=== PATIENT | male | born 1965 | race Caucasian/White ===

== ENCOUNTER 2022-07-15 01:00 | Day surgery (SDC) | payer BC, SELFPAY ==
[2022-05-28 08:55] VITALS: BMI 27.6
--- NOTE | 2022-06-14 14:44 | PC.NURSE ---
verified new date and time of procedure with pt and Janiya. Pt denied any changes in medications or medical hx. pt denies questions.
[2022-07-15] MEDS: LACTATED RINGERS 1,000 ML 150 ML IV CONT (08:09)
[2022-07-15 08:14] LABS: Glucose Point of Care 141 mg/dl (65-105)
[2022-07-15 08:17] VITALS: BP 138/99; PULSE 101; RESP 18; TEMP 35.9; O2SAT 97
--- NOTE | 2022-07-15 08:25 | P.PNAN_ITS ---
Anes - Initial Pre Proc Eval Procedure: Operation Date: 07/15/22 09:00 Proposed Procedures p Screening Colonoscopy - Hayden Puentes MD Date/Time: 07/15/22 08:25 Surgeon: Hayden Puentes MD Pre Op Diagnosis: family hx of colon ca Patient Data Age: 57 Gender: M Height: 1.8 m Weight: 108.8 kg Last Vital Signs Temp 96.6 F L 07/15/22 08:17 Pulse 101 H 07/15/22 08:17 Resp 18 07/15/22 08:17 BP 138/99 H 07/15/22 08:17 Pulse Ox 97 07/15/22 08:17 O2 Del Method Room Air 07/15/22 08:17 Allergies Allergy/AdvReac Type Severity Reaction Status Date / Time Cephalosporins Allergy Severe Anaphylactic Verified 07/15/22 08:03 Shock ceftriaxone Allergy Unknown Anaphylactic Verified 07/15/22 08:03 Shock Home Medications Medication Instructions Recorded Confirmed Type alprazolam 1 mg tablet 1 mg PO TID PRN Anxiety 09/12/19 07/15/22 History lamotrigine 200 mg tablet 200 mg PO BID 09/12/19 07/15/22 History metformin 500 mg tablet See Rx Instructions PO BID #360 09/19/19 07/15/22 Rx tabs rizatriptan 10 mg tablet See Rx Instructions PO .COMPLEX 09/19/19 07/15/22 Rx #30 tabs testosterone cypionate 200 mg/mL 200 mg IM .Q2W #10 mL 12/20/19 07/15/22 Rx intramuscular oil ergocalciferol (vitamin D2) 1,250 See Rx Instructions .Route 10/07/20 07/15/22 Rx mcg (50,000 unit) capsule .COMPLEX #12 caps hydrocodone 10 mg-acetaminophen 1 tablet PO Q6H PRN Pain 07/15/22 07/15/22 History 325 mg tablet Laboratory Tests 07/15/22 08:11 POC Capillary Glucose 141 mg/dl H mg/dl (65-105) Patient hx anesthesia problems: none Family hx anesthesia problems: none Results Review: All pre-operative results and documents have been reviewed as part of the pre- operative evaluation. [facility] Past Medical History Medical History (Updated 01/17/20 @ 14:01 by Jhon Delgadillo MD) Ataxia Migraine without aura Mixed hyperlipidemia Obstructive sleep apnea on CPAP Family History Family History (Updated 03/21/19 @ 15:17 by DOCTOR UNKNOWN) Mother Patient's mother is , Onset Age: 80 Father Carcinoma of colon Social History Social History Smoking status: Former smoker Smokeless tobacco user: chewing tobacco Alcohol intake: never Substance use type: does not use Living arrangements: with family Anes - [place] Final PreProcedure Day of Procedure 07/15/22 08:25 Patient weight: obese Heart: regular rate and rhythm Lungs: clear to auscultation Airway: Mallampati scale class II Neurological: alert and oriented Last oral intake: >/= 8 hours ASA classification: II Emergent: no Anesthetic plan: proceed Anesthesia type and monitoring: general GIVS and standard monitoring Results Review: All pre-operative results and documents have been reviewed as part of the pre- operative evaluation. Informed Consent: The patient's anesthetic plan and its attendant risks and benefits were discussed with the patient/family/POA. Questions were solicited and answers provided to the satisfaction of the patient/family/POA.
--- NOTE | 2022-07-15 08:27 | PM.IMHP ---
H&P: HPI History of Present Illness Date/Time: 07/15/22 08:27 Chief Complaint: Family history of colon cancer. Narrative: This is a 57-year-old white male patient who presents for screening colonoscopy. Patient's current weight appetite and bowel movements are normal. He denies abdominal pain. Patient has had no bleeding. Family history is significant his father had colon cancer while still in his 40s. Patient's last colonoscopy was unremarkable. Patient presents today for neoplasia screening. Review of Systems Review of Systems: Review of systems noncontributory. [facility] Past Medical History Medical History (Updated 07/15/22 @ 08:28 by Hayden Puentes MD) Ataxia Migraine without aura Mixed hyperlipidemia Obstructive sleep apnea on CPAP Family History Family History (Updated 03/21/19 @ 15:17 by DOCTOR UNKNOWN) Mother Patient's mother is , Onset Age: 80 Father Carcinoma of colon Social History Social History Smoking status: Former smoker Smokeless tobacco user: chewing tobacco Alcohol intake: never Substance use type: does not use Living arrangements: with family Meds Home Medications and Allergies Home Medications Medication Instructions Recorded Confirmed Type alprazolam 1 mg tablet 1 mg PO TID PRN Anxiety 09/12/19 07/15/22 History lamotrigine 200 mg tablet 200 mg PO BID 09/12/19 07/15/22 History metformin 500 mg tablet See Rx Instructions PO BID #360 09/19/19 07/15/22 Rx tabs rizatriptan 10 mg tablet See Rx Instructions PO .COMPLEX 09/19/19 07/15/22 Rx #30 tabs testosterone cypionate 200 mg/mL 200 mg IM .Q2W #10 mL 12/20/19 07/15/22 Rx intramuscular oil ergocalciferol (vitamin D2) 1,250 See Rx Instructions .Route 10/07/20 07/15/22 Rx mcg (50,000 unit) capsule .COMPLEX #12 caps hydrocodone 10 mg-acetaminophen 1 tablet PO Q6H PRN Pain 07/15/22 07/15/22 History 325 mg tablet Allergies Allergy/AdvReac Type Severity Reaction Status Date / Time Cephalosporins Allergy Severe Anaphylactic Verified 07/15/22 08:03 Shock ceftriaxone Allergy Unknown Anaphylactic Verified 07/15/22 08:03 Shock Vital Signs Vital Signs - 24 hr 07/15/22 08:17 Temperature 96.6 F L Pulse Rate 101 H Respiratory Rate 18 Blood Pressure 138/99 H Pulse Oximetry 97 Oxygen Delivery Room Air Exam Narrative: Physical exam reveals patient to be alert. Vital signs stable. HEENT exam is unremarkable. Patient is anicteric. Lungs are clear to auscultation and percussion. Heart is without murmur or extra sounds. Abdomen bowel sounds are present soft nontender with no organomegaly. Digital external rectal exam is normal. Assessment and Plan Assessment and plan (1) Family history of colon cancer in father: Code(s): Z80.0 - Family history of malignant neoplasm of digestive organs Status: Acute Assessment and Plan: Patient's father had colon cancer while in his 40s. Plan is for surveillance colonoscopy now and consider this at 5 year intervals in the future.
[2022-07-15 08:51] VITALS: BP 123/81; PULSE 95; RESP 15; O2SAT 97
[2022-07-15 09:01] VITALS: BP 141/80; PULSE 83; RESP 23; O2SAT 97
[2022-07-15 09:11] VITALS: BP 117/88; PULSE 78; RESP 19; O2SAT 97
== END 2022-07-15 09:18 | disposition home or self-care (01) ==
PROVIDERS: PCP Nurse Practitioner; Visit Provider Internal Medicine Gastroenterology
PROC: 0DJD8ZZ Inspection of Lower Intestinal Tract, Via Natural or Artificial Opening Endoscopic (ICD-10-PCS; CPT 45378; principal; 2022-07-15 09:00)
DX: Z12.11 Encounter for screening for malignant neoplasm of colon (principal); K64.8 Other hemorrhoids; Z80.0 Family history of malignant neoplasm of digestive organs; E78.2 Mixed hyperlipidemia; G47.33 Obstructive sleep apnea (adult) (pediatric); Z79.84 Long term (current) use of oral hypoglycemic drugs; Z87.891 Personal history of nicotine dependence; E66.9 Obesity, unspecified; Z68.33 Body mass index [BMI] 33.0-33.9, adult
CPT/HCPCS: 45378; 82948; J2704; J7120

== ENCOUNTER 2023-10-24 15:58 | Observation (INO) | payer BC, SELFPAY ==
[2023-10-24] VITALS (46 sets, daily range): BP systolic 105–145; BP diastolic 71–88; PULSE 104–150; RESP 12–25; TEMP 36.6–38.7; O2SAT 83–98
--- NOTE | ~2023-10-24 | XR_ITS ---
EXAMINATION: XR chest 1V portable 10/24/2023 17:09 INDICATION: Shortness of breath and cough PROCEDURE: AP portable chest COMPARISON: Comparison to multiple prior studies sequentially, with oldest reviewed study dated 11/2006. FINDINGS: The lungs are clear. The cardiomediastinal silhouette is within normal limits. There are no pleural effusions. There is no pneumothorax suspected. IMPRESSION: 1: NO ACUTE CARDIOPULMONARY DISEASE. Reviewed, dictated and finalized at location A. [employer]
--- NOTE | ~2023-10-24 | CT_ITS ---
EXAMINATION: CTA chest PE protocol DATE: 10/24/2023 18:08 [employer]CUE INDICATION: Shortness of breath. TECHNIQUE: Computed tomographic angiography (CTA) of the chest was performed with 100 mL Omnipaque-35 0 intravenous contrast. The dose-length product was 1993.30 mGy-cm. Maximum intensity projection 3D-r econstructions of the aorta and other arteries were constructed by the technologist on a separate wor kstation. Automated exposure control and iterative reconstruction technique were employed. COMPARISON: Chest x-ray dated 10/24/2023. FINDINGS: Study is suboptimal. No large central pulmonary embolism. Cannot exclude lower lobe pulmona ry embolism. Cardiomegaly. Bilateral lower lobe airspace disease which may represent atelectasis or p neumonia. No pneumothorax. No endobronchial lesions. No thoracic lymphadenopathy. IMPRESSION: 1. No large central pulmonary embolism. Limited study. 2: Bilateral lower lobe airspace consolidation which may represent atelectasis or pneumonia. Reviewed, dictated and finalized at location A. [facility] [employer] [facility]
--- NOTE | 2023-10-24 16:09 | ECG_ITS ---
Measurements Intervals Bee Rate: 145 P: 49 IA: 147 QRS: -43 QRSD: 93 T: 54 QT: 285 QTc: 444 Interpretive Statements SINUS TACHYCARDIA, POSSIBLE ATRIAL FLUTTER MARKED LEFT AXIS DEVIATION [QRS AXIS < -30] LOW QRS VOLTAGE IN PRECORDIAL LEADS [QRS DEFLECTION < 1.0 mV IN CHEST LEADS] S1-S2-S3 PATTERN, CONSISTENT WITH PULMONARY DISEASE, RVH, OR NORMAL VARIANT INCOMPLETE RIGHT BUNDLE BRANCH BLOCK [90+ ms QRS DURATION, TERMINAL R IN V1/V2, 40+ ms S IN I/aVL/V4/V5/V6] POSSIBLE ANTERIOR MYOCARDIAL INFARCTION , PROBABLY OLD [30 ms Q WAVE IN V3/V4, OR R < 0.2 mV IN V4] ABNORMAL ECG NO PREVIOUS ECG AVAILABLE FOR COMPARISON Electronically Signed On 10-24-2023 17:29:48 FREELANCE DIRECTOR by Ronald Gonzalez M.D.
[2023-10-24] MEDS: SODIUM CHLORIDE 0.9% IV 2,000 ML 999 ML (16:23)
[2023-10-24] MEDS: ALBUTEROL SULFATE NEB 2.5 MG/3 ML INH 15 MG INHALATION (16:26)
[2023-10-24] MEDS: IPRATROPIUM BR 0.02% INH SOLN 0.5 MG/2.5 ML VIAL 1.5 MG INHALATION (16:26)
[2023-10-24 16:44] LABS: Basophils Percent Auto 0.2 % (0.2-1.2); Eosinophils Percent Auto 0.1 % (0-4.4); Hematocrit 46.2 % (42.0-52.0); Hemoglobin 14.6 g/dL (14.0-18.0); Immature Granulocyte Absolute 0.03 K/mm3 (0.00-0.031); Immature Granulocyte Percent A 0.4 % (0-0.5); Lymphocytes Absolute Auto 1.02 K/mm3 (0.9-3.2); Lymphocytes Percent Auto 12.7 % (18.3-44.2); Mean Corpuscular HGB Conc 31.6 g/dl (32-36); Mean Corpuscular Hemoglobin 30.1 pg (26-34); Mean Corpuscular Volume 95.3 fl (80-100); Mean Platelet Volume 11.2 fl (7.4-10.4); Monocytes Absolute Auto 0.4 K/mm3 (0.1-0.6); Monocytes Percent Auto 4.4 % (2.6-8.5); Neutrophils Absolute Auto 6.6 K/mm3 (1.3-6.7); Neutrophils Percent Auto 82.2 % (45.5-73.1); Platelet Count Result 192 k/mm3 (150-375); Red Blood Count 4.85 M/mm3 (4.6-6.20); Red Cell Distribution Width 14.8 % (11.5-14.5)
--- NOTE | 2023-10-24 16:54 | PC.NURSE ---
Pt tolerating hour long resp treatment. Encourage to slow deep breaths
[2023-10-24 16:55] LABS: Lactic Acid Reflex 1.8 mmol/L (0.7-2.0)
[2023-10-24 16:56] LABS: Alanine Aminotransferase 32 U/L (6-50); Albumin Level 4.5 g/dL (3.5-5.1); Alkaline Phosphatase 73 U/L (38-126); Anion Gap 11 mmol/L (8-16); Aspartate Amino Transferase 26 U/L (17-59); Bilirubin,Total 0.5 mg/dL (0.2-1.3); Blood Urea Nitrogen 15 mg/dL (9-20); CRP 2.8 mg/dL (<1.0); Carbon Dioxide 26 mmol/L (22-30); Chloride 99 mmol/L (98-107); Estimated CRCL calculation 98 ml/min; Estimated Glomerular Filt Rate > 60; Glucose 184 mg/dL (65-110); INR 0.9; Potassium 4.5 mmol/L (3.4-5.0); Prothrombin Time 12.7 Seconds (11.1-14.7); Sodium 136 mmol/L (137-145)
[2023-10-24 16:57] LABS: Partial Thromboplastin Time 29.1 SECONDS (22.3-36.8)
[2023-10-24 17:05] LABS: Troponin I < 0.012 ng/mL (0.000-0.034)
[2023-10-24] MEDS: ACETAMINOPHEN 500 MG TABLET 1000 MG PO (18:07)
[2023-10-24 18:08] LABS: Influenza A QL RT-PCR Negative (Negative); Influenza B QL RT-PCR Negative (Negative); SARS-CoV-2 RNA PCR Negative (Negative)
--- NOTE | 2023-10-24 18:40 | ED.GENADULT ---
HPI - General Adult General Chief complaint: Upper Respiratory Infection Stated complaint: low O2 sat Time Seen by Provider: 10/24/23 16:09 History of Present Illness HPI narrative: patient is a 58-year-old male who presents ER for [place] with low oxygen saturation elevated heart rate. Patient reports feeling bad for over week but reports over last 3 days he significantly declined. He has been coughing and has been dyspneic. No known sick contacts. No chest pain or chest pressure. No alleviating factors. Related Data Home Medications Medication Instructions Recorded Confirmed alprazolam 1 mg tablet 1 mg PO TID PRN Anxiety 09/12/19 07/15/22 lamotrigine 200 mg tablet 200 mg PO BID 09/12/19 07/15/22 hydrocodone 10 mg-acetaminophen 1 tablet PO Q6H PRN Pain 07/15/22 07/15/22 325 mg tablet Allergies Allergy/AdvReac Type Severity Reaction Status Date / Time Cephalosporins Allergy Severe Anaphylactic Verified 07/15/22 08:03 Shock ceftriaxone Allergy Unknown Anaphylactic Verified 07/15/22 08:03 Shock Review of Systems Review of Systems: All systems reviewed & are unremarkable except as noted in HPI and below Constitutional: Constitutional: Reports chills, Reports fatigue and Reports fever(s) ENT: Reports system reviewed and no additional complaints, except as documented Cardiovascular: Cardiovascular: Denies chest pain, Reports rapid heart rate and Denies radiating jaw, neck or arm pain Respiratory: Respiratory: Reports chest congestion, Reports cough, Reports dyspnea and Reports wheezing Gastrointestinal: Gastrointestinal: Reports no additional gastrointestinal complaints Genitourinary: Genitourinary: Reports no additional male genitourinary complaints [facility] Past Medical History Medical History (Updated 10/24/23 @ 18:43 by Luis Alfredo Bryant MD) Ataxia Migraine without aura Mixed hyperlipidemia Obstructive sleep apnea on CPAP Family History Family History (Updated 03/21/19 @ 15:17 by DOCTOR UNKNOWN) Mother Patient's mother is , Onset Age: 80 Father Carcinoma of colon Social History Social History Smoking status: Former smoker Smokeless tobacco user: chewing tobacco Alcohol intake: never Substance use type: does not use Living arrangements: with family Exam Narrative: GENERAL: Well-appearing, obese, and in no acute distress. HEAD: Normocephalic, atraumatic. ENT: Mucous membranes moist. NECK: Supple. CHEST: Coarse rales bilaterally with increased respiratory rate. HEART: Tachycardic and regular. Normal peripheral pulses. ABDOMEN: Soft, nontender, nondistended. EXTREMITIES: Normal range of motion. No edema. SKIN: Warm, dry, no rash. NEURO: Alert and oriented x3. PSYCH: Normal mood and affect. Course Course Emergency Course: patient informed of results. He has been given an hour long nebulizer treatment but is still quite tachycardic. He has spiked a temperature received Tylenol. CT without large central PE. Symptoms felt to be related to pneumonia. Patient was some ice for allergy in the causes anaphylaxis so he was started on Levaquin. Admit to the hospitalist service. Will place in IMU. Vital Signs Vital signs: Vital Signs Temperature 99.4 F 10/24/23 16:00 Pulse Rate 150 H 10/24/23 16:00 Respiratory Rate 20 10/24/23 16:00 Blood Pressure 138/85 10/24/23 16:00 Pulse Oximetry 83 L 10/24/23 16:00 Oxygen Delivery Room Air 10/24/23 16:00 Temperature 99.0 F 10/24/23 18:52 Pulse Rate 134 H 10/24/23 18:52 Respiratory Rate 20 10/24/23 18:52 Blood Pressure 139/79 10/24/23 18:52 Pulse Oximetry 91 10/24/23 18:52 Oxygen Delivery Nasal Cannula 10/24/23 16:43 Oxygen Flow Rate 2 10/24/23 16:43 Medical Decision Making Vital Signs Vital Signs: Vital Signs Temperature 99.4 F 10/24/23 16:00 Pulse Rate 150 H 10/24/23 16:00 Respiratory Rate 20 10/24/23 16:00 Blood Pr
[2023-10-24 18:48] LABS: Appearance Urine Clear (Clear); Bacteria Urine None Seen /hpf; Bilirubin Urine Negative (Negative); Blood Urine Negative (Negative); Color Urine Yellow (Yellow); Glucose Urine UA Negative (Negative); Ketones Urine Negative (Negative); Leukocyte Esterase Ur Negative LEU/UL (Negative); Nitrate Urine Negative (Negative); Non Pathogenic Casts 0-2; Protein Urine Trace mg/dL (Negative); RBC Urine 0-2 /hpf (0-2); Specific Grav Ur 1.029 (1.001-1.035); Squamous Epithelial Cell Urine None seen /hpf (Few); Urobilinogen Urine 0.2 mg/dL (<2.0); WBC Urine 0-5 /hpf; pH Urine 5.5 (5.0-9.0)
[2023-10-24] MEDS: levoFLOXacin 750 MG/D5W 150 ML 750 MG/150 ML BAG 100 MG IVPB (18:54)
[2023-10-24 18:55] LABS: Add Urine Microscopic? YES
--- NOTE | 2023-10-24 19:27 | PM.IMHP ---
H&P: HPI History of Present Illness Date/Time: 10/24/23 19:27 Chief Complaint: sob Narrative: This is a 58-year-old male with past medical history significant for type 2 diabetes mellitus, migraine, mixed hyperlipidemia, obstructive sleep apnea on CPAP. Patient presents to the emergency room due to having a week or so of night sweats, shortness of breath, cough productive of sputum, poor appetite, poor per orally intake, in emergency room patient was found to be hypoxic requiring supplemental oxygen by nasal cannula. Preliminary workup in emergency room was significant for CT of the chest ruled out acute pulmonary embolism patient was found to have bilateral lower lobe pneumonia. EXAMINATION: XR chest 1V portable 10/24/2023 17:09 INDICATION: Shortness of breath and cough PROCEDURE:? AP portable chest COMPARISON: Comparison to multiple prior studies sequentially, with oldest reviewed study dated? 01/05/2007. FINDINGS: The lungs are clear.? The cardiomediastinal silhouette is within normal limits.? There are no pleural effusions.? There is no pneumothorax suspected.? IMPRESSION: 1:? NO ACUTE CARDIOPULMONARY DISEASE. EXAMINATION: CTA chest PE protocol DATE: 10/24/2023 18:08 [employer]GS[employer] LINER INDICATION: Shortness of breath. TECHNIQUE: Computed tomographic angiography (CTA) of the chest was performed with 100 mL Omnipaque-350 intravenous contrast. The dose-length product was 1993.30 mGy-cm. Maximum intensity projection 3D-reconstructions of the aorta and other arteries were constructed by the technologist on a separate workstation. Automated exposure control and iterative reconstruction technique were employed. COMPARISON: Chest x-ray dated 10/24/2023. FINDINGS: Study is suboptimal. No large central pulmonary embolism. Cannot exclude lower lobe pulmonary embolism. Cardiomegaly. Bilateral lower lobe airspace disease which may represent atelectasis or pneumonia. No pneumothorax. No endobronchial lesions. No thoracic lymphadenopathy. IMPRESSION: 1. No large central pulmonary embolism. Limited study. 2: Bilateral lower lobe airspace consolidation which may represent atelectasis or pneumonia. Review of Systems Review of Systems: Shortness of breath, cough, sputum production, generalized malaise, back pain, body aches and pains, night sweats Constitutional: Constitutional: Reports chills, Reports fatigue, Reports fever(s), Reports malaise, Reports night sweats, Reports poor appetite and Reports weakness Eyes: Eyes: Denies change in vision ENT: Denies dysphagia and Denies odynophagia Cardiovascular: Cardiovascular: Denies chest pain, Denies radiating jaw, neck or arm pain and Denies palpitations Respiratory: Respiratory: Reports change in phlegm color, Reports chest congestion, Reports cough, Reports excessive phlegm production, Reports dyspnea and Reports wheezing Gastrointestinal: Gastrointestinal: Denies abdominal pain, Denies dyspepsia, Denies heartburn, Denies nausea and Denies vomiting Genitourinary: Genitourinary: Reports no additional male genitourinary complaints and Reports as per HPI Musculoskeletal: Musculoskeletal: Reports back pain and Reports myalgias Integumentary/Breasts: Skin/Breast: Denies rash Neurologic: Denies focal weakness and Denies Sensory deficit (Neuro) Psychiatric: Psychiatric: Reports no additional psychiatric complaints and Reports as per HPI Endocrine: Endocrine: Denies cold intolerance, Denies fatigue, Denies flushing, Denies heat intolerance, Denies polyphagia, Denies polydipsia and Denies palpitations Hematologic/Lymphatic: Hematologic/Lymphatic: Reports no additional hematologic/lymphatic complaints and Reports as per HPI Allergic/Immunologic: Allergic/Immunologic: Reports no additional allergic/immunologic complaints and Reports as per HPI PMFSH Past Medical History Medical History (Updated 10/24/23 @ 18:43 by Luis Alfredo Bryant MD) Ataxia Migraine without aura Mixed hyperlip
--- NOTE | 2023-10-24 19:32 | PC.NURSE ---
Assumed care of pt. Report from SHY Wasserman. Pt attempting to sleep on right side. Reconnected to monitors. O2 @ 3.5 liters and sats 92% at this time. Requesting medication for headache. Will request from ERP.
--- NOTE | 2023-10-24 20:39 | PC.NURSE ---
Medications marked as not given in MAR at 2037 were told to this RN by Lisy that they were not administered due to duplicate dosing and change in order. MAR cleanup.
[2023-10-24] MEDS: SODIUM CHLORIDE 0.9% IV 1,000 ML 125 ML IV CONT (21:34)
[2023-10-24] MEDS: SUMAtriptan SUCCINATE 25 MG TABLET 50 MG PO (21:37)
--- NOTE | 2023-10-24 22:01 | PC.NURSE ---
Hospital bed obtained for pt for comfort.
[2023-10-25] VITALS (35 sets, daily range): BP systolic 129–166; BP diastolic 71–94; PULSE 88–118; RESP 14–22; TEMP 36.4–37; O2SAT 93–99
--- NOTE | 2023-10-25 00:09 | PC.NURSE ---
Reports weaver remains 05/16. Will give additional medications per MAR.
[2023-10-25] MEDS: MORPHINE SULFATE (*CRX) 2 MG/ML INJ IV PUSH ×4 (00:27→21:05)
[2023-10-25] MEDS: HYDROcodone/acetaminophen (*CRX) 5-325 MG TABLET 1 TAB PO ×2 (02:58→09:20)
[2023-10-25] MEDS: SODIUM CHLORIDE 0.9% IV 1,000 ML 125 ML IV CONT (03:04)
--- NOTE | 2023-10-25 03:26 | ADMGEN ---
This patient, Toney Lomeli, was admitted to IMU Room 212-01. @ 0241 Patient/family oriented to hospital policies and general routines including ID bracelet, bed and alarms, visiting hours, pain management, procedures, bathroom and other care routines, personal items, smoking policy, room service/diet, and visiting hours. Information on how to activate the Rapid Response Team has been discussed. Patient/Family are encouraged to report perceived risks to care and to ask questions if they do not understand what they are told or what they should do.
[2023-10-25] MEDS: ALBUTEROL SULFATE NEB 2.5 MG/3 ML INH INHALATION ×5 (04:19→20:50)
[2023-10-25] MEDS: IPRATROPIUM BR 0.02% INH SOLN 0.5 MG/2.5 ML VIAL INHALATION ×5 (04:20→20:50)
[2023-10-25] MEDS: ENOXAPARIN 40 MG/0.4 ML SYRINGE SUB-Q (09:22)
--- NOTE | 2023-10-25 10:52 | PM.IMPN ---
Progress Note: A&P Assessment and Plan (1) Pneumonia: Code(s): J18.9 - Pneumonia, unspecified organism Status: Acute Assessment and Plan: Patient started on Decadron x 1 dose, as well as Levaquin 750 mg qd 10/24 Blood and sputum culture sent and pending CRP elevated, lactate within normal limits, procalcitonin pending Flu/RSV/COVID all negative Chest CTA negative for PE, concerning for mild bilateral lower lobe airspace consolidation concerning for atelectasis versus pneumonia Incentive spirometer to bedside (2) Hypoxia: Code(s): R09.02 - Hypoxemia Status: Acute Assessment and Plan: Wean as able (3) Obstructive sleep apnea on CPAP: Code(s): G47.33 - Obstructive sleep apnea (adult) (pediatric); Z99.89 - Dependence on other enabling machines and devices Status: Acute Assessment and Plan: CPAP while sleeping (4) Type 2 diabetes mellitus without complication, without long-term current use of insulin: Code(s): E11.9 - Type 2 diabetes mellitus without complications Status: Acute Assessment and Plan: Accu-Cheks, sliding scale insulin, check A1c, hold metformin Blood glucose reviewed 10/25 Plan DVT prophylaxis with Lovenox GI prophylaxis not indicated Code status full code Subjective Date/time seen: 10/25/23 10:52 Interval history: 58-year-old male with history of diabetes, obstructive sleep apnea, hyperlipidemia and migraines is presenting with shortness of breath and being treated for pneumonia. No overnight events noted. No chest pain. No nausea, vomiting or diarrhea. No fevers or chills. C/o SOB, improved. BLANKENSHIP, improving as well. Review of Systems Review of Systems: 12 point review of systems was assessed and was negative except as noted in the HPI Exam Narrative: General: No acute distress, alert and oriented per baseline HEENT: Atraumatic, normocephalic, mucous membranes moist CV: Regular rate and rhythm, S1, S2 Lungs: Scattered rhonchi throughout, diminished at bases Abdomen: Soft, nontender, nondistended Extremities: Normal to inspection Skin: No rashes noted, no lesions or wounds seen Psych: Euthymic, normal affect Objective Data Vital Signs Vital Signs: Vital Signs - 24 hr 10/24/23 16:00 10/24/23 16:30 10/24/23 17:30 Temperature 99.4 F Pulse Rate 150 H 137 H 142 H Respiratory Rate 20 19 22 H Blood Pressure 138/85 Pulse Oximetry 83 L Oxygen Delivery Room Air Oxygen Flow Rate 10/24/23 16:43 10/24/23 16:54 10/24/23 17:43 Temperature 99.5 F 101.7 F H Pulse Rate 140 H 135 H Respiratory Rate 20 24 H Blood Pressure 144/85 H 145/84 H Pulse Oximetry 95 98 98 Oxygen Delivery Nasal Cannula Oxygen Flow Rate 2 10/24/23 18:52 10/24/23 19:31 10/24/23 16:14 Temperature 99.0 F Pulse Rate 134 H 145 H Respiratory Rate 20 Blood Pressure 139/79 Pulse Oximetry 91 92 93 Oxygen Delivery Nasal Cannula Oxygen Flow Rate 3.5 10/24/23 16:15 10/24/23 16:16 10/24/23 16:30 Temperature Pulse Rate 143 H 146 H 141 H Respiratory Rate 14 15 19 Blood Pressure 142/83 H Pulse Oximetry 92 92 97 Oxygen Delivery Oxygen Flow Rate 10/24/23 16:45 10/24/23 17:08 10/24/23 17:20 Temperature Pulse Rate 142 H Respiratory Rate 17 Blood Pressure Pulse Oximetry 98 95 Oxygen Delivery Oxygen Flow Rate 10/24/23 17:39 10/24/23 18:12 10/24/23 18:17 Temperature Pulse Rate 143 H 140 H Respiratory Rate 21 H 17 Blood Pressure Pulse Oximetry 90 94 94 Oxygen Delivery Oxygen Flow Rate 10/24/23 18:30 10/24/23 18:45 10/24/23 18:54 Temperature Pulse Rate 137 H Respiratory Rate 14 Blood Pressure 137/79 Pulse Oximetry 90 87 L 90 Oxygen Delivery Oxygen Flow Rate 10/24/23 19:00 10/24/23 19:01 10/24/23 19:22 Temperature Pulse Rate 124 H Respiratory Rate 16 Blood Pressure 126/78 Pulse Oximetry
[2023-10-25 11:31] LABS: Hemoglobin A1C 5.9 % (<5.7)
[2023-10-25 12:24] LABS: Procalcitonin 4.5 ng/mL
[2023-10-25] MEDS: levoFLOXacin 750 MG/D5W 150 ML 750 MG/150 ML BAG 100 MG IVPB (21:05)
--- NOTE | 2023-10-26 00:50 | PC.NURSE ---
Transfer patient received from IMU room 212; Report received from SHY Matias.
[2023-10-26] MEDS: MORPHINE SULFATE (*CRX) 2 MG/ML INJ IV PUSH (03:14)
[2023-10-26 03:20] VITALS: PULSE 89; RESP 18
[2023-10-26] MEDS: ALBUTEROL SULFATE NEB 2.5 MG/3 ML INH INHALATION ×2 (03:20→11:56)
[2023-10-26] MEDS: IPRATROPIUM BR 0.02% INH SOLN 0.5 MG/2.5 ML VIAL INHALATION ×2 (03:20→11:56)
[2023-10-26 03:26] VITALS: PULSE 93; RESP 18
[2023-10-26 04:43] VITALS: BP 138/86; PULSE 115; RESP 16; TEMP 37; O2SAT 93
[2023-10-26 06:17] LABS: Basophils Percent Auto 0.2 % (0.2-1.2); Eosinophils Percent Auto 0.3 % (0-4.4); Hematocrit 39.7 % (42.0-52.0); Hemoglobin 12.7 g/dL (14.0-18.0); Immature Granulocyte Absolute 0.04 K/mm3 (0.00-0.031); Immature Granulocyte Percent A 0.4 % (0-0.5); Lymphocytes Absolute Auto 1.45 K/mm3 (0.9-3.2); Lymphocytes Percent Auto 13.5 % (18.3-44.2); Mean Corpuscular Hemoglobin 30.2 pg (26-34); Mean Corpuscular Volume 94.3 fl (80-100); Mean Platelet Volume 11.2 fl (7.4-10.4); Monocytes Absolute Auto 0.5 K/mm3 (0.1-0.6); Monocytes Percent Auto 4.5 % (2.6-8.5); Neutrophils Absolute Auto 8.8 K/mm3 (1.3-6.7); Neutrophils Percent Auto 81.1 % (45.5-73.1); Platelet Count Result 181 k/mm3 (150-375); Red Blood Count 4.21 M/mm3 (4.6-6.20); Red Cell Distribution Width 14.8 % (11.5-14.5); White Blood Count 10.8 K/mm3 (4.5-10.0)
[2023-10-26 06:38] LABS: Alanine Aminotransferase 23 U/L (6-50); Albumin Level 4.1 g/dL (3.5-5.1); Alkaline Phosphatase 62 U/L (38-126); Anion Gap 12 mmol/L (8-16); Aspartate Amino Transferase 20 U/L (17-59); Bilirubin,Total 0.4 mg/dL (0.2-1.3); Blood Urea Nitrogen 12 mg/dL (9-20); Carbon Dioxide 24 mmol/L (22-30); Chloride 99 mmol/L (98-107); Estimated CRCL calculation 120 ml/min; Estimated Glomerular Filt Rate > 60; Glucose 127 mg/dL (65-110); Potassium 3.9 mmol/L (3.4-5.0); Sodium 135 mmol/L (137-145)
[2023-10-26] MEDS: ENOXAPARIN 40 MG/0.4 ML SYRINGE SUB-Q (07:14)
[2023-10-26] MEDS: SUMAtriptan SUCCINATE 25 MG TABLET 50 MG PO (07:14)
[2023-10-26] MEDS: oxyCODONE/ACETAMINOPHEN (*CRX) 5-325 MG TABLET 1 TABLET PO ×2 (08:28→12:32)
--- NOTE | 2023-10-26 10:52 | PCRCNOTE ---
Window of time for administration has passed. See next scheduled administration.
--- NOTE | 2023-10-26 11:28 | PM.DS ---
DS: Admitting Diagnosis Discharge Date 10/26/23 Admitting Diagnosis SOB, cough DS: Discharge Diagnosis Discharge Diagnosis (1) Sepsis: Code(s): A41.9 - Sepsis, unspecified organism Status: Acute (2) Pneumonia: Code(s): J18.9 - Pneumonia, unspecified organism Status: Acute (3) Hypoxia: Code(s): R09.02 - Hypoxemia Status: Acute (4) Obstructive sleep apnea on CPAP: Code(s): G47.33 - Obstructive sleep apnea (adult) (pediatric); Z99.89 - Dependence on other enabling machines and devices Status: Acute (5) Type 2 diabetes mellitus without complication, without long-term current use of insulin: Code(s): E11.9 - Type 2 diabetes mellitus without complications Status: Acute DS: Summary Hospital Course Reason for hospitalization: 58yo male with history of DM, SHAKIR, hyperlipidemia and migraines presents with shortness of breath and cough. Please see H&P for details. Hospital Course: Patient had fever to 101.7 and was tachycardic consistent with sepsis that was present on admission. EKG showed sinus tachycardia possibly atrial flutter, incomplete right bundle-branch block, possible RVH, possible anterior FL probably old. Blood cultures collected and are no growth to date. He was started on antibiotics. Chest x-ray was clear which prompted a CT of the chest. CTA showed no large central pulmonary emboli but did show bilateral lower lobe airspace consolidation atelectasis or pneumonia. White count was normal and the remainder of the CBC was unremarkable. Comprehensive metabolic panel was normal except for sodium 136, glucose 184. Troponins negative. CRP was 2.8. Procalcitonin was 4.5. Urinalysis was clear. Influenza and COVID PCR swab was negative. He had oxygen requirement up to 3.5 L. was treated with nebulizer treatments and IV antibiotics for PNA. He was weaned to room air. PCT elevated but BCx remain negative. Glucose improved. A1c was 5.9. He was not felt patient had atrial flutter. Patient had clinical improvement. He denies chest pain. His cough is much improved. He does feel achy and is sleeping poorly here. He feels better overall and is requesting discharge. Patient has been weaned to room air. He has been up ambulating in the halls. He overall did well and was able to be discharged on 10/26/2023. Status at Discharge Cognitive/behavioral status at discharge: stable Time Spent with Patient Time attestation: Total time spent providing and/or coordinating discharge services: 35 minutes Time spent: Greater than 30 minutes Exam Narrative: AF 98.6 138/86 115 16 93% ra Gen - NARD lying semi-recumbent in bed Chest - R>L inspiratory crackles, nml RR CV - RRR S1/S2 Abd - Soft, NT/ND, Positive BS Ext - No pedal edema Psych - Nml mood and affect Skin - Warm and dry DS: Data Data Completed and Pending Labs on day of discharge: Labs from last 24 hours 10/26/23 10/25/23 05:03 11:08 WBC 10.8 H RBC 4.21 L Hgb 12.7 L Hct 39.7 L MCV 94.3 MCH 30.2 MCHC 32.0 RDW 14.8 H Plt Count 181 MPV 11.2 H Immature Gran % (Auto) 0.4 Neut % (Auto) 81.1 H Lymph % (Auto) 13.5 L Lamar % (Auto) 4.5 Eos % (Auto) 0.3 Baso % (Auto) 0.2 Lymph # (Auto) 1.45 Lamar # (Auto) 0.5 Eos # (Auto) 0.0 Baso # (Auto) 0.0 Abs Immat Gran (auto) 0.04 H Absolute Neuts (auto) 8.8 H Absolute Nucleated RBC 0.0 Nucleated RBC % 0.0 Sodium 135 L Potassium 3.9 Chloride 99 Carbon Dioxide 24 Anion Gap 12 BUN 12 Creatinine 0.80 Estim Creat Clear Calc 120 Estimated GFR > 60 Glucose 127 H Hemoglobin A1c 5.9 H Calcium 9.0 Total Bilirubin 0.4 AST 20 ALT 23 Alkaline Phosphatase 62 Total Protein 7.0 Albumin 4.1 Procalcitonin 4.5 Preliminary micro results at discharge 10/24/23 16:21 Blood Culture - Preliminary Blood 10/24/23 16:56 Blood Culture - Preliminary B
[2023-10-26 11:57] VITALS: PULSE 96; RESP 16
[2023-10-26 12:16] VITALS: PULSE 106; RESP 16
--- NOTE | 2023-11-02 12:59 | PC.NURSE ---
Blood cultures are negative. Dr. Maryuri finney.
== END 2023-10-26 12:52 | disposition home or self-care (01) ==
LOC: ANHED 18:43 → ANHIMU 10-25 02:23 → ANH3MEDSUR 10-26 11:44 → ANHIMU 10-27 07:48
PROVIDERS: Student in an Organized Health Care Education/Training Program; Admitting Provider Internal Medicine; Emergency Provider Emergency Medicine; PCP Nurse Practitioner; Visit Provider Internal Medicine
DX: F41.9 Anxiety disorder, unspecified (principal); J18.9 Pneumonia, unspecified organism; R09.02 Hypoxemia; E11.9 Type 2 diabetes mellitus without complications; G47.33 Obstructive sleep apnea (adult) (pediatric); R00.0 Tachycardia, unspecified; I45.10 Unspecified right bundle-branch block; Z20.822 Contact with and (suspected) exposure to COVID-19; E78.2 Mixed hyperlipidemia; Z99.89 Dependence on other enabling machines and devices; R94.31 Abnormal electrocardiogram [ECG] [EKG]; Z79.891 Long term (current) use of opiate analgesic; Z87.891 Personal history of nicotine dependence; A41.9 Sepsis, unspecified organism
CPT/HCPCS: 36415; 71045; 71275; 80053; 81001; 83036; 83605; 84145; 84484; 85025; 85610; 85730; 86140; 87040; 87636; 93005; 94640; 96361; 96365; 96372; 96375; 96376; 97161; 97165; 99285; A9270; G0378; J1100; J1650; J1956; J2270; J7030; Q9967

== ENCOUNTER 2025-01-21 14:17 | Outpatient (CLI) | payer BC, SELFPAY ==
--- NOTE | ~2025-01-21 | CT_ITS ---
CLINICAL INDICATION: Disorder of the adrenal gland COMPARISON: None. TECHNIQUE: Multiple contiguous axial images of the abdomen were performed without the administration of intravenous contrast The dose-length product (DLP) was 711.69 mGy-cm. Automated exposure control and iterative reconstruction technique were employed. FINDINGS/OBSERVATIONS: Visualized lower thorax: The bilateral lung bases are clear. The heart is of normal size, without pericardial effusion. Small hiatal hernia is present. Liver: The liver demonstrates homogeneous attenuation and is enlarged measuring 21 cm in longitudinal dimens ion. Gallbladder and biliary system: The gallbladder is only minimally distended, contains multiple stones and is otherwise unremarkable. Pancreas: Fatty atrophy of the pancreas. Further characterization is limited secondary to the lack of intravenous contrast. Spleen: Punctate calcifications identified within the splenic parenchyma, suggesting prior granulomat ous disease. The remainder of the spleen demonstrates otherwise homogeneous attenuation and is borderline enlarged measuring 12 cm in longitudinal dimension. Kidneys: The bilateral kidneys are unremarkable, without hydronephrosis or renal calculi. Adrenal glands: Unremarkable. Gastrointestinal tract: Colonic diverticulosis without surrounding inflammatory change. Vasculature: Unremarkable. Lymph nodes: Limited evaluation without intravenous contrast. Body wall and musculoskeletal: Incompletely visualized fat-containing umbilical hernia. No significant degenerative disease within the lower thoracic or upper lumbar spine. IMPRESSION: Morphologically unremarkable adrenal glands. Hepatomegaly. Borderline splenomegaly. Fat-containing umbilical hernia, incompletely evaluated. Fatty atrophy of the pancreas. Reviewed, dictated and finalized at location A.
== END 2025-01-21 14:18 | disposition home or self-care (01) ==
LOC: MICIMG 14:19
PROVIDERS: PCP Nurse Practitioner; Visit Provider Internal Medicine Endocrinology, Diabetes & Metabolism
DX: E27.9 Disorder of adrenal gland, unspecified (principal); K42.9 Umbilical hernia without obstruction or gangrene
CPT/HCPCS: 74150

== ENCOUNTER 2025-03-06 16:34 | Outpatient (CLI) | payer BC, SELFPAY ==
--- NOTE | ~2025-03-06 | XR_ITS ---
XR abdomen/kub 1V 03/06/2025 16:54 INDICATION: Abdominal pain TECHNIQUE: KUB COMPARISON: None FINDINGS: Bowel gas pattern is normal. There is no evidence of free air, mass, organomegaly, ascites or obstruction. There are calcified granulomas of the spleen. No abnormal calculi are seen. The bon es appear intact. IMPRESSION: 1: No acute abdominal abnormality identified. Reviewed, dictated and finalized at location A.
--- OUTSIDE RECORDS SUMMARY | 2025-03-06 16:43 | XMS_ITS | Clinical Summary ---
Author Organization [facility] Address [address] [place] [address] Care Team Providers Care Fire Chief Deputy Name Role Phone Hope Weiss MD Primary Care Provider [phone] Allergies Active Allergy Reactions Criticality Noted Date Comments Ceftriaxone Swelling Medium 08/01/2018 Medications metFORMIN XR (GLUCOPHAGE XR) 500 mg 24 hr tablet 05/31/2018 Active testosterone cypionate (DEPO-TESTOTERON E) 200 mg/mL injection 5 06/16/2018 Active buPROPion XL (WELLBUTRIN XL) 300 mg 24 hr tablet 06/22/2018 Active OXYCONTIN 40 mg 12 hr abuse-deterrent tablet Take by mouth. 0 05/09/2018 Active ALPRAZolam (XANAX) 1 mg tablet TAKE 1 TABLET UP TO 5 TIMES DAILY (MUST LAST 30 DAYS). 1 07/04/2018 Active SUBOXONE 8-2 mg per film 0 07/29/2018 Active rizatriptan (MAXALT) 10 mg tabletIndication s:Migraine 06/16/2018 Active topiramate (TOPAMAX) 50 mg tabletIndication s:Chronic migraine without aura without status migrainosus, not intractable TAKE 1 TABLET TWICE A DAY 60 tablet 11 05/14/2022 Active Active Problems Problem Noted Date Diagnosed Date Chronic migraine without aur a without status migrainosus, not intractable Numbness and tingling of left hand Medical History Medical History Date Comments Anxiety Arthritis Depression Gout Headache Seizures (HCC) Sleep apnea Headache, tension-type Migraine Family History Medical History Relation Name Comments Cancer Father Arthritis Mother Relation Name Status Comments Father Mother Social History Tobacco Use Types Packs/Day Years Used Date Smoking Tobacco: Never Smokeless Tobacco: Current Personal Safety Answer Date Recorded Getting School Help Needed Not on file 01/20 Sex and Gender Information Value Date Recorded Sex Assigned at Not on file Legal Sex 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 Gender Identity Not on file Sexual Orientation Not on file Obstetrics History Last Filed Vital Signs Vital Sign Reading Time Taken Comments Blood Pressure 155/105 02/04/2022 11:30 AM CDT Pulse 97 02/04/2022 11:30 AM CDT Temperature - - Respiratory Rate - - Oxygen Saturation - - Inhaled Oxygen Concentration - - Weight 118 kg (260 lb 3.2 oz) 02/04/2022 11:30 A M CDT Height 180.3 cm (5' 11 ) 02/04/2022 11:30 AM CDT Body Mass Index 36.29 02/04/2022 11:30 AM CDT Plan of Treatment Health Maintenance Due Date Last Done Comments Colon Cancer Screening-Colonoscopy 1964 Depression Screening 1964 Hepatitis C Screening 1964 Prostate Cancer Screening-PSA 1964 Hepatitis B Screening 1982 Regular Well Visit/Exam 18-64 1982 Influenza Vaccine (Season Ended) 2025 09/15/2022, 11/23/2020, 10/12/2019, Additional history exists DTaP/Tdap/Td Vaccine (2 - Td or Tdap) 07/09/2031 07/09/2021 Pneumococcal vaccine <65 Aged Out 04/16/2022 No longer eligible based on patient's age to complete this topic Zoster Vaccine Completed 09/15/2022, 06/07, 03/30/2017 Insurance [facility] ACCESS CHOICE [facility] Care Teams Fire Chief Deputy Relationship Specialty Start Date End Date Hope Weiss MD PCP - General 02/15/22
--- OUTSIDE RECORDS SUMMARY | 2025-03-06 16:43 | XMS_ITS | Continuity of Care Document ---
Author Organization [facility] Address [address] [place] [address] Phone Care Team Providers Care Tree Deadener Name Role Phone Jordy Powell MD Unavailable Unavailable Allergies, Adverse Reactions, Alerts Substance Reaction Status Criticality ceftriaxone Active No Information CEFTRIAXONE SODIUM Active No Inform ation Medications Medication Instructions Dosage Effective Dates (start - stop) Status Comments gabapentin 300 mg capsule take 1 capsule by oral route 3 times every day 300 MG - Active meloxicam 15 mg tablet take 1 tablet by oral route every day 15 MG - Active Medrol (Donald) 4 mg tablets in a dose pack take by oral route as directed per package instructions 0.00 - Active Vitamin D2 1,250 mcg (50,000 unit) capsule - Active ALPRAZOLAM (unknown strength) take 1 tablet by oral route 3 times every day Not Available - Active TESTOSTERONE (unknown strength) apply by transdermal route every day (1 tube = 50 mg) in the morning to shoulders and/or upper arms divided evenly between areas Not Available - Active Procedures Procedure Date Methylprednisolone 40mg/ml inj OFFICE/OUTPATIENT VISIT EST OFFICE/OUTPATIENT VISIT EST OFFICE/OUTPATIENT VISIT NEW OFFICE/OUTPATIENT VISIT NEW Advance Directives Directive Yes / No Effective Date File Name No Information Encounters Encounter Description Practice Location Reason(s) For Visit Diagnoses Date Provider Providers Copied on Encounter [facility], [address], [place], [address], [place] tel:[phone] [facility] No Information 4 Sherry Spence . [address], [place], [address], [place]. tel: [phone] OFFICE/OUTPA TIENT VISIT EST [facility], [address], [place], [address], [place] tel:[phone] [facility] Other spondylosis with radiculopathy, cervical regionSpinal stenosis, cervical region 4 Sherry Spence . [address], [place], [address], [place]. tel: [phone] Referring Provider: Hope Hobbs, [address] [place], [address] . tel:[phone] [facility], [address], [place], [address], [place] tel:[phone] [facility] Cervical radiculopathy 4 Nasima Paulino. [address], [place], [place], [id number] , [place]. tel: [phone] [facility], [address], [place], [address], [place] tel:[phone] [facility] No Information 4 Vaibhav Hamzah. [address], [place], [place], [id number] , [place]. tel: [phone] OFFICE/OUTPA TIENT VISIT EST [facility], [address], [place], [address], [place] tel:[phone] [facility] Cervical radiculopathy 4 Vaibhav Hamzah. [address], [place], [place], [id number] , [place]. tel:[phone] Referring Provider: Hope Hobbs, [address] [place], [address] . tel:[phone] OFFICE/OUTPA TIENT VISIT NEW [facility], [address], [place], [address], tel:[phone] [facility] Other spondylosis with radiculopathy, cervical regionSpinal stenosis, cervical regionBursitis of left shoulder 4 Sherry Spence . [address], [place], [place], [facility], [place]. tel: [phone] Referring Provider: Hope Hobbs, [address] [place], [address] . tel:[phone] [facility], [address] [facility] [address], [place], [address], [place] tel:[phone] [facility] No Information 4 Vaibhav Goodson. [address], [place], [place], [id number] , [place]. tel: [phone] OFFICE/OUTPA TIENT VISIT NEW [facility], [address] [facility] [address], [place], [place], [facility], tel:[phone] [facility] Traumatic tear of left rotator cuff, unspecified tear extent, initial encounterCervical radiculopathy 4 Elton Holley. [address], [place], [address], [place]. tel: [phone] Family History Family Member Type Diagnosis Age At Onset No Information Payers Payer name Insurance type Covered democrat ID Authorbara verito(s) Blue Access PPO [id number] Social History Type Description Quantity Date Captured Comments Alcohol Use Details Unknown Caffeine Use Details Unknown Tobacco Use Status Smoking Status No Information Sex Male Chief Complaint And Reason For Visit No Information Reason For Referral Reason For Referral No Information Plan Of Treatment Date Type Action Status Goal Tobacco cessation counseling completed Goal Tobacco cessation counseling completed Referral Ordered: NJX INTERLAMINAR CRV/THRC spine, cervical ordered Referral Ordered: MRI Spine w/o Contrast-Cervical spine, cervical Appointment date/timeframe: 03/09/2024 ordered Referral Ordered: MRI JT Upper w/o Contrast LT shoulder Appointment date/timeframe: 03/09/2024 ordered History Of Present Illness Encounter Date Complaint History Of Prese nt Illness No Information Functional Status Date Functional Assessmen t No Information Instructions Date Instruction Additional Infor mation No Information Assessments Type Assessment Date No Information Patient Care Teams Name Effective Dates (start - stop) Status Members No Information
--- OUTSIDE RECORDS SUMMARY | 2025-03-06 16:43 | XMS_ITS | Clinical Summary ---
Author Organization [facility] Address [address] [place] [address] Care Team Providers Care Park Police Name Role Phone Hope Weiss NP Primary Care Provider [phone] Allergies Active Allergy Reactions Criticality Noted Date Comments Ceftriaxone Swelling,Unknown,Anaphylaxis High 2011 Medications ALPRAZolam 1 MG tablet TAKE 1 TABLET BY MOUTH 5 TIMES A DAY NEEDED FOR ANXIETY 12/25/19 21 Active SUBOXONE 8-2 MG FILM 12/26/19 21 Active aspirin EC 81 MG tablet Take 1 tablet (81 mg total) by mouth daily. Active multi vitamin/minerals tablet Take 1 tablet by mouth daily. Active Blood Glucose Monitoring Suppl (ONE TOUCH ULTRA 2) w/Device KitIndications:T ype 2 diabetes mellitus with other specified complication, without long-term current use of insulin ([facility]) Use daily to monitor glucose levels 1 kit 04/16/20 22 Active Lancets (ONETOUCH ULTRASOFT) lancetsIndicatio ns:Type 2 diabetes mellitus with other specified complication, without long-term current use of insulin ([facility] H[facility]/HCC) 1 each by Other route 3 (three) times daily as needed. Use as instructed 300 each 3 09/22/20 22 Active lamoTRIgine (LAMICTAL) 200 MG tablet Take 1 tablet (200 mg total) by mouth daily. 01/18/20 23 Active Glucose Blood test stripIndications :Type 2 diabetes mellitus with other specified complication, without long-term current use of insulin ([facility]) 1 strip by Other route daily. 100 strip 3 10/03/20 23 Active Glucose Blood (BLOOD GLUCOSE TEST STRIPS) StripIndications :Type 2 diabetes mellitus with other specified complication, without long-term current use of insulin ([facility]) Check blood sugar three times a day before meals. 200 strip 1 10/11/20 23 Active albuterol sulfate HFA 108 (90 Base) MCG/ACT inhalerIndicatio ns:Shortness of breath USE 2 INHALATIONS EVERY 6 HOURS NEEDED FOR WHEEZING OR SHORTNESS OF BREATH 8.5 g 10 02/02/20 24 Active buprenorphine (SUBUTEX) [address] 1 tablet (8 mg total) under the tongue daily. 06/27/20 24 Active hydroCHLOROthiaz urvashi (MICROZIDE) 12.5 MG capsuleIndicatio ns:Lower extremity edema,Hypertensi on, unspecified type TAKE 1 CAPSULE EVERY MORNING 30 capsule 11 07/18/20 24 Active NEEDLE, DISP, 18 G (BD HYPODERMIC NEEDLE) 18G X 1 MiscIndications: Low testosterone,Sec ondary male hypogonadism USE TO DRAW UP TO TESTOSTERONE WEEKLY 12 each 1 08/27/20 24 Active testosterone cypionate (DEPO TESTOSTERONE) 100 MG/ML injectionIndicat ions:Low testosterone,Sec ondary male hypogonadism Inject 1 mL (100 mg total) into the muscle every 7 days. 10 mL 08/27/20 24 Active B-D 3CC LUER-NICHOLE SYR 48EJ1-8/2 23G X 1-1/2 3 ML MiscIndications: Low testosterone,Sec ondary male hypogonadism USE TO INJECT TESTOSTERONE WEEKLY DIRECTED 12 each 1 11/05/20 24 Active OneTouch Delica Lancets 33G MiscIndications: Type 2 diabetes mellitus with other specified complication, without long-term current use of insulin ([facility]) Use to check blood sugars once daily 100 each 3 11/05/20 24 Active metFORMIN (GLUCOPHAGE) 500 MG tabletIndication s:Type 2 diabetes mellitus with other specified complication, without long-term current use of insulin ([facility]/HCC) TAKE 2 TABLETS TWICE A DAY WITH MEALS 360 tablet 3 12/10/19 25 Active rizatriptan (MAXALT) 10 MG tabletIndication s:Other migraine without status migrainosus, not intractable Max dose of 30mg in a 24 hour period. May repeat dose after at least 2 hours if needed. 24 tablet 3 01/23/20 25 Active Vitamin D, Ergocalciferol, 93509 units CapIndications:V itamin D deficiency Take 50,000 Units by mouth every 7 days. 12 capsule 02/20/20 25 Active Vitamin D, Ergocalciferol, 23095 units CapIndications:V itamin D deficiency Take 50,000 Units by mouth every 7 days. 12 capsule 12/03/19 25 025 Discontin ued(Reord er) Active Problems Problem Noted Date Diagnosed Date Obstructive sleep apnea syndrome 05/06/2022 Overview (05/07/2022): moderate to severe based on home sleep study report Secondary male hypogonadism 07/09/2021 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 07/09/2021 Insomnia, unspecified type 07/09/2021 Vitamin D deficiency 07/09/2021 Chronic intractable headache, unspecified headac he type 07/09/2021 Hx of multiple concussions 07/09/2021 Hx of opioid abuse 07/09/2021 Obesity (BMI 30.0-34.9) 07/09/2021 Chronic pain syndrome 01/26/2012 Type 2 diabetes mellitus wit hout complication, without long-term current use of insulin ([facility]) 01/26/2012 Assessment & Plan (07/10/2024 8:40 PM CDT): A1C increased to 6.5. Pt has not been eating well and eating more sugar at night. He is gong to work on cutting this out and tyring to get some activity in per day. Urine microalbumin completed today Foot exam 07/10/24 Neno- no Statin- no Resolved Problems Problem Noted Date Diagnosed Date Resolved Date Bipolar disorder, unspecifie d ([facility]) 01/24/2012 07/09/2021 Encounters Date Type Department Care Team Description 02/18/2025 Orders Only [facility] Family Medicine - [place] [address] [place], [place] [address] More Hess MA 01/22/2025 Orders Only [facility] Family Medicine - [place] [address] [place], [place] [id number] More Hess MA 01/21/2025 Scan [facility] HE[facility] INFO SRVCS Scanned, Doc Med [facility] CT (SCAN) from Last 3 Months Immunizations Immunization Administration Dates Next Due Flucelvax 6 Months+ (Prefill ed Syringe) 10/24/2018 Influenza Adult (Generic) 09/15/2022,,10/12/2019,2017 PFIZER COVID-19 (WEBER CAP), MRNA, LNP-S, PF, 30 MCG/0.3 ML ANDREW-SUCROSE, IM 03/29/2022,03/08/2022 Pneumococcal (Pneumovax 23) 04/16/2022 Pneumococcal (Prevnar 20) 06/24/2022 Shingrix 09/15/2022,06/25/2022 Tdap (Adacel) 07/09/2021 Zoster (Zostavax) [address]81 Unt/0.65Ml 03/30/2017 Family History Medical History Relation Comments Colon Cancer Father Cancer Sister Relation Status Comments Father Sister Social History Tobacco Use Types Packs/Day Years Used Date Smoking Tobacco: Never Passive Smoke Exposure: Never Smokeless Tobacco: Current Chew Tobacco Cessation:Ready to Q uit: No; Counseling Given: Yes Alcohol Use Standard Drinks/Week Comments Not Currently 0 (1 standard drink = 0.6 oz pur e alcohol) PHQ-2 Answer Date Recorded Patient Health Questionnaire-2 Score 1 12/08/2023 Sex and Gender Information Value Date Recorded Sex Assigned at Not on file Legal 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 Gender Identity Not on file Sexual Orientation Not on file Last Filed Vital Signs Vital Sign Reading Time Taken Comments Blood Pressure 134/84 07/10/2024 2:49 PM CDT Pulse 105 07/10/2024 2:49 PM CDT Temperature 36.1 C (96.9 F) 07/10/2024 2:49 PM CDT Respiratory Rate 18 07/10/2024 2:49 PM CDT Oxygen Saturation 95% 07/10/2024 2:49 PM CDT Inhaled Oxygen Concentration - - Weight 103.9 kg (229 lb) 07/10/2024 2:49 PM CDT Height 180.3 cm (5' 11 ) 07/10/2024 2:49 PM CDT Body Mass Index 31.94 07/10/2024 2:49 PM CDT Plan of Treatment Upcoming Encounters Date Type Department Care Team (Late st Contact Info) Description 03/11/2025 12:40 PM CDT Office Visit [facility] Family Medicine - [place] [address] [facility] [address] [place] [address] Hope Weiss, JESÚS [address] [place], [place] [address] Health Maintenance Due Date Last Done Comments Diabetes: Retinopathy Eye Exam 1982 Annual Physical 04/16/2023 04/16/2022, 01/06/2021 COVID-19 Vaccine ( season) 2024 03/29/2022, 03/08/2022 PHQ-2 (Physician [place]) 11/07/2024 12/08/2023 Hemoglobin A1C 01/07/2025 07/10/2024, 09/08, 06/21/2022, Additional history exists Kidney Health Evaluation 07/10/2025 07/10/2024 Lipid Panel 08/02/2025 08/02/2024, 09/08, 06/21/2022, Additional history exists DTaP, Tdap and Td Vaccines (2 - Td or Tdap) 07/09/2031 07/09/2021 Colorectal Cancer Screening Colonoscopy (10 Years) 07/15/2032 07/15/2022 RSV Immunization or 60+ Years (1 - 1-dose 75+ series) 2039 Hepatitis C Completed 05/26/2021 Pneumococcal Vaccine: 50+ Years Completed 06/24/2022, 04/16/2022 Zoster Vaccines Completed 09/15/2022, 06/07, 03/30/2017 Meningococcal B Vaccine Aged Out No l onger eligible based on patient's age to complete this topic Meningococcal Vaccine Aged Out No srini chao eligible based on patient's age to complete this topic RSV Immunizations Under 20 Months Aged Out No longer eligible based on patient's age to complete this topic Procedures Procedure Name Priority Date/Time Associated Diagnosis Comments CT GENERIC 01/21/2025 LIPID PANEL Routine 08/02/2024 6:18 AM CDT Hyperlipidemia, unspecified hyperlipidemia type HEMOGLOBIN, GLYCOSYLATED Routine 07/10/2024 Type 2 diabetes mellitus with other specified complication, without long-term current use of insulin COLONOSCOPY GENERIC (SCAN ORDER) 07/15/2022 HEPATITIS C ANTIBODY W/RFX TO HCV RNA Routine 05/26/2021 9:40 AM CDT Need for hepatitis C screening test from Last 3 Months or Most Recently Relevant to Health Maintenance Results * CT GENERIC (01/21/2025) Anatomical Region Laterality Modality Other 01/21/2025 us [facility] Scanned SCANNING Final Resu lt * (ABNORMAL) LIPID PANEL (08/02/2024 6:18 AM CDT) CHOLESTEROL 170 <200 mg/dL [facility] [employer] [facility] HDL 41 > OR = 40 mg/dL [employer] [facility] TRIGLYCERIDES 198(H) <150 mg/dL [facility] LDL (CALCULATED) 99 mg/dL (calc) [facility] Comment: Reference range: <100 Desirable range <100 mg/dL for primary prevention; <70 mg/dL for patients with CHD or diabetic patients with > or = 2 CHD risk factors. LDL-C is now calculated using the Paul-Lilli calculation, which is a validated novel method providing better accuracy than the Friedewald equation in the estimation of LDL-C. Paul DAMICO et al. SIMON. 2013;310(19): 1518-8403 (http://education.T[employer] Clout.[facility] [facility]/faq/YAU391) CHOL/HDL RATIO 4.1 <5.0 (calc) [facility] NON HDL CHOLESTEROL 129 <130 mg/dL (calc) [facility] Comment: For patients with diabetes plus 1 major ASCVD risk factor, treating to a non-HDL-C goal of <100 mg/dL (LDL-C of <70 mg/dL) is considered a therapeutic option. 08/02/2024 6:18 AM CDT 08/02/2024 6:19 AM CDT Narrative [facility] - 08/03/2024 2:52 AM CDT FASTING:YES FASTING: YES Resulting Agency Comment Performing Organization Information: Site ID: [id number] Name: Guilherme Amos Address: [address] [address] Director: Dania Osorio MD Hopeshayne Weiss [facility] Final Res ult [facility] [address] [place] [address], * A1C (BACK OFFICE) (07/10/2024) HGB A1C 6.5 % [address] [place] 07/10/2024 Hope Weiss NP LABORATORY Final Res ult [address] [place] [address] [place] [address], * COLONOSCOPY GENERIC (07/15/2022) 07/15/2022 Narrative 07/15/2022 Ordered by an unspecified provider. us Documents Scanned SCANNING Final Result * HEPATITIS C ANTIBODY W/RFX TO HCV RNA ([facility] ONLY) (05/26/2021 9:40 AM CDT) HEPATITIS C AB NON-REACTI VE NON-REACT LUCY [facility] SIGNAL TO CUTOFF 0.01 <[address] [facility] Comment: HCV antibody was non-reactive. There is no laboratory evidence of HCV infection. In most cases, no further action is required. However, if recent HCV exposure is suspected, a test for HCV RNA (test code 87303) is suggested. For additional information please refer to http://education.IronPearl/faq/RFI92x6 (This link is being provided for informational/ educational purposes only.) 05/26/2021 9:40 AM CDT 05/26/2021 9:40 AM CDT Hope Weiss NP LABORATORY Final Res ult [facility] [address] Last [id number] from Last 3 Months or Most Recently Relevant to Health Maintenance Insurance [facility] Care Teams Park Police Relationship Specialty Start Date End Date Hope Weiss NP [address] [place] [address] PCP - General NURSE PRACTITIONER 04/21/21
--- OUTSIDE RECORDS SUMMARY | 2025-03-06 16:43 | XMS_ITS | Referral Summary ---
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
[2025-03-06 17:00] LABS: Hematocrit 52.4 % (42.0-52.0); Hemoglobin 17.4 g/dL (14.0-18.0); Mean Corpuscular HGB Conc 33.2 g/dl (32-36); Mean Corpuscular Hemoglobin 28.9 pg (26-34); Mean Corpuscular Volume 86.9 fl (80-100); Mean Platelet Volume 10.3 fl (7.4-10.4); Platelet Count Result 301 k/mm3 (150-375); Red Blood Count 6.03 M/mm3 (4.6-6.20); Red Cell Distribution Width 13.2 % (11.5-14.5); White Blood Count 11.8 K/mm3 (4.5-10.0)
[2025-03-06 17:38] LABS: Alanine Aminotransferase 62 U/L (6-50); Albumin Level 5.1 g/dL (3.5-5.1); Alkaline Phosphatase 60 U/L (38-126); Anion Gap 14 mmol/L (4-12); Aspartate Amino Transferase 36 U/L (17-59); Bilirubin,Total 0.7 mg/dL (0.2-1.3); Blood Urea Nitrogen 8 mg/dL (9-20); CRP < 0.5 mg/dL (<1.0); Calcium 9.8 mg/dL (8.4-10.2); Carbon Dioxide 28 mmol/L (22-30); Chloride 94 mmol/L (98-107); Estimated Glomerular Filt Rate > 60; Glucose 107 mg/dL (65-110); Lipase 318 U/L (23-300); Sodium 136 mmol/L (137-145)
[2025-03-06 18:16] LABS: Erythrocyte Sedimentation Rate 1 mm/hr (0-20)
== END 2025-03-06 16:35 | disposition home or self-care (01) ==
PROVIDERS: PCP Nurse Practitioner; Visit Provider Nurse Practitioner
DX: R10.9 Unspecified abdominal pain (principal)
CPT/HCPCS: 36415; 74018; 80053; 83690; 84443; 85027; 85652; 86140

== ENCOUNTER 2025-03-07 14:21 | Outpatient (CLI) | payer BC, SELFPAY ==
--- NOTE | ~2025-03-07 | CT_ITS ---
EXAMINATION: CT abdomen pelvis w con DATE: 03/07/2025 14:53 INDICATION: Epigastric pain. Elevated lipase. Leukocytosis. Right lower quadrant pain. TECHNIQUE: Computed tomography (CT) of the abdomen and pelvis was performed with 100 cc Omnipaque 350 intravenous contrast. The dose-length product was 1004.30 mGy-cm. Automated exposure control and iterative reconstruction technique were employed. COMPARISON: CT dated 01/21/2025 FINDINGS: Lung bases are unremarkable. Heart size normal. No significant pleural or pericardial effus ion. Fatty infiltration of the liver. There are calcifications in the gallbladder, compatible with ga llstones. There are calcified granulomas of the spleen. The there is fatty replacement of the head of the pancreas. No discrete pancreatic mass identified. The adrenal glands and kidneys are unremarkabl e. There is a fat-containing umbilical hernia. Nonobstructive bowel gas pattern. Normal appendix. No free air or free fluid. No significant vascular abnormality. No acute osseous abnormality. Moderate o steoarthritis of the hips. Colonic diverticulosis without evidence for diverticulitis. No significant vascular abnormality. No lymphadenopathy. IMPRESSION: 1. Cholelithiasis. 2: Fat-containing umbilical hernia. Reviewed, dictated and finalized at location A.
[2025-03-07 14:44] LABS: Estimated Glomerular Filt Rate > 60
== END 2025-03-07 14:22 | disposition home or self-care (01) ==
LOC: MICIMG 14:21
PROVIDERS: PCP Nurse Practitioner; Visit Provider Nurse Practitioner
DX: R10.31 Right lower quadrant pain (principal); R10.13 Epigastric pain; R74.8 Abnormal levels of other serum enzymes; D72.829 Elevated white blood cell count, unspecified
CPT/HCPCS: 74177; Q9967

== ENCOUNTER 2025-06-27 00:19 | Day surgery (SDC) | payer BC, SELFPAY ==
--- OUTSIDE RECORDS SUMMARY | 2024-09-22 16:00 | XMS_ITS ---
Author Organization formerly [facility] Address [address] [address] Care Team Providers Care Psychology Department Chair Name Role Phone Migration, Provider Unavailable Unavailable Allergies Allergen (clinical drug ingredient) Drug/Non Drug Allergy documented on EMR Reaction Allergy Type Onset Date Status ceftriaxone cefTRIAXone Unknown Drug Allergy Act helio REASON FOR VISIT Multum To Medispan Conversion Encounter Medications Medication SIG (Take, Route, Frequency, Duration) Notes Start Date End Date Status dexAMETHasone 1 MG 1 tab(s) orally at 1 0 pm night before 8 am cortisol for 1 days 09/06/2024 Active Vitamin D3 *Please review and pick correct strength-formulat ion from Medispan options. If intended option is not shown, discontinue and re-order from Quick Search* Active ALPRAZolam *Please review and pick correct strength-formulat ion from bizk.itspan options. If intended option is not shown, discontinue and re-order from Quick Search* Active Testosterone Cypionate 200 MG/ML as directed intramuscularly every 4 weeks every week Active lamoTRIgine *Please review and pick correct strength-formulat ion from bizk.itspan options. If intended option is not shown, discontinue and re-order from Quick Search* Active metFORMIN HCl *Please review and pick correct strength-formulat ion from Medispan options. If intended option is not shown, discontinue and re-order from Quick Search* Active Encounters Encounter Location Date Provider [facility] [address] [phone] 09/22/2024 Provider Migration Obesity, unspecified E66.9 Assessments Encounter Date Diagnosis (ICD Code) Assessment Notes Treatment Notes Treatment Clinical Notes Section Notes 09/22/2024 Obesity, unspecified (ICD-10 - E66.9) Plan Of Treatment Medication Medication Name Sig Start Date Stop Date Notes dexAMETHasone 1 MG 1 tab(s) orally at 1 0 pm night before 8 am cortisol for 1 days 09/06/2024 Progress Notes * MERCEDES KRAUSEDOB:[birth year] (60 yo M)Acc No.[id number]:09/22/2024 Patient: MERCEDES KRAUS Provider: Michelle Ortiz :1965 A ge:59 Y S ex:Male Date:09/22/2024 Address:[address] [place] [address] Subjective: * Chief Complaints: * 1 . Multum To Medispan Conversion Encounter. * Medical History: * Medications: T aking Testosterone Cypionate 200 MG/ML Solution as directed intramuscularly every 4 weeks , Notes to Pharmacist: every week, Taking lamoTRIgine , Notes to Pharmacist: *Please review and pick correct strength-formulation from Medispan options. If intended option is not shown, discontinue and re-order from Quick Search*, Taking ALPRAZolam , Notes to Pharmacist: *Please review and pick correct strength-formulation from Medispan options. If intended option is not shown, discontinue and re-order from Quick Search*, Taking Vitamin D3 , Notes to Pharmacist: *Please review and pick correct strength-formulation from Medispan options. If intended option is not shown, discontinue and re-order from Quick Search*, Taking metFORMIN HCl , Notes to Pharmacist: *Please review and pick correct strength-formulation from Medispan options. If intended option is not shown, discontinue and re-order from Quick Search* * Allergies: c efTRIAXone. Objective: * Vitals: Assessment: * Assessment: 1. O besity, unspecified - E66.9 (Primary) Plan: * Treatment: * Billing Information: * Visit Code: * Procedure Codes: * Electronic signature of Prema landinalli Migration on 06/27/2025 at 12:24 AM CDT Sign off status: Pending * Provider: Michelle Ortiz Date: 1 11/22/2023 Generated for Syl villa/Dexter/Tinosmeverett on: 0 06/27/2025 12:24 AM CDT
--- OUTSIDE RECORDS SUMMARY | 2024-11-30 06:20 | XMS_ITS ---
Author Organization [facility] Address [address] [address] Care Team Providers Care Marble Setter Name Role Phone Nicolas Ailyn Unavailable [phone] REASON FOR VISIT Lab Review Medications Medication SIG (Take, Route, Frequency, Duration) Notes Start Date End Date Status Testosterone Cypionate 200 MG/ML as directed intramuscularly every 4 weeks every week Unknown ALPRAZolam *Please review and pick correct strength-formula tion from Shapewaysspan options. If intended option is not shown, discontinue and re-order from Quick Search* Unknown lamoTRIgine *Please review and pick correct strength-formula tion from Shapewaysspan options. If intended option is not shown, discontinue and re-order from Quick Search* Unknown dexAMETHasone 1 MG 1 tablet Orally at 10 pm night before 8 am cortisol for 1 days 10/15/2024 Not-Taking dexAMETHasone 1 MG 1 tab(s) orally at 10 pm night before 8 am cortisol for 1 days 09/06/2024 Not-Taking metFORMIN HCl *Please review and pick correct strength-formula tion from Medispan options. If intended option is not shown, discontinue and re-order from Quick Search* Unknown Vitamin D3 *Please review and pick correct strength-formula tion from Shapewaysspan options. If intended option is not shown, discontinue and re-order from Quick Search* Unknown Encounters Encounter Location Date Provider Diagnosis [facility] - Ailyn Valenzuela [address] [place] [address] 11/30/2024 Ailyn Valenzuela Plan Of Treatment No Information Progress Notes * MERCEDES KRAUSEDOB:[birth year] (60 yo M)Acc No.[id number]:11/30/2024 Progress Notes Patient: MERCEDES KRAUS Provider: Elida Valenzuela MD :1965 A ge:59 Y S ex:Male Date:11/30/2024 Address:[address] [place] [address] Subjective: * Chief Complaints: * 1 . Lab Review. 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 Send for CT adrenal as ACTH/DHEAS levels are low. * Medical History: * Medications: N ot-Taking/PRN dexAMETHasone 1 MG Tablet 1 tab(s) orally at 10 pm night before 8 am cortisol , Not-Taking/PRN dexAMETHasone 1 MG Tablet 1 tablet Orally at 10 pm night before 8 am cortisol , Unknown Testosterone Cypionate 200 MG/ML Solution as directed intramuscularly every 4 weeks , Notes to Pharmacist: every week, Unknown lamoTRIgine , Notes to Pharmacist: *Please review and pick correct strength-formulation from Medispan options. If intended option is not shown, discontinue and re-order from Quick Search*, Unknown ALPRAZolam , Notes to Pharmacist: *Please review and pick correct strength-formulation from Medispan options. If intended option is not shown, discontinue and re-order from Quick Search*, Unknown Vitamin D3 , Notes to Pharmacist: *Please review and pick correct strength-formulation from Medispan options. If intended option is not shown, discontinue and re-order from Quick Search*, Unknown metFORMIN HCl , Notes to Pharmacist: *Please review and pick correct strength-formulation from Medispan options. If intended option is not shown, discontinue and re-order from Quick Search* Objective: * Vitals: * P ast Orders: L ab:CORTISOL, FREE, 24 HOUR URINE (Order Date - 11/16/2024) (Collection Date & Time - 11/16/2024 07:06 AM) Value Reference Range TOTAL VOLUME 3000 - mL CORTISOL, FREE, URINE 15.9 4.0-50.0 - mcg/24 h CORTISOL, FREE, URINE 10.1 - mcg/g creat CREATININE, URINE 1.57 0.50-2.15 - g/24 h L ab:CORTISOL, LC/MS, SALIVA, 2 SAMPLES (Order Date - 11/16/2024) (Collection Date & Time - 11/16/2024 07:06 AM) Value Reference Range DRAW DATE 1 11/10/2024 - DRAW TIME 1 12:00 - CORTISOL, SALIVA SAMPLE 1 0.03 - mcg/dL DRAW DATE 2 11/15/2024 - DRAW TIME 2 12:00 - CORTISOL, SALIVA SAMPLE 2 0.06 - mcg/dL Lab:DEXAMETHASONE * Collection Date 11/09/2024 10/10/2024 Collection Time 08:40 AM 08:07 AM Order Date 11/09/2024 10/10/2024 DEXAMETHASONE 273 (Ref Range: ng/dL) 332 (Ref Range: ng/dL) * Lab:CORTISOL, TOTAL * Collection Date 11/09/2024 11/08/2024 10/10/2024 Collection Time 08:40 AM 09:00 AM 08:07 AM Order Date 11/09/2024 11/08/2024 10/10/2024 CORTISOL, TOTAL 1.5 L (Ref Range: mcg/dL) 20.2 (Ref Range: mcg/dL) 1.5 L (Ref Range: mcg/dL) ???Lab:ACTH, PLASMA (Order Date - 11/08/2024) (Collection Date & Time - 11/08/2024 09:00 AM)?ValueReference Range?ACTH, [id number] - pg/mL ???Lab:DHEA SULFATE (Order Date - 11/08/2024) (Collection Date & Time - 11/08/2024 09:00 AM)?ValueReference Range?DHEA [id number] - mcg/dL ???Lab:VITAMIN B12/FOLATE, SERUM PANEL (Order Date - 11/08/2024) (Collection Date & Time - 11/08/2024 09:00 AM)?ValueReference Range?FOLATE, SERUM18.7- ng/mL?VITAMIN [id number] - pg/mL ???Lab:PROLACTIN (Order Date - 11/08/2024) (Collection Date & Time - 11/08/2024 09:00 AM)?ValueReference Range?PROLACTIN4.52.0-18.0 - ng/mL ???Lab:HEMOGLOBIN A1c (Order Date - 11/08/2024) (Collection Date & Time - 11/08/2024 09:00 AM)?ValueReference Range?HEMOGLOBIN A1c6.5H<5.7 - % of total Hgb ???Lab:CBC (INCLUDES DIFF/PLT) (Order Date - 11/08/2024) (Collection Date & Time - 11/08/2024 09:00 AM)?ValueReference Range?WHITE BLOOD CELL COUNT 6.23.8-10.8 - Thousand/uL?RED BLOOD CELL COUNT4.984.20-5.80 - Million/uL ?LKIVQXAVQJ86.113.2-17.1 - g/dL?WWHLQBCTWQ29.938.5-50.0 - % ?MCV90.280.0-100.0 - fL?MCH30.327.0-33.0 - pg?MCHC33.632.0- 36.0 - g/dL?RDW12.911.0-15.0 - %?PLATELET [id number] - Thousand/uL?JAYTEECUPZH50.4- %?ABSOLUTE OZBRZELKCPU57118988-8022 - cells/uL?PQNOOUOVHCC36.5- %?ABSOLUTE FNTMWLHPZWK3718822-3757 - cells/uL?MONOCYTES5.0- %?ABSOLUTE QXXZPPEAX031985-933 - cells/uL ?EOSINOPHILS2.3- %?ABSOLUTE RHQVJURVHVY99963-100 - cells/uL ?BASOPHILS0.8- %?ABSOLUTE FZPVIMVZC975-267 - cells/uL?MPV 11.47.5-12.5 - fL ???Lab:T4, FREE (Order Date - 11/08/2024) (Collection Date & Time - 11/08/2024 09:00 AM)?ValueReference Range?T4, FREE1.00.8-1.8 - ng/dL ???Lab:FSH (Order Date - 11/08/2024) (Collection Date & Time - 11/08/2024 09:00 AM)?ValueReference Range?FSH6.31.4-12.8 - mIU/mL ???Lab:TSH (Order Date - 11/08/2024) (Collection Date & Time - 11/08/2024 09:00 AM)?ValueReference Range?TSH1.320.40-4.50 - mIU/L ???Lab:LH (Order Date - 11/08/2024) (Collection Date & Time - 11/08/2024 09:00 AM)?ValueReference Range?LH2.31.6-15.2 - mIU/mL ???Lab:T3, FREE (Order Date - 11/08/2024) (Collection Date & Time - 11/08/2024 09:00 AM)?ValueReference Range?T3, FREE3.22.3-4.2 - pg/mL ???Lab:VITAMIN D, 25-HYDROXY, LC/MS/MS (Order Date - 11/08/2024) (Collection Date & Time - 11/08/2024 09:00 AM)?ValueReference Range?VITAMIN D, 25-OH, [id number] - ng/mL ???Lab:ESTRADIOL (Order Date - 11/08/2024) (Collection Date & Time - 11/08/2024 09:00 AM)?ValueReference Range?DFQPRZWZU09Q< OR = 39 - pg/mL ???Lab:INSULIN (Order Date - 11/08/2024) (Collection Date & Time - 11/08/2024 09:00 AM)?ValueReference Range?SVGJOJE83.2H- uIU/mL ???Lab:COMPREHENSIVE METABOLIC PANEL (Order Date - 11/08/2024) (Collection Date & Time - 11/08/2024 09:00 AM)?ValueReference Range?VHMOXRM612O85- 99 - mg/dL?UREA NITROGEN (BUN)167-25 - mg/dL?CREATININE1.060.70- 1.35 - mg/dL?BUN/CREATININE RATIOSEE NOTE:6-22 - (calc)?PVCZDO339 135-146 - mmol/L?POTASSIUM4.03.5-5.3 - mmol/L?YVXVJXWB3338-128 - mmol/L?CARBON XGRPACU6578-75 - mmol/L?EAHCANR03.18.6-10.3 - mg/dL ?PROTEIN, TOTAL7.36.1-8.1 - g/dL?ALBUMIN4.63.6-5.1 - g/dL ?GLOBULIN2.71.9-3.7 - g/dL (calc)?ALBUMIN/GLOBULIN RATIO1.71.0-2.5 - (calc)?BILIRUBIN, TOTAL0.40.2-1.2 - mg/dL?ALKALINE KOPXZZLXYQI06 35-144 - U/L?HJE0158-05 - U/L?OBW706-19 - U/L?EGFR80> OR = 60 - mL/min/1.73m2 ???Lab:IRON AND TOTAL IRON BINDING CAPACITY (Order Date - 11/08/2024) (Collection Date & Time - 11/08/2024 09:00 AM)?ValueReference Range ?IRON, [id number] - mcg/dL?IRON BINDING YPUVVPFO732938-047 - mcg/dL (calc)?% DYCYZUEYKK3976-42 - % (calc) ???Lab:LIPID PANEL (Order Date - 11/08/2024) (Collection Date & Time - 11/08/2024 09:00 AM)?ValueReference Range?EBVUFRRAOSPLV278C<150 - mg/dL?CHOLESTEROL, RQKPV442R<200 - mg/dL?HDL QIXZEDUMJVD89> OR = 40 - mg/dL?LDL-ZVSYVZGPLBK907T- mg/dL (calc)?CHOL/HDLC RATIO5.3H <5.0 - (calc)?NON-HDL TIXLNYTZCCG594I<130 - mg/dL (calc) Assessment: Plan: * Treatment: * Billing Information: * Visit Code: * Procedure Codes: * Electronic signature of Luis Enrique Valenzuela MD on 06/27/2025 at 12:23 AM CDT Sign off status: Pending * Provider: Elida Valenzuela MD Date: 0 11/30/2024 Generated for Syl villa/Dexter/Rosa Elena on: 0 06/27/2025 12:23 AM CDT History and Physical Notes * HPI (History of Present Illness) Category Sub-Category Detail Notes Category Not es Interval Hx 59 yo male comes in for follow up in management of obesity, hypogonadism, mixed dyslipidemia found to have prediabetes and insulin resistance and 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 Send for CT adrenal as ACTH/DHEAS levels are low
--- OUTSIDE RECORDS SUMMARY | 2025-06-27 00:23 | XMS_ITS | Clinical Summary ---
Author Organization [facility] Address [address] [place] [id number] Care Team Providers Care Screwmaker Automatic Name Role Phone Hope Weiss NP Primary Care Provider [phone] Allergies Active Allergy Reactions Criticality Noted Date Comments Ceftriaxone Swelling,Unknown,Anaphylaxis High 2011 Medications ALPRAZolam 1 MG tablet TAKE 1 TABLET BY MOUTH 5 TIMES A DAY NEEDED FOR ANXIETY 12/25/19 21 Active aspirin EC 81 MG tablet Take 1 tablet (81 mg total) by mouth daily. Active multi vitamin/mineral s tablet Take 1 tablet by mouth daily. Active Blood Glucose Monitoring Suppl (ONE TOUCH ULTRA 2) w/Device KitIndications: Type 2 diabetes mellitus with other specified complication, without long-term current use of insulin ([facility]) Use daily to monitor glucose levels 1 kit 04/16/20 22 Active Lancets (ONETOUCH ULTRASOFT) lancetsIndicati ons:Type 2 diabetes mellitus with other specified complication, without long-term current use of insulin ([facility]) 1 each by Other route 3 (three) times daily as needed. Use as instructed 300 each 3 09/22/20 22 Active lamoTRIgine (LAMICTAL) 200 MG tablet Take 1 tablet (200 mg total) by mouth daily. 01/18/20 23 Active Glucose Blood test stripIndication s:Type 2 diabetes mellitus with other specified complication, without long-term current use of insulin ([facility]) 1 strip by Other route daily. 100 strip 3 10/03/20 23 Active Glucose Blood (BLOOD GLUCOSE TEST STRIPS) StripIndication s:Type 2 diabetes mellitus with other specified complication, without long-term current use of insulin ([facility]) Check blood sugar three times a day before meals. 200 strip 1 10/11/20 23 Active albuterol sulfate HFA 108 (90 Base) MCG/ACT inhalerIndicati ons:Shortness of breath USE 2 INHALATIONS EVERY 6 HOURS NEEDED FOR WHEEZING OR SHORTNESS OF BREATH 8.5 g 10 02/02/20 24 Active Additional Information Patient not taking.Reported on 03/11/2025 NEEDLE, DISP, 18 G (BD HYPODERMIC NEEDLE) 18G X 1 MiscIndications :Low testosterone,Se condary male hypogonadism USE TO DRAW UP TO TESTOSTERONE WEEKLY 12 each 1 08/27/20 24 Active B-D 3CC LUER-NICHOLE SYR 45AE8-3/2 23G X 1-/2 3 ML MiscIndications :Low testosterone,Se condary male hypogonadism USE TO INJECT TESTOSTERONE WEEKLY DIRECTED 12 each 1 11/05/20 24 Active OneTouch Delica Lancets 33G MiscIndications :Type 2 diabetes mellitus with other specified complication, without long-term current use of insulin ([facility]) Use to check blood sugars once daily 100 each 3 11/05/20 24 Active metFORMIN (GLUCOPHAGE) 500 MG tabletIndicatio ns:Type 2 diabetes mellitus with other specified complication, without long-term current use of insulin ([facility]) TAKE 2 TABLETS TWICE A DAY WITH MEALS 360 tablet 3 12/10/19 25 Active rizatriptan (MAXALT) 10 MG tabletIndicatio ns:Other migraine without status migrainosus, not intractable Max dose of 30mg in a 24 hour period. May repeat dose after at least 2 hours if needed. 24 tablet 3 01/23/20 25 Active Vitamin D, Ergocalciferol, 84278 units CapIndications: Vitamin D deficiency Take 50,000 Units by mouth every 7 days. 12 capsule 02/20/20 25 Active rosuvastatin (CRESTOR) 20 MG tablet Take 1 tablet (20 mg total) by mouth nightly at bedtime. 01/24/20 25 Active MOUNJARO 5 MG/0.5ML injection 01/23/20 25 Active icosapent ethyl (VASCEPA) 1 G capsule Take 1 capsule (1 g total) by mouth every other day. 01/23/20 25 Active testosterone cypionate (DEPO TESTOSTERONE) 200 MG/ML injection Inject 1 mL (200 mg total) into the muscle every 7 days. Active omeprazole (PRILOSEC) 40 MG capsule Take 1 capsule (40 mg total) by mouth 2 (two) times a day. Active hydroCHLOROthia zide (MICROZIDE) 12.5 MG capsuleIndicati ons:Lower extremity edema,Hypertens ion, unspecified type TAKE 1 CAPSULE EVERY MORNING 90 capsule 3 06/21/20 25 Active hydroCHLOROthia zide (MICROZIDE) 12.5 MG capsuleIndicati ons:Lower extremity edema,Hypertens ion, unspecified type TAKE 1 CAPSULE EVERY MORNING 30 capsule 11 07/18/20 24 2024 Discontinued Active Problems Problem Noted Date Diagnosed Date Obstructive sleep apnea syndrome 05/06/2022 Overview (05/07/2022): moderate to severe based on home sleep study report Secondary male hypogonadism 07/09/2021 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 07/09/2021 Insomnia, unspecified type 07/09/2021 Vitamin D deficiency 07/09/2021 Chronic intractable headache, unspecified headac he type 07/09/2021 Hx of multiple concussions 07/09/2021 Hx of opioid abuse 07/09/2021 Obesity (BMI 30.0-34.9) 07/09/2021 Assessment & Plan (03/11/2025 1:23 PM CDT): Encourage diet and lifestyle changes to assist with weight loss. Chronic pain syndrome 01/26/2012 Type 2 diabetes mellitus wit hout complication, without long-term current use of insulin ([facility]) 01/26/2012 Assessment & Plan (07/10/2024 8:40 PM CDT): A1C increased to 6.5. Pt has not been eating well and eating more sugar at night. He is gong to work on cutting this out and tyring to get some activity in per day. Urine microalbumin completed today Foot exam 07/10/24 Neno- no Statin- no Resolved Problems Problem Noted Date Diagnosed Date Resolved Date Obesity (BMI 30-39.9) 03/11/20252024 Bipolar disorder, unspecifie d ([facility]) 01/24/2012 07/09/2021 Encounters Date Type Department Care Team Description 06/19/2025 MyChart Message Enc [address] [place] [address] Jul[facility] Provider Phone call 06/10/2025 7:15 AM CDT - 06/10/2025 11:59 PM CDT Hospital Encounter [facility] [place] [address] Marla Del Real MD Discharge Disposition: Home or Self Care (Routine Discharge) 06/10/2025 Travel 06/06/2025 [employer] [facility] Scanned, [facility] 06/05/[address] [place] [address] Hoep Weiss NP Orders 06/01/2025 7:00 AM CDT - 06/01/2025 11:59 PM CDT Hospital Encounter [place] [address] Marla Del Real MD Discharge Disposition: Home or Self Care (Routine Discharge) 06/01/2025 Travel 05/16/2025 Travel 05/14/[address] [place] [address] Hope Weiss NP Refill Request (/) from Last 3 Months Immunizations Immunization Administration Dates Next Due Flucelvax 6 Months+ (Prefill ed Syringe) 10/24/2018 Influenza (Generic) 01/21/2025 Influenza Adult (Generic) 09/15/2022,,10/12/2019,2017 PFIZER COVID-19 (WEBER CAP), MRNA, LNP-S, PF, 30 MCG/0.3 ML ANDREW-SUCROSE, IM 03/29/2022,03/08/2022 Pneumococcal (Pneumovax 23) 04/16/2022 Pneumococcal (Prevnar 20) 06/24/2022 Shingrix 09/15/2022,06/25/2022 Tdap (Adacel) 07/09/2021 Zoster (Zostavax) [address]96 Unt/0.65Ml 03/30/2017 Family History Medical History Relation [...] Answer Date Recorded Patient Health Questionnaire-2 Score 0 03/11/2025 Sex and Gender Information Value Date Recorded Sex Assigned at Male 03/11/2025 12:50 PM CDT Legal Sex Male 12:08 PM [employer] Gender Identity Male 03/11/2025 12:50 PM CDT Sexual Orientation Straight 03/11/2025 12 :50 PM CDT Last Filed Vital Signs Vital Sign Reading Time Taken Comments Blood Pressure 130/82 03/11/2025 1:14 PM CDT Pulse 97 03/11/2025 12:51 PM CDT Temperature 37.1 C (98.8 F) 03/11/2025 12:51 PM CDT Respiratory Rate 22 03/11/2025 12:51 PM CDT Oxygen Saturation 97% 03/11/2025 12:51 PM CDT Inhaled Oxygen Concentration - - Weight 104.8 kg (231 lb) 03/11/2025 12:51 PM CDT Height 180.3 cm (5' 11) 03/11/2025 12:51 PM CDT Body Mass Index 32.22 03/11/2025 12:51 PM CDT Plan of Treatment Health Maintenance Due Date Last Done Comments COVID-19 Vaccine ( season) 2024 03/29/2022, 03/08/2022 Hemoglobin A1C 05/08/2025 11/08/2024, 01/0 12/2024, 07/10/2024, Additional history exists Kidney Health Evaluation 07/10/2025 07/10/2024 Lipid Panel 08/02/2025 08/02/2024, 09/08, 06/21/2022, Additional history exists Annual Physical 03/11/2026 03/11/2025, 04/07, 01/06/2021 Diabetes: Retinopathy Eye Exam 03/22/2027 03/22/2025 Colorectal Cancer Screening Colonoscopy (10 Years) 07/15/2027 07/15/2022 DTaP, Tdap and Td Vaccines (2 - Td or Tdap) 07/09/2031 07/09/2021 RSV Immunization or 60+ Years (1 - 1-dose 75+ series) 2039 Hepatitis C Completed 05/26/2021 Pneumococcal Vaccine: 50+ Years Completed 06/24/2022, 04/16/2022 Zoster Vaccines Completed 09/15/2022, 06/07, 03/30/2017 PHQ-2 (Physician [place]) Completed 03/11/2025 Meningococcal B Vaccine Aged Out No l onger eligible based on patient's age to complete this topic Meningococcal Vaccine Aged Out No srini chao eligible based on patient's age to complete this topic RSV Immunizations Under 20 Months Aged Out No longer eligible based on patient's age to complete this topic Procedures Procedure Name Priority Date/Time Associated Diagnosis Comments ECG 12-LEAD STAT 06/10/2025 7:29 AM CDT Cervical spondylosis with radiculopathy MRI CERV SPINE WO CON Routine 06/01/2025 7:51 AM CDT Other spondylosis with radiculopathy, cervical region DIABETIC RETINOPATHY EXAM (NEGATIVE)(SCAN ORDER) Routine 03/22/2025 HEMOGLOBIN, GLYCOSYLATED Routine 11/08/2024 LIPID PANEL Routine 08/02/2024 6:18 AM CDT Hyperlipidemia, unspecified hyperlipidemia type COLONOSCOPY GENERIC (SCAN ORDER) 07/15/2022 HEPATITIS C ANTIBODY W/RFX TO HCV RNA Routine 05/26/2021 9:40 AM CDT Need for hepatitis C screening test from Last 3 Months or Most Recently Relevant to Health Maintenance Results * ECG 12 lead (06/10/2025 7:29 AM CDT) 06/10/2025 7:29 AM CDT Narrative [facility] ([facility]) RAD - 06/11/2025 6:[address] [facility] [address] [place] [address] Test Date: 2025-06-10 Pat Name: MERCEDES KRAUSE Department: 40 Room: Gender: Male Driver Material Handler: : 1965 Requested By: MARLA DEL REAL Order Number: [id number] Reading MD: Ronny Napier Measurements Intervals Lovilia Rate: 68 P: 29 NM: 160 QRS: -6 QRSD: 113 T: 60 QT: 375 QTc: 399 Interpretive Statements SINUS RHYTHM INCOMPLETE RIGHT BUNDLE BRANCH BLOCK [90+ ms QRS DURATION, TERMINAL R IN V1/V2, 40+ ms S IN I/aVL/V4/V5/V6] No previous ECG available for comparison Procedure Note Ronny Napier MD - 06/11/2025 [facility] [address] [place] [address] Test Date: 2025-06-10 Pat Name: MERCEDES SALGADOIN Department: 40 Room: Gender: Male Driver Material Handler: : 1965 Requested By: MARLA DEL REAL Order Number: [id number] Reading : Ronny Napier Measurements Intervals [place]ilia Rate: 68 P: 29 NM: 160 QRS: -6 QRSD: 113 T: 60 QT: 375 QTc: 399 Interpretive Statements SINUS RHYTHM INCOMPLETE RIGHT BUNDLE BRANCH BLOCK [90+ ms QRS DURATION, TERMINAL RIN V1/V2, 40+ ms S IN I/aVL/V4/V5/V6] No previous ECG available for comparison us Marla Del Real MD ECG ORDERABLES Final Result [facility] ([facility] RAD * MRI CERV SPINE WO CON (06/01/2025 7:51 AM CDT) Anatomical Region Laterality Modality Spine Magnetic Resonan ce 06/09/2025 4:24 PM CDT Impressions 06/09/2025 4:29 PM CDT IMPRESSION: 1. Multilevel degenerative changes noted in the cervical spine contributing to varying degrees of spinal canal and foraminal stenosis, as detailed above, though assessment is degraded by motion/artifact. 2. No obvious cervical cord signal abnormality identified, though assessment is degraded by motion/artifact. Referred By: MARLA DEL REAL Interpreted By: Finesse Campoverde MD, 06/09/2025 4:24 PM Narrative 06/09/2025 4:[address] PM [address]T [address] [address] INDICATION: Neck pain. Numbness in both arms. EXAMINATION: MRI of the cervical spine without contrast. TECHNIQUE: Multiplanar and multisequence MRI images of the cervical spine were obtained without contrast. COMPARISON: 03/09/2024 FINDINGS: The axial gradient echo, sagittal gradient echo, and sagittal 3-D T2 space images and axial reconstructions are motion and artifactually degraded. Multilevel degenerative changes are evident in the cervical spine with disc degeneration, endplate/uncovertebral osteophytes, ligamentum flavum thickening, and facet hypertrophy noted. Multilevel disc desiccation. Greatest loss of disc height at C5-C6. No obvious cervical cord signal abnormality identified, though assessment is degraded by motion/artifact. Craniocervical junction and partially imaged posterior fossa contents are unremarkable. Imaged portions of the neck soft tissues reveal no gross acute findings. C2-C3: Uncovertebral osteophytes. Facet hypertrophy. No canal stenosis. Mild foraminal narrowing, worse on the left. C3-C4: Disc bulge. Central protrusion. Uncovertebral osteophytes. Ligamentum flavum thickening. Facet hypertrophy. Moderate canal stenosis suggested with partial effacement of the thecal sac and flattening of the cord, though assessment is degraded by motion/artifact. Severe left and moderate right foraminal narrowing suggested, though assessment is degraded by motion/artifact. C4-C5: Mild disc bulge. Uncovertebral osteophytes. Mild ligamentum flavum thickening facet hypertrophy. Mild to moderate canal stenosis suggested, though assessment is degraded by motion/artifact. Moderate right greater than left foraminal narrowing suggested, though assessment is degraded by motion/artifact. C5-C6: Disc osteophyte complex. Superimposed left paracentral/foraminal herniation. Uncovertebral osteophytes. Mild ligamentum flavum thickening. Facet hypertrophy. Severe canal stenosis suggested with partial effacement of the thecal sac and mass effect upon the cord, though assessment is degraded by motion/artifact. Severe left greater than right foraminal narrowing suggested, though assessment is degraded by motion/artifact. C6-C7: Mild disc bulge. Ligamentum flavum thickening. Uncovertebral osteophytes. Facet hypertrophy. Mild canal stenosis suggested, though assessment is degraded by motion/artifact. Moderate left and mild right foraminal narrowing suggested, though assessment is degraded by motion/artifact. C7-T1: Mild disc bulge. Facet hypertrophy. No significant canal stenosis. Mild left foraminal narrowing. Procedure Note Finesse Campoverde MD - 06/09/[address] [address] INDICATION: Neck pain. Numbness in both arms. EXAMINATION: MRI of the cervical spine without contrast. TECHNIQUE: Multiplanar and multisequence MRI images of the cervical spinewere obtained without contrast. COMPARISON: 03/09/2024 FINDINGS: The axial gradient echo, sagittal gradient echo, and sagittal 3-D T2 spaceimages and axial reconstructions are motion and artifactually degraded.Multilevel degenerative changes are evident in the cervical spine withdisc degeneration, endplate/uncovertebral osteophytes, ligamentum flavumthickening, and facet hypertrophy noted. Multilevel disc desiccation.Greatest loss of disc height at C5-C6. No obvious cervical cord signalabnormality identified, though assessment is degraded bymotion/artifact. Craniocervical junction and partially imaged posterior fossa contents areunremarkable. Imaged portions of the neck soft tissues reveal no grossacute findings. C2-C3: Uncovertebral osteophytes. Facet hypertrophy. No canal stenosis.Mild foraminal narrowing, worse on the left. C3-C4: Disc bulge. Central protrusion. Uncovertebral osteophytes.Ligamentum flavum thickening. Facet hypertrophy. Moderate canal stenosissuggested with partial effacement of the thecal sac and flattening of thecord, though assessment is degraded by motion/artifact. Severe left andmoderate right foraminal narrowing suggested, though assessment isdegraded by motion/artifact. C4-C5: Mild disc bulge. Uncovertebral osteophytes. Mild ligamentum flavumthickening facet hypertrophy. Mild to moderate canal stenosis suggested,though assessment is degraded by motion/artifact. Moderate right greaterthan left foraminal narrowing suggested, though assessment is degraded bymotion/artifact. C5-C6: Disc osteophyte complex. Superimposed left paracentral/foraminalherniation. Uncovertebral osteophytes. Mild ligamentum flavum thickening.Facet hypertrophy. Severe canal stenosis suggested with partial effacementof the thecal sac and mass effect upon the cord, though assessment isdegraded by motion/artifact. Severe left greater than right foraminalnarrowing suggested, though assessment is degraded by motion/artifact. C6-C7: Mild disc bulge. Ligamentum flavum thickening. Uncovertebralosteophytes. Facet hypertrophy. Mild canal stenosis suggested, thoughassessment is degraded by motion/artifact. Moderate left and mild rightforaminal narrowing suggested, though assessment is degraded bymotion/artifact. C7-T1: Mild disc bulge. Facet hypertrophy. No significant canal stenosis.Mild left foraminal narrowing. IMPRESSION: 1. Multilevel degenerative changes noted in the cervical spinecontributing to varying degrees of spinal canal and foraminal stenosis, asdetailed above, though assessment is degraded by motion/artifact. 2. No obvious cervical cord signal abnormality identified, thoughassessment is degraded by motion/artifact. Referred By: MARLA DEL REAL Interpreted By: Finesse Campoverde MD, 06/09/2025 4:24 PM Marla Del Real MD MRI Final Result * DIABETIC RETINOPATHY EXAM (NEGATIVE) (03/22/2025) [facility] Scanned SCANNING Final Resu lt [facility] * HEMOGLOBIN, GLYCOSYLATED (11/08/2024) HGB A1C 6.5 % 11/08/2024 Default History Genericprovider LABORATORY Final Result * (ABNORMAL) LIPID PANEL (08/02/2024 6:18 AM CDT) CHOLESTEROL 170 <200 mg/dL [facility] HDL 41 > OR = 40 mg/dL [facility] TRIGLYCERIDES 198(H) <150 mg/dL [facility] LDL (CALCULATED) 99 mg/dL (calc) [facility] Comment: Reference range: <100 Desirable range <100 mg/dL for primary prevention; <70 mg/dL for patients with CHD or diabetic patients with > or = 2 CHD risk factors. LDL-C is now calculated using the Paul-Reeder calculation, which is a validated novel method providing better accuracy than the Friedewald equation in the estimation of LDL-C. Paul SS et al. SIMON. 2013;310(19): 2418-3575 (http://education.Wesabe/faq/TPJ752) CHOL/HDL RATIO 4.1 <5.0 (calc) [facility] NON HDL CHOLESTEROL 129 <130 mg/dL (calc) [facility] Comment: For patients with diabetes plus 1 major ASCVD risk factor, treating to a non-HDL-C goal of <100 mg/dL (LDL-C of <70 mg/dL) is considered a therapeutic option. 08/02/2024 6:18 AM CDT 08/02/2024 6:19 AM CDT Narrative [facility] - 08/03/2024 2:52 AM CDT FASTING:YES FASTING: YES Resulting Agency Comment Performing Organization Information: Site ID: [id number] Name: [employer] [facility] Address: [address] [address] Director: Dania Osorio MD us Hopeshayne Weiss NP LABORATORY Final Res ult [facility] [address] [address], * COLONOSCOPY GENERIC (07/15/2022) 07/15/2022 Narrative 07/15/2022 [...] a test for HCV RNA (test code 74298) is suggested. For additional information please refer to http://education.UsTrendy/faq/PIC78v5 (This link is being provided for informational/ educational purposes only.) 05/26/2021 9:40 AM CDT 05/26/2021 9:40 AM CDT us Hope Weiss NP LABORATORY Final Res ult [facility] [address] [id number] [id number] from Last 3 Months or Most Recently Relevant to Health Maintenance Insurance [facility] Care Teams Screwmaker Automatic Relationship Specialty Start Date End Date Hope Weiss NP [address] [place] [address] PCP - General NURSE PRACTITIONER 04/21/21
--- OUTSIDE RECORDS SUMMARY | 2025-06-27 00:23 | XMS_ITS | Patient Health Record ---
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,, [address] [place], [address] Monika Kirk MD,PhD,KEN Notes/Report: DEXAMETHASONE 332 Reference Ranges for Dexamethasone: Baseline: Less than 20 ng/dL 1 mg dexamethasone overnight: 180-550 ng/dL (8:00-10:00 AM) This test was developed and its analytical performance characteristics have been determined by [facility]. It has not been cleared or approved by FDA. This assay has been validated pursuant to the CLIA regulations and is used for clinical purposes. CORTISOL, TOTAL Reviewed date:10/15/2024 06:56:59 PM Interpretation: Performing Lab:[facility], [address] [place], [address] Dania Osorio MD Notes/Report: COMPREHENSIVE METABOLIC PANE L Reviewed date:11/09/2024 10:53:09 AM Interpretation: Performing Lab:[facility], [address] [place], [address] Dania Osorio MD Notes/Report: FASTING:YES FASTING: YES VITAMIN D, 25-HYDROXY, LC/MS /MS Reviewed date:11/09/2024 10:53:09 AM Interpretation: Performing Lab:[facility], [address], [place], [address] Dania Osorio MD Notes/Report: FASTING:YES FASTING: YES ACTH, PLASMA Reviewed date:11/15/2024 08:58:37 AM Interpretation: Performing Lab:[facility], [address], [place], [address] Hamzah Tovar M.D.,PhD Notes/Report: FASTING:YES FASTING: YES T3, FREE Reviewed date:11/09/2024 10:53:09 AM Interpretation: Performing Lab:[facility], [address], [place], [address] Dania Osorio MD Notes/Report: FASTING:YES FASTING: YES CORTISOL, TOTAL Reviewed date:11/09/2024 10:53:09 AM Interpretation: Performing Lab:[facility], [address], [place], [address] Dania Osorio MD Notes/Report: FASTING:YES FASTING: YES DHEA SULFATE Reviewed date:11/09/2024 10:53:09 AM Interpretation: Performing Lab:[facility], [address], [place], [address] Dania Osorio MD Notes/Report: FASTING:YES FASTING: YES ESTRADIOL Reviewed date:11/09/2024 10:53:09 AM Interpretation: Performing Lab:[facility], [address], [place], [address] Dania Osorio MD Notes/Report: FASTING:YES FASTING: YES FSH Reviewed date:11/09/2024 10:53:09 AM Interpretation: Performing Lab:[facility], [address], [place], [address] Dania Osorio MD Notes/Report: FASTING:YES FASTING: YES HEMOGLOBIN A1c Reviewed date:11/09/2024 10:53:09 AM Interpretation: Performing Lab[facility], [address] , [place], [address] Dania Osorio Notes/Report: FASTING:YES FASTING: YES INSULIN Reviewed date:11/09/2024 10:53:09 AM Interpretation: Performing Lab:[facility], [address], [place], [address] Dania Osorio MD Notes/Report: FASTING:YES FASTING: YES LH Reviewed date:11/09/2024 10:53:09 AM Interpretation: Performing Lab:[facility], [address], [place], [address] Dania Osorio MD Notes/Report: FASTING:YES FASTING: YES CBC (INCLUDES DIFF/PLT) Reviewed date:11/09/2024 10:53:09 AM Interpretation: Performing Lab:[facility], [address], [place], [address] Dania Osorio MD Notes/Report: FASTING:YES FASTING: YES VITAMIN B12/FOLATE, SERUM PA ART Reviewed date:11/09/2024 10:53:09 AM Interpretation: Performing Lab:[facility], [address], [place], [address] Dania Osorio MD Notes/Report: FASTING:YES FASTING: YES PROLACTIN Reviewed date:11/09/2024 10:53:09 AM Interpretation: Performing Lab:[facility], [address], [place], [address] Dania Osorio MD Notes/Report: FASTING:YES FASTING: YES IRON AND TOTAL IRON BINDING CAPACITY Reviewed date:11/09/2024 10:53:09 AM Interpretation: Performing Lab:[facility], [address], [place], [address] Dania Osorio MD Notes/Report: FASTING:YES FASTING: YES LIPID PANEL Reviewed date:11/09/2024 10:53:09 AM Interpretation: Performing Lab:[facility], [address], [place], [place], [address] Dania Osorio MD Notes/Report: FASTING:YES FASTING: YES T4, FREE Reviewed date:11/09/2024 10:53:09 AM Interpretation: Performing Lab:[place] [facility], [address], [place], [place], [address] Dania Osorio MD Notes/Report: FASTING:YES FASTING: YES TSH Reviewed date:11/09/2024 10:53:09 AM Interpretation: Performing Lab:[facility], [address], [place], [place], [address] Dania Osorio MD Notes/Report: FASTING:YES FASTING: YES DEXAMETHASONE Reviewed date:11/24/2024 10:03:07 AM Interpretation: Performing Lab:[facility],, [address] [place], [address] Monika Kirk MD,PhD,KEN Notes/Report: COLLECTION KIT GIVEN TO PATIENT. PATIENT ADVISED TO RETURN. URINE VOLUME: 2000 DEXAMETHASONE 273 Reference Ranges for Dexamethasone: Baseline: Less than 20 ng/dL 1 mg dexamethasone overnight: 180-550 ng/dL (8:00-10:00 AM) This test was developed and its analytical performance characteristics have been determined by [facility]. It has not been cleared or approved by FDA. This assay has been validated pursuant to the CLIA regulations and is used for clinical purposes. CORTISOL, TOTAL Reviewed date:11/15/2024 08:48:42 AM Interpretation: Performing Lab:[facility], [address], [place], [place], [address] Dania Osorio MD Notes/Report: COLLECTION KIT GIVEN TO PATIENT. PATIENT ADVISED TO RETURN. URINE VOLUME: 2000 CORTISOL, FREE, 24 HOUR URIN E Reviewed date:11/25/2024 01:57:18 PM Interpretation: Performing Lab:[facility],, [address] [place], [address] Monika Kirk MD,PhD,KEN Notes/Report: SPLIT 11/09/2024 FROM [id number] URINE VOLUME: 3000/24 TOTAL VOLUME 3000 CORTISOL, FREE, URINE 15.9 4.0-50.0 mcg/24 h CORTISOL, FREE, URINE 10.1 Reference Range: ADULTS: 3.1-42.3 CREATININE, URINE 1.57 0.50-2.15 g/24 h This test was developed and its analytical performance characteristics have been determined by [facility]. It has not been cleared or approved by FDA. This assay has been validated pursuant to the CLIA regulations and is used for clinical purposes. CORTISOL, LC/MS, SALIVA, 2 S AMPLES Reviewed date:11/24/2024 10:05:23 AM Interpretation: Performing Lab:[facility],, [address] [place], [address] Monika Kirk MD,PhD,KEN Notes/Report: SPLIT 11/09/2024 FROM [id number] URINE VOLUME: 3000/24 DRAW DATE 1 11/10/2024 DRAW TIME 1 12:00 CORTISOL, SALIVA SAMPLE 1 0.03 8-10 AM: 0.04-0.56 mcg/dL noon-2 PM: < OR = 0.21 mcg/dL 4-6 PM: < OR = 0.15 mcg/dL 10 PM-1 AM: < OR = 0.09 mcg/dL This test was developed and its analytical performance characteristics have been determined by [facility]. It has not been cleared or approved by FDA. This assay has been validated pursuant to the CLIA regulations and is used for clinical purposes. DRAW DATE 2 11/15/2024 DRAW TIME 2 12:00 CORTISOL, SALIVA SAMPLE 2 0.06 8-10 AM: 0.04-0.56 mcg/dL noon-2 PM: < OR = 0.21 mcg/dL 4-6 PM: < OR = 0.15 mcg/dL 10 PM-1 AM: < OR = 0.09 mcg/dL This test was developed and its analytical performance characteristics have been determined by [facility]. It has not been cleared or approved by FDA. This assay has been validated pursuant to the CLIA regulations and is used for clinical purposes. Reason For Referral No Information Medications Medication SIG (Take, Route, Frequency, Duration) Notes Start Date End Date Status Testosterone Cypionate 200 MG/ML as directed intramuscularly every 4 weeks every week Unknown ALPRAZolam *Please review and pick correct strength-formula tion from [employer] options. If intended option is not shown, discontinue and re-order from Quick Search* Unknown lamoTRIgine *Please review and pick correct strength-formula tion from [employer] options. If intended option is not shown, discontinue and re-order from Quick Search* Unknown metFORMIN HCl *Please review and pick correct strength-formula tion from [employer] options. If intended option is not shown, discontinue and re-order from Quick Search* Unknown Vitamin D3 *Please review and pick correct strength-formula tion from [employer] options. If intended option is not shown, discontinue and re-order from Quick Search* Unknown dexAMETHasone 1 MG 1 tablet Orally at 10 pm night before 8 am cortisol for 1 days 10/15/2024 Not-Taking dexAMETHasone 1 MG 1 tab(s) orally at 10 pm night before 8 am cortisol for 1 days 09/06/2024 Not-Taking Social History Smoking: Question Answer Notes Additional Findings: Tobacco User Chews tobacco Section Notes: caffeine: yes, soda Problems Problem Type SNOMED Code ICD Code Onset Dates Problem Status W/U Status Risk Notes Problem Vitamin D deficiency (83670550) Vitamin D deficiency, unspecified (E55.9) Active confirmed Problem Obesity (583897251) Obesity, unspecified (E66.9) Active confirmed Problem Testicular dysfunction (57342218) Testicular dysfunction, unspecified (E29.9) Active confirmed Problem Disorder of mineral metabolism, 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 Vital Signs Heart Rate 88 /min 09/06/2024 Blood pressure diastolic 79 mm Hg 09/06/2024 Height 71 in 09/06/2024 Blood pressure systolic 109 mm Hg 09/06/2024 Weight 248.0 lbs 09/06/2024 BMI 34.59 kg/m2 09/06/2024 Encounters Encounter Location Date Provider Diagnosis [facility] [address] [address] 09/22/2024 Provider Migration Obesity, unspecified E66.9 [facility] Ailyn Valenzuela [address] [place] [address] 09/06/2024 Ailyn Valenzuela Obesity, unspecified E66.9 ; Other fatigue R53.83 ; Impaired fasting glucose R73.01 ; Disorder of mineral metabolism, unspecified E83.9 ; Vitamin D deficiency, unspecified E55.9 ; Dietary counseling and surveillance Z71.3 and Testicular dysfunction, unspecified E29.9 [facility] Ailyn [employer] [address] [place] [address] 09/13/2024 Ailyn Valenzuela [employer] [facility] [address] [place] [address] 10/15/2024 Ailyn Valenzuela Obesity, unspecified E66.9 [facility] [address] [address] 11/08/2024 Ailyn Valenzuela Assessments Encounter Date Diagnosis (ICD Code) Assessment Notes Treatment Notes Treatment Clinical Notes Section Notes 09/22/2024 Obesity, unspecified (ICD-10 - E66.9) 09/06/2024 Other fatigue (ICD-10 - R53.83) 09/06/2024 Obesity, unspecified (ICD-10 - E66.9) 10/15/2024 Obesity, unspecified (ICD-10 - E66.9) 09/06/2024 Impaired fasting glucose (ICD-10 - R73.01) 09/06/2024 Disorder of mineral metabolism, unspecified (ICD-10 - E83.9) 09/06/2024 Vitamin D deficiency, unspecified (ICD-10 - E55.9) 09/06/2024 Dietary counseling and surveillance (ICD-10 - Z71.3) 09/06/2024 Testicular dysfunction, unspecified (ICD-10 - E29.9) 09/06/2024 Other Assessment and Plan: 1. Low testosterone- Hold off on the next injection and perform lab tests in 10-14 days to check trough levels- Discontinue testosterone for 4 weeks before performing adrenal axis and pituitary adrenal function tests 2. Sleep apnea- Explore the possibility of obtaining a mouth brace through a dentist or lung doctor to improve aeration during sleep 3. Insomnia, anxiety, and depression- Continue management under psychiatrist - Monitor the impact of improved testosterone levels and sleep apnea management on mental health symptoms - send for DST to screen for hypercortisolism 4. Chronic pain and limited mobility- Perform a bone density scan to assess for osteoporosis- Consider referral to a friction paint machine tender or physical therapist for further evaluation and treatment 5. High triglycerides and blood sugar- Encourage a healthier diet and limit consumption of artificial sweeteners- Resume metformin for diabetes management- Monitor kidney function through blood work 6. Bipolar II disorder- Continue Lamictal as prescribed by psychiatrist. Follow-up:- Schedule a follow-up appointment in mid-October to review lab results and assess progress in managing the identified issues. Spent 45 minutes preparing to see the patient (ex review of tests/chart), obtaining and / or reviewing separately obtained history, performing a medically appropriate examination and/or evaluation, counseling and educating the patient/family/ca regiver, ordering medications, tests, or procedures, referring and communicating with other health manager intensive care unit, documenting clinical information in the electronic or other health record, independently interpreting results and communicating results to the patient/family/ca regiver and care coordinating patient plan. Patient alert and oriented x 4 and aware of discussion noted above and in agreeance to plan in management of low testosterone, hyperglycemia, weight gain/obesity, fatigue and 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 Bone density scan performed in clinic today- T score normal of LS and hip bilaterally, no evidence of bone loss- high risk for bone loss due to low testosterone of 14 ng/dL. Will assess HPA axis due to low T. Plan Of Treatment Pending Test Test Name Order Date -HF BONE DENSITY SCREEN 09/06/2024 Insurance Providers Payer Name Payer Address Payer Phone Subscriber Number Group Number Insured Name Patient Relationship to Insured Coverage Start Date Coverage End Date [facility] [address] [place] [address] [id number] MERCEDES KRAUSE Self - patient is the insured Medical (General) History Medical History History ICD Code low testosterone depression chronic pain pinched nerve in neck cubital tunnel syndrome Hospitalization History Reason Date(Month/Year) cubital tunnel surgery
--- OUTSIDE RECORDS SUMMARY | 2025-06-27 00:24 | XMS_ITS | Patient Health Record ---
Author Organization [facility] Click Bus Address [facility] [facility] [address] [place] [address] Care Team Providers Care Financial Coordinator Name Role Phone Nata Barcenas Unavailable [phone] Allergies No Known Allergies Reason For Referral No Information Medications Medication SIG (Take, Route, Frequency, Duration) Notes Start Date End Date Status Buprenorphine HCl 8 MG Tablet Sublingual Sublingual; Duration: 30 Days Active lamoTRIgine 200 MG Tablet 2 tablet Oral at bedtime; Duration: 90 days Active Caplyta 21 MG Capsule 1 capsules Orally Once a day; Duration: 90 days 06/18/2025 Active lamoTRIgine 200 MG Tablet 2 tablet Oral at bedtime; Duration: 90 days Active Albuterol Sulfate HFA 108 (90 Base) MCG/ACT Aerosol Solution Inhalation; Duration: 33 Days Active Vitamin D (Ergocalciferol) 1.25 MG (33309 UT) Capsule Oral; Duration: 84 Days Active hydrOXYzine HCl 25 MG Tablet 1 tablet Oral three times a day; Duration: 90 days As needed 10/15/2024 Active ALPRAZolam 1 MG Tablet 1 tablet Oral thr ee times daily; Duration: 30 days 06/18/2025 Active Gabapentin 300 MG Capsule Oral; Duration: 30 Days Active traZODone HCl 50 MG Tablet 1-2 tablet at bedtime Orally Once a day; Duration: 90 days Active Social History Tobacco Use: Social History Observation Description Date Details (start date - stop date) Unknown Sex Assigned At : Social History Observation Description Sex Assigned At Male Social History Social History Social Info Question Answer Notes Household: Marital Status: Number of Adults in household: 2 Number of Children in Household: 0 Level of Education: Finished High School Drug/Alcohol: Social Info Question Answer Notes Drugs Have you used drugs other than those for medical reasons in the past 12 months? No AUDIT-C (Standard) Did you have a drink containing alcohol in the past year? No Tobacco Use: Social Info Question Answer Notes Tobacco Control (Standard) Tobacco use: Uses tobacco in other forms Problems Problem Type SNOMED Code ICD Code Onset Dates Problem Status W/U Status Risk Notes Problem Bipolar 2 disorder (85418125) Bipolar 2 disorder (F31.81) Active confirmed Problem Generalized anxiety disorder (43078924) SINCERE (generalized anxiety disorder) (F41.1) Active confirmed Encounters Encounter Location Date Provider Diagnosis [place] [address] [place] [address] 08/23/2024 Nata Kurilla Bipolar 2 disorder F31.81 and SINCERE (generalized anxiety disorder) F41.1 [place] [address] [facility] [address] [place] [address] 11/23/2024 Nata Kurilla Bipolar 2 disorder F31.81 and SINCERE (generalized anxiety disorder) F41.1 [place] [address] [facility] [address] [facility] [address] [place] [address] 02/21/2025 Nata Kurilla Nicotine use Z72.0 ; Bipolar 2 disorder F31.81 and SINCERE (generalized anxiety disorder) F41.1 [facility] [address] [facility] [address] [place] [address] 06/18/2025 Nata Kurilla Nicotine use Z72.0 ; Bipolar 2 disorder F31.81 and SINCERE (generalized anxiety disorder) F41.1 [place] [address] [place] [address] 09/14/2024 Nata Kurilla SINCERE (generalized anxiety disorder) F41.1 [place] [address] [place] [address] 10/15/2024 Nata Kurilla SINCERE (generalized anxiety disorder) F41.1 [facility] [address] [place] [address] 11/14/2024 Nata Kurilla Bipolar 2 disorder F31.81 [place] [address] [place] [address] 11/23/2024 Nata Kurilla [facility] [address] [place] [address] 01/09/2025 Nata Barcenas Bipolar 2 disorder F31.81 [place] [address] [facility] [address] [facility] [address] [place] [address] 02/07/2025 Nata Barcenas SINCERE (generalized anxiety disorder) F41.[address] [facility] [address] [place] [address] 04/05/2025 Nata Barcenas [address] [facility] [address] [place] [address] 01/09/2025 Nata Barcenas Bipolar 2 disorder F31.[address] [facility] [address] [place] [address] 06/18/2025 Nata Barcenas Assessments Encounter Date Diagnosis (ICD Code) Assessment Notes Treatment Notes Treatment Clinical Notes Section Notes 09/14/2024 SINCERE (generalized anxiety disorder) (ICD-10 - F41.1) 10/15/2024 SINCERE (generalized anxiety disorder) (ICD-10 - F41.1) 11/14/2024 Bipolar 2 disorder (ICD-10 - F31.81) 11/23/2024 Bipolar 2 disorder (ICD-10 - F31.81) 08/23/2024 Bipolar 2 disorder (ICD-10 - F31.81) 01/09/2025 Bipolar 2 disorder (ICD-10 - F31.81) 01/09/2025 Bipolar 2 disorder (ICD-10 - F31.81) 02/07/2025 SINCERE (generalized anxiety disorder) (ICD-10 - F41.1) 02/21/2025 Nicotine use (ICD-10 - Z72.0) 06/18/2025 Nicotine use (ICD-10 - Z72.0) 06/18/2025 Bipolar 2 disorder (ICD-10 - F31.81) Lamotrigine is an anticonvulsant and mood stabilizer used in psychiatry. Lamotrigine use is associated with benign rashes (incidence approximately 10%) and rare serious rashes that may require hospitalization and discontinuation of treatment, including Coughlin-Fred syndrome and toxic epidermal necrolysis. Pt educated on importance of titration schedule and to take the medication only as prescribed. Pt educated that if they miss 5 or more consecutive doses then this medication will need to be re-titrated to reduce risk of rash. If any rash is noted, patient is instructed to stop taking this medication and call office. If rash is severe, they are to present immediately to the emergency room. Electronic Prior Authorization was requested for Caplyta 21 MG Capsule. Provider can order medication once approval received. 02/21/2025 Bipolar 2 disorder (ICD-10 - F31.81) Lamotrigine is an anticonvulsant and mood stabilizer used in psychiatry. Lamotrigine use is associated with benign rashes (incidence approximately 10%) and rare serious rashes that may require hospitalization and discontinuation of treatment, including Coughlin-Fred syndrome and toxic epidermal necrolysis. Pt educated on importance of titration schedule and to take the medication only as prescribed. Pt educated that if they miss 5 or more consecutive doses then this medication will need to be re-titrated to reduce risk of rash. If any rash is noted, patient is instructed to stop taking this medication and call office. If rash is severe, they are to present immediately to the emergency room. 08/23/2024 SINCERE (generalized anxiety disorder) (ICD-10 - F41.1) 11/23/2024 SINCERE (generalized anxiety disorder) (ICD-10 - F41.1) 02/21/2025 SINCERE (generalized anxiety disorder) (ICD-10 - F41.1) Discussed and educated pt regarding benzodiazepines are generally not intended for prolonged use and that use can cause tolerance, dependence, depression, and associated memory issues including dementias (this list is not exhaustive). Benzodiazepine use is generally not recommended concurrently with pain medications and/or other controlled substances due to increased risks of profound sedation, respiratory depression, coma, and even . They are not to be used with any alcohol, as this combination can be lethal. 06/18/2025 SINCERE (generalized anxiety disorder) (ICD-10 - F41.1) Discussed and educated pt regarding benzodiazepines are generally not intended for prolonged use and that use can cause tolerance, dependence, depression, and associated memory issues including dementias (this list is not exhaustive). Benzodiazepine use is generally not recommended concurrently with pain medications and/or other controlled substances due to increased risks of profound sedation, respiratory depression, coma, and even . They are not to be used with any alcohol, as this combination can be lethal. 08/23/2024 Other Start Trazodone 50-100mg nightly as needed for sleep. Patient educated on all medications including potential benefits, side effects, risks. Educated on proper dosing schedule and importance of compliance. [place] report checked and consistent with prescription history, no controlled substance prescriptions from other providers. 11/23/2024 Other Overall stable, cont current medications. Patient educated on all medications including potential benefits, side effects, risks. Educated on proper dosing schedule and importance of compliance. [place] report checked and consistent with prescription history, no controlled substance prescriptions from other providers. No refill for alprazolam sent today -Assessment and treatment plan reviewed with patient. -Compliance with treatment plan importance discussed. -Discussed the risks/benefits of this medication -Discussed medication side effects. -Contact office if symptoms worsen. -Discussed that it can take up to 6-8 weeks to see full therapeutic effects of psychotropic medications. -Crisis prevention hotline 988. 02/21/2025 Other Stable on current medication regimen, continue at current doses. -Refills sent in today -No concerns today Patient educated on all medications including potential benefits, side effects, risks. Educated on proper dosing schedule and importance of compliance. [place] report checked and consistent with prescription history, no controlled substance prescriptions from other providers. -Assessment and treatment plan reviewed with patient. -Compliance with treatment plan importance discussed. -Discussed the risks/benefits of this medication -Discussed medication side effects. -Contact office if symptoms worsen. -Discussed that it can take up to 6-8 weeks to see full therapeutic effects of psychotropic medications. -Crisis prevention hotline 988. 06/18/2025 Other Start Caplyta 21mg daily for depression, can help with sleep. Patient educated on all medications including potential benefits, side effects, risks. Educated on proper dosing schedule and importance of compliance. -Assessment and treatment plan reviewed with patient. -Compliance with treatment plan importance discussed. -Discussed the risks/benefits of this medication -Discussed medication side effects. -Contact office if symptoms worsen. -Discussed that it can take up to 6-8 weeks to see full therapeutic effects of psychotropic medications. -Crisis prevention [facility] 988. Plan Of Treatment Pending Test Test Name Order Date UDT 05/24/2024 Next Appt Details Provider Name:Nata Ana subramanian, 07/30/2025 03:15:00 PM, [address], [facility] [address], [place], [address], Insurance Providers Payer Name Payer Address Payer Phone Subscriber Number Group Number Insured Name Patient Relationship to Insured Coverage Start Date Coverage End Date [employer] [address] [place] [address] [id number] MERCEDES KRAUSE Self - patient is the insured Medical (General) History Medical History History ICD Code Past Psychiatric History: Anxiety Disord er,Bipolar Disorder abdominal aortic aneurysm: No atrial fibrillation: No chronic fatigue syndrome: No essential tremor: No hyperlipidemia: No hypertension: No Parkinson's disease: No restless leg syndrome: Yes stroke: No subdural hematoma: No type 1 diabetes mellitus: No type 2 diabetes mellitus: No vitamin B12 deficiency: No vitamin D deficiency: Yes
--- OUTSIDE RECORDS SUMMARY | 2025-06-27 00:24 | XMS_ITS | Encounter Summary ---
Author Organization [facility] Address [address] [place] [address] Care Team Providers Care Office Specialist Name Role Phone Hope Weiss NP Primary Care Provider [phone] Encounter Details Date Type Department Care Team (Late st Contact Info) Description 06/19/2025 Terrace Software Message Enc [facility] Medical [facility] Family Medicine [facility] [address] [place] [address] [facility] Phone call Social History Tobacco Use Types Packs/Day Years Used Date Smoking Tobacco: Never Passive Smoke Exposure: Never Smokeless Tobacco: Current Chew Alcohol Use Standard Drinks/Week Comments Not Currently 0 (1 standard drink = 0.6 oz pur e alcohol) PHQ-2 Answer Date Recorded Patient Health Questionnaire-2 Score 0 03/11/2025 Sex and Gender Information Value Date Recorded Sex Assigned at Male 03/11/2025 12:50 PM CDT Legal Sex Male 12:08 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
--- OUTSIDE RECORDS SUMMARY | 2025-06-27 00:24 | XMS_ITS | Patient Health Record ---
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 Role Phone Ailyn Valenzuela Unavailable [phone] Migration, Provider Unavailable Unavailable Osman Seay Unavailable [phone] Allergies Allergen (clinical drug ingredient) Drug/Non Drug Allergy documented on EMR Reaction Allergy Type Onset Date Status ceftriaxone cefTRIAXone Unknown Drug Allergy Act helio Results Component Value Reference Range Flag Notes DEXAMETHASONE Reviewed date:10/18/2024 07:55:21 PM Interpretation: Performing Lab:Guilherme MAHONEY/Nancy [facility],, [address] [place], [address] Monika Kirk MD,PhD,KEN Notes/Report: Reference Ranges for Dexamethasone: Baseline: Less than 20 ng/dL 1 mg dexamethasone overnight: 180-550 ng/dL (8:00-10:00 AM) This test was developed and its analytical performance characteristics have been determined by [facility]. It has not been cleared or approved by FDA. This assay has been validated pursuant to the CLIA regulations and is used for clinical purposes. DEXAMETHASONE 332 CORTISOL, TOTAL Reviewed date:10/15/2024 06:56:59 PM Interpretation: Performing Lab:Guilherme KIRK-[place], [address] [place], [address] Dania Osorio MD Notes/Report: Reference Range: For 8 a.m.(7-9 a.m.) Specimen: 4.0-22.0 Reference Range: For 4 p.m.(3-5 p.m.) Specimen: 3.0-17.0 * Please interpret above results accordingly * CORTISOL, TOTAL 1.5 L COMPREHENSIVE METABOLIC PANE L Reviewed date:11/09/2024 10:53:09 AM Interpretation: Performing Lab:REAGAN [facility], [address] [place], [address] Dania Osorio MD Notes/Report: Not Reported: BUN and Creatinine are within FASTING:YES Fasting reference interval reference range. FASTING: YES For someone without known diabetes, a glucose value >125 mg/dL indicates that they may have diabetes and this should be confirmed with a follow-up test. GLUCOSE 155 65-99 mg/dL H UREA NITROGEN (BUN) 16 7-25 mg/dL N CREATININE 1.06 0.70-1.35 mg/dL N EGFR 80 > OR = 60 mL/min/1.73m2 N BUN/CREATININE RATIO SEE NOTE: 6-22 (calc) SODIUM 141 135-146 mmol/L N POTASSIUM 4.0 3.5-5.3 mmol/L N CHLORIDE 99 98-110 mmol/L N CARBON DIOXIDE 30 20-32 mmol/L N CALCIUM 10.1 8.6-10.3 mg/dL N PROTEIN, TOTAL 7.3 6.1-8.1 g/dL N ALBUMIN 4.6 3.6-5.1 g/dL N GLOBULIN 2.7 1.9-3.7 g/dL (calc) N ALBUMIN/GLOBULIN RATIO 1.7 1.0-2.5 (calc) N BILIRUBIN, TOTAL 0.4 0.2-1.2 mg/dL N ALKALINE PHOSPHATASE 73 35-144 U/L N AST 14 10-35 U/L N ALT 21 9-46 U/L N VITAMIN D, 25-HYDROXY, LC/MS /MS Reviewed date:11/09/2024 10:53:09 AM Interpretation: Performing Lab:REAGAN [facility], [address] [place], [address] Dania Osorio MD Notes/Report: Vitamin D Status 25-OH Vitamin D: FASTING:YES Deficiency: <20 ng/mL FASTING: YES Insufficiency: 20 - 29 ng/mL Optimal: > or = 30 ng/mL For 25-OH Vitamin D testing on patients on D2-supplementation and patients for whom quantitation of D2 and D3 fractions is required, the QuestAssureD(TM) 25-OH VIT D, (D2,D3), LC/MS/MS is recommended: order code 10915 (patients >2yrs). See Note 1 Note 1 For additional information, please refer to http://education.[employer]/faq/EZE872 (This link is being provided for informational/ educational purposes only.) VITAMIN D,25-OH,TOTAL,IA 58 30-100 ng/mL N ACTH, PLASMA Reviewed date:11/15/2024 08:58:37 AM Interpretation: Performing Lab:Guilherme NIÑO/Nancy [facility], [address], [place], [address] Hamzah Tovar M.D.,PhD Notes/Report: FASTING:YES Reference range applies only to specimens collected between 7am-10am. FASTING: YES ACTH, PLASMA 15 6-50 pg/mL T3, FREE Reviewed date:11/09/2024 10:53:09 AM Interpretation: Performing Lab:REAGAN [facility], [address] [place], [address] Dania Osorio MD Notes/Report: FASTING:YES FASTING: YES T3, FREE 3.2 2.3-4.2 pg/mL N CORTISOL, TOTAL Reviewed date:11/09/2024 10:53:09 AM Interpretation: Performing Lab:REAGAN [facility] Priti[facility], [address] [place], [address] Dania Osorio MD Notes/Report: Reference Range: For 8 a.m.(7-9 a.m.) Specimen: 4.0-22.0 FASTING:YES Reference Range: For 4 p.m.(3-5 p.m.) Specimen: 3.0-17.0 * Please interpret above results accordingly * FASTING: YES CORTISOL, TOTAL 20.2 N DHEA SULFATE Reviewed date:11/09/2024 10:53:09 AM Interpretation: Performing Lab:REAGNA [facility], [address] [place], [address] Dania Osorio MD Notes/Report: FASTING:YES FASTING: YES DHEA SULFATE 35 32-279 mcg/dL N ESTRADIOL Reviewed date:11/09/2024 10:53:09 AM Interpretation: Performing Lab:REAGAN Guilherme MarcosOlgaCharito, [address] [place], [address] Dania Osorio MD Notes/Report: Reference range established on post-pubertal patient FASTING:YES population. No pre-pubertal reference range established using this assay. For any patients for FASTING: YES whom low Estradiol levels are anticipated (e.g. males, pre-pubertal children and hypogonadal/post-menopausal females), the [facility] Estradiol, Ultrasensitive, LCMSMS assay is recommended (order code 15637). Please note: patients being treated with the drug fulvestrant (Faslodex(R)) have demonstrated significant interference in immunoassay methods for estradiol measurement. The cross reactivity could lead to falsely elevated estradiol test results leading to an inappropriate clinical assessment of estrogen status. [facility] order code 18221-Kplokhbzu, Ultrasensitive LC/MS/MS demonstrates negligible cross reactivity with fulvestrant. ESTRADIOL 77 < OR = 39 pg/mL H FSH Reviewed date:11/09/2024 10:53:09 AM Interpretation: Performing Lab:REAGAN Guilherme Priti-[place], [address] [place], [address] Dania Osorio MD Notes/Report: FASTING:YES FASTING: YES FSH 6.3 1.4-12.8 mIU/mL N HEMOGLOBIN A1c Reviewed date:11/09/2024 10:53:09 AM Interpretation: Performing Lab:[facility], [address], [place], [address] Dania Osorio Notes/Report: For someone without known diabetes, a hemoglobin A1c FASTING:YES value of 6.5% or greater indicates that they may have diabetes and this should be confirmed with a follow-up FASTING: YES test. For someone with known diabetes, a value <7% indicates that their diabetes is well controlled and a value greater than or equal to 7% indicates suboptimal control. A1c targets should be individualized based on duration of diabetes, age, comorbid conditions, and other considerations. Currently, no consensus exists regarding use of hemoglobin A1c for diagnosis of diabetes for children. HEMOGLOBIN A1c 6.5 <5.7 % of total Hgb H INSULIN Reviewed date:11/09/2024 10:53:09 AM Interpretation: Performing Lab:REAGAN [facility], [address] [place], [address] Dania Osorio MD Notes/Report: Reference Range < or = 18.4 FASTING:YES Risk: FASTING: YES Optimal < or = 18.4 Moderate NA High >18.4 Adult cardiovascular event risk category cut points (optimal, moderate, high) are based on Insulin Reference Interval studies performed at [facility] in 2021. INSULIN 22.2 H LH Reviewed date:11/09/2024 10:53:09 AM Interpretation: Performing Lab:REAGAN [facility], [address] [place], [address] Dania Osorio MD Notes/Report: FASTING:YES FASTING: YES LH 2.3 1.6-15.2 mIU/mL N CBC (INCLUDES DIFF/PLT) Reviewed date:11/09/2024 10:53:09 AM Interpretation: Performing Lab:REAGAN [facility], [address] [place], [address] Dania Osorio MD Notes/Report: For adults, a slight decrease in the calculated MCHC FASTING:YES value (in the range of 30 to 32 g/dL) is most likely not clinically significant; however, it should be FASTING: YES interpreted with caution in correlation with other red cell parameters and the patient's clinical condition. WHITE BLOOD CELL COUNT 6.2 3.8-10.8 Thousand/uL N RED BLOOD CELL COUNT 4.98 4.20-5.80 Million/uL N HEMOGLOBIN 15.1 13.2-17.1 g/dL N HEMATOCRIT 44.9 38.5-50.0 % N MCV 90.2 80.0-100.0 fL N MCH 30.3 27.0-33.0 pg N MCHC 33.6 32.0-36.0 g/dL N RDW 12.9 11.0-15.0 % N PLATELET COUNT 243 140-400 Thousand/uL N MPV 11.4 7.5-12.5 fL N ABSOLUTE NEUTROPHILS [phone] cells/uL N ABSOLUTE LYMPHOCYTES 2449 850-3900 cells/uL N ABSOLUTE MONOCYTES 310 200-950 cells/uL N ABSOLUTE EOSINOPHILS 143 15-500 cells/uL N ABSOLUTE BASOPHILS 50 0-200 cells/uL N NEUTROPHILS 52.4 N LYMPHOCYTES 39.5 N MONOCYTES 5.0 N EOSINOPHILS 2.3 N BASOPHILS 0.8 N VITAMIN B12/FOLATE, SERUM PA ART Reviewed date:11/09/2024 10:53:09 AM Interpretation: Performing Lab:Guilherme KIRK, [address] [place], [address] Dania Osorio MD Notes/Report: Reference Range FASTING:YES Low: <3.4 Borderline: 3.4-5.4 FASTING: YES Normal: >5.4 VITAMIN B12 668 185-1026 pg/mL N FOLATE, SERUM 18.7 N PROLACTIN Reviewed date:11/09/2024 10:53:09 AM Interpretation: Performing Lab:Guilherme KIRK, [address] [place], [address] Dania Osorio MD Notes/Report: FASTING:YES FASTING: YES PROLACTIN 4.5 2.0-18.0 ng/mL N IRON AND TOTAL IRON BINDING CAPACITY Reviewed date:11/09/2024 10:53:09 AM Interpretation: Performing Lab:Guilherme KIRK, [address] [place], [address] Dania Osorio MD Notes/Report: FASTING:YES FASTING: YES IRON, TOTAL 109 50-180 mcg/dL N IRON BINDING CAPACITY 372 250-425 mc g/dL (calc) N % SATURATION 29 20-48 % (calc) N LIPID PANEL Reviewed date:11/09/2024 10:53:09 AM Interpretation: Performing Lab:[facility]il[facility]me [facility], [address] [place], [address] Dania Osorio MD Notes/Report: Reference range: <100 For patients with diabetes plus 1 major ASCVD risk FASTING:YES If a non-fasting specimen was collected, consider factor, treating to a non-HDL-C goal of <100 mg/dL repeat triglyceride testing on a fasting specimen Desirable range <100 mg/dL for primary prevention; (LDL-C of <70 mg/dL) is considered a therapeutic FASTING: YES if clinically indicated. <70 mg/dL for patients with CHD or diabetic patients option. Deandre et al. J. of Clin. Lipidol. 2015;9:129-169. with > or = 2 CHD risk factors. LDL-C is now calculated using the Paul-Reeder calculation, which is a validated novel method providing better accuracy than the Friedewald equation in the estimation of LDL-C. Paul SS et al. SIMON. 2013;310(19): 3049-4647 (http://education.[employer]o [employer]/faq/LLV046) CHOLESTEROL, TOTAL 234 <200 mg/dL H HDL CHOLESTEROL 44 > OR = 40 mg/dL N TRIGLYCERIDES 225 <150 mg/dL H LDL-CHOLESTEROL 152 H CHOL/HDLC RATIO 5.3 <5.0 (calc) H NON HDL CHOLESTEROL 190 <130 mg/dL (calc) H T4, FREE Reviewed date:11/09/2024 10:53:09 AM Interpretation: Performing Lab:Guilherme KIRK-[place], [address], [address] Dania Osorio MD Notes/Report: FASTING:YES FASTING: YES T4, FREE 1.0 0.8-1.8 ng/dL N TSH Reviewed date:11/09/2024 10:53:09 AM Interpretation: Performing Lab:Guilherme KIRK-[place], [address], [address] Dania Osorio MD Notes/Report: FASTING:YES FASTING: YES TSH 1.32 0.40-4.50 mIU/L N DEXAMETHASONE Reviewed date:11/24/2024 10:03:07 AM Interpretation: Performing Lab:Guilherme MAHONEY/Nancy [facility],, [address] [place], [address] Monika Kirk MD,PhD,KEN Notes/Report: COLLECTION KIT GIVEN TO PATIENT. PATIENT ADVISED TO RETURN. Reference Ranges for Dexamethasone: URINE VOLUME: 2000 Baseline: Less than 20 ng/dL 1 mg dexamethasone overnight: 180-550 ng/dL (8:00-10:00 AM) This test was developed and its analytical performance characteristics have been determined by [facility]. It has not been cleared or approved by FDA. This assay has been validated pursuant to the CLIA regulations and is used for clinical purposes. DEXAMETHASONE 273 CORTISOL, TOTAL Reviewed date:11/15/2024 08:48:42 AM Interpretation: Performing Lab:Guilherme KIRK-[place], [address], [place], [address] Dania Osorio MD Notes/Report: Reference Range: For 8 a.m.(7-9 a.m.) Specimen: 4.0-22.0 COLLECTION KIT GIVEN TO PATIENT. PATIENT ADVISED TO RETURN. Reference Range: For 4 p.m.(3-5 p.m.) Specimen: 3.0-17.0 * Please interpret above results accordingly * URINE VOLUME: 2000 CORTISOL, TOTAL 1.5 L CORTISOL, FREE, 24 HOUR URIN E Reviewed date:11/25/2024 01:57:18 PM Interpretation: Performing Lab:Guilherme MAHONEY/Cruz [facility],, [address] [place], [address] Monika Kirk MD,PhD,KEN Notes/Report: Reference Range: SPLIT 11/09/2024 FROM [id number] ADULTS: 3.1-42.3 This test was developed and its analytical performance characteristics have been determined by [facility]. URINE VOLUME: 3000/24 It has not been cleared or approved by FDA. This assay has been validated pursuant to the CLIA regulations and is used for clinical purposes. TOTAL VOLUME 3000 CORTISOL, FREE, URINE 15.9 4.0-50.0 mcg/24 h CORTISOL, FREE, URINE 10.1 CREATININE, URINE 1.57 0.50-2.15 g/24 h CORTISOL, LC/MS, SALIVA, 2 S AMPLES Reviewed date:11/24/2024 10:05:23 AM Interpretation: Performing Lab:Guilherme MAHONEY/Cruz [facility],, [address] [place], [address] Monika Kirk MD,PhD,KEN Notes/Report: SPLIT 11/09/2024 FROM [id number] 8-10 AM: 0.04-0.56 mcg/dL 8-10 AM: 0.04-0.56 mcg/dL noon-2 PM: < OR = 0.21 mcg/dL noon-2 PM: < OR = 0.21 mcg/dL URINE VOLUME: 3000/24 4-6 PM: < OR = 0.15 mcg/dL 4-6 PM: < OR = 0.15 mcg/dL 10 PM-1 AM: < OR = 0.09 mcg/dL 10 PM-1 AM: < OR = 0.09 mcg/dL This test was developed and its analytical performance This test was developed and its analytical performance characteristics have been determined by [facility]. characteristics have been determined by [facility]. It has not been cleared or approved by FDA. This assay has It has not been cleared or approved by FDA. This assay has been validated pursuant to the CLIA regulations and is used been validated pursuant to the CLIA regulations and is used for clinical purposes. for clinical purposes. DRAW DATE 1 11/10/2024 DRAW TIME 1 12:00 CORTISOL, SALIVA SAMPLE 1 0.03 DRAW DATE 2 11/15/2024 DRAW TIME 2 12:00 CORTISOL, SALIVA SAMPLE 2 0.06 .COMPREHENSIVE METABOLIC PIERCE (03183) CMP Reviewed date:03/26/2025 12:16:51 PM Interpretation: Performing Lab:REAGAN [facility] Priti-[address] Dania Osorio MD Notes/Report: FASTING:YES FASTING: YES GLUCOSE 95 65-99 mg/dL N Fasting reference interval UREA NITROGEN (BUN) 11 7-25 mg/dL N CREATININE 1.06 0.70-1.35 mg/dL N EGFR 80 > OR = 60 mL/min/1.73m2 N BUN/CREATININE RATIO SEE NOTE: 6-22 (calc) reference range. Not Reported: BUN and Creatinine are within SODIUM 136 135-146 mmol/L N POTASSIUM 4.1 3.5-5.3 mmol/L N CHLORIDE 92 98-110 mmol/L L CARBON DIOXIDE 33 20-32 mmol/L H CALCIUM 11.0 8.6-10.3 mg/dL H PROTEIN, TOTAL 7.8 6.1-8.1 g/dL N ALBUMIN 5.2 3.6-5.1 g/dL H GLOBULIN 2.6 1.9-3.7 g/dL (calc) N ALBUMIN/GLOBULIN RATIO 2.0 1.0-2.5 (calc) N BILIRUBIN, TOTAL 0.6 0.2-1.2 mg/dL N ALKALINE PHOSPHATASE 51 35-144 U/L N AST 31 10-35 U/L N ALT 57 9-46 U/L H .CBC (INCLUDES DIFF/PLT) (63 99) Reviewed date:03/11/2025 07:59:12 AM Interpretation: Performing Lab:REAGAN [facility]-[address] Dania Osorio MD Notes/Report: FASTING:YES FASTING: YES WHITE BLOOD CELL COUNT 10.7 3.8-10.8 Thousand/uL N RED BLOOD CELL COUNT 6.04 4.20-5.80 Million/uL H HEMOGLOBIN 17.9 13.2-17.1 g/dL H HEMATOCRIT 55.2 38.5-50.0 % H MCV 91.4 80.0-100.0 fL N MCH 29.6 27.0-33.0 pg N MCHC 32.4 32.0-36.0 g/dL N For adults, a slight decrease in the calculated MCHC value (in the range of 30 to 32 g/dL) is most likely red cell parameters and the patient's clinical not clinically significant; however, it should be interpreted with caution in correlation with other condition. RDW 12.9 11.0-15.0 % N PLATELET COUNT 332 140-400 Thousand/uL N MPV 11.4 7.5-12.5 fL N ABSOLUTE NEUTROPHILS 7929 9163-8145 cells/uL H ABSOLUTE LYMPHOCYTES 2033 850-3900 cells/uL N ABSOLUTE MONOCYTES 621 200-950 cells/uL N ABSOLUTE EOSINOPHILS 43 15-500 cells/uL N ABSOLUTE BASOPHILS 75 0-200 cells/uL N NEUTROPHILS 74.1 N LYMPHOCYTES 19.0 N MONOCYTES 5.8 N EOSINOPHILS 0.4 N BASOPHILS 0.7 N ESTRADIOL (4021) Reviewed date:03/11/2025 07:58:57 AM Interpretation: Performing Lab:REAGAN [facility]helf Priti-[address], CdmvbaMH[address] Dania Osorio MD Notes/Report: FASTING:YES FASTING: YES ESTRADIOL 126 < OR = 39 pg/mL H fulvestrant (Faslodex(R)) have demonstrated significant measurement. The cross reactivity could lead to falsely elevated estradiol test results leading to an (order code 28981). Estradiol, Ultrasensitive, LCMSMS assay is recommended whom low Estradiol levels are anticipated (e.g. males, Please note: patients being treated with the drug interference in immunoassay methods for estradiol population. No pre-pubertal reference range Reference range established on post-pubertal patient Ultrasensitive LC/MS/MS demonstrates negligible cross females), the [facility] pre-pubertal children and hypogonadal/post-menopausal reactivity with fulvestrant. established using this assay. For any patients for [facility] order code 44375-[id number], inappropriate clinical assessment of estrogen status. VITAMIN B12/FOLATE, SERUM PA ART (7065) Reviewed date:03/11/2025 07:58:41 AM Interpretation: Performing Lab:Guilherme KIRK-[address], SivnpkVD[address] Dania Osorio MD Notes/Report: FASTING:YES FASTING: YES VITAMIN B12 913 585-5537 pg/mL N FOLATE, SERUM 21.0 N Low: <3.4 Reference Range Normal: >5.4 Borderline: 3.4-5.4 FSH (470) Reviewed date:03/11/2025 07:59:03 AM Interpretation: Performing Lab:Guilherme KIRK-[address], PvswbpDF[address] Dania Osorio MD Notes/Report: FASTING:YES FASTING: YES FSH <0.7 1.4-12.8 mIU/mL L .PSA, TOTAL (5363) Reviewed date:03/11/2025 07:58:50 AM Interpretation: Performing Lab:Guilherme KIRK-[address], PrkfniJA[address] Dania Osorio MD Notes/Report: FASTING:YES FASTING: YES PSA, TOTAL 3.64 < OR = 4.00 ng/mL N standardized against the WHO standard. The test This test was performed using the Siemens different assay methods cannot be used interchangeably. PSA levels, regardless of value, should not be interpreted as absolute to the equimolar-standardized total PSA (Adriana Speedwell). Comparison of serial PSA results should be interpreted with this fact in mind. chemiluminescent method. Values obtained from The total PSA value from this assay system is result will be approximately 20% lower when compared evidence of the presence or absence of disease. .VITAMIN D,25-OH,TOTAL,IA (1 7306) Reviewed date:03/11/2025 07:58:23 AM Interpretation: Performing Lab:[place], [facility]-[address] [facility], IqzhsmOE[address] Dania Osorio MD Notes/Report: FASTING:YES FASTING: YES VITAMIN D,25-OH,TOTAL,IA 90 30-100 ng/mL N http://education.Valderm/faq/JEJ726 of D2 and D3 fractions is required, the QuestAssureD(TM) Optimal: > or = 30 ng/mL D2-supplementation and patients for whom quantitation For additional information, please refer to educational purposes only.) Deficiency: <20 ng/mL code 14354 (patients >2yrs). (This link is being provided for informational/ Vitamin D Status 25-OH Vitamin D: 25-OH VIT D, (D2,D3), LC/MS/MS is recommended: order See Note 1 Note 1 Insufficiency: 20 - 29 ng/mL For 25-OH Vitamin D testing on patients on TESTOSTERONE, FREE (DIALYSIS ) AND TOTAL,MS (79706) Reviewed date:03/15/2025 08:53:24 AM Interpretation: Performing Lab:H[facility]ary [facility] [address], [address], Ads[place]oxuloID[address] Lilliam Mendoza MD,PhD Notes/Report: FASTING:YES FASTING: YES TESTOSTERONE, TOTAL, MS [phone] ng/dL been validated pursuant to the CLIA regulations and is For additional information, please refer to not been cleared or approved by the FDA. This assay has (This link is being provided for informational/educational purposes only.) characteristics have been determined by [facility]. It has This test was developed and its analytical performance https://education.[employer]/faq/NAV916 (Note) used for clinical purposes. TESTOSTERONE, FREE 188.4 35.0-155.0 pg/mL [facility] [address] been validated pursuant to the CLIA regulations and is [facility] not been cleared or approved by the FDA. This assay has MDF [phone] characteristics have been determined by [facility]. It has This test was developed and its analytical performance Lilliam Mendoza MD, PhD used for clinical purposes. [address] [address],[address] (Note) .COMPREHENSIVE METABOLIC PIERCE EL (66546) [facility] Reviewed date:04/19/2025 03:52:28 PM Interpretation: Performing Lab:REAGAN [facility] Priti-[address] Dania Osorio MD Notes/Report: COLLECTION KIT GIVEN TO PATIENT. PATIENT ADVISED TO RETURN. URINE VOLUME: 2000 GLUCOSE 111 65-99 mg/dL H between 100 and 125 mg/dL is consistent with Fasting reference interval For someone without known diabetes, a glucose value follow-up test. prediabetes and should be confirmed with a UREA NITROGEN (BUN) 22 7-25 mg/dL N CREATININE 1.15 0.70-1.35 mg/dL N EGFR 73 > OR = 60 mL/min/1.73m2 N BUN/CREATININE RATIO SEE NOTE: 6-22 (calc) reference range. Not Reported: BUN and Creatinine are within SODIUM 136 135-146 mmol/L N POTASSIUM 4.1 3.5-5.3 mmol/L N CHLORIDE 100 98-110 mmol/L N CARBON DIOXIDE 27 20-32 mmol/L N CALCIUM 9.8 8.6-10.3 mg/dL N PROTEIN, TOTAL 6.5 6.1-8.1 g/dL N ALBUMIN 4.4 3.6-5.1 g/dL N GLOBULIN 2.1 1.9-3.7 g/dL (calc) N ALBUMIN/GLOBULIN RATIO 2.1 1.0-2.5 (calc) N BILIRUBIN, TOTAL 0.3 0.2-1.2 mg/dL N ALKALINE PHOSPHATASE 57 35-144 U/L N AST 15 10-35 U/L N ALT 17 9-46 U/L N PTH, INTACT AND CALCIUM (883 7) Reviewed date:04/19/2025 03:52:28 PM Interpretation: Performing Lab:Guilherme KIRK-[address]os[place] Dania Osorio MD Notes/Report: COLLECTION KIT GIVEN TO PATIENT. PATIENT ADVISED TO RETURN. URINE VOLUME: 2000 PARATHYROID HORMONE, INTACT 45 16-77 pg/mL N Hypoparathyroidism Low or Low Normal Low Hyperparathyroidism Interpretive Guide Intact PTH Calcium ------- Hypercalcemia Low or Low Normal High Secondary High Normal or Low Normal Parathyroid Normal Normal Tertiary High High Primary Normal or High High Non-Parathyroid CALCIUM 9.8 8.6-10.3 mg/dL N PROTEIN, TOTAL AND PROTEIN E LECTROPHORESIS (702) Reviewed date:04/19/2025 03:52:28 PM Interpretation: Performing Lab:REAGAN [facility]-Hkemzd[address] Trin[address] Dania Osorio MD Notes/Report: COLLECTION KIT GIVEN TO PATIENT. PATIENT ADVISED TO RETURN. URINE VOLUME: 2000 PROTEIN, TOTAL 6.5 6.1-8.1 g/dL N ALBUMIN 4.0 3.8-4.8 g/dL N ALPHA 1 GLOBULIN 0.3 0.2-0.3 g/dL N ALPHA 2 GLOBULIN 0.7 0.5-0.9 g/dL N BETA 1 GLOBULIN 0.5 0.4-0.6 g/dL N BETA 2 GLOBULIN 0.3 0.2-0.5 g/dL N GAMMA GLOBULIN 0.7 0.8-1.7 g/dL L INTERPRETATION Consider urine protein electrophoresis, urine immunofixation and/or free light chains if clinically indicated. lymphoproliferative disorders, acquired or congenital immune deficiencies, immunosuppressive therapy and light chain disease. Hypogammaglobulinemia may be seen in early or evolving .LIPID PANEL, STANDARD (8910 ) Reviewed date:04/19/2025 03:52:28 PM Interpretation: Performing Lab:REAGAN [facility] Priti-Qtykpd[address]mxuisYO[address] Dania Osorio MD Notes/Report: COLLECTION KIT GIVEN TO PATIENT. PATIENT ADVISED TO RETURN. URINE VOLUME: 2000 CHOLESTEROL, TOTAL 110 <200 mg/dL N HDL CHOLESTEROL 31 > OR = 40 mg/dL L TRIGLYCERIDES 191 <150 mg/dL H LDL-CHOLESTEROL 53 N with > or = 2 CHD risk factors. calculation, which is a validated novel method providing Paul DAMICO et al. SIMON. 2013;310(19): 1260-7587 Reference range: <100 Desirable range <100 mg/dL for primary prevention; better accuracy than the Friedewald equation in the (http://education.Seismo[employer]helf[employer].com/faq/BXG285) <70 mg/dL for patients with CHD or diabetic patients LDL-C is now calculated using the ChandrikaReeder estimation of LDL-C. CHOL/HDLC RATIO 3.5 <5.0 (calc) N NON HDL CHOLESTEROL 79 <130 mg/dL (calc) N For patients with diabetes plus 1 major ASCVD risk option. factor, treating to a non-HDL-C goal of <100 mg/dL (LDL-C of <70 mg/dL) is considered a therapeutic .CBC (INCLUDES DIFF/PLT) (63 99) Reviewed date:04/19/2025 03:52:28 PM Interpretation: Performing Lab:[facility]-[id number] [address] [place], TrgghiLZ[address] Dania Osorio MD Notes/Report: COLLECTION KIT GIVEN TO PATIENT. PATIENT ADVISED TO RETURN. URINE VOLUME: 2000 WHITE BLOOD CELL COUNT 6.9 3.8-10.8 Thousand/uL N RED BLOOD CELL COUNT 5.25 4.20-5.80 Million/uL N HEMOGLOBIN 14.9 13.2-17.1 g/dL N HEMATOCRIT 47.4 38.5-50.0 % N MCV 90.3 80.0-100.0 fL N MCH 28.4 27.0-33.0 pg N MCHC 31.4 32.0-36.0 g/dL L red cell parameters and the patient's clinical condition. value (in the range of 30 to 32 g/dL) is most likely For adults, a slight decrease in the calculated MCHC not clinically significant; however, it should be interpreted with caution in correlation with other RDW 12.7 11.0-15.0 % N PLATELET COUNT 326 140-400 Thousand/uL N MPV 11.3 7.5-12.5 fL N ABSOLUTE NEUTROPHILS 3671 4423-2392 cells/uL N ABSOLUTE LYMPHOCYTES 2553 850-3900 cells/uL N ABSOLUTE MONOCYTES 469 200-950 cells/uL N ABSOLUTE EOSINOPHILS 159 15-500 cells/uL N ABSOLUTE BASOPHILS 48 0-200 cells/uL N NEUTROPHILS 53.2 N LYMPHOCYTES 37.0 N MONOCYTES 6.8 N EOSINOPHILS 2.3 N BASOPHILS 0.7 N .HEMOGLOBIN A1c (496) Reviewed date:04/19/2025 03:52:28 PM Interpretation: Performing Lab:[facility] Administration Usha Davis [id number] Dania Osorio Notes/Report: COLLECTION KIT GIVEN TO PATIENT. PATIENT ADVISED TO RETURN. URINE VOLUME: 2000 HEMOGLOBIN A1c 6.1 <5.7 % of total Hgb H of diabetes. hemoglobin A1c for diagnosis of diabetes for children. targets should be individualized based on duration of Currently, no consensus exists regarding use of indicates that their diabetes is well controlled. A1c considerations. A1c value between 5.7% and 6.4% is consistent with diabetes, age, comorbid conditions, and other follow-up test. This assay result is consistent with an increased risk For someone without known diabetes, a hemoglobin prediabetes and should be confirmed with a For someone with known diabetes, a value <7% INSULIN (561) Reviewed date:04/19/2025 03:52:28 PM Interpretation: Performing Lab:[facility] KIRK-Ahbsgb26416 [address] [place], OksnorNC[address] Dania Osorio MD Notes/Report: COLLECTION KIT GIVEN TO PATIENT. PATIENT ADVISED TO RETURN. URINE VOLUME: 2000 INSULIN 23.2 H cut points (optimal, moderate, high) Adult cardiovascular event risk category studies performed at [facility] High >18.4 Reference Range < or = 18.4 Moderate NA are based on Insulin Reference Interval Risk: in 2021. Optimal < or = 18.4 T4, FREE (866) Reviewed date:04/19/2025 03:52:28 PM Interpretation: Performing Lab:[facility] KIR[facility]-Fzjabz35529 [address] [place], FstmuhDM[address] Dania Osorio MD Notes/Report: COLLECTION KIT GIVEN TO PATIENT. PATIENT ADVISED TO RETURN. URINE VOLUME: 1999 T4, FREE 0.8 0.8-1.8 ng/dL N TSH (899) Reviewed date:04/19/2025 03:52:28 PM Interpretation: Performing Lab:[facility] KIRK-Jwayuu87086 [address] [place], ZwrklrVE[address] Dania Osorio MD Notes/Report: COLLECTION KIT GIVEN TO PATIENT. PATIENT ADVISED TO RETURN. URINE VOLUME: 1999 TSH 2.16 0.40-4.50 mIU/L N T3, FREE (72547) Reviewed date:04/19/2025 03:52:28 PM Interpretation: Performing Lab:[facility] KIRK-Bdmbsw16210 Ezekiel TrinhaKS[address] Dania Osorio MD Notes/Report: COLLECTION KIT GIVEN TO PATIENT. PATIENT ADVISED TO RETURN. URINE VOLUME: 1999 T3, FREE 3.6 2.3-4.2 pg/mL N TESTOSTERONE, FREE (DIALYSIS ) AND TOTAL,MS (66026) Reviewed date:04/19/2025 03:52:28 PM Interpretation: Performing Lab:[facility] [address], [address], [id number] Lilliam Mendoza MD,PhD Notes/Report: COLLECTION KIT GIVEN TO PATIENT. PATIENT ADVISED TO RETURN. URINE VOLUME: 1999 TESTOSTERONE, TOTAL, MS [phone] ng/dL characteristics have been determined by [employer]. It has (This link is being provided for informational/educational purposes only.) used for clinical purposes. been validated pursuant to the CLIA regulations and is (Note) https://education.[employer]/faq/HZQ277 not been cleared or approved by the FDA. This assay has This test was developed and its analytical performance For additional information, please refer to TESTOSTERONE, FREE 120.1 35.0-155.0 pg/mL This test was developed and its analytical performance (Note) used for clinical purposes. been validated pursuant to the CLIA regulations and is [facility] [phone] not been cleared or approved by the FDA. This assay has [facility] [id number] [address] [address],[address] [facility] Lilliam Mendoza MD, PhD characteristics have been determined by [employer]. It has PROTEIN, TOTAL AND PROTEIN E LECTROPHORESIS, RANDOM URINE (3294) Reviewed date:04/19/2025 03:52:28 PM Interpretation: Performing Lab:[facility] KIRK-Hosdha38016Ezekiel DowlingaKS[address] Dania Osorio MD Notes/Report: COLLECTION KIT GIVEN TO PATIENT. PATIENT ADVISED TO RETURN. URINE VOLUME: 2000 CREATININE, RANDOM URINE 195 20-320 mg/dL N PROTEIN/CREATININE RATIO 87 25-148 mg/g creat N PROTEIN/CREATININE RATIO 0.087 0.025-0.148 mg/mg creat N PROTEIN, TOTAL, RANDOM UR 17 5-25 mg/dL N ALBUMIN 100 [id number]-[id number] 0 NLYNS-1-EIXBXFJLO 0 BETA GLOBULINS 0 GAMMA GLOBULINS 0 INTERPRETATION No abnormal protein is observed. Agarose electrophoresis of urine reveals albumin. IMMUNOGLOBULINS (7083) Reviewed date:04/19/2025 03:52:29 PM Interpretation: Performing Lab:[facility] KIRK-Esiist13011 [address] [place], FvjtcyEA[address] Dania Osorio MD Notes/Report: COLLECTION KIT GIVEN TO PATIENT. PATIENT ADVISED TO RETURN. URINE VOLUME: 2000 IMMUNOGLOBULIN A 80 47-310 mg/dL N IMMUNOGLOBULIN G 571 413-9168 mg/dL N IMMUNOGLOBULIN M 80 50-300 mg/dL N CALCIUM, 24 HOUR URINE (W/ C REATININE) (1635) Reviewed date:05/15/2025 09:18:59 PM Interpretation: Performing Lab:[facility] KIRK-Jnhygn71600 [address] [place], OvhmzeFY[address] Dania Osorio MD Notes/Report: SPLIT 04/15/2025 FROM [id number] URINE VOLUME: 1510/24 CALCIUM/CREATININE RATIO 30 30-210 mg/g creat N CALCIUM, 24 HOUR URINE 56 N Reference Range 55-300 Low calcium diet 55-200 CREATININE, 24 HOUR URINE 1.81 0.50-2.15 g/24 h N CORTISOL, FREE, 24 HOUR URIN E (35819) Reviewed date:05/26/2025 12:45:15 PM Interpretation: Performing Lab:[facility] MAHONEY/Nancy [facility],[address] [address] [place] XmecfemvxcCA[address] Monika Kirk MD,PhD,KEN Notes/Report: SPLIT 04/15/2025 FROM [id number] URINE VOLUME: 1510/24 TOTAL VOLUME 1510 CORTISOL, FREE, URINE 13.2 4.0-50.0 mcg/24 h CORTISOL, FREE, URINE 7.4 ADULTS: 3.1-42.3 Reference Range: CREATININE, URINE 1.79 0.50-2.15 g/24 h It has not been cleared or approved by the FDA. This assay has been validated pursuant to the CLIA regulations and is used for clinical purposes. This test was developed and its analytical performance characteristics have been determined by [facility]. Reason For Referral Reason Consult for Urology. Patient has elevated PSA levels and elevated calcium levels Diagnosis 1 Elevated prostate sp ecific antigen (PSA) (R97.20) Diagnosis 2 High calcium levels (E83.52) Referral Organization [facility] Dr. Valenzuela Referring Provider First Name Ailyn Referring Provider Last Name Nicolas Referring Provider Speciality Endocrinol ogpreet Referred Provider Specialty Urology Referral Priority Routine Reason hypercalcemia, back pain and elevated PSA Diagnosis 1 Elevated PSA (R97.20 ) Referral Organization [facility] Dr. Valenzuela Referring Provider First Name Ailyn Referring Provider Last Name Nicolas Referring Provider [facility] Endocrinol preet Referred Provider Specialty Urology Referral Priority Routine Medications Medication SIG (Take, Route, Frequency, Duration) Notes Start Date End Date Status Torrey & Syringes 18g 1inch 1mL syring le to inject testosterone once weekly; Duration: 90 days 06/05/2025 Active Rosuvastatin Calcium 20 MG Tablet 1 tablet Orally every other day at bedtime; Duration: 90 days 12/28/2024 Active Icosapent Ethyl 1 GM Capsule 2 capsules with meals Orally Twice a day; Duration: 90 days 12/28/2024 Active Testosterone Cypionate 200 MG/ML Solution 1 mL intramuscularly every 4 weeks; Duration: 90 days every week 05/15/2025 Active Mounjaro 5 MG/0.5ML Solution Auto-injector USE 1 INJECTION UNDER THE SKIN ONCE A WEEK Active metFORMIN HCl *Please review and pick correct strength-formulat ion from [employer] options. If intended option is not shown, discontinue and re-order from Quick Search* *Pick strength-form from [employer] for eRX* Active Vitamin D3 *Please review and pick correct strength-formulat ion from [employer] options. If intended option is not shown, discontinue and re-order from Quick Search* *Pick strength-form from [employer] for eRX* Active ALPRAZolam *Please review and pick correct strength-formulat ion from [employer] options. If intended option is not shown, discontinue and re-order from Quick Search* *Pick strength-form from [employer] for eRX* Active lamoTRIgine *Please review and pick correct strength-formulat ion from [employer] options. If intended option is not shown, discontinue and re-order from Quick Search* *Pick strength-form from [employer] for eRX* Active Social History Social History Additional Details Category Social Info Options Details Migrated Social History Migrated Social History (Alcohol:):no (Recreational drug use:):no (Smoking:):yes Additional Findings: Tobacco User Chews tobacco Section Notes: caffeine: yes, soda caffeine: yes, soda caffeine: yes, soda Problems Problem Type SNOMED Code ICD Code Onset Dates Problem Status W/U Status Risk Notes Problem Disorder of adrenal gland (86655358) Disorder of adrenal gland, 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) Active confirmed Problem Testicular dysfunction (70142900) Testicular dysfunction, unspecified (E29.9) Active confirmed Problem Vitamin D deficiency (59549975) Vitamin D deficiency, unspecified (E55.9) Active confirmed Problem Obesity (957652758) Obesity, unspecified (E66.9) Active confirmed Problem Hypercalcemia (10303345) Hypercalcemia (E83.52) Active confirmed Problem 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, 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 Problem Essential hypertension (86337636) Essential hypertension (I10) Active confirmed Problem Hyperglycemia due to type 2 diabetes mellitus (359292045577505) Type 2 diabetes mellitus with hyperglycemia, without long-term current use of insulin (E11.65) Active confirmed Problem Male hypogonadism (01968444) Hypogonadism in male (E29.1) Active confirmed Problem Mixed hyperlipidemia (363989611) Mixed dyslipidemia (E78.2) Active confirmed Problem Hypercalcemia (46284423) High calcium levels (E83.52) Active confirmed Vital Signs Heart Rate 90 /min 04/25/2025 Height-cm 180.34 cm 04/25/2025 Oximetry 92 % 04/25/2025 Blood pressure diastolic 88 mm Hg 04/25/2025 Weight-kg 100.7 kg 04/25/2025 Height 71 in 04/25/2025 Blood pressure systolic 128 mm Hg 04/25/2025 Weight 222.0 lbs 04/25/2025 BMI 30.96 kg/m2 04/25/2025 Encounters Encounter Location Date [facility] [address] [place] [id number] 09/22/2024 Provider Migration Obesity, unspecified E66.[address] Valenzuela [id number] [place] [phone] 09/06/2024 Ailyn Valenzuela Obesity, unspecified E66.9 ; Other fatigue R53.83 ; Impaired fasting glucose R73.01 ; Disorder of mineral metabolism, unspecified E83.9 ; Vitamin D deficiency, unspecified E55.9 ; Dietary counseling and surveillance Z71.3 and Testicular dysfunction, unspecified E29.[address] Valenzuela [address] [place] [phone] 12/28/2024 Ailyn Valenzuela Obesity, unspecified E66.9 ; Vitamin D deficiency, unspecified E55.9 ; Disorder of adrenal gland, unspecified E27.9 ; Mixed dyslipidemia E78.2 ; Essential hypertension I10 ; Dietary counseling and surveillance Z71.3 and Type 2 diabetes mellitus with hyperglycemia, without long-term current use of insulin E11.[address] Valenzuela [address] [place] [phone] 03/21/2025 Ailyn Valenzuela Disorder of mineral metabolism, unspecified E83.9 ; Obesity, unspecified E66.9 ; Type 2 diabetes mellitus with hyperglycemia, without long-term current use of insulin E11.65 ; Essential hypertension I10 ; Hypercalcemia E83.52 ; Hypogonadism in male E29.1 ; Bone pain M89.8X9 and Dietary counseling and surveillance Z71.[address] Valenzuela [id number] [place] [phone] 04/25/2025 Ailyn Valenzuela Type 2 diabetes mellitus with hyperglycemia, without long-term current use of insulin E11.65 ; Essential hypertension I10 ; Dietary counseling and surveillance Z71.3 ; Mixed dyslipidemia E78.2 ; Hypogonadism in male E29.1 and Hypercalcemia E83.[address] [address] 06/25/[address] Valenzuela [address] [place] [phone] 09/13/2024 Ailyn Valenzuela AMMO [facility] [address] [place] [phone] 10/15/2024 Ailyn Valenzuela Obesity, unspecified E66.9 AMMO [facility] [address] [place] [phone] 11/08/2024 Ailyn Valenzuela AMMO [facility] [address] [place] [phone] 12/28/2024 Ailyn Valenzuela AMMO [facility] [address] [place] [phone] 12/31/2024 Ailyn Valenzuela AMMO [facility] [address] [place] [phone] 01/01/2025 Ailyn Valenzuela AMMO [facility] [address] [place] [phone] 01/01/2025 Ailyn Valenzuela AMMO [facility] [address] [place] [phone] 01/16/2025 Ailyn Valenzuela AMMO [facility] [address] [place] [phone] 01/22/2025 Ailyn Valenzuela Type 2 diabetes mellitus with hyperglycemia, without long-term current use of insulin E11.65 and Mixed dyslipidemia E78.2 AMMO [facility] [address] [place] [phone] 01/23/2025 Ailyn Valenzuela Mixed dyslipidemia E78.2 AMMO [facility] [address] [place], [place] [phone] 01/24/2025 Ailyn Valenzuela AMMO [facility] [address] [place] [phone] 02/13/2025 Ailyn Valenzuela [address] [place] [phone] 03/05/2025 Ailyn Valenzuela [address] [place] [phone] 03/05/2025 Ailyn Valenzuela AMMO [facility] [address] [place] [phone] 03/11/2025 Ailyn Valenzuela AMMO [facility] [address] [place] [phone] 03/21/2025 Ailyn Valenzuela [address] [place] [phone] 05/15/2025 Ailyn Wood AMMO [facility] [address] [place] [address] 06/05/2025 Ailyn Valenzuela [address] [place] [address] 06/07/2025 Ailyn LOPEZ [address] [phone] 06/21/2025 Ailyn Valenzuela Assessments Encounter Date Diagnosis (ICD Code) Assessment Notes Treatment Notes Treatment Clinical Notes Section Notes 09/06/2024 Obesity, unspecified (ICD-10 - E66.9) 09/06/2024 Other fatigue (ICD-10 - R53.83) 09/22/2024 Obesity, unspecified (ICD-10 - E66.9) 10/15/2024 Obesity, unspecified (ICD-10 - E66.9) 12/28/2024 Vitamin D deficiency, unspecified (ICD-10 - E55.9) E 12/28/2024 Obesity, unspecified (ICD-10 - E66.9) E 01/22/2025 Type 2 diabetes mellitus with hyperglycemia, without long-term current use of insulin (ICD-10 - E11.65) 01/23/2025 Mixed dyslipidemia (ICD-10 - E78.2) 03/21/2025 Obesity, unspecified (ICD-10 - E66.9) 03/21/2025 Disorder of mineral metabolism, unspecified (ICD-10 - E83.9) 04/25/2025 Essential hypertension (ICD-10 - I10) 04/25/2025 Type 2 diabetes mellitus with hyperglycemia, without long-term current use of insulin (ICD-10 - E11.65) 04/25/2025 Dietary counseling and surveillance (ICD-10 - Z71.3) Spent 15 minutes preventative counseling patient on dietary recommendations and changes in setting of hyperglycemia- need to restrict refined sugars and processed foods and incorporate up to 150 minutes of moderate level activity weekly. 03/21/2025 Type 2 diabetes mellitus with hyperglycemia, without long-term current use of insulin (ICD-10 - E11.65) 01/22/2025 Mixed dyslipidemia (ICD-10 - E78.2) 12/28/2024 Disorder of adrenal gland, unspecified (ICD-10 - E27.9) E 09/06/2024 Impaired fasting glucose (ICD-10 - R73.01) 09/06/2024 Disorder of mineral metabolism, unspecified (ICD-10 - E83.9) 12/28/2024 Mixed dyslipidemia (ICD-10 - E78.2) E 03/21/2025 Essential hypertension (ICD-10 - I10) 04/25/2025 Mixed dyslipidemia (ICD-10 - E78.2) 04/25/2025 Hypogonadism in male (ICD-10 - E29.1) 09/06/2024 Vitamin D deficiency, unspecified (ICD-10 - E55.9) 03/21/2025 Hypercalcemia (ICD-10 - E83.52) 12/28/2024 Essential hypertension (ICD-10 - I10) E 12/28/2024 Dietary counseling and surveillance (ICD-10 - Z71.3) Spent 15 minutes preventative counseling patient on dietary recommendations and changes in setting of hyperglycemia- need to restrict refined sugars and processed foods and incorporate up to 150 minutes of moderate level activity weekly. E 09/06/2024 Dietary counseling and surveillance (ICD-10 - Z71.3) 03/21/2025 Hypogonadism in male (ICD-10 - E29.1) 04/25/2025 Hypercalcemia (ICD-10 - E83.52) 03/21/2025 Bone pain (ICD-10 - M89.8X9) 09/06/2024 Testicular dysfunction, unspecified (ICD-10 - E29.9) 12/28/2024 Type 2 diabetes mellitus with hyperglycemia, without long-term current use of insulin (ICD-10 - E11.65) E 03/21/2025 Dietary counseling and surveillance (ICD-10 - Z71.3) Spent 15 minutes preventative counseling patient on dietary recommendations and changes in setting of hyperglycemia- need to restrict refined sugars and processed foods and incorporate up to 150 minutes of moderate level activity weekly. 09/06/2024 Other Assessment and Plan: 1. Low [...] assess for osteoporosis- Consider referral to a sandblaster paint sprayer or physical therapist for further evaluation and [...] examination and/or evaluation, counseling and educating the patient/family/caregiv er, ordering medications, tests, or procedures, referring and communicating with other health summer child caregiver, documenting clinical information in the electronic or other health record, independently interpreting results and communicating results to the patient/family/caregiv er and care coordinating patient plan. Patient alert [...] assess HPA axis due to low T. 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 Symptoms suggestive of hypercortisolism include insomnia, anxiety, slow wound healing, high blood pressure, weight gain, and elevated blood sugar. The patient has gained 6 pounds since the first visit and reports low energy levels. These findings warrant further investigation of the adrenal glands for potential tumors or growths.- Order CT scan of adrenal glands without contrast- Consider cortisol june therapy if growth or tumor is found- Follow up in 4-[address] results and treatment efficacy Type 2 Diabetes MellitusPatient's blood sugar levels are at the diabetes range (A1C 6.5%). Currently on metformin but reports inconsistent use. The patient has gained weight since quitting work at age 44 (now 59), which may contribute to insulin resistance. The hypercortisolism may be causing secondary diabetes, leading to insulin resistance and elevated blood sugar levels.- Initiate Mounjaro (tirzepatide) therapy: 2.5 mg weekly for 4 weeks, then titrate to 5 mg weekly for 90 days- Educate patient on proper administration technique and potential side effects- Encourage consistent use of metformin as previously prescribed- Monitor blood glucose levels and weight loss progress HypogonadismPatient is on testosterone replacement therapy, which was restarted 5 weeks ago. Recent injection caused testicular pain. No other issues reported with testosterone therapy.- Refill testosterone prescription- Continue current dosage of 1 mg if patient finds it beneficial- Monitor for testicular lumps and perform ultrasound if necessary Chronic PainPatient reports chronic pain, particularly in the left arm, which affects sleep. Previous neurological evaluation found a pinched nerve in the neck, but it was not thought to be the cause of arm pain. 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 Pain management doctors have not found a specific cause.- Consider referral to interventional pain consultants in [place] for further evaluation- Explore potential referral to specialists in back and nerve pathways Insomnia and AnxietyPatient reports difficulty sleeping, waking after 2 hours due to pain or racing thoughts. Anxiety is described as out of control. These symptoms may be related to hypercortisolism, affecting the sleep-wake cycle and mood.- Address underlying hypercortisolism as primary treatment approach- Consider referral to psychiatrist for management of anxiety and depression HyperlipidemiaPatient' s cholesterol levels are reported as borderline high. No current cholesterol medications.- Consider initiating low-dose rosuvastatin every other night- Attempt to obtain insurance approval for Vascepa (icosapent ethyl)- Recommend fish oil supplementation Spent 25 minutes preparing to see the patient (ex review of tests/chart), obtaining and / or reviewing separately obtained history, performing a medically appropriate examination and/or evaluation, counseling and educating the patient/family/caregiv er, ordering medications, tests, or procedures, referring and communicating with other health summer child caregiver, documenting clinical information in the electronic or other health record, independently interpreting results and communicating results to the patient/family/caregiv er and care coordinating patient plan. Patient alert and oriented x 4 and aware of discussion noted above and in agreeance to plan in management of obesity/type 2 DM/controlled, dyslipidemia/mixed, hypertension, and concern for underlying adrenal d/o hypercortisolism. E 03/21/2025 Other Assessment and Plan: 1. Hypercalcemia- Order parathyroid hormone test- Order 24-hour urine tests for calcium and cortisol levels- Schedule bone scan, possibly at [facility] or another facility that performs nuclear scans 2. Chronic bone pain- Refer to primary care provider for management of non-narcotic pain medications- Await results of bone scan and urine studies for further evaluation 3. Testosterone therapy management- Adjust testosterone dosing schedule to every 10 to 14 days to help reduce hemoglobin and hematocrit levels- Consider temporary discontinuation of testosterone therapy- Monitor for symptoms of high estrogen (e.g., breast tenderness or growth)- Follow up on hematocrit levels 4. Elevated prostate-specific antigen (PSA)- Refer to urologist for evaluation of elevated PSA and urination issues - Consider Urology [facility] for referral- Follow up on urologist's recommendations 5. Weight management- Discuss restarting Mounjaro at a lower dose- Monitor for gastrointestinal side effects if restarted- Follow up on weight management progress 6. Ankle edema- Evaluate blood pressure at follow-up visits- Educate on lifestyle modifications for blood pressure management- Consider referral to primary care for hypertension management if not already being addressed Spent 25 minutes preparing to see the patient (ex review of tests/chart), obtaining and / or reviewing separately obtained history, performing a medically appropriate examination and/or evaluation, counseling and educating the patient/family/caregiv er, ordering medications, tests, or procedures, referring and communicating with other health summer child caregiver, documenting clinical information in the electronic or other health record, independently interpreting results and communicating results to the patient/family/caregiv er and care coordinating patient plan. Patient alert and oriented x 4 and aware of discussion noted above and in agreeance to plan in management of hypercalcemia, bone pain, type 2 DM, hypertension and well controlled type 2 DM. 04/25/2025 Other Assessment and Plan: 1. Obesity with weight loss- Continue Mounjaro therapy as prescribed- Monitor weight at follow-up appointments 2. Type 2 Diabetes Mellitus - Reduce metformin to 1000 mg daily to help with gastric upset- Continue monitoring A1c levels- Advise reduction in orange juice intake- Follow up in 2-3 months, potentially combining with July appointment - continue mounjaro 3. Hypercalcemia, resolved- Continue monitoring calcium levels in future lab work 4. Elevated PSA- Refer to urologist for evaluation of elevated PSA- Emphasize importance of completing this consultation 5. Dyslipidemia, improved- Continue current lipid-lowering therapy- Encourage maintenance of physical activity- Continue fish oil supplementation 6. Depression with recent exacerbation- Discuss Lamictal with psychiatrist regarding potential contribution to symptoms- Continue current management with psychiatric follow-up 7. Hypogonadism on testosterone replacement therapy- Continue testosterone injections every 10-14 days- Monitor testosterone levels to maintain within 450-600 range 8. Arm and shoulder pain- Review results of nuclear bone scan- Consider referral to neurology or orthopedics if symptoms persist 9. Arthritis and foot pain- Await evaluation and recommendations from foot doctor appointment 10. Liver health monitoring- Consider fibroscan for liver if insurance allows- Continue monitoring liver function tests 11. Hematologic abnormalities, resolved- Continue monitoring blood counts in future lab work Spent 25 minutes preparing to see the patient (ex review of tests/chart), obtaining and / or reviewing separately obtained history, performing a medically appropriate examination and/or evaluation, counseling and educating the patient/family/caregiv er, ordering medications, tests, or procedures, referring and communicating with other health summer child caregiver, documenting clinical information in the electronic or other health record, independently interpreting results and communicating results to the patient/family/caregiv er and care coordinating patient plan. Patient alert and oriented x 4 and aware of discussion noted above and in agreeance to plan in management of well controlled type 2 DM (A1C of 6.1%), mixed dyslipidemia, weight management, hypercalcemia resolved, need to see urology for back pain and elevated PSA and hypogonadism / secondary erythrocytosis- reduced testosterone injections to q14 days has helped. Plan Of Treatment Pending Test Test Name Order Date *CT ABDOMEN W/O CONTRAST 62730 5 NUCLEAR MED : Bone Scan - 3 Phase 2024 -HF BONE DENSITY SCREEN 09/06/2024 Next Appt Details Provider Name:Ailyn Valenzuela, 10:20:00 AM, [address] [place], [address], Insurance Providers Payer Name Payer Address Payer Phone Subscriber Number Group Number Insured Name Patient Relationship to Insured Coverage Start Date Coverage End Date [employer] [id number] [place] [phone] [id number] MERCEDES KRAUSE Self - patient is the insured Medical (General) History Medical History History ICD Code low testosterone depression chronic pain pinched nerve in neck cubital tunnel syndrome Surgical History Surgery Date(Month/Year) cubital tunnel surgery Hospitalization History Reason Date(Month/Year)
[2025-06-27 06:17] VITALS: BP 111/75; PULSE 87; RESP 16; TEMP 36.1; O2SAT 97; BMI 28.2
[2025-06-27] MEDS: LACTATED RINGERS 1,000 ML 150 ML IV CONT (06:29)
[2025-06-27] MEDS: SIMETHICONE ORAL SUSPENSION 20 MG/0.3 ML 30 ML BOTTLE 1.8 ML PO (06:44)
--- NOTE | 2025-06-27 06:53 | P.PNAN_ITS ---
Anes - Initial Pre Proc Eval Procedure: Operation Date: 06/27/25 07:30 Proposed Procedures p Esophagogastroduodenoscopy - Jon Ellington MD Date/Time: 06/27/25 06:53 Surgeon: Jon Ellington MD Pre Op Diagnosis: Unspecified abdominal pain Patient Data Age: 60 Gender: M Height: 1.78 m Weight: 89.2 kg Last Vital Signs Temp 36.1 C L 06/27/25 06:17 Pulse 87 06/27/25 06:17 Resp 16 06/27/25 06:17 BP 111/75 06/27/25 06:17 Pulse Ox 97 06/27/25 06:17 O2 Del Method Room Air 06/27/25 06:17 Allergies Allergy/AdvReac Type Severity Reaction Status Date / Time Cephalosporins Allergy Severe Anaphylactic Verified 06/27/25 06:16 Shock ceftriaxone Allergy Unknown Anaphylactic Verified 06/27/25 06:16 Shock Home Medications ?Medication ?Instructions ?Recorded ?Confirmed ?Type alprazolam 1 mg tablet 1 mg PO TID PRN Anxiety 11/0 04/2506/14/25 History lamotrigine 200 mg tablet 200 mg PO HS 09/12/19 History testosterone cypionate 200 mg/mL 200 mg IM .Q2W #10 mL 12/20/19 06/14/25 Rx intramuscular oil hydrochlorothiazide 12.5 mg capsule 12.5 mg PO DAILY 0 03/06/25 06/27/25 History finasteride 5 mg tablet 5 mg PO DAILY 06/14/2506/27 History icosapent ethyl 1 gram capsule 1 g PO DAILY 06/14/25 0 06/27/25 History metformin 500 mg tablet See Rx Instructions PO BID 0 06/14/25 06/27/25 History rosuvastatin 20 mg tablet 20 mg PO DAILY 06/14/2506/08 History tirzepatide 5 mg/0.5 mL 5 mg subcut WEEKLY 06/14/25 06/27/25 History subcutaneous pen injector (Mounjaro) Laboratory Tests 06/27/25 06:22 POC Capillary Glucose 94 mg/dl (65-105) Patient hx anesthesia problems: none Family hx anesthesia problems: none Results Review: All pre-operative results and documents have been reviewed as part of the pre- operative evaluation. [facility] Past Medical History Medical History (Updated 06/27/25 @ 06:56 by Florencio Donald MD) Fibromyalgia Ataxia Mixed hyperlipidemia Obstructive sleep apnea on CPAP Migraine without aura Surgical History Surgical History (Updated 06/27/25 @ 06:56 by Florencio Donald MD) History of carpal tunnel surgery Family History Family History Mother Patient's mother is , Onset Age: 80 Father Carcinoma of colon Social History Social History Smoking status: Former smoker Smokeless tobacco user: chewing tobacco Second hand tobacco smoke exposure: No Alcohol intake: never Substance use: never Substance use type: does not use Do You Feel Safe in your Home?: Yes Lack of Transportation: No Lack of Food: Never True Current Housing: I Have Housing Concerned About Future Housing: No Difficulty Paying Gas/Electric Bills: No Difficulty Paying for Meds: No Currently Unemployed: No Education: High School Diploma/GED Difficulty w/ Childcare or Family Care: No Living arrangements: with family Spiritual care concerns: No Anes - Eval Final PreProcedure Day of Procedure 06/27/25 06:53 Patient weight: overweight Heart: regular rate and rhythm Lungs: clear to auscultation Airway: Mallampati scale class II Neurological: alert and oriented Last oral intake: 4 hours ASA classification: III Emergent: no Anesthetic plan: proceed Anesthesia type and monitoring: general GIVS and standard monitoring Results Review: All pre-operative results and documents have been reviewed as part of the pre- operative evaluation. Informed Consent: The patient's anesthetic plan and its attendant risks and benefits were discussed with the patient/family/POA. Questions were solicited and answers provided to the satisfaction of the patient/family/POA.
--- NOTE | 2025-06-27 07:29 | PM.IMHP ---
H&P: HPI History of Present Illness Date/Time: 06/27/25 07:29 Chief Complaint: Epigastric pain Narrative: the patient has been complaining of intermittent, chronic epigastric pain/ discomfort for several years. He has never had EGD. He denies dysphagia, heartburn or chest pain. Review of Systems Review of Systems: All systems reviewed & are unremarkable except as noted in HPI and below PMFSH Past Medical History Medical History (Updated 06/27/25 @ 07:31 by Jon Ellington MD) Fibromyalgia Ataxia Mixed hyperlipidemia Obstructive sleep apnea on CPAP Migraine without aura Surgical History Surgical History (Updated 06/27/25 @ 06:56 by Florencio Donald MD) History of carpal tunnel surgery Family History Family History Mother Patient's mother is , Onset Age: 80 Father Carcinoma of colon Social History Social History Smoking status: Former smoker Smokeless tobacco user: chewing tobacco Second hand tobacco smoke exposure: No Alcohol intake: never Substance use: never Substance use type: does not use Do You Feel Safe in your Home?: Yes Lack of Transportation: No Lack of Food: Never True Current Housing: I Have Housing Concerned About Future Housing: No Difficulty Paying Gas/Electric Bills: No Difficulty Paying for Meds: No Currently Unemployed: No Education: High School Diploma/GED Difficulty w/ Childcare or Family Care: No Living arrangements: with family Spiritual care concerns: No Meds Home Medications and Allergies Home Medications ?Medication ?Instructions ?Recorded ?Confirmed ?Type alprazolam 1 mg tablet 1 mg PO TID PRN Anxiety 09/12/19 06/14/25 History lamotrigine 200 mg tablet 200 mg PO HS 09/12/19 06/27/25 History testosterone cypionate 200 mg/mL 200 mg IM .Q2W #10 mL 12/20/19 06/14/25 Rx intramuscular oil hydrochlorothiazide 12.5 mg capsule 12.5 mg PO DAILY 03/06/25 06/27/25 History finasteride 5 mg tablet 5 mg PO DAILY 06/14/25 06/27/25 History icosapent ethyl 1 gram capsule 1 g PO DAILY 06/14/25 06/27/25 History metformin 500 mg tablet See Rx Instructions PO BID 06/14/25 06/27/25 History rosuvastatin 20 mg tablet 20 mg PO DAILY 06/14/25 06/27/25 History tirzepatide 5 mg/0.5 mL 5 mg subcut WEEKLY 06/14/25 06/27/25 History subcutaneous pen injector (Tyunventuraro) Allergies Allergy/AdvReac Type Severity Reaction Status Date / Time Cephalosporins Allergy Severe Anaphylactic Verified 06/27/25 06:16 Shock ceftriaxone Allergy Unknown Anaphylactic Verified 06/27/25 06:16 Shock Vital Signs Vital Signs - 24 hr 06/27/25 06:17 Temperature 97 F L Pulse Rate 87 Respiratory Rate 16 Blood Pressure 111/75 Pulse Oximetry 97 Oxygen Delivery Room Air Exam Const: General: cooperative and healthy appearing Resp: Effort & Inspection: normal respiratory effort and able to speak in complete sentences Auscultation: clear to auscultation bilaterally Cardio: Rate: regular rate Rhythm: regular rhythm GI: Inspection: normal to inspection GI Palp: No No hepatosplenomegaly present Auscultation: normal bowel sounds Rectal Exam: deferred Skin: General skin exam: normal color Psych: Appearance: grossly normal Mental Status: mental status grossly normal Assessment and Plan Assessment and plan (1) Abdominal pain: Code(s): R10.9 - Unspecified abdominal pain Status: Acute Assessment and Plan: The patient is deemed a good candidate for the procedure. Consent signed. Will proceed.
[2025-06-27] MEDS: BENZOCAINE (*SP) 60 ML SPRAY CAN (HURRICAINE) 1 SPRAY MUCOUS MEM (07:30)
--- NOTE | 2025-06-27 07:38 | S_PTH ---
PATIENT: Toney Lomeli LOC: [facility] U#:[id number] AGE/SX: 60/M ROOM: RE06/27/[address]: Jon Ellington MD : 1965 BED: DIS: 06/27/2025 SPEC #: [id number] RECD: 06/27/25 09:30 STATUS: ZACH REDipika #: [id number] SANDRA: 06/27/25 07:[address]: Jon Ellington DEPT: [facility] [place] Surgical RECD BY: Shantelle Mata ENTERED: 06/27/25 09:32 SP TYPE: Surgical OTHR DR: Hope Weiss, [employer] Tissues: A - Gastric Biopsy B - Gastric Biopsy C - Duodenal Biopsy D - Esophageal Biopsy Procedures: Hematoxylin and Eosin Stain Gross and Microscopic Level 4
[2025-06-27 07:43] VITALS: BP 117/78; PULSE 82; RESP 17; O2SAT 97
[2025-06-27 07:53] VITALS: BP 107/74; PULSE 83; RESP 17; O2SAT 97
[2025-06-27 08:03] VITALS: BP 115/72; PULSE 81; RESP 17; O2SAT 97
== END 2025-06-27 08:15 | disposition home or self-care (01) ==
PROVIDERS: PCP Nurse Practitioner; Referring Provider Nurse Practitioner; Visit Provider Internal Medicine Gastroenterology
PROC: 0DJ08ZZ Inspection of Upper Intestinal Tract, Via Natural or Artificial Opening Endoscopic (ICD-10-PCS; CPT 43239; principal; 2025-06-27 07:30)
DX: K20.90 Esophagitis, unspecified without bleeding (principal); K44.9 Diaphragmatic hernia without obstruction or gangrene; Z79.84 Long term (current) use of oral hypoglycemic drugs; Z79.85 Long-term (current) use of injectable non-insulin antidiabetic drugs
CPT/HCPCS: 43239; 82948; 88305; J2003; J2704; J7120

== ENCOUNTER 2025-10-22 10:38 | Inpatient (IN) | payer BC, SELFPAY ==
--- OUTSIDE RECORDS SUMMARY | 2024-09-22 15:00 | XMS_ITS ---
Author Organization [facility] Address [address] [place] [id number] Care Team Providers Care Netting Inspector Name Role Phone Ailyn Valenzuela Unavailable [phone] Migration, Provider Unavailable Unavailable Allergies Allergen (clinical drug ingredient) Drug/Non Drug Allergy documented on EMR Reaction Allergy Type Onset Date Status ceftriaxone cefTRIAXone Unknown Drug Allergy Act helio REASON FOR VISIT Multum To Medispan Conversion Encounter Medications Medication SIG (Take, Route, Frequency, Duration) Notes Start Date End Date Status Vitamin D3 *Please review and pick correct strength-formulat ion from Medispan options. If intended option is not shown, discontinue and re-order from Quick Search* *Pick strength-form from Medispan for eRX* Active ALPRAZolam *Please review and pick correct strength-formulat ion from Medispan options. If intended option is not shown, discontinue and re-order from Quick Search* *Pick strength-form from Medispan for eRX* Active Testosterone Cypionate 200 MG/ML Solution as directed intramuscularly every 4 weeks every week Active dexAMETHasone 1 MG Tablet 1 tab(s) orally at 10 pm night before 8 am cortisol; Duration: 1 days 09/06/2024 Active metFORMIN HCl *Please review and pick correct strength-formulat ion from Medispan options. If intended option is not shown, discontinue and re-order from Quick Search* *Pick strength-form from Medispan for eRX* Active lamoTRIgine *Please review and pick correct strength-formulat ion from Medispan options. If intended option is not shown, discontinue and re-order from Quick Search* *Pick strength-form from Medispan for eRX* Active Encounters Encounter Location Date Provider Diagnosis [address] [id number] 09/22/2024 Provider Migration Obesity, unspecified E66.9 Assessments Encounter Date Diagnosis (ICD Code) Assessment Notes Treatment Notes Treatment Clinical Notes Section Notes 09/22/2024 Obesity, unspecified (ICD-10 - E66.9) Plan Of Treatment Medication Medication Name Sig Start Date Stop Date Notes dexAMETHasone 1 MG Tablet 1 tab(s) orall y at 10 pm night before 8 am cortisol; Duration: 1 days 09/06/2024 Progress Notes * MERCEDES KRAUSEDOB:[birth year] (60 yo M)Acc No.[id number]:09/22/2024 Patient: MERCEDES KRAUS Provider: Michelle Ortiz :1965 A ge:59 Y S ex:Male Date:09/22/2024 Address:[address] [place] [address] Subjective: * Chief Complaints: * M ultum To Medispan Conversion Encounter * Medications: T akingTestosterone Cypionate 200 MG/ML Solution as directed intramuscularly every 4 weeks , Notes to Pharmacist: every weeklamoTRIgine , Notes to Pharmacist: *Please review and pick correct strength-formulation from Medispan options. If intended option is not shown, discontinue and re-order from Quick Search* *Pick strength- form from Medispan for eRX*ALPRAZolam , Notes to Pharmacist: *Please review and pick correct strength-formulation from Medispan options. If intended option is not shown, discontinue and re-order from Quick Search* *Pick strength-form from Medispan for eRX*Vitamin D3 , Notes to Pharmacist: *Please review and pick correct strength-formulation from Medispan options. If intended option is not shown, discontinue and re-order from Quick Search* *Pick strength-form from Medispan for eRX*metFORMIN HCl , Notes to Pharmacist: *Please review and pick correct strength-formulation from Medispan options. If intended option is not shown, discontinue and re-order from Quick Search* *Pick strength-form from Medispan for eRX*Taking Testosterone Cypionate 200 MG/ML Solution as directed intramuscularly every 4 weeks , Notes to Pharmacist: every weekTaking lamoTRIgine , Notes to Pharmacist: *Please review and pick correct strength-formulation from Medispan options. If intended option is not shown, discontinue and re-order from Quick Search* *Pick strength-form from Medispan for eRX*Taking ALPRAZolam , Notes to Pharmacist: *Please review and pick correct strength-formulation from Medispan options. If intended option is not shown, discontinue and re-order from Quick Search* *Pick strength-form from Medispan for eRX*Taking Vitamin D3 , Notes to Pharmacist: *Please review and pick correct strength-formulation from Medispan options. If intended option is not shown, discontinue and re-order from Quick Search* *Pick strength- form from Medispan for eRX*Taking metFORMIN HCl , Notes to Pharmacist: *Please review and pick correct strength-formulation from Medispan options. If intended option is not shown, discontinue and re-order from Quick Search* *Pick strength-form from Medispan for eRX* * Allergies: c efTRIAXone Assessment: * Assessment: 1. O besity, unspecified - E66.9 (Primary) Plan: * Treatment: * Electronic signature of Prema francis Migration on 10/22/2025 at 01:46 PM HEALTHCARE SOCIAL WORKER Sign off status: Pending * Provider: Michelle kapoor Migration Date: 11/22/2023 Generated for Syl villa/Dexter/Rosa Elena on: 12/23/2024 01:46 PM HEALTHCARE SOCIAL WORKER
--- OUTSIDE RECORDS SUMMARY | 2025-08-27 07:00 | XMS_ITS | Encounter Summary ---
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 [employer] Name Role Phone Hope Weiss MD Primary Care Provider [phone] Florinda Martins MRI SPECIALIST Unavailable [phone] Reason for Visit * Consultation (Routine) - Authorized Specialty Diagnoses / Procedures Referred By Janette ellis Referred To Contact Minimally Invasive Surgery Diagnoses Umbilical hernia without obstruction or gangrene [facility] Minimally Invasive Surgery [facility] Medical Office Building [address] [place] [address] Phone: tel: fax: Krishna ePreyra MD [address] [place] [address] Phone: tel: fax: Referral ID Status Reason Start Date Expiration Date Visits Requested Visits Authorized [id number] Authorized Specialty Services Required 07/11/2025 08/10/2026 12 12 Encounter Details Date Type Department Care Team (Late st Contact Info) Description 08/27/2025 8:00 AM CDT [facility] Visit [facility]) [facility] Medicine Minimally Invasive Surgery [address] [place] [address] [facility] 12th Floor, [place] [address] Krishna Pereyra MD [address] [place] [address] Umbilical hernia without obstruction and without gangrene (Primary Dx); Atrophy of testis; Long-term current use of testosterone replacement therapy; Chronic pain syndrome Social History Tobacco Use Types Packs/Day Years Used Date Smoking Tobacco: Never Smokeless Tobacco: Current Tobacco Cessation:Ready to Q uit: Not Asked; Counseling Given: Not Answered AUDIT-C Answer Date Recorded Q1: How often do you have a drink containing alcohol? Never 10/15/2025 Q2: How many drinks containi ng alcohol do you have on a typical day when you are drinking? Patient does not drink Q3: How often do you have si x or more drinks on one occasion? 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 Gender Identity Not on file Sexual Orientation Not on file documented as of this encounter Last Filed Vital Signs Vital Sign Reading Time Taken Comments Blood Pressure 135/88 08/27/2025 8:01 AM CDT Pulse 84 08/27/2025 8:01 AM CDT Temperature 37.1 C (98.7 F) 08/27/2025 8:01 AM CDT Respiratory Rate 18 08/27/2025 8:01 AM CDT Oxygen Saturation 97% 08/27/2025 8:01 AM CDT Inhaled Oxygen Concentration - - Weight 86.6 kg (191 lb) 08/27/2025 8:01 AM CDT Height 180.3 cm (5' 11) 08/27/2025 8:01 AM CDT Body Mass Index 26.64 08/27/2025 8:01 AM CDT documented in this encounter Functional Status * BP Location Answer Date of Assessment Author Left arm 08/27/2025 8:01 AM CDT Kevin Sewell CMA * AUDIT-C Score Answer Date of Assessment Author 0 10/15/2025 1:16 PM Anabel Escobar RN * Alcohol Use Question Answer Date of Assessment Author Q1: How often do you have a drink containing alcohol? Never 10/15/2025 1:16 PM Dory Escobar RN Q2: How many drinks containing alcohol do you have on a typical day when you are drinking? Patient does not drink 10/15/2025 1:16 PM Dory Escobar RN Q3: How often do you have six or more drinks on one occasion? Never 10/15/2025 1:16 PM Dory Escobar, SHY * Question Answer Date of Assessment Author Hearing - Right Ear Functional 10/15/2025 1:16 PM CS T Dory Caceres RN Hearing - Left Ear Functional 10/15/2025 1:16 PM Dory Escobar RN Assistive Devices/DME Eyeglasses 10/15/2025 1:16 PM Dory Escobar, SHY * BP Location Answer Date of Assessment Author Left arm 08/27/2025 8:01 AM CDT Kevin Sewell CMA documented as of this encounter Patient Instructions * Patient Instructions* Maine Reyes - 08/27/2025 8:00 AM CDT Patient Education Umbilical Hernia Repair FIRER RETORT: What you need to know about an umbilical hernia repair: An umbilical hernia repair is surgery to fix your umbilical (belly button) hernia. An umbilical hernia may be repaired if the hernia is preventing blood flow to your organs, blocking your intestines, or causing pain. An open repair or laparoscopic repair may be done to fix your umbilical hernia. How to prepare for an umbilical hernia repair: Your healthcare provider will talk to you about how to prepare for surgery. He or she may tell you not to eat or drink anything after midnight on the day of surgery. He or she will tell you what medicines you should take or not take on the day of surgery. You may be given an antibiotic through your IV to help prevent a bacterial infection. Tell your healthcare provider if you have ever had an allergic reaction to an antibiotic. Arrange for someone to drive you home and stay with you after surgery. The person can watch for problems and help you around the house. What will happen during a laparoscopic umbilical hernia repair: You will be given general anesthesia to keep you asleep and free from pain during surgery. Your healthcare provider will make a small incision above your belly button. He or she will insert a laparoscope through this incision. A laparoscope is a long metal tube with a light and camera on the end. The provider will insert other instruments by making 2 to 4 smaller incisions at different places on your abdomen. He or she will inflate your abdomen with gas. This will help your provider see your hernia better. Your healthcare provider will move your intestines or tissue back into the correct place. Strong stitches will be used to close the opening in your abdominal wall. Mesh may be used to cover or plug the area. Mesh helps prevent the hernia from happening again. Your healthcare provider may close your incisions with stitches, medical glue, or Steri-strips???. He or she may also place a small bandageover the incisions. What will happen during an open umbilical hernia repair: You will be given general anesthesia to keep you asleep and free from pain during surgery. Your healthcare provider will make an incision near your belly button. He or she will move your intestines or tissue back into their correct place. Strong stitches may be used to close the opening in your abdominal wall. Mesh may be used to cover or plug the area. Mesh helps prevent the hernia from happening again. Your healthcare provider may close your incision with stitches, medical glue, or Steri-strips???. He or she may also place a smallbandage over the incision. What will happen after an umbilical hernia repair: Healthcare providers will monitor you until you are awake. You may have pain, bloating, or nausea after your surgery. If you had a laparoscopic repair, you may have pain in your shoulder or near your ribs. This is from the gas used during surgery. Healthcare providers will give you medicine to help decrease pain and nausea. You may be able to go home when your pain is controlled, you can drink liquids, and you urinate. Risks of an umbilical hernia repair: You may bleed more than expected or get an infection. A pocketof fluid may form under your skin. You may need treatment to remove it. Your umbilical hernia may return, or you may develop a hernia in a different location. Your intestines may be injured during the surgery. You may get a blood clot in your leg, arm, or lungs. This may become life-threatening. Call 911 for any of the following: You feel lightheaded, short of breath, and have chest pain. You cough up blood. Seek care immediately if: Your arm or leg feels warm, tender, and painful. It may look swollen and red. Blood soaks through your bandage. Your abdomen feels hard and looks bigger than usual. Your bowel movements are black, bloody, or look like tar. You have severe abdominal pain. Contact your healthcare provider if: You have a fever. Your pain does not get better after you take pain medicine. You develop a skin rash, hives, or itching. Your incision is swollen, red, or draining pus or fluid. You have nausea or are vomiting. You do not have a bowel movement for 3 days or more. You have questions or concerns about your condition or care. Medicines: Prescription pain medicine may be given. Ask your healthcare provider how to take this medicine safely. Some prescription pain medicines contain acetaminophen. Do not take other medicines that contain acetaminophen without talking to your healthcare provider. Too much acetaminophen may cause liver d amage. Prescription pain medicine may cause constipation. Ask your healthcare provider how to prevent or treat constipation. Take your medicine as directed. Contact your healthcare provider if you think your medicine is not helping or if you have side effects. Tell your provider if you are allergic to any medicine. Keep a list of the medicines, vitamins, and herbs you take. Include the amounts, and when and why you take them. Bring the list or the pill bottles to follow-up visits. Carry your medicine list with you in case of an emergency. Bathing: You can shower 48 hours after your surgery or as directed. Do not take a bath or go in hottubs. This can cause an infection. Wash around your incision. Let soap and water run over your incision. Gently pat the area dry or let it air dry. Care for your incision as directed: Keep your incision clean and dry. Change your bandages when they get wet or dirty. If you have Steri-strips??? over your incision, allow them to fall off on their own. If they do not fall off after 2 weeks, gently peel them off. Do not put powders or lotions on your incision. Check your incision every day for signs of infection, such as redness, swelling, or pus. Self-care: Eat high-fiber foods. Fiber may prevent constipation and straining during a bowel movement. This can prevent your hernia from returning. Foods that contain fiber include fruits, vegetables, legumes, and whole grains. You may need to take cric-leu-ujhivzp fiber supplements if you do not get enough fiber in your diet. Ask your healthcare provider if supplements are right for you. Drink plenty of liquids. Liquids may prevent constipation and straining during a bowel movement. This will help prevent pressure on your incision. It may also prevent another hernia. Ask how much liquid you should drink each day and which liquids are best for you. Apply ice on your incision for 15 to 20 minutes every hour or as directed. Use an ice pack, or put crushed ice in a plastic bag. Cover it with a towel before you apply it to your skin. Ice helps prevent tissue damage and decreases swelling and pain. Activity: Take short walks around the house every hour. This will help prevent blood clots. Slowly return to your normal activities. Do not play sports or lift anything heavier than 10 pounds for 4 to 6 weeks or as directed. Ask your healthcare provider when you can return to work and your usual activities. Follow up with your healthcare provider as directed: Write down your questions so you remember to ask them during your visits. ?? Copyright [employer] 2021 Information is for End User's use only and may not be sold, redistributed or otherwise used for commercial purposes. All illustrations and images included in CareNotes?? are the copyrighted property of [employer] or [employer] The above information is an braid pattern setter only. It is not intended as medical advice for individual conditions or treatments. Talk to your doctor, nurse or pharmacist before following any medical regimen to see if it is safe and effective for you. documented in this encounter Progress Notes * Krishna Pereyra MD - 08/27/2025 8:00 AM CDT Krishna PEREYRA M.D. TEMPERATURE REGULATOR PYROMETER MINIMALLY INVASIVE SURGERY AND ENDOCRINE SURGERY [facility] HPI: Patient is a 60 y.o. male who is seen in request for consultation by Dr. Hope Weiss for an umbilical hernia. Mr. Lomeli has a history of chronic pain and prior opioid dependence, low testosterone on replacement, obesity with recent weight loss on Mounjaro presenting for evaluation of an umbilical hernia. He notes that the hernia has been present for at least 15 years but that he has noticed and been bothered by it much more since losing weight. He has been on Mounjaro for 6 months and so far has lost about 70 pounds. He notes having sharp pain at the umbilicus, worse on the right side where it is nowbulging more. He denies any previous hernia repairs. He has not had any obstructive symptoms. Of note, he does have chronic pain syndrome and notes that he has pain all over, it is not localized to a particular area. He was previously opioid dependent for this but was recently was able to getoff his suboxone. He follows with as psychiatrist to manage his anxiety and depression and had previously been followed by the suboxone clinic. He does also have chronic testicular pain which has recently worsened on the right side. He was started on testosterone shots about 10 years ago in the setting of low testosterone levels, but does not remember if he was having symptoms at that time. His testicles have shrunken since started replacement therapy but he believes that the testicular pain may have been present prior to this. The other issue he has is that because of his weight loss, he has lost soft tissue in his buttock area that is painful to sit because his tailbone area has less padding. Imaging: CT ([facility] consult 03/07/25): Gallbladder with small stones. Impression: 1. Fat- containing ventral/umbilical hernia. 2. No acute process in the abdomen or pelvis. CT (03/07/25): cholelithiasis. Fat-containing umbilical hernia. US scrotum (06/10/21): Testes are somewhat small for age. Otherwise unremarkable testicular ultrasound. Note: I have personally reviewed and interpreted the CT scan. It shows his linea alba fascia in theupper midline is very thin and rectus muscles are . He has a sizable hernia at his umbilicus that is dumbbell-shaped with fat herniated. There was only fat underneath it and nothing else. Hehas a defect that is probably close to 3.[address] Allergies: Rocephin Medications: Please see list Past Medical History: history of opioid abuse, chronic pain syndrome, chronic migraine, bipolar 2 disorder, anxiety disorder, insomnia, obesity, SHAKIR, chronic testicular pain, secondary male hypogonadism, type 2 DM, vitamin D deficiency. Poor historian per prior notes. Past Surgical History: no abdominal surgeries Social History: Tobacco: never, does use nicotine vape Alcohol: none Occupation: on disability Vitals: Vitals BP 135/88 (BP Location: Left arm, Patient Position: Sitting) Pulse 84 Temp 37.1 ??C (98.7 ??F) (Oral) Resp 18 Ht 180.3 cm (5' 11) Wt 86.6 kg (191 lb) SpO2 97% BMI 26.64 kg/m?? Body mass index is 26.64 kg/m??. PHYSICAL EXAM: General: well nourished, resting comfortably in room Pulmonary: clear and equal breath sounds bilaterally Cardiovascular: regular rate and rhythm, no murmurs appreciated Gastrointestinal: there is an apple-sized umbilical bulge present with reducible fat present; palpable defect of 3-4cm. He has upper abdominal diastasis and also evidence of abdominal wall laxity from his weight loss. Groin: The testicles are small bilaterally but symmetric and nontender. There are no inguinal bulges present. IMPRESSION/PLAN: Mr. Lomeli is a 60 year old man presenting for evaluation of an umbilical hernia.He has become increasingly symptomatic since losing weight over the past 6 months, and I do think he would be a good candidate for repair. I think he is appropriate for an open repair with mesh reinforcement under general anesthesia given the size of his defect. The other issues for him or the testosterone replacement and testicular atrophy and possible pain related. I encouraged him to discuss this with his construction recruiter who manages that Dr. Ailyn Valenzuela. In terms of the issue he has with loss of soft tissue in his buttock and coccyx area, I am not sure what the best option for him is. It might be to regain a bit of weight. I can potentially inquire plastic surgery if that might be an option also. Nature procedure and risks were discussed including bleeding, infection, hernia recurrence, lingering incision pain, scarring or imperfect cosmetic appearance, internal injury, general risks and anticipated recovery time. I went over the hernia sheet with him and wrote down potential risks as well as pain management and recovery time. I also reviewed the CT scan images with him and his that show the hernia and the diastasis. The patient understands and wishes to proceed and has been scheduled for November 14, 2025 at [facility]. Attestation: I certify that I have personally seen and examined the patient with the resident Dr. Nicky Mojica and confirmed the above findings and have discussed the nature of surgery and risks with the patient and set the management plan. Behzad Pereyra MD 08/27/2025 NG MACHINE BOBBIN WINDER documented in this encounter Plan of Treatment Upcoming Encounters Date Type Department Care Team (Latest Contact Info) Description 01/06/2026 1:00 PM SEWING MACHINE BOBBIN WINDER Hospital Encounter [facility] ([facility]) [address] [place] [phone] Krishna Pereyra MD [address] [place] [address] 01/06/2026 1:00 PM SEWING MACHINE BOBBIN WINDER Anesthesia Event [facility] ([facility]) [address] [place] [id number] Mariama Shaffer NP [address] [place] [address] [phone] [place], [place] [id number] 01/06/2026 1:00 PM SEWING MACHINE BOBBIN WINDER - 01/06/2026 4:02 PM SEWING MACHINE BOBBIN WINDER Surgery [facility] Operating [facility] ([facility]) [address] [place] [address] [phone] Krishna Pereyra MD [address] [place] [address] Open repair large umbilical hernia with mesh Scheduled Procedures Name Priority Associated Diagnoses Date/Ti me REPAIR UMBILICAL HERNIA Umbilical hernia without obstruction and without gangrene 01/06/2026 1:00 PM SEWING MACHINE BOBBIN WINDER documented as of this encounter Goals Goal Patient Goal Type Associated Problems Recent Progress Patient-Stated? Author Autogenerat ed Goal Care Plan Autogenerated Problem No LizamaMekaah documented as of this encounter Visit Diagnoses Diagnosis Umbilical hernia without obstruction and without gangrene- Primary Atrophy of testis Long-term current use of testosterone replacement therapy Chronic pain syndrome Umbilical hernia without obstruction and without gangrene- Primary Umbilical hernia without obstruction and without gangrene documented in this encounter Historical Medications * This list may reflect changes made after this encounter. buprenorphine (SUBUTEX) tablet, sublingualIndicat ions:opioid use disorder Place 1 tablet (8 mg total) under the tongue 3 (three) times a day ergocalciferol (VITAMIN D) 50,000 unit capsuleIndication s:Vitamin D Deficiency Take 1 capsule (50,000 Units total) by mouth once a week On Tuesday07/15/2025 finasteride (PROSCAR) 5 mg tabletIndications :benign prostatic hyperplasia with lower urinary tract sx Take 1 tablet (5 mg total) by mouth every morning 08/11/2025 hydroCHLOROthiazi de 12.5 mg capsuleIndication s:blood pressure Take 1 tablet/capsule (12.5 mg total) by mouth supervisor bottle machines before breakfast 06/21/2025 icosapent ethyL (VASCEPA) 0.5 gram capsuleIndication s:hypertriglyceri demia Take 4 capsules (2 g total) by mouth 2 (two) times a day lamoTRIgine (LaMICtal) 200 mg tabletIndications :mood Take 2 tablets (400 mg total) by mouth nightly 01/29/2012 omeprazole (PriLOSEC) 40 mg capsuleIndication s:Stress Ulcer Prophylaxis Take 1 capsule (40 mg total) by mouth 2 (two) times a day rosuvastatin (CRESTOR) 20 mg tabletIndications :hyperlipidemia Take 1 tablet (20 mg total) by mouth every other day 01/23/2025 metFORMIN (GLUCOPHAGE) 500 mg tabletIndications :type 2 diabetes mellitus Take 2 tablets (1,000 mg total) by mouth every morning Mounjaro 5 mg/0.5 mL pen injector injection Inject 0.5 mL (5 mg total) under the skin every 7 days On Sundays01/22/2025 ALPRAZolam (XANAX) 1 mg tablet Take 1 tablet (1 mg total) by mouth 3 (three) times a day added in this encounter Orders Outpatient Referral Count Last Ordered Date Fir st Ordered Date AMB REFERRAL TO MINIMALLY INVASIVE SURGERY 1 08/27/2025 documented in this encounter Additional Health Concerns Active Problems Noted Date Diagnosed Date Autogenerated Problem 10/21/2025 documented as of this encounter 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
--- OUTSIDE RECORDS SUMMARY | 2025-10-11 04:20 | XMS_ITS ---
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 Name Role Phone Ailyn Valenzuela Unavailable [phone] REASON FOR VISIT 3 month f/u Medications Medication SIG (Take, Route, Frequency, Duration) Notes Start Date End Date Status Mounjaro 5 MG/0.5ML Solution Auto-injector USE 1 INJECTION UNDER THE SKIN ONCE A WEEK Active [place] & Syringes 18g 1inch 1mL syring le to inject testosterone once weekly; Duration: 90 days 06/05/2025 Active Rosuvastatin Calcium 20 MG Tablet 1 tablet Orally every other day at bedtime; Duration: 90 days 12/28/2024 Active Testosterone Cypionate 200 MG/ML Solution 1 mL intramuscularly weekly; Duration: 90 days every week 09/09/2025 Active Icosapent Ethyl 1 GM Capsule 2 capsules with meals Orally Twice a day; Duration: 90 days 12/28/2024 Active ALPRAZolam *Please review and pick correct strength-formulat ion from MOVLspan options. If intended option is not shown, discontinue and re-order from Quick Search* *Pick strength-form from Medispan for eRX* Active lamoTRIgine *Please review and pick correct strength-formulat ion from Medispan options. If intended option is not shown, discontinue and re-order from Quick Search* *Pick strength-form from Medispan for eRX* Active metFORMIN HCl *Please review and pick correct strength-formulat ion from Medispan options. If intended option is not shown, discontinue and re-order from Quick Search* *Pick strength-form from Medispan for eRX* Active Vitamin D3 *Please review and pick correct strength-formulat ion from MOVLspan options. If intended option is not shown, discontinue and re-order from Quick Search* *Pick strength-form from Medispan for eRX* Active Encounters Encounter Location Date Provider Diagnosis [facility] Dr. Valenzuela [id number] [facility] [place] [id number] 10/11/2025 Ailyn Valenzuela Plan Of Treatment No Information History and Physical Notes * HPI (History of Present Illness) Category Sub-Category Detail Notes Category Not es History of Present Illness 60 yo male comes in for follow up in management and evaluation of well controlled type 2 DM (A1C 5.6%), hypogonadism, weight management and finding of hypercalcemia now resolved with normal SPEP/UPEP and normal PTH level. Patient has lost over 50 pounds since going on mounjaro and down another 22 pounds since last visit on mounjaro. Progress Notes * MERCEDES KRAUSEDOB:[birth year] (60 yo M)Acc No.[id number]:10/11/2025 Progress Notes Patient: MERCEDES KRAUS Provider: Elida Valenzuela MD :1965 A ge:60 Y S ex:Male Date:10/11/2025 Address:[address] [place] [address] Subjective: * Chief Complaints: * 3 month f/u * HPI: H istory of Present Illness: [age] yo male comes in for follow up in management and evaluation of well controlled type 2 DM (A1C 5.6%), hypogonadism, weight management and finding of hypercalcemia now resolved with normal SPEP/UPEP and normal PTH level. Patient has lost over 50 pounds since going on mounjaro and down another 22 pounds since last visit on mounjaro. * Medications: T akinglamoTRIgine , Notes to Pharmacist: *Please review and pick correct strength-formulation from Medispan options. If intended option is not shown, discontinue and re-order from Quick Search* *Pick strength-form from Medispan for eRX*ALPRAZolam , Notes to [...] Quick Search* *Pick strength-form from Medispan for eRX*Rosuvastatin Calcium 20 MG Tablet 1 tablet Orally every other day at bedtime [place] [employer] Syringes 18g 1inch 1mL [place] to inject testosterone once weekly Mounjaro 5 MG/0.5ML Solution Auto-injector USE 1 INJECTION UNDER THE SKIN ONCE A WEEK Icosapent Ethyl 1 GM Capsule 2 capsules with meals Orally Twice a day Testosterone Cypionate 200 MG/ML Solution 1 mL intramuscularly weekly , Notes to Pharmacist: every weekTaking lamoTRIgine [...] re-order from Quick Search* *[facility]*Taking Vitamin D3 , Notes to Pharmacist: *Please review and pick correct strength-formulation from Medispan options. If intended option is not shown, discontinue and re-order from Quick Search* *Pick strength-form from Medispan for eRX*Taking metFORMIN HCl , Notes to Pharmacist: *Please review and pick correct strength-formulation from Medispan options. If intended option is not shown, discontinue and re-order from Quick Search* *Pick strength-form from Medispan for eRX*Taking Rosuvastatin Calcium 20 MG Tablet 1 tablet Orally every other day at bedtime Taking [place] & Syringes 18g 1inch 1mL [place] to inject testosterone once weekly Taking Mounjaro 5 MG/0.5ML Solution Auto-injector USE 1 INJECTION UNDER THE SKIN ONCE A WEEK Taking Icosapent Ethyl 1 GM Capsule 2 capsules with meals Orally Twice a day Taking Testosterone Cypionate 200 MG/ML Solution 1 mL intramuscularly weekly , Notes to Pharmacist: every week Objective: * P ast Orders: L ab:.COMPREHENSIVE METABOLIC PANEL (42592) CMP (Order Date - 07/11/2025) (Collection Date & Time - 07/11/2025 06:38 AM) Value Reference Range GLUCOSE 91 65-99 - mg/dL UREA NITROGEN (BUN) 13 7-25 - mg/dL CREATININE 1.13 0.70-1.35 - mg/dL BUN/CREATININE RATIO SEE NOTE: 6-22 - (calc) SODIUM 136 135-146 - mmol/L POTASSIUM 4.3 3.5-5.3 - mmol/L CHLORIDE 97 L 98-110 - mmol/L CARBON DIOXIDE 31 20-32 - mmol/L CALCIUM 10.1 8.6-10.3 - mg/dL PROTEIN, TOTAL 7.3 6.1-8.1 - g/dL ALBUMIN 5.0 3.6-5.1 - g/dL GLOBULIN 2.3 1.9-3.7 - g/dL (calc ) ALBUMIN/GLOBULIN RATIO 2.2 1.0-2.5 - (calc) BILIRUBIN, TOTAL 0.5 0.2-1.2 - mg/dL ALKALINE PHOSPHATASE 55 35-144 - U/L AST 17 10-35 - U/L ALT 23 9-46 - U/L EGFR 74 > OR = 60 - mL/min/1.73m2 Notes: Ailyn Valenzuela 07/12/2025 10:54:32 AM CDT >reviewed with patient in clinic today L ab:.LIPID PANEL, STANDARD (7600) (Order Date - 07/11/2025) (Collection Date & Time - 07/11/2025 06:38 AM) Value Reference Range TRIGLYCERIDES 73 <150 - mg/dL CHOLESTEROL, TOTAL 104 <200 - mg/dL HDL CHOLESTEROL 43 > OR = 40 - mg/dL LDL-CHOLESTEROL 46 - mg/dL (calc) CHOL/HDLC RATIO 2.4 <5.0 - (calc) NON HDL CHOLESTEROL 61 <130 - mg/dL (calc) Notes: Ailyn Valenzuela 07/12/2025 10:54:32 AM CDT >reviewed with patient in clinic today L ab:.CBC (INCLUDES DIFF/PLT) (6399) (Order Date - 07/11/2025) (Collection Date & Time - 07/11/2025 06:38 AM) Value Reference Range WHITE BLOOD CELL COUNT 6.4 3.8-10.8 - Thousand/uL RED BLOOD CELL COUNT 5.81 H 4.20-5.80 - Million/uL HEMOGLOBIN 16.7 13.2-17.1 - g/dL HEMATOCRIT 51.5 H 38.5-50.0 - % MCV 88.6 80.0-100.0 - fL MCH 28.7 27.0-33.0 - pg MCHC 32.4 32.0-36.0 - g/dL RDW 13.6 11.0-15.0 - % PLATELET COUNT 251 140-400 - Thousand/u L NEUTROPHILS 57.8 - % ABSOLUTE NEUTROPHILS 3699 6228-8261 - cells/u L LYMPHOCYTES 34.2 - % ABSOLUTE LYMPHOCYTES 2189 850-3900 - cells/uL MONOCYTES 5.5 - % ABSOLUTE MONOCYTES 352 200-950 - cells/uL EOSINOPHILS 1.7 - % ABSOLUTE EOSINOPHILS 109 15-500 - cells/uL BASOPHILS 0.8 - % ABSOLUTE BASOPHILS 51 0-200 - cells/uL MPV 11.4 7.5-12.5 - fL Notes: Ailyn Valenzuela 07/12/2025 10:54:32 AM CDT >reviewed with patient in clinic today L ab:.HEMOGLOBIN A1c (496) (Order Date - 07/11/2025) (Collection Date & Time - 07/11/2025 06:38 AM) Value Reference Range HEMOGLOBIN A1c 5.6 <5.7 - % of total Hg b Notes: Ailyn Valenzuela 07/12/2025 10:54:32 AM CDT >reviewed with patient in clinic today L ab:T4, FREE (866) (Order Date - 07/11/2025) (Collection Date & Time - 07/11/2025 06:38 AM) Value Reference Range T4, FREE 1.0 0.8-1.8 - ng/dL Notes: Ailyn Valenzuela 07/12/2025 10:54:32 AM CDT >reviewed with patient in clinic today L ab:TSH (899) (Order Date - 07/11/2025) (Collection Date & Time - 07/11/2025 06:38 AM) Value Reference Range TSH 2.25 0.40-4.50 - mIU/L Notes: Ailyn Valenzuela 07/12/2025 10:54:32 AM CDT >reviewed with patient in clinic today L ab:T3, FREE (05611) (Order Date - 07/11/2025) (Collection Date & Time - 07/11/2025 06:38 AM) Value Reference Range T3, FREE 3.8 2.3-4.2 - pg/mL Notes: Ailyn Valenzuela 07/12/2025 10:54:32 AM CDT >reviewed with patient in clinic today L ab:TESTOSTERONE, FREE (DIALYSIS) AND TOTAL,MS ([id number]) (Order Date - 07/11/2025) (Collection Date & Time - 07/11/2025 06:38 AM) Value Reference Range TESTOSTERONE, TOTAL, [place] 3329 027-0400 - ng/dL TESTOSTERONE, FREE 251.7 H 35.0-155.0 - pg/mL Notes: Ailyn Valenzuela 07/12/2025 10:54:32 AM CDT >reviewed with patient in clinic today Billing Information: * Procedure Codes: * Electronic signature of Luis Enrique Valenzuela MD on 10/22/2025 at 01:45 PM NEWS PRODUCTION ASSISTANT Sign off status: Pending * Provider: Elida Valenzuela MD Date: 12/12/2024 Generated for Syl ng/Dexter/eTransmitting on: 12/23/2024 01:45 PM NEWS PRODUCTION ASSISTANT
[2025-10-22] VITALS (17 sets, daily range): BP systolic 88–127; BP diastolic 45–86; PULSE 64–131; RESP 14–25; TEMP 36.4–37.6; O2SAT 85–99; BMI 23.4
--- NOTE | ~2025-10-22 | CT_ITS ---
EXAMINATION: CT brain wo con DATE: 10/22/2025 11:35 INDICATION: New onset seizure TECHNIQUE: Computed tomography (CT) of the head was performed without intravenous contrast. Sagittal and coronal reconstructions were performed. The mA was adjusted according to patient size. Iterative reconstruction technique was employed. The dose-length product was 605.33 mGy-cm. COMPARISON: head CT dated 10/24/2017 FINDINGS: No acute intracranial hemorrhage, acute infarction or abnormal extra axial fluid collection. Symmetric prominence of the sulci consistent with mild age- appropriate diffuse cerebral volume loss. Ventricles are normal and symmetric. No mass/mass effect. The orbits, paranasal sinuses and mastoid air cells are normal. IMPRESSION: 1. Normal aging brain with mild diffuse volume loss. No acute intracranial process. Reviewed, dictated and finalized at location A. ER AND BREAKER IMPRESSION: 1. Normal aging brain with mild diffuse volume loss. No acute intracranial proc ess.
--- NOTE | ~2025-10-22 | MR_ITS ---
EXAM/PROCEDURE: MR brain/brain stem wo/w con HISTORY: AMS, sz activity COMPARISON: None available. TECHNIQUE: Pre and postcontrast enhanced multiplanar brain MRI performed FINDINGS: A tiny area of hyperintense signal on DWI image 10 series 3, and the left pontine region at the level of the left cerebellar peduncle corresponds to an area of possibly slightly diminished diffusion on ADC mapping images 10 series 350. No abnormal T2-weighted signal or post enhancement pathology seen in this area. No other area suggestive of restricted diffusion or acute ischemia. No mass, mass effect or bleed Minimal periventricular T2 weighted hyperintense white matter changes present. Lambert-white signal pattern is preserved. Brainstem and cerebellum otherwise normal in appearance. Vascular flow voids patent at skull base. On postcontrast series, no abnormal enhancing lesions or masses. Probable small developmental venous anomaly right frontal lobe image 16 series 9, and coronal image set 22 series 8. IMPRESSION: 1. Small area of possibly restricted diffusion in the left pontine portion of the brainstem likely artifactual. No abnormal T2-weighted signal or enhancement pathology seen in this area. 2. Probable small developmental venous anomaly in the right frontal lobe. Reviewed, dictated and finalized at location A. INE QUILT STUFFER IMPRESSION: 1. Small area of possibly restricted diffusion in the left pontine portion of t he brainstem likely artifactual. No abnormal T2-weighted signal or enhancement pathology seen in this area. 2. Probable small developmental venous anomaly in the right frontal lobe.
--- NOTE | ~2025-10-22 | CT_ITS ---
EXAMINATION: CTA BRAIN/CAROTID DATE: 10/22/2025 11:41 INDICATION: Altered mental status with new onset seizures, shaking and porencephalic. TECHNIQUE: Computed tomographic angiography (CTA) of the head and neck was performed with 100 mL Omnipaque-350 intravenous contrast. Multiplanar reconstructions and maximum intensity projection 3D-reconstructions of the carotid arteries and of the intracranial arteries were created by the technologist on a separate workstation. Automated exposure control and iterative reconstruction technique were employed.The dose-length product was 1147.84 mGy-cm. COMPARISON: Head CT dated 10/22/2025 FINDINGS: Intracranial arteries Left vertebral artery is dominant. Minimal nonhemodynamically significant atherosclerotic plaque at the bilateral carotid siphons. There is no hemodynamically significant stenosis in the vertebral, basilar and internal carotid arteries. Both A1 and P1 segments are patent. The bilateral P1 segments are diminutive with collateral flow supplied from the bilateral internal carotid arteries via a larger caliber patent bilateral posterior commuting arteries. There are no aneurysms identified. Cerebral arterial arborization appears symmetric. Carotid arteries: The aortic arch and the great vessels arising from the arch are normal in caliber with no dissection or hemodynamically significant stenosis. There is minimal atherosclerotic plaque with 0% stenosis of the right carotid bulb relative to normal distal artery lumen diameter (NASCET criteria). There is no evident atherosclerotic plaque with 0% stenosis of the left carotid bulb relative to normal distal artery lumen diameter. Minimal biapical pleural- parenchymal scarring. Cervical soft tissues are unremarkable. Mild to moderate cervical spondylosis. IMPRESSION: 1. Minimal atherosclerotic plaque with 0% stenosis of the right carotid bulb relative to normal distal artery lumen diameter (NASCET criteria). 2. No evident atherosclerotic plaque with 0% stenosis of the left carotid bulb relative to normal distal artery lumen diameter. 3. Normal variation to the [place] with diminutive bilateral P1 segments with larger caliber patent bilateral posterior communicating arteries collateral flow to the circulation from the bilateral internal carotid arteries. Otherwise unremarkable cerebral CT angiogram with no hemodynamically significant stenosis, thrombosis or aneurysm. Reviewed, dictated and finalized at location A. GER CUSTOMS IMPRESSION: 1. Minimal atherosclerotic plaque with 0% stenosis of the right carotid bulb re lative to normal distal artery lumen diameter (NASCET criteria). 2. No evident atherosclerotic plaque with 0% stenosis of the left carotid bulb relative to normal distal artery lumen diameter. 3. Normal variation to the [place] with diminutive bilateral P1 segmen ts with larger caliber patent bilateral posterior communicating arteries collat eral flow to the circulation from the bilateral internal carotid arteries. Othe rwise unremarkable cerebral CT angiogram with no hemodynamically significant st enosis, thrombosis or aneurysm.
--- NOTE | 2025-10-22 10:45 | ECG_ITS ---
Test Date: 2025-10-22 10:56:50 Measurements Intervals [place] Rate: 123 P: 54 [place]: 156 QRS: -31 QRSD: 95 T: 61 QT: 354 QTc: 507 Interpretive Statements SINUS TACHYCARDIA POSSIBLE ANTERIOR MYOCARDIAL INFARCTION , OF INDETERMINATE AGE INFERIOR INFARCT, AGE INDETERMINATE BORDERLINE ST-T WAVE ABNORMALITY- ANTEROLATERAL LEADS BASELINE ARTIFACT- I, II, III, AVR, AVL, AVF, V1-V6 ABNORMAL ECG No previous ECG available for comparison Electronically Signed On 10-22-2025 11:34:03 THORACIC MEDICINE SPECIALIST by Korey Miguel D.O.
[2025-10-22 11:01] LABS: Hematocrit 46.0 % (42.0-52.0); Hemoglobin 15.7 g/dL (14.0-18.0); Immature Granulocyte Percent A 0.3 % (0-0.5); Lymphocytes Absolute Auto 0.89 K/mm3 (0.9-3.2); Mean Corpuscular HGB Conc 34.1 g/dl (32-36); Mean Corpuscular Hemoglobin 28.2 pg (26-34); Mean Corpuscular Volume 82.7 fl (80-100); Nucleated Red Blood Cells Absolute Auto 0.000 K/mm3 (0.0-0.012); Nucleated Red Blood Cells Perc 0.0 % (0.0-0.2); Platelet Count Result 332 k/mm3 (150-375); Red Blood Count 5.56 M/mm3 (4.6-6.20); White Blood Count 10.2 K/mm3 (4.5-10.0)
[2025-10-22] MEDS: MIDAZOLAM HCL (*CRX) 2 MG/2 ML VIAL 4 MG IV PUSH (11:05)
[2025-10-22 11:14] LABS: Alanine Aminotransferase 55 U/L (6-50); Albumin Level 5.0 g/dL (3.5-5.1); Alkaline Phosphatase 71 U/L (38-126); Anion Gap 19 mmol/L (4-12); Aspartate Amino Transferase 37 U/L (17-59); Bilirubin,Total 0.8 mg/dL (0.2-1.3); Blood Urea Nitrogen 17 mg/dL (9-20); Calcium 10.7 mg/dL (8.4-10.2); Carbon Dioxide 22 mmol/L (22-30); Chloride 96 mmol/L (98-107); Estimated CRCL calculation 100 ml/min; Estimated Glomerular Filt Rate > 60; Glucose 170 mg/dL (65-110); Potassium 3.8 mmol/L (3.4-5.0); Sodium 137 mmol/L (137-145); Total Protein 8.4 g/dL (6.3-8.2)
[2025-10-22 11:15] LABS: INR 1.0; Prothrombin Time 13.1 Seconds (11.1-14.7)
[2025-10-22 11:16] LABS: Partial Thromboplastin Time 27.2 Seconds (22.3-36.8)
[2025-10-22 11:25] LABS: Troponin I < 0.012 ng/mL (0.000-0.034)
--- NOTE | 2025-10-22 12:52 | ED.SEIZURE ---
HPI - Seizure General Chief Complaint: Seizure Stated Complaint: seizure, ams, combative Time Seen by Provider: 10/22/25 10:40 History of Present Illness HPI Narrative: Around 9:30 patient's found him having seizure like activity which lasted less than a minute, after which she was extremely confused, speaking word salad; no history of seizures, does have history of nerve issues for which he takes alprazolam as needed 3 times a day, along with various herbal supplements. Per , he had been diagnosed with COVID pneumonia 1-2 weeks ago and had been recovering since and all day yesterday was in bed not eating/drinking. Patient denies any complaints other than me talking too loudly, he has no headache, no focal numbness or weakness anywhere. Related Data Home Medications ?Medication ?Instructions ?Recorded ?Confirmed ?Last Taken ?Type alprazolam 1 mg tablet 1 mg PO TID PRN Anxiety 09/12/19 07/09/25 07/15/22 History lamotrigine 200 mg tablet 200 mg PO HS 09/12/19 07/09/25 06/26/25 History hydrochlorothiazide 12.5 mg capsule 12.5 mg PO DAILY 03/06/25 07/09/25 06/26/25 History finasteride 5 mg tablet 5 mg PO DAILY 06/14/25 07/09/25 06/26/25 History icosapent ethyl 1 gram capsule 1 g PO DAILY 06/14/25 07/09/25 06/26/25 History metformin 500 mg tablet See Rx Instructions PO BID 06/14/25 07/09/25 06/26/25 History rosuvastatin 20 mg tablet 20 mg PO DAILY 06/14/25 07/09/25 06/26/25 History tirzepatide 5 mg/0.5 mL 5 mg subcut WEEKLY 06/14/25 07/09/25 06/23/25 History subcutaneous pen injector (Tyunventuraro) omeprazole 40 mg capsule,delayed 40 mg PO DAILY 07/09/25 07/09/25 Unknown History release Allergies Allergy/AdvReac Type Severity Reaction Status Date / Time Cephalosporins Allergy Severe Anaphylactic Verified 07/09/25 15:31 Shock ceftriaxone Allergy Unknown Anaphylactic Verified 07/09/25 15:31 Shock Review of Systems Review of Systems: All systems reviewed & are unremarkable except as noted in HPI and below PMFSH Past Medical History Medical History (Updated 10/22/25 @ 13:55 by Caprice Gill MD) Fibromyalgia Ataxia Mixed hyperlipidemia Obstructive sleep apnea on CPAP Migraine without aura Surgical History Surgical History History of carpal tunnel surgery Family History Family History Mother Patient's mother is , Onset Age: 80 Father Carcinoma of colon Social History Social History Smoking status: Former smoker Smokeless tobacco user: chewing tobacco Second hand tobacco smoke exposure: No Alcohol intake: never Substance use: never Substance use type: does not use Lack of Transportation: No Lack of Food: Never True Current Housing: I Have Housing Concerned About Future Housing: No Difficulty Paying Gas/Electric Bills: No Difficulty Paying for Meds: No Currently Unemployed: No Education: High School Diploma/GED Difficulty w/ Childcare or Family Care: No Living arrangements: with family Additional living arrangements comments: with sp Spiritual care concerns: No Exam Narrative: EXAMINATION OF ORGAN SYSTEMS/BODY AREAS: Constitutional: Vital signs per nursing GENERAL: No acute distress HEAD: Normal with no signs of head trauma. EYES: EOMI, conjunctiva normal, PERRL ENT: Hearing grossly intact LUNGS: Nonlabored breathing. HEART: Tachycardic ABD: Soft, nontender to palpation EXT: Normal range of motion SKIN: No rashes or lesions. NEURO: Alert. No gross focal sensory or strength deficits. Speaking with clear speech. Able to tell me his name, where we are, able to name a glove and tell me his medications. Following commands. PSYCH: Normal affect Course Vital Signs Vital signs: Vital Signs Temperature 99.6 F 10/22/25 10:40 Pulse Rate 131 H 10/22/25 10:40 Respiratory Rate 23 H 10/22/25 10:40 Blood Pressure 113/79 10/22/25 10:40 Pulse Oximetry 96 10/22/25 10:40 Oxygen Delivery Room Air 10/22/25 10:40 Temperature 99.6 F 10/22/25 10:40 Pulse Rate 131 H 10/22/25 10:49 Respiratory Rate 18 10/22/25 10:49 Blood Pressure 113/79 10/22/25 10:49 Pulse Oximetry 97 10/22/25 10:49 Oxygen Delivery Room Air 10/22/25 10:49 MDM MDM Narrative Medical decision making narrative: 60-year-old male with history of depression, nerve issues presents here with altered mental status, seizure-like activity, has a history of this in the past, has been taking his medications as prescribed no alcohol or drug use per family and patient. On exam he is alert. No gross focal sensory or strength deficits. Speaking with clear speech. 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 I do not believe he is TPA candidate with NIHSS of 0 and rapidly improved symptoms per EMS (when they first saw him he was not making any sense whatsoever, and now he is able to have somewhat of a conversation). CTA head/neck neg. I d/w neurologist Dr Lagos who recommends adm for EEG/MRI. D/w pt/family who are agreeable to plan. On re-eval, pt now reporting a migraine. I did order dose of droperidol. D/w hospitalist for admission. Differential Diagnosis Differential Diagnosis: seizure, drug intoxication, CVA, encephalitis Lab Data 10/22/25 10:52 10/22/25 10:52 Labs: Lab Results 10/22/25 10/22/25 Range/Units 10:52 10:54 WBC 10.2 H (4.5-10.0) K/mm3 RBC 5.56 (4.6-6.20) M/mm3 Hgb 15.7 (14.0-18.0) g/dL Hct 46.0 (42.0-52.0) % MCV 82.7 (80-100) fl MCH 28.2 (26-34) pg MCHC 34.1 (32-36) g/dl RDW 13.9 (11.5-14.5) % Plt Count 332 (150-375) k/mm3 MPV 10.3 (7.4-10.4) fl Immature Gran % (Auto) 0.3 (0-0.5) % Neut % (Auto) 89.4 H (45.5-73.1) % Lymph % (Auto) 8.7 L (18.3-44.2) % [place] % (Auto) 1.4 L (2.6-8.5) % Eos % (Auto) 0.0 (0-4.4) % Baso % (Auto) 0.2 (0.2-1.2) % Lymph # (Auto) 0.89 L (0.9-3.2) K/mm3 [place] # (Auto) 0.1 (0.1-0.6) K/mm3 Eos # (Auto) 0.0 (0-0.3) K/mm3 Baso # (Auto) 0.0 (0.0-0.1) K/mm3 Abs Immat Gran (auto) 0.03 (0.00-0.031) K/mm3 Absolute Neuts (auto) 9.2 H (1.3-6.7) K/mm3 Absolute Nucleated RBC 0.000 (0.0-0.012) K/mm3 Nucleated RBC % 0.0 (0.0-0.2) % PT 13.1 (11.1-14.7) Seconds INR 1.0 APTT 27.2 (22.3-36.8) Seconds Sodium 137 (137-145) mmol/L Potassium 3.8 (3.4-5.0) mmol/L Chloride 96 L (98-107) mmol/L Carbon Dioxide 22 (22-30) mmol/L Anion Gap 19 H (4-12) mmol/L BUN 17 (9-20) mg/dL Creatinine 0.76 (0.7-1.3) mg/dL Estim Creat Clear Calc 100 ml/min Estimated GFR > 60 (59 - ) Glucose 170 H (65-110) mg/dL POC Capillary Glucose 184 H (65-105) mg/dl Calcium 10.7 H (8.4-10.2) mg/dL Total Bilirubin 0.8 (0.2-1.3) mg/dL AST 37 (17-59) U/L ALT 55 H (6-50) U/L Alkaline Phosphatase 71 (38-126) U/L Troponin I < 0.012 (0.000-0.034) ng/mL Total Protein 8.4 H (6.3-8.2) g/dL Albumin 5.0 (3.5-5.1) g/dL Imaging Data Radiologist's impression: ITS Impressions Head CT 10/22/25 11:35 IMPRESSION: 1. Normal aging brain with mild diffuse volume loss. No acute intracranial process. Head/Neck CTA 10/22/25 11:46 IMPRESSION: 1. Minimal atherosclerotic plaque with 0% stenosis of the right carotid bulb relative to normal distal artery lumen diameter (NASCET criteria). 2. No evident atherosclerotic plaque with 0% stenosis of the left carotid bulb relative to normal distal artery lumen diameter. 3. Normal variation to the [place] with diminutive bilateral P1 segments with larger caliber patent bilateral posterior communicating arteries collateral flow to the circulation from the bilateral internal carotid arteries. Otherwise unremarkable cerebral CT angiogram with no hemodynamically significant stenosis, thrombosis or aneurysm. Discharge Plan Discharge Clinical Impression: Altered mental status, Migraine without aura Patient Disposition: Still a Patient Condition: Stable Patient Language: Surinamese Prescriptions: No Action hydrochlorothiazide 12.5 mg capsule 12.5 mg PO DAILY lamotrigine 200 mg tablet 200 mg PO HS alprazolam 1 mg tablet 1 mg PO TID PRN (Reason: Anxiety) omeprazole 40 mg capsule,delayed release(DR/EC) 40 mg PO DAILY finasteride 5 mg tablet 5 mg PO DAILY icosapent ethyl 1 gram capsule 1 g PO DAILY rosuvastatin 20 mg tablet 20 mg PO DAILY Mounjaro 5 mg/0.5 mL pen injector 5 mg SUBCUT WEEKLY Patient Comments: Takes on tuesday metformin 500 mg tablet See Rx Instructions PO BID Rx Instructions: take 2 tablets daily with food for diabetes testosterone cypionate 200 mg/mL oil 200 mg IM .Q2W Qty: 10 2RF Follow-up/Referrals: Abhishek,MISSY Rivas [Primary Care Provider, Unknown]
[2025-10-22] MEDS: LACTATED RINGERS 1,000 ML 999 ML IV CONT ×2 (13:35→20:57)
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
--- OUTSIDE RECORDS SUMMARY | 2025-10-22 13:46 | XMS_ITS | Encounter Summary ---
Author Organization [facility] Address [address] [place] [address] Phone Care Team Providers Care Software Asset Management Analyst Name Role Phone Hope Weiss MD Primary Care Provider [phone] Florinda Martins [place] ATTORNEY Unavailable [phone] Encounter Details Date Type Department Care Team (Late st Contact Info) Description 10/21/2025 Telephone [facility] Advanced [facility] ([facility]) - [facility] [place], [place] Minimally Invasive Surgery [address] [facility] Advanced Medicine 12th Floor, [place] [address] [place] Reyes [address] [facility] [address] [place], [place] [id number] Social History Tobacco Use Types Packs/Day Years Used Date Smoking Tobacco: Never Smokeless Tobacco: Current Chew Alcohol Use Standard Drinks/Week Comments Never 0 (1 standard drink = 0.6 oz pur e alcohol) AUDIT-C Answer Date Recorded Q1: How often [...] on file Legal Sex Male 12:18 AM CHEMICAL ECONOMIST Gender Identity Not on file Sexual Orientation Not on file documented as of this encounter Miscellaneous Notes * Telephone Encounter - [place] Reyes - 10/21/2025 8:51 AM CST Patient did not arrive for surgery. We received a message that pt attempted to call exchange through the night to advise that he was ill and not able to come in. Rescheduled for next available OR date on January 06. VM left for pt asking them to call to confirm.Mailed surgery instructions to home since not on the portal. ICAL ECONOMIST documented in this encounter Plan of Treatment Upcoming Encounters Date Type Department Care Team (Latest Contact Info) Description 01/06/2026 1:00 PM CHEMICAL ECONOMIST Hospital Encounter [facility] ([facility]) [address] [place] [address] Krishna Pereyra MD [address] [place] [address] 01/06/2026 1:00 PM CHEMICAL ECONOMIST Anesthesia Event [facility] ([facility]) [address] [place] [address] [place] [address] [place] [address] [phone] [place] [address] 01/06/2026 1:00 PM CHEMICAL ECONOMIST - 01/06/2026 4:02 PM CHEMICAL ECONOMIST Surgery [facility] Operating [facility] ([facility]) [address] [place] [address] Krishna Pereyra MD [address] [place] [address] Open repair large umbilical hernia with mesh Scheduled Procedures Name Priority Associated Diagnoses Date/Ti ma REPAIR UMBILICAL HERNIA Umbilical hernia without obstruction and without gangrene 01/06/2026 1:00 PM CHEMICAL ECONOMIST documented as of this encounter Goals Goal Patient Goal Type Associated Problems Recent Progress Patient-Stated? Author Autogenerat ed Goal Care Plan Autogenerated Problem No Demond Lizama documented as of this encounter Visit Diagnoses Not on filedocumented in this encounter Additional Health Concerns Active Problems Noted Date Diagnosed Date Autogenerated Problem 10/21/2025 documented as of this encounter Care Teams Software Asset Management Analyst Relationship Specialty Start Date End Date Hope Weiss MD PCP - General 02/15/22 Florinda Martins NP Nurse Practitioner Nurse Practitioner 08/13/25 documented as of this encounter
--- OUTSIDE RECORDS SUMMARY | 2025-10-22 13:46 | XMS_ITS | Encounter Summary ---
Author Organization [facility] Healthcare Address [address] [place] [address] Care Team Providers Care Cloth Handler Name Role Phone Hope Weiss MD Primary Care Provider [phone] Florinda Martins DIGITAL MEDIA PLANNER Unavailable [phone] Encounter Details Date Type Department Care Team (Late st Contact Info) Description 10/21/2025 Documentation [facility] Surgeon [address] [place] [address] Krishna Pereyra MD [address] [facility] [address] [place] [address] Social History Tobacco Use Types Packs/Day Years [...] on file Legal Sex Male 12:18 AM GRAIN THRESHER Gender Identity Not on file Sexual Orientation Not on file documented as of this encounter Progress Notes * Krishna Pereyra MD - 10/21/2025 6:47 AM CST Patient was scheduled as a 1st case this morning. As of 6:35am, he had not shown up to the OR. I asked the OR desk to call him and they said he tried to call the exchange last night but could not getan answer. He is sick and will not be coming today. We will reschedule him but not as a 1st case. N THRESHER documented in this encounter Plan of Treatment Upcoming Encounters Date Type Department Care Team (Latest Contact Info) Description 01/06/2026 1:00 PM GRAIN THRESHER Hospital Encounter [facility] ([facility]) [address] [place] [address] [id number] Krishna Pereyra MD [address] [place] [address] 01/06/2026 1:00 PM GRAIN THRESHER Anesthesia Event [facility] ([facility]) [address] [place] [address] [place] [address] [place] [address] [phone] [place], [place] [id number] 01/06/2026 1:00 PM GRAIN THRESHER - 01/06/2026 4:02 PM GRAIN THRESHER Surgery [facility] Operating Room [facility] ([facility]) [address] [place] [address] Krishna Pereyra MD [address] [place] [address] Open repair large umbilical hernia with mesh Scheduled Procedures Name Priority Associated Diagnoses Date/Ti me REPAIR UMBILICAL HERNIA Umbilical hernia without obstruction and without gangrene 01/06/2026 1:00 PM GRAIN THRESHER documented as of this encounter Goals Goal Patient Goal Type Associated Problems Recent Progress Patient-Stated? Author Autogenerat ed Goal Care Plan Autogenerated Problem No Demond Lizama documented as of this encounter Visit Diagnoses Not on filedocumented in this encounter Additional Health Concerns Active Problems Noted Date Diagnosed Date Autogenerated Problem 10/21/2025 documented as of this encounter Care Teams Cloth Handler Relationship Specialty Start Date End Date Hope Weiss MD PCP - General 02/15/22 Florinda Martins NP Nurse Practitioner Nurse Practitioner 08/13/25 documented as of this encounter
--- OUTSIDE RECORDS SUMMARY | 2025-10-22 13:46 | XMS_ITS | Patient Health Record ---
Author Organization [facility] Address [address] [place] [id number] Care Team Providers Care Client Services Vice President Name Role Phone Ailyn Valenzuela Unavailable [phone] DR. Osman Seay Unavailable Allergies Allergen (clinical drug ingredient) Drug/Non Drug Allergy documented on EMR Reaction Allergy Type Onset Date Status ceftriaxone cefTRIAXone Unknown Drug Allergy Act helio Results Component Value Reference Range Flag Notes DEXAMETHASONE Reviewed date:11/24/2024 10:03:07 AM Interpretation: Performing Lab:Guilherme MAHONEY/[facility],, [address] [place], [address] Monika Kirk MD,PhD,KEN Notes/Report: COLLECTION KIT GIVEN TO PATIENT. PATIENT ADVISED TO RETURN. URINE VOLUME: 2000 Reference Ranges for Dexamethasone: Baseline: Less than 20 ng/dL 1 mg dexamethasone overnight: 180-550 ng/dL (8:00-10:00 AM) This test was developed and its analytical performance characteristics have been determined by [employer]. It has not been cleared or approved by FDA. This assay has been validated pursuant to the CLIA regulations and is used for clinical purposes. DEXAMETHASONE 273 CORTISOL, TOTAL Reviewed date:11/15/2024 08:48:42 AM Interpretation: Performing Lab:REAGAN [facility], [address] [place], [address] Dania Osorio MD Notes/Report: COLLECTION KIT GIVEN TO PATIENT. PATIENT ADVISED TO RETURN. URINE VOLUME: 2000 Reference Range: For 8 a.m.(7-9 a.m.) Specimen: 4.0-22.0 Reference Range: For 4 p.m.(3-5 p.m.) Specimen: 3.0-17.0 * Please interpret above results accordingly * CORTISOL, TOTAL 1.5 L TESTOSTERONE, FREE (DIALYSIS ) AND TOTAL,MS (36214) Reviewed date:03/15/2025 08:53:24 AM Interpretation: Performing Lab:ZAnujE, [facility] [address], [address], JyksvuimzmPY[address] Lilliam Mendoza MD,PhD Notes/Report: FASTING:YES FASTING: YES TESTOSTERONE, TOTAL, MS 659 510-3794 ng/dL been validated pursuant to the CLIA regulations and is For additional information, please refer to (This link is being provided for informational/educational purposes only.) not been cleared or approved by the FDA. This assay has characteristics have been determined by [employer]. It has This test was developed and its analytical performance https://education.Pixlee.[employer]/faq/UCH144 (Note) used for clinical purposes. TESTOSTERONE, FREE 188.4 35.0-155.0 pg/mL H [facility] [address] been validated pursuant to the CLIA regulations and is [facility] [employer] not been cleared or approved by the FDA. This assay has [phone] characteristics have been determined by [employer]. It has This test was developed and its analytical performance Lilliam Mendoza MD, PhD used for clinical purposes. [address] [address],[address] (Note) TSH Reviewed date:11/09/2024 10:53:09 AM Interpretation: Performing Lab:Guilherme [facility]K-[place], [address] [place], [address] Dania Osorio MD Notes/Report: FASTING:YES FASTING: YES TSH 1.32 0.40-4.50 mIU/L N T4, FREE Reviewed date:11/09/2024 10:53:09 AM Interpretation: Performing Lab:Guilherme KIRK, [address] [place], [address] Dania Osorio MD Notes/Report: FASTING:YES FASTING: YES T4, FREE 1.0 0.8-1.8 ng/dL N LIPID PANEL Reviewed date:11/09/2024 10:53:09 AM Interpretation: Performing Lab:RE[facility]AN [facility], [address], [address] Dania Osorio MD Notes/Report: FASTING:YES FASTING: YES If a non-fasting specimen was collected, consider repeat triglyceride testing on a fasting specimen if clinically indicated. Deandre et al. J. of Clin. Lipidol. 2015;9:129-169. Reference range: <100 Desirable range <100 mg/dL for primary prevention; <70 mg/dL for patients with CHD or diabetic patients with > or = 2 CHD risk factors. LDL-C is now calculated using the Paul-Reeder calculation, which is a validated novel method providing better accuracy than the Friedewald equation in the estimation of LDL-C. Paul SS et al. SIMON. 2013;310(19): 6056-4290 (http://education.ScramblerMail/faq/SND852) For patients with diabetes plus 1 major ASCVD risk factor, treating to a non-HDL-C goal of <100 mg/dL (LDL-C of <70 mg/dL) is considered a therapeutic option. CHOLESTEROL, TOTAL 234 <200 mg/dL H HDL CHOLESTEROL 44 > OR = 40 mg/dL N TRIGLYCERIDES 225 <150 mg/dL H LDL-CHOLESTEROL 152 H CHOL/HDLC RATIO 5.3 <5.0 (calc) H NON HDL CHOLESTEROL 190 <130 mg/dL (calc) H IRON AND TOTAL IRON BINDING CAPACITY Reviewed date:11/09/2024 10:53:09 AM Interpretation: Performing Lab:REAGAN [facility], [address] [place], [address] Dania Osorio MD Notes/Report: FASTING:YES FASTING: YES IRON, TOTAL 109 50-180 mcg/dL N IRON BINDING CAPACITY 372 250-425 mc g/dL (calc) N % SATURATION 29 20-48 % (calc) N PROLACTIN Reviewed date:11/09/2024 10:53:09 AM Interpretation: Performing Lab:REAGAN [facility], [address] [place], [address] Dania Osorio MD Notes/Report: FASTING:YES FASTING: YES PROLACTIN 4.5 2.0-18.0 ng/mL N VITAMIN B12/FOLATE, SERUM PA ART Reviewed date:11/09/2024 10:53:09 AM Interpretation: Performing Lab:Guilherme KIRK, [place], [address] Dania Osorio MD Notes/Report: FASTING:YES FASTING: YES Reference Range Low: <3.4 Borderline: 3.4-5.4 Normal: >5.4 VITAMIN B12 167 017-1730 pg/mL N FOLATE, SERUM 18.7 N CBC (INCLUDES DIFF/PLT) Reviewed date:11/09/2024 10:53:09 AM Interpretation: Performing Lab:Guilherme KIRK, [place], [address] Dania sOorio MD Notes/Report: FASTING:YES FASTING: YES For adults, a slight decrease in the [...] 11.4 7.5-12.5 fL N ABSOLUTE NEUTROPHILS 3249 3467-7945 cells/uL N ABSOLUTE LYMPHOCYTES 2449 850-3900 cells/uL N ABSOLUTE MONOCYTES 310 200-950 cells/uL N ABSOLUTE EOSINOPHILS 143 15-500 cells/uL N ABSOLUTE BASOPHILS 50 0-200 cells/uL N NEUTROPHILS 52.4 N LYMPHOCYTES 39.5 N MONOCYTES 5.0 N EOSINOPHILS 2.3 N BASOPHILS 0.8 N LH Reviewed date:11/09/2024 10:53:09 AM Interpretation: Performing Lab:[place], Guilherme MarcosEliane, [address], [address] Dania Osorio MD Notes/Report: FASTING:YES FASTING: YES LH 2.3 1.6-15.2 mIU/mL N INSULIN Reviewed date:11/09/2024 10:53:09 AM Interpretation: Performing Lab:[facility], [address], [address] Dania Osorio MD Notes/Report: FASTING:YES FASTING: YES Reference Range < or = 18.4 Risk: Optimal < or = 18.4 Moderate NA High >18.4 Adult cardiovascular event risk category cut points (optimal, moderate, high) are based on Insulin Reference Interval studies performed at [employer] in 2021. INSULIN 22.2 H HEMOGLOBIN A1c Reviewed date:11/09/2024 10:53:09 AM Interpretation: Performing Lab:[facility], [address], [place], [address] Dania Osorio Notes/Report: FASTING:YES FASTING: YES For someone without known diabetes, a hemoglobin A1c value of 6.5% or greater indicates that they may have diabetes and this should be confirmed with a follow-up test. For someone with known diabetes, a [...] 6.5 <5.7 % of total Hgb H FSH Reviewed date:11/09/2024 10:53:09 AM Interpretation: Performing Lab:Guilherme [facility], [address] [place], [address] Dania Osorio MD Notes/Report: FASTING:YES FASTING: YES FSH 6.3 1.4-12.8 mIU/mL N ESTRADIOL Reviewed date:11/09/2024 10:53:09 AM Interpretation: Performing Lab:Guilherme KIRK, [address] [place], [address] Dania Osorio MD Notes/Report: FASTING:YES FASTING: YES Reference range established on post-pubertal patient population. No pre-pubertal reference range established using this assay. For any patients for whom low Estradiol levels are anticipated (e.g. males, pre-pubertal children and hypogonadal/post-menopausal females), the [employer] [facility] Estradiol, Ultrasensitive, LCMSMS assay is recommended (order code [id number]). Please note: patients being treated with the drug fulvestrant (Faslodex(R)) have demonstrated significant interference in immunoassay methods for estradiol measurement. The cross reactivity could lead to falsely elevated estradiol test results leading to an inappropriate clinical assessment of estrogen status. [employer] order code [id number], Ultrasensitive LC/MS/MS demonstrates negligible cross reactivity with fulvestrant. ESTRADIOL 77 < OR = 39 pg/mL H DHEA SULFATE Reviewed date:11/09/2024 10:53:09 AM Interpretation: Performing Lab:Guilherme KIRK, [address] [place], [address] Dania Osorio MD Notes/Report: FASTING:YES FASTING: YES DHEA SULFATE 35 32-279 mcg/dL N CORTISOL, TOTAL Reviewed date:11/09/2024 10:53:09 AM Interpretation: Performing Lab:Guilherme KIRK, [address] [place], [address] Dania Osorio MD Notes/Report: FASTING:YES FASTING: YES Reference Range: For 8 a.m.(7-9 a.m.) Specimen: 4.0-22.0 Reference Range: For 4 p.m.(3-5 p.m.) Specimen: 3.0-17.0 * Please interpret above results accordingly * CORTISOL, TOTAL 20.2 N T3, FREE Reviewed date:11/09/2024 10:53:09 AM Interpretation: Performing Lab:Guilherme KIRK, [address] [place], [address] Dania Osorio MD Notes/Report: FASTING:YES FASTING: YES T3, FREE 3.2 2.3-4.2 pg/mL N ACTH, PLASMA Reviewed date:11/15/2024 08:58:37 AM Interpretation: Performing Lab:Guilherme NIÑO/[facility], [address], [place], [address] Hamzah Tovar M.D.,PhD Notes/Report: FASTING:YES FASTING: YES Reference range applies only to specimens collected between 7am-10am. ACTH, PLASMA 15 6-50 pg/mL VITAMIN D, 25-HYDROXY, LC/MS /MS Reviewed date:11/09/2024 10:53:09 AM Interpretation: Performing Lab:Guilherme KIRK [facility], [address] [place], [address] Dania Osorio MD Notes/Report: FASTING:YES FASTING: YES Vitamin D Status 25-OH Vitamin D: Deficiency: <20 ng/mL Insufficiency: 20 - 29 ng/mL Optimal: > or = 30 ng/mL For 25-OH Vitamin D testing on patients on D2-supplementation and patients for whom quantitation of D2 and D3 fractions is required, the QuestAssureD(TM) 25-OH VIT D, (D2,D3), LC/MS/MS is recommended: order code [id number] (patients >2yrs). See Note 1 Note 1 For additional information, please refer to http://education.ScramblerMail/faq/KOW807 (This link is being provided for informational/ educational purposes only.) VITAMIN D,25-OH,TOTAL,IA 58 30-100 ng/mL N COMPREHENSIVE METABOLIC PANE L Reviewed date:11/09/2024 10:53:09 AM Interpretation: Performing Lab:REAGAN [facility], [address] [place], [address] Dania Osorio MD Notes/Report: FASTING:YES FASTING: YES Fasting reference interval For someone without known diabetes, a glucose value >125 mg/dL indicates that they may have diabetes and this should be confirmed with a follow-up test. Not Reported: BUN and Creatinine are within reference range. GLUCOSE 155 65-99 mg/dL H UREA NITROGEN [...] U/L N ALT 21 9-46 U/L N CORTISOL, LC/MS, SALIVA, 2 S AMPLES Reviewed date:11/24/2024 10:05:23 AM Interpretation: Performing Lab:MARU, [facility],, [address] [place], [address] Monika Kirk MD,PhD,KEN Notes/Report: SPLIT 11/09/2024 FROM [id number] URINE VOLUME: 3000/24 8-10 AM: 0.04-0.56 mcg/dL noon-2 PM: < OR = 0.21 mcg/dL 4-6 PM: < OR = 0.15 mcg/dL 10 PM-1 AM: < OR = 0.09 mcg/dL This test was developed and its analytical performance characteristics have been determined by [employer]. It has not been cleared or approved by FDA. This assay has been validated pursuant to the CLIA regulations and is used for clinical purposes. 8-10 AM: 0.04-0.56 mcg/dL noon-2 PM: < OR = 0.21 mcg/dL 4-6 PM: < OR = 0.15 mcg/dL 10 PM-1 AM: < OR = 0.09 mcg/dL This test was developed and its analytical performance characteristics have been determined by [employer]. It has not been cleared or approved by FDA. This assay has been validated pursuant to the CLIA regulations and is used for clinical purposes. DRAW DATE 1 11/10/2024 DRAW TIME 1 12:00 CORTISOL, SALIVA SAMPLE 1 0.03 DRAW DATE 2 11/15/2024 DRAW TIME 2 12:00 CORTISOL, SALIVA SAMPLE 2 0.06 CORTISOL, FREE, 24 HOUR URIN E Reviewed date:11/25/2024 01:57:18 PM Interpretation: Performing Lab:Guilherme MAHONEY/[facility],, [address] [place], [address] Monika Kirk MD,PhD,KEN Notes/Report: SPLIT 11/09/2024 FROM [id number] URINE VOLUME: 3000/24 This test was developed and its analytical performance characteristics have been determined by [employer]. It has not been cleared or approved by FDA. This assay has been validated pursuant to the CLIA regulations and is used for clinical purposes. Reference Range: ADULTS: 3.1-42.3 TOTAL VOLUME 3000 CORTISOL, FREE, URINE 15.9 4.0-50.0 mcg/24 h CORTISOL, FREE, URINE 10.1 CREATININE, URINE 1.57 0.50-2.15 g/24 h .CBC (INCLUDES DIFF/PLT) (63 99) Reviewed date:03/11/2025 07:59:12 AM Interpretation: Performing Lab:Guilherme KIRK-[address] Dania Osorio MD Notes/Report: FASTING:YES FASTING: YES WHITE BLOOD CELL COUNT 10.7 3.8-10.8 Thousand/uL N RED BLOOD CELL COUNT 6.04 4.20-5.80 Million/uL H HEMOGLOBIN 17.9 13.2-17.1 g/dL H HEMATOCRIT 55.2 38.5-50.0 % H MCV 91.4 80.0-100.0 fL N MCH 29.6 27.0-33.0 pg N MCHC 32.4 32.0-36.0 g/dL N value (in the range of 30 to 32 g/dL) is most likely red cell parameters and the patient's clinical For adults, a slight decrease in the calculated MCHC not clinically significant; however, it should be interpreted with caution in correlation with other condition. RDW 12.9 11.0-15.0 % N PLATELET COUNT 332 140-400 Thousand/uL N MPV 11.4 7.5-12.5 fL N ABSOLUTE NEUTROPHILS 7929 5774-1454 cells/uL H ABSOLUTE LYMPHOCYTES 2033 850-3900 cells/uL N ABSOLUTE MONOCYTES 621 200-950 cells/uL N ABSOLUTE EOSINOPHILS 43 15-500 cells/uL N ABSOLUTE BASOPHILS 75 0-200 cells/uL N NEUTROPHILS 74.1 N LYMPHOCYTES 19.0 N MONOCYTES 5.8 N EOSINOPHILS 0.4 N BASOPHILS 0.7 N .VITAMIN D,25-OH,TOTAL,IA (1 7306) Reviewed date:03/11/2025 07:58:23 AM Interpretation: Performing Lab:REAGAN [facility]-[id number], [place]rvesxLX[address] Dania Osorio MD Notes/Report: FASTING:YES FASTING: YES VITAMIN D,25-OH,TOTAL,IA 90 30-100 ng/mL N http://education.[employer] Poker [employer]rel/faq/NKO266 of D2 and D3 fractions is required, the QuestAssureD(TM) Optimal: > or = 30 ng/mL educational purposes only.) D2-supplementation and patients for whom quantitation For additional information, please refer to code 06898 (patients >2yrs). Deficiency: <20 ng/mL See Note 1 (This link is being provided for informational/ Vitamin D Status 25-OH Vitamin D: 25-OH VIT D, (D2,D3), LC/MS/MS is recommended: order Note 1 Insufficiency: 20 - 29 ng/mL For 25-OH Vitamin D testing on patients on .PSA, TOTAL (5363) Reviewed date:03/11/2025 07:58:50 AM Interpretation: Performing Lab:REAGAN [facility]-[address], JcwfyeUZ[address] Dania Osorio MD Notes/Report: FASTING:YES FASTING: YES PSA, TOTAL 3.64 < OR = 4.00 ng/mL N standardized against the WHO standard. The test different assay methods cannot be used This test was performed using the Siemens interchangeably. PSA levels, regardless of value, should not be interpreted as absolute [place]). Comparison of serial PSA results should be to the equimolar-standardized total PSA (Adriana interpreted with this fact in mind. chemiluminescent method. Values obtained from The total PSA value from this assay system is result will be approximately 20% lower when compared evidence of the presence or absence of disease. FSH (470) Reviewed date:03/11/2025 07:59:03 AM Interpretation: Performing Lab:Guilherme KIRK-[address], UxisteAJ[address] Dania Osorio MD Notes/Report: FASTING:YES FASTING: YES FSH <0.7 1.4-12.8 mIU/mL L VITAMIN B12/FOLATE, SERUM PA ART (3366) Reviewed date:03/11/2025 07:58:41 AM Interpretation: Performing Lab:Guilherme KIRK-[address], ZxgodtKY[address] Dania Osorio MD Notes/Report: FASTING:YES FASTING: YES VITAMIN B12 825 344-7927 pg/mL N FOLATE, SERUM 21.0 N Low: <3.4 Reference Range Normal: >5.4 Borderline: 3.4-5.4 ESTRADIOL (4021) Reviewed date:03/11/2025 07:58:57 AM Interpretation: Performing Lab:Guilherme KIRK-[address], ZvxonuIQ[address] Dania Osorio MD Notes/Report: FASTING:YES FASTING: YES ESTRADIOL 126 < OR = 39 pg/mL H fulvestrant (Faslodex(R)) have demonstrated significant measurement. The cross reactivity could lead to falsely (order code [id number]). elevated estradiol test results leading to an Estradiol, Ultrasensitive, LCMSMS assay is recommended interference in immunoassay methods for estradiol whom low Estradiol levels are anticipated (e.g. males, Please note: patients being treated with the drug population. No pre-pubertal reference range Reference range established on post-pubertal patient Ultrasensitive LC/MS/MS demonstrates negligible cross pre-pubertal children and hypogonadal/post-menopausal reactivity with fulvestrant. established using this assay. For any patients for females), the [employer] [facility] [employer] order code [id number], inappropriate clinical assessment of estrogen status. .COMPREHENSIVE METABOLIC PIERCE EL (92510) CMP Reviewed date:04/19/2025 03:52:28 PM Interpretation: Performing Lab:Guilherme KIRK-[address], TrzdumLE[address] Dania Osorio MD Notes/Report: COLLECTION KIT GIVEN [...] 7) Reviewed date:04/19/2025 03:52:28 PM Interpretation: Performing Lab:[place], [facility]-[address] [facility], GwbcmvFW[address] Dania Osorio MD Notes/Report: COLLECTION KIT GIVEN [...] High Non-Parathyroid CALCIUM 9.8 8.6-10.3 mg/dL N .LIPID PANEL, STANDARD (7600 ) Reviewed date:04/19/2025 03:52:28 PM Interpretation: Performing Lab:REAGAN [facility]-[address]hqep[address], TvyseyYC[address] Dania Osorio MD Notes/Report: COLLECTION KIT GIVEN TO PATIENT. PATIENT ADVISED TO RETURN. URINE VOLUME: 2000 CHOLESTEROL, TOTAL 110 <200 mg/dL N HDL CHOLESTEROL 31 > OR = 40 mg/dL L TRIGLYCERIDES 191 <150 mg/dL H LDL-CHOLESTEROL 53 N with > or = 2 CHD risk factors. calculation, which is a validated novel method providing Paul DAMICO et al. SIMON. 2013;310(19): 7512-1201 Reference range: <100 Desirable range <100 mg/dL for primary prevention; (http://education.Farfetch/faq/DRP495) better accuracy than the Friedewald equation in the <70 mg/dL for patients with CHD or diabetic patients estimation of LDL-C. LDL-C is now calculated using the [facility] CHOL/HDLC RATIO 3.5 <5.0 (calc) N NON HDL CHOLESTEROL 79 <130 mg/dL (calc) N For patients with diabetes plus 1 major ASCVD risk option. factor, treating to a non-HDL-C goal of <100 mg/dL (LDL-C of <70 mg/dL) is considered a therapeutic PROTEIN, TOTAL AND PROTEIN E LECTROPHORESIS, RANDOM URINE (6180) Reviewed date:04/19/2025 03:52:28 PM Interpretation: Performing Lab:Guilherme KIRK-[address], UhsybtVM[address] Dania Osorio MD Notes/Report: COLLECTION KIT GIVEN TO PATIENT. PATIENT ADVISED TO RETURN. URINE VOLUME: 2000 CREATININE, RANDOM URINE 195 20-320 mg/dL N PROTEIN/CREATININE RATIO 87 25-148 mg/g creat N PROTEIN/CREATININE RATIO 0.087 0.025-0.148 mg/mg creat N PROTEIN, TOTAL, RANDOM UR 17 5-25 mg/dL N ALBUMIN 100 WUWVN-8-SGLGILFYG 0 ZERNE-3-MLTCVQRBP 0 BETA GLOBULINS 0 GAMMA GLOBULINS 0 INTERPRETATION No abnormal protein is observed. Agarose electrophoresis of urine reveals albumin. .COMPREHENSIVE METABOLIC PIERCE EL (32141) CMP Reviewed date:03/26/2025 12:16:51 PM Interpretation: Performing Lab:Guilherme KIRK-[address]ufxxm[address]X[address] Dania Osorio MD Notes/Report: FASTING:YES FASTING: YES [...] U/L N ALT 57 9-46 U/L H PROTEIN, TOTAL AND PROTEIN E LECTROPHORESIS (747) Reviewed date:04/19/2025 03:52:28 PM Interpretation: Performing Lab:Guilherme KIRK-[address]zreocBY[address] Dania Osorio MD Notes/Report: COLLECTION KIT GIVEN [...] may be seen in early or evolving .CBC (INCLUDES DIFF/PLT) (63 99) Reviewed date:04/19/2025 03:52:28 PM Interpretation: Performing Lab:REAGAN [employer] [facility]-Dtvolm[address]KS[address] Dania Osorio MD Notes/Report: COLLECTION [...] a slight decrease in the calculated MCHC interpreted with caution in correlation with other not clinically significant; however, it should be RDW 12.7 11.0-15.0 % N PLATELET COUNT 326 140-400 Thousand/uL N MPV 11.3 7.5-12.5 fL N ABSOLUTE NEUTROPHILS 3671 7801-4182 cells/uL N ABSOLUTE LYMPHOCYTES 2553 850-3900 cells/uL N ABSOLUTE MONOCYTES 469 200-950 cells/uL N ABSOLUTE EOSINOPHILS 159 15-500 cells/uL N ABSOLUTE BASOPHILS 48 0-200 cells/uL N NEUTROPHILS 53.2 N LYMPHOCYTES 37.0 N MONOCYTES 6.8 N EOSINOPHILS 2.3 N BASOPHILS 0.7 N .HEMOGLOBIN A1c (496) Reviewed date:04/19/2025 03:52:28 PM Interpretation: Performing Lab:FREDERICK [facility] Payment[facility] HospitalHmxrv[address] KajkblvQD[address] Dania Osorio Notes/Report: COLLECTION KIT GIVEN TO PATIENT. PATIENT ADVISED TO RETURN. URINE VOLUME: 2000 HEMOGLOBIN A1c 6.1 <5.7 % of total Hgb H of diabetes. hemoglobin A1c for diagnosis of diabetes for children. Currently, no consensus exists regarding use of indicates that their diabetes is well controlled. A1c targets should be individualized based on duration of A1c value between 5.7% and 6.4% is consistent with considerations. diabetes, age, comorbid conditions, and other follow-up test. This assay result is consistent with an increased risk For someone without known diabetes, a hemoglobin prediabetes and should be confirmed with a For someone with known diabetes, a value <7% INSULIN (561) Reviewed date:04/19/2025 03:52:28 PM Interpretation: Performing Lab:REAGAN [facility]-Mwibhm[address], BfoonsBK[address] Dania Osorio MD Notes/Report: COLLECTION KIT GIVEN TO PATIENT. PATIENT ADVISED TO RETURN. URINE VOLUME: 2000 INSULIN 23.2 H Adult cardiovascular event risk category cut points (optimal, moderate, high) studies performed at [employer] High >18.4 Reference Range < or = 18.4 Moderate NA are based on Insulin Reference Interval Risk: Optimal < or = 18.4 in 2021. T4, FREE (866) Reviewed date:04/19/2025 03:52:28 PM Interpretation: Performing Lab:REAGAN [facility]-[address], EzbcsrON[address] Dania Osorio MD Notes/Report: COLLECTION KIT GIVEN TO PATIENT. PATIENT ADVISED TO RETURN. URINE VOLUME: 1999 T4, FREE 0.8 0.8-1.8 ng/dL N TSH (899) Reviewed date:04/19/2025 03:52:28 PM Interpretation: Performing Lab:REAGAN [facility]-Fikniq[address], RbbsmjBH[address] Dania Osorio MD Notes/Report: COLLECTION KIT GIVEN TO PATIENT. PATIENT ADVISED TO RETURN. URINE VOLUME: 1999 TSH 2.16 0.40-4.50 mIU/L N T3, FREE (06149) Reviewed date:04/19/2025 03:52:28 PM Interpretation: Performing Lab:REAGAN [facility]-Gtwcfx[address] [place] Dania Osorio MD Notes/Report: COLLECTION KIT GIVEN TO PATIENT. PATIENT ADVISED TO RETURN. URINE VOLUME: 2000 T3, FREE 3.6 2.3-4.2 pg/mL N TESTOSTERONE, FREE (DIALYSIS ) AND TOTAL,MS (05978) Reviewed date:04/19/2025 03:52:28 PM Interpretation: Performing Lab:Hilary, [facility]-[address] [address], [address], OuqklulnqqKE[address] Lilliam Mendoza MD,PhD Notes/Report: COLLECTION KIT GIVEN TO PATIENT. PATIENT ADVISED TO RETURN. URINE VOLUME: 2000 TESTOSTERONE, TOTAL, MS 591 [address]-1773 ng/dL characteristics have been determined by [employer]. It has (This link is being provided for informational/educational purposes only.) been validated pursuant to the CLIA regulations and is used for clinical purposes. (Note) https://education.Vistronix/faq/RDJ775 This test was developed and its analytical performance not been cleared or approved by the FDA. This assay has For additional information, please refer to TESTOSTERONE, FREE 120.1 35.0-155.0 pg/mL This test was developed and its analytical performance (Note) used for clinical purposes. been validated pursuant to the CLIA regulations and is [facility] [phone] [place] [facility] [address] not been cleared or approved by the FDA. This assay has [address] [address],[address] Lilliam Mendoza MD, PhD med fusion characteristics have been determined by medfusion. It has IMMUNOGLOBULINS (7083) Reviewed date:04/19/2025 03:52:29 PM Interpretation: Performing Lab:[facility] KIRK-Ezekiel AraujoaKS[address] Dania Osorio MD Notes/Report: COLLECTION KIT GIVEN TO PATIENT. PATIENT ADVISED TO RETURN. URINE VOLUME: 2000 IMMUNOGLOBULIN A 80 47-310 mg/dL N IMMUNOGLOBULIN G 471 850-6141 mg/dL N IMMUNOGLOBULIN M 80 50-300 mg/dL N CALCIUM, 24 HOUR URINE (W/ C REATININE) (1635) Reviewed date:05/15/2025 09:18:59 PM Interpretation: Performing Lab:[place] KIRK-Alberto Araujo[address] Dania Osorio MD Notes/Report: SPLIT 04/15/2025 FROM [id number] URINE VOLUME: 1510/24 CALCIUM/CREATININE RATIO 30 30-210 mg/g creat N CALCIUM, 24 HOUR URINE 56 N Reference Range 55-300 Low calcium diet 55-200 CREATININE, 24 HOUR URINE 1.81 0.50-2.15 g/24 h N CORTISOL, FREE, 24 HOUR URIN E (39068) Reviewed date:05/26/2025 12:45:15 PM Interpretation: Performing Lab:[place] MAHONEY/Nancy [facility],[address] [facility] Monika Kirk MD,PhD,KEN Notes/Report: SPLIT 04/15/2025 FROM [id number] URINE VOLUME: 1510/24 TOTAL VOLUME 1510 CORTISOL, [...] analytical performance characteristics have been determined by [employer]. .COMPREHENSIVE METABOLIC PIERCE (80958) [facility] Reviewed date:07/12/2025 10:55:24 AM Interpretation: Performing Lab:[facility]-Xalraw[address] [facility], MivnerEC[address] Dania Osorio MD Notes/Report: FASTING:YES FASTING: YES GLUCOSE 91 65-99 mg/dL N Fasting reference interval UREA NITROGEN (BUN) 13 7-25 mg/dL N CREATININE 1.13 0.70-1.35 mg/dL N EGFR 74 > OR = 60 mL/min/1.73m2 N BUN/CREATININE RATIO SEE NOTE: 6-22 (calc) reference range. Not Reported: BUN and Creatinine are within SODIUM 136 135-146 mmol/L N POTASSIUM 4.3 3.5-5.3 mmol/L N CHLORIDE 97 98-110 mmol/L L CARBON DIOXIDE 31 20-32 mmol/L N CALCIUM 10.1 8.6-10.3 mg/dL N PROTEIN, TOTAL 7.3 6.1-8.1 g/dL N ALBUMIN 5.0 3.6-5.1 g/dL N GLOBULIN 2.3 1.9-3.7 g/dL (calc) N ALBUMIN/GLOBULIN RATIO 2.2 1.0-2.5 (calc) N BILIRUBIN, TOTAL 0.5 0.2-1.2 mg/dL N ALKALINE PHOSPHATASE 55 35-144 U/L N AST 17 10-35 U/L N ALT 23 9-46 U/L N .LIPID PANEL, STANDARD (7600 ) Reviewed date:07/12/2025 10:55:25 AM Interpretation: Performing Lab:REAGAN Petco Priti-Pyemfp58[address], HopihrZZ[address] Dania Osorio MD Notes/Report: FASTING:YES FASTING: YES CHOLESTEROL, TOTAL 104 <200 mg/dL N HDL CHOLESTEROL 43 > OR = 40 mg/dL N TRIGLYCERIDES 73 <150 mg/dL N LDL-CHOLESTEROL 46 N with > or = 2 CHD risk factors. <70 mg/dL for patients with CHD or diabetic patients estimation of LDL-C. calculation, which is a validated novel method providing better accuracy than the Friedewald equation in the Paul et al. SIMON. 2013;310(19): 7064-9141 (http://education.SocialSmacko Booxmedia.com/faq/SJZ375) Reference range: <100 LDL-C is now calculated using the [facility] Desirable range <100 mg/dL for primary prevention; CHOL/HDLC RATIO 2.4 <5.0 (calc) N NON HDL CHOLESTEROL 61 <130 mg/dL (calc) N (LDL-C of <70 mg/dL) is considered a therapeutic For patients with diabetes plus 1 major ASCVD risk factor, treating to a non-HDL-C goal of <100 mg/dL option. .CBC (INCLUDES DIFF/PLT) (63 99) Reviewed date:07/12/2025 10:55:25 AM Interpretation: Performing Lab:REAGAN Pet[facility] Priti-Obvxec27320 [address] [place], XciknqNB[address] Dania Osorio MD Notes/Report: FASTING:YES FASTING: YES WHITE BLOOD CELL COUNT 6.4 3.8-10.8 Thousand/uL N RED BLOOD CELL COUNT 5.81 4.20-5.80 Million/uL H HEMOGLOBIN 16.7 13.2-17.1 g/dL N HEMATOCRIT 51.5 38.5-50.0 % H MCV 88.6 80.0-100.0 fL N MCH 28.7 27.0-33.0 pg N MCHC 32.4 32.0-36.0 g/dL N value (in the range of 30 to 32 g/dL) is most likely red cell parameters and the patient's clinical For adults, a slight decrease in the calculated MCHC condition. not clinically significant; however, it should be interpreted with caution in correlation with other RDW 13.6 11.0-15.0 % N PLATELET COUNT 251 140-400 Thousand/uL N MPV 11.4 7.5-12.5 fL N ABSOLUTE NEUTROPHILS 3699 4405-4803 cells/uL N ABSOLUTE LYMPHOCYTES 2189 850-3900 cells/uL N ABSOLUTE MONOCYTES 352 200-950 cells/uL N ABSOLUTE EOSINOPHILS 109 15-500 cells/uL N ABSOLUTE BASOPHILS 51 0-200 cells/uL N NEUTROPHILS 57.8 N LYMPHOCYTES 34.2 N MONOCYTES 5.5 N EOSINOPHILS 1.7 N BASOPHILS 0.8 N .HEMOGLOBIN A1c (496) Reviewed date:07/12/2025 10:55:25 AM Interpretation: Performing Lab:FREDERICK [employer] Mobile PaymentHermann Area District HospitalCjqci[address] [address] [facility] Notes/Report: FASTING:YES FASTING: YES HEMOGLOBIN A1c 5.6 <5.7 % of total Hgb N <5.7% Consistent with the absence of diabetes For the purpose of screening for the presence of hemoglobin A1c for diagnosis of diabetes in children. guidelines, hemoglobin A1c <7.0% represents optimal (prediabetes) This assay result is consistent with a decreased risk diabetes: control in non- diabetic patients. Different Standards of Medical Care in Diabetes(ADA). According to [place] Diabetes [employer] (ADA) 5.7-6.4% Consistent with increased risk for diabetes metrics may apply to specific patient populations. > or =6.5% Consistent with diabetes Currently, no consensus exists regarding use of of diabetes. T4, FREE (866) Reviewed date:07/12/2025 10:55:25 AM Interpretation: Performing Lab:REAGAN [employer]-[id number] Ezek[address] TrinhaKS[address] Dania Osorio MD Notes/Report: FASTING:YES FASTING: YES T4, FREE 1.0 0.8-1.8 ng/dL N TSH (899) Reviewed date:07/12/2025 10:55:25 AM Interpretation: Performing Lab:[place] KIRK-Dlakaj25345 Ezekiel TrinhaKS[address] Dania Osorio MD Notes/Report: FASTING:YES FASTING: YES TSH 2.25 0.40-4.50 mIU/L N T3, FREE (41727) Reviewed date:07/12/2025 10:55:25 AM Interpretation: Performing Lab:[place] KIRK-Elfzpl93448 [address], HabtvaYK[address] Dania Osorio MD Notes/Report: FASTING:YES FASTING: YES T3, FREE 3.8 2.3-4.2 pg/mL N TESTOSTERONE, FREE (DIALYSIS ) AND TOTAL,MS (07054) Reviewed date:07/17/2025 03:14:01 PM Interpretation: Performing Lab:Z3E, [facility]-[address]dmz[address] [address], [address], LatyfnoztgZH[address] Lilliam Mendoza MD,PhD Notes/Report: FASTING:YES FASTING: YES TESTOSTERONE, TOTAL, [place] 3566 040-5551 ng/dL (This link is being provided for informational/educational purposes only.) This test was developed and its analytical performance used for clinical purposes. characteristics have been determined by [employer]. It has (Note) https://education.Pixlee.com/faq/IQD591 not been cleared or approved by the FDA. This assay has been validated pursuant to the CLIA regulations and is For additional information, please refer to TESTOSTERONE, FREE 251.7 35.0-155.0 pg/mL H used for clinical purposes. [phone] not been cleared or approved by the FDA. This assay has med fusion Lilliam Mendoza MD, PhD (Note) been validated pursuant to the CLIA regulations and is [address] [facility] [address] This test was developed and its analytical performance characteristics have been determined by medfusion. It has MDF Reason For Referral Reason Consult for Urology. Patient has elevated PSA levels and elevated calcium levels Diagnosis 1 Elevated prostate sp ecific antigen (PSA) (R97.20) Diagnosis 2 High calcium levels (E83.52) Referral Organization [facility] Dr. Valenzuela Referring Provider First Name Ailyn Referring Provider Last Name Nicolas Referring Provider [facility] Endocrin beth Referred Provider Specialty Urology Referral Priority Routine Reason hypercalcemia, back pain and elevated PSA Diagnosis 1 Elevated PSA (R97.20 ) Referral Organization [facility] Dr. Valenzuela Referring Provider First Name Ailyn Referring Provider Last Name Nicolas Referring Provider [facility] Referred Provider Specialty Urology Referral Priority Routine Medications Medication SIG (Take, Route, Frequency, Duration) Notes Start Date End Date Status Mounjaro 5 MG/0.5ML Solution Auto-injector USE 1 INJECTION UNDER THE SKIN ONCE A WEEK Active [employer]ringes 18g 1inch 1mL syring le to inject testosterone once weekly; Duration: 90 days 06/05/2025 Active Rosuvastatin Calcium 20 MG Tablet 1 tablet Orally every other day at bedtime; Duration: 90 days 12/28/2024 Active ALPRAZolam *Please review and pick correct strength-formulat ion from [employer] options. If intended option is not shown, discontinue and re-order from Quick Search* *Pick strength-form from [employer] for eRX* Active lamoTRIgine *Please review and pick correct strength-formulat ion from [employer] options. If intended option is not shown, discontinue and re-order from Quick Search* *Pick strength-form from [employer] for eRX* Active metFORMIN HCl *Please review and pick correct strength-formulat ion from [employer] options. If intended option is not shown, discontinue and re-order from Quick Search* *Pick strength-form from [employer] for eRX* Active Vitamin D3 *Please review and pick correct strength-formulat ion from [employer] options. If intended option is not shown, discontinue and re-order from Quick Search* *Pick strength-form from [employer] for eRX* Active Testosterone Cypionate 200 MG/ML Solution 1 mL intramuscularly weekly; Duration: 90 days every week 09/09/2025 Active Icosapent Ethyl 1 GM Capsule 2 capsules with meals Orally Twice a day; Duration: 90 days 12/28/2024 Active Social History Social History Additional Details Category Social Info Options Details Migrated Social History Migrated Social History (Alcohol:):no (Recreational drug use:):no (Smoking:):yes Additional Findings: Tobacco User Chews tobacco Section Notes: caffeine: yes, soda caffeine: yes, soda caffeine: yes, soda caffeine: yes, soda Problems Problem Type SNOMED Code ICD Code Onset Dates Problem Status W/U Status Risk Notes Problem Disorder of adrenal gland (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, 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) Active confirmed Problem Testicular dysfunction (03950494) Testicular dysfunction, unspecified (E29.9) Active confirmed Problem Vitamin D deficiency (96055381) Vitamin D deficiency, unspecified (E55.9) Active confirmed Problem Overweight (905963398) Overweight (E66.3) Active confirmed Problem Obesity (674748896) Obesity, unspecified (E66.9) Active confirmed Problem Hypercalcemia (19081986) Hypercalcemia (E83.52) Active confirmed Problem 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, 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 Problem Essential hypertension (04251461) Essential hypertension (I10) Active confirmed Problem Hyperglycemia due to type 2 diabetes mellitus (585680997040291) Type 2 diabetes mellitus with hyperglycemia, without long-term current use of insulin (E11.65) Active confirmed Problem Male hypogonadism (37368515) Hypogonadism in male (E29.1) Active confirmed Problem Mixed hyperlipidemia (206408388) Mixed dyslipidemia (E78.2) Active confirmed Problem Hypercalcemia (14126423) High calcium levels (E83.52) Active confirmed Vital Signs Heart Rate 76 /min 07/12/2025 Oximetry 96 % 07/12/2025 Height-cm 180.34 cm 07/12/2025 Blood pressure diastolic 77 mm Hg 07/12/2025 Weight-kg 89.81 kg 07/12/2025 Height 71 in 07/12/2025 Blood pressure systolic 121 mm Hg 07/12/2025 Weight 198.0 lbs 07/12/2025 BMI 27.61 kg/m2 07/12/2025 Encounters Encounter Location Date Provider Diagnosis [facility] Dr. Valenzuela [address] [place] [address] 12/28/2024 Ailyn Valenzuela Obesity, unspecified E66.9 ; Vitamin D deficiency, unspecified E55.9 ; Disorder of adrenal gland, unspecified E27.9 ; Mixed dyslipidemia E78.2 ; Essential hypertension I10 ; Dietary counseling and surveillance Z71.3 and Type 2 diabetes mellitus with hyperglycemia, without long-term current use of insulin E11.[address] Valenzuela [address] [place] [address] 03/21/2025 Ailyn Valenzuela Disorder of mineral metabolism, unspecified E83.9 ; Obesity, unspecified E66.9 ; Type 2 diabetes mellitus with hyperglycemia, without long-term current use of insulin E11.65 ; Essential hypertension I10 ; Hypercalcemia E83.52 ; Hypogonadism in male E29.1 ; Bone pain M89.8X9 and Dietary counseling and surveillance Z71.[address] Valenzuela [address] [place] [address] 04/25/2025 Ailyn Valenzuela Type 2 diabetes fior itus with hyperglycemia, without long-term current use of insulin E11.65 ; Essential hypertension I10 ; Dietary counseling and surveillance Z71.3 ; Mixed dyslipidemia E78.2 ; Hypogonadism in male E29.1 and Hypercalcemia E83.[address] Valenzuela [address] [place] [address] 07/12/2025 Ailyn Valenzuela Type 2 diabetes fior itus with hyperglycemia, without long-term current use of insulin E11.65 ; Essential hypertension I10 ; Testicular dysfunction, unspecified E29.9 ; Dietary counseling and surveillance Z71.3 and Overweight E66.3 [facility] [address] [place] [address] 11/08/2024 Ailyn Valenzuela [facility] [address] [place] [address] 12/28/2024 Ailyn Valenzuela [facility] [address] [place] [address] 12/31/2024 Ailyn Valenzuela [facility] [address] [place] [address] 01/01/2025 Ailyn Valenzuela [facility] [address] [place] [address] 01/01/2025 Ailyn Valenzuela [facility] [address] [place] [address] 01/16/2025 Ailyn Valenzuela [facility] [address] [place] [address] 01/22/2025 Ailyn Valenzuela Type 2 diabetes fior itus with hyperglycemia, without long-term current use of insulin E11.65 and Mixed dyslipidemia E78.2 [facility] [address] [place] [address] 01/23/2025 Ailyn Valenzuela Mixed dyslipidemia E 78.2 [facility] [address] [place] [address] 01/24/2025 Ailyn Valenzuela [facility] [address] [place] [address] 02/13/2025 Ailyn Valenzuela [address] [id number] 03/05/2025 Ailyn Valenzuela [address] [id number] 03/05/2025 Ailyn Valenzuela [facility] [address] [place] [address] 03/11/2025 Ailyn Valenzuela [facility] [address] [place] [address] 03/21/2025 Ailyn Valenzuela [address] [place] [address] 05/15/2025 Ailyn Valenzuela [facility] [address] [place] [address] 06/05/2025 Ailyn Valenzuela [address] [place] [address] 06/07/2025 Ailyn Valenzuela [facility] [address] [place] [address] 06/21/2025 Ailyn Valenzuela [facility] [address] [place] [address] 06/25/2025 Ailyn Valenzuela [address] [place] [address] 07/23/2025 Ailyn Valenzuela Mixed dyslipidemia E 78.2 [facility] [address] [place] [address] 07/23/2025 Ailyn Valenzuela Mixed dyslipidemia E 78.[address] Valenzuela [address] [place] [address] 09/05/2025 Ailyn Valenzuela [facility] [address] [place] [address] 09/09/2025 Ailyn Valenzuela [address] [place] [address] 09/09/2025 Ailyn Valenzuela [address] [place] [address] 10/11/2025 Ailyn Valenzuela Assessments Encounter Date Diagnosis (ICD Code) Assessment Notes Treatment Notes Treatment Clinical Notes Section Notes 12/28/2024 Vitamin D deficiency, unspecified (ICD-10 - [...] current use of insulin (ICD-10 - E11.65) 07/12/2025 Essential hypertension (ICD-10 - I10) 07/12/2025 Type 2 diabetes mellitus with hyperglycemia, without long-term current use of insulin (ICD-10 - E11.65) 07/23/2025 Mixed dyslipidemia (ICD-10 - E78.2) 07/23/2025 Mixed dyslipidemia (ICD-10 - E78.2) 04/25/2025 Dietary counseling and surveillance (ICD-10 - [...] adrenal gland, unspecified (ICD-10 - E27.9) E 07/12/2025 Testicular dysfunction, unspecified (ICD-10 - E29.9) 07/12/2025 Dietary counseling and surveillance (ICD-10 - Z71.3) Spent 15 minutes preventative counseling patient on dietary recommendations and changes in setting of hyperglycemia- need to restrict refined sugars and processed foods and incorporate up to 150 minutes of moderate level activity weekly. 12/28/2024 Mixed dyslipidemia (ICD-10 - E78.2) E 03/21/2025 Essential hypertension (ICD-10 - I10) 04/25/2025 Mixed dyslipidemia (ICD-10 - E78.2) 04/25/2025 Hypogonadism in male (ICD-10 - E29.1) 03/21/2025 Hypercalcemia (ICD-10 - E83.52) 12/28/2024 Essential hypertension (ICD-10 - I10) E 07/12/2025 Overweight (ICD-10 - E66.3) 12/28/2024 Dietary counseling and surveillance (ICD-10 - Z71.3) Spent 15 minutes preventative counseling patient on dietary recommendations and changes in setting of hyperglycemia- need to restrict refined sugars and processed foods and incorporate up to 150 minutes of moderate level activity weekly. E 03/21/2025 Hypogonadism in male (ICD-10 - E29.1) 04/25/2025 Hypercalcemia (ICD-10 - E83.52) 03/21/2025 Bone pain (ICD-10 - M89.8X9) 12/28/2024 Type 2 diabetes mellitus with hyperglycemia, without long-term current use of insulin (ICD-10 - E11.65) E 03/21/2025 Dietary counseling and surveillance (ICD-10 - Z71.3) Spent 15 minutes preventative counseling patient on dietary recommendations and changes in setting of hyperglycemia- need to restrict refined sugars and processed foods and incorporate up to 150 minutes of moderate level activity weekly. 12/28/2024 Other HypercortisolismPatien t has undergone two [...] Consider referral to interventional pain consultants in [place] for further evaluation- Explore potential referral to [...] procedures, referring and communicating with other health post acute care nurse, documenting clinical information in the electronic or [...] cortisol levels- Schedule bone scan, possibly at [facility] or another facility that performs nuclear scans [...] PSA and urination issues - Consider [facility] for referral- Follow up on urologist's recommendations [...] procedures, referring and communicating with other health post acute care nurse, documenting clinical information in the electronic or [...] examination and/or evaluation, counseling and educating the patient/family/[facility], ordering medications, tests, or procedures, referring and communicating with other health post acute care nurse, documenting clinical information in the electronic or [...] testosterone injections to q14 days has helped. 07/12/2025 Sandro Ziegler, a male patient with a history of diabetes, presents for follow-up of diabetes management and weight loss progress. Type 2 Diabetes MellitusAssessment: Patient's diabetes management has shown significant improvement. A1c has decreased from 6.1% to 5.6%, indicating excellent glycemic control. This improvement is likely attributed to the substantial weight loss of 60 pounds total, with an additional 22 pounds lost since the last visit. The patient is currently on low-dose Mounjaro, which appears to be effective in managing both diabetes and weight.Plan:- Continue current diabetes management plan, including low-dose Mounjaro- Monitor A1c levels at future follow-up visits Obesity, ImprovingAssessment: Patient has achieved significant weight loss, totaling 60 pounds, with an additional 22 pounds lost since the last visit. This weight loss is likely contributing to the improvement in diabetes control and overall energy levels. The patient reports having more energy and fewer complaints of bone pains and aches.Plan:- Continue current weight management plan, including low-dose Mounjaro- Encourage follow-up with a personal lines insurance advisor at the [facility] or of patient's choice for core exercises and strengthening of the erector spinae muscles- Discuss importance of core strength and stability for overall health ConstipationAssessment : Patient reports struggling with bowel movements, experiencing defecation only every 2 to 3 days. This suggests constipation, which may be related to dietary factors or medication side effects.Plan:- Discuss increasing fiber intake and appropriate use of laxatives- Educate on proper hydration and dietary modifications to improve bowel regularity HypogonadismAssessment : Patient is currently on testosterone therapy, recently adjusting from 200 mg IM every 2 weeks to weekly administration. He reports increased energy, better function, and improved focus. Current testosterone level is pending. Patient's hematocrit is known to be elevated, which is a common side effect of testosterone therapy.Plan:- Continue current testosterone therapy regimen (weekly administration)- Review pending testosterone level results when available- Emphasize importance of regular phlebotomy to manage elevated hematocrit- Monitor for symptoms and side effects of testosterone therapy Hyperlipidemia, ControlledAssessment: Patient's lipid profile is well-managed on current therapy. LDL and triglyceride levels are reported to be in the ideal range with the current regimen of statin therapy and fish oil supplementation.Plan:- Continue current statin therapy and fish oil supplementation- Monitor lipid levels at future follow-up visits Suspected Inguinal/Abdominal HerniaAssessment: Patient inquired about an inguinal or abdominal hernia, suggesting concern or symptoms in this area. Further evaluation is needed to confirm the presence and extent of any hernia.Plan:- Patient to follow up with Dr. Pereyra at [facility] in July for hernia evaluation Spent 25 minutes preparing to see the patient (ex review of tests/chart), obtaining and / or reviewing separately obtained history, performing a medically appropriate examination and/or evaluation, counseling and educating the patient/family/caregiv er, ordering medications, tests, or procedures, referring and communicating with other health post acute care nurse, documenting clinical information in the electronic or other health record, independently interpreting results and communicating results to the patient/family/caregiv er and care coordinating patient plan. Patient alert and oriented x 4 and aware of discussion noted above and in agreeance to plan in management of type 2 dM, hypertension, hypogonadism, mixed dyslipidemia, and weight management. Plan Of Treatment Pending Test Test Name Order Date *CT ABDOMEN W/O CONTRAST 11883 NUCLEAR MED : Bone Scan - 3 Phase 2024 -HF BONE DENSITY SCREEN 09/06/2024 Insurance Providers Payer Name Payer Address Payer Phone Subscriber Number Group Number Insured Name Patient Relationship to Insured Coverage Start Date Coverage End Date DAMION [place]ON[place] [address] [place] [address] [id number] MERCEDES KRAUSE Self - patient is the insured Medical (General) History Medical History History ICD Code low testosterone depression chronic pain pinched nerve in neck cubital tunnel syndrome Surgical History Surgery Date(Month/Year) cubital tunnel surgery Hospitalization History Reason Date(Month/Year)
--- OUTSIDE RECORDS SUMMARY | 2025-10-22 13:46 | XMS_ITS | Clinical Summary ---
Author Organization [facility] Address [address] [place] [address] Care Team Providers Care Printed Circuit Board Drafter Name Role Phone Hope Weiss MD Primary Care Provider [phone] Florinda Martins POTATO GRADER Unavailable [phone] Allergies Active Allergy Reactions Criticality Noted Date Comments Ceftriaxone Anaphylaxis,Swelling High 08/01/2018 Medications testosterone cypionate (DEPO-TESTOTERON E) 200 mg/mL injectionIndicat ions:Androgen Deficiency Inject 1 mL (200 mg total) into the muscle as instructed every 14 (fourteen) days On 8 Active rizatriptan (MAXALT) 10 mg tabletIndication s:Migraine Take 1 tablet (10 mg total) by mouth once as needed for migraine 8 Active ALPRAZolam (XANAX) 1 mg tablet Take 1 tablet (1 mg total) by mouth 3 (three) times a day Active Mounjaro 5 mg/0.5 mL pen injector injection Inject 0.5 mL (5 mg total) under the skin every 7 days On Sundays 5 Active metFORMIN (GLUCOPHAGE) 500 mg tabletIndication s:type 2 diabetes mellitus Take 2 tablets (1,000 mg total) by mouth every morning Active rosuvastatin (CRESTOR) 20 mg tabletIndication s:hyperlipidemia Take 1 tablet (20 mg total) by mouth every other day 5 Active omeprazole (PriLOSEC) 40 mg capsuleIndicatio ns:Stress Ulcer Prophylaxis Take 1 capsule (40 mg total) by mouth 2 (two) times a day Active lamoTRIgine (LaMICtal) 200 mg tabletIndication s:mood Take 2 tablets (400 mg total) by mouth nightly 2 Active icosapent ethyL (VASCEPA) 0.5 gram capsuleIndicatio ns:hypertriglyce ridemia Take 4 capsules (2 g total) by mouth 2 (two) times a day Active hydroCHLOROthiaz urvashi 12.5 mg capsuleIndicatio ns:blood pressure Take 1 tablet/capsule (12.5 mg total) by mouth card processing clerk before breakfast 5 Active finasteride (PROSCAR) 5 mg tabletIndication s:benign prostatic hyperplasia with lower urinary tract sx Take 1 tablet (5 mg total) by mouth every morning 5 Active ergocalciferol (VITAMIN D) 50,000 unit capsuleIndicatio ns:Vitamin D Deficiency Take 1 capsule (50,000 Units total) by mouth once a week On Tuesday 5 Active buprenorphine (SUBUTEX) tablet, sublingualIndica tions:opioid use disorder Place 1 tablet (8 mg total) under the tongue 3 (three) times a day Active albuterol HFA (PROVENTIL HFA,VENTOLIN HFA,PROAIR HFA) 90 mcg/actuation inhaler Inhale 2 puffs every 4 (four) hours as needed for shortness of breath or wheezing Active ARIPiprazole (ABILIFY) 2 mg tablet Take 1 tablet (2 mg total) by mouth daily 5 Active aspirin 81 mg enteric coated tabletIndication s:Myocardial Reinfarction Prevention,preve ntion of thrombosis Take 1 tablet (81 mg total) by mouth nightly Active mecobal/levomefo lat Ca/B6 phos (METANX ORAL)Indications :supplement Take 1 capsule by mouth 2 (two) times a day Active MAGNESIUM GLYCINATE ORALIndications: supplement Take 1 tablet/capsule by mouth every morning Active multivitamin tabletIndication s:Vitamin Deficiency Prevention Take 1 tablet by mouth every morning Active metFORMIN XR (GLUCOPHAGE XR) 500 mg 24 hr tablet 8 025 Discontin ued(Thera py completed ) buPROPion XL (WELLBUTRIN XL) 300 mg 24 hr tabletIndication s:Anxiety with Depression Take 1 tablet (300 mg total) by mouth every morning 8 025 Discontin ued(Thera py completed ) OXYCONTIN 40 mg 12 hr abuse-deterrent tablet Take by mouth. 0 8 025 Discontin ued(Thera py completed ) ALPRAZolam (XANAX) 1 mg tablet TAKE 1 TABLET UP TO 5 TIMES DAILY (MUST LAST 30 DAYS). 1 8 025 Discontin ued(Dupli byron order) SUBOXONE 8-2 mg per film 0 8 025 Discontin ued(Thera py completed ) topiramate (TOPAMAX) 50 mg tabletIndication s:Chronic migraine without aura without status migrainosus, not intractable TAKE 1 TABLET TWICE A DAY 60 tablet 11 2 025 Discontin ued(Thera py completed ) Active Problems Problem Noted Date Diagnosed Date Umbilical hernia without obstruction and without gangrene 08/27/2025 Bipolar 2 disorder 08/20/2025 Generalized anxiety disorder 08/20/2025 Obstructive sleep apnea syndrome 05/06/2022 Overview (08/20/2025): moderate to severe based on home sleep study report Chronic intractable headache 07/09/2021 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 07/09/2021 Hx of opioid abuse 07/09/2021 Insomnia 07/09/2021 Obesity (BMI 30.0-34.9) 07/09/2021 Secondary male hypogonadism 07/09/2021 Vitamin D deficiency 07/09/2021 Chronic pain syndrome 01/26/2012 Type 2 diabetes mellitus wit hout complication, without long-term current use of insulin 01/26/2012 Chronic migraine without aur a without status migrainosus, not intractable Numbness and tingling of left hand Encounters Date Type Department Care Team Description 10/21/2025 [facility] Minimally Invasive Surgery [address] [facility] [address]th Floor, [place] [address] [place] Reyes 10/21/2025 Documentation [facility] Surgeon 1 [facility] [address] Krishna Pereyra MD 10/17/2025 Telephone [facility]) [facility] Minimally Invasive Surgery [address] [facility] [address], [place] [address] [place] Reyes 10/15/2025 Telephone [facility] Minimally Invasive Surgery [address] [facility] [address], [place] [address] [place] Reyes 09/26/2025 Telephone [facility]) [facility] Minimally Invasive Surgery [address] [facility] [address]th [address], [place] [address] [place] Reyes 08/27/2025 8:00 AM CDT Office Visit [facility]) [facility] Minimally Invasive Surgery [address] [facility] [address]th [address], [place] [address] Krishna Pereyra MD Umbilical hernia without obstruction and without gangrene (Primary Dx); Atrophy of testis; Long-term current use of testosterone replacement therapy; Chronic pain syndrome from Last 3 Months Surgical History Surgery Date Site/Laterality Comments MASS EXCISION 11/07/1984 - 11/06/1985 Right axillary CARPAL TUNNEL RELEASE 11/07/1994 - 11/06/1995 Bilateral and cubital tunnel COLONOSCOPY multiple Medical History Medical History Date Comments Anxiety Arthritis Depression Gout Headache Seizures (HCC) Sleep apnea no machine Headache, tension-type Migraine Family History Medical History Relation Name Comments Cancer Father Arthritis Mother Relation Name Status Comments Father Mother Social History Tobacco Use Types Packs/Day Years Used Date Smoking Tobacco: Never Smokeless Tobacco: Current Chew Tobacco Cessation:Ready to Q uit: Not Asked; Counseling Given: Not Answered Alcohol Use Standard Drinks/Week Comments Never 0 [...] on file Legal Sex Male 12:18 AM 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 Gender Identity Not on file Sexual Orientation Not on file Last Filed Vital Signs Vital Sign Reading Time Taken Comments Blood Pressure 135/88 08/27/2025 8:01 AM CDT Pulse 84 08/27/2025 8:01 AM CDT Temperature 37.1 C (98.7 F) 08/27/2025 8:01 AM CDT Respiratory Rate 18 08/27/2025 8:01 AM CDT Oxygen Saturation 97% 08/27/2025 8:01 AM CDT Inhaled Oxygen Concentration - - Weight 80.7 kg (178 lb) 10/15/2025 1:16 PM FIREARMS ASSEMBLY SUPERVISOR Height 180.3 cm (5' 11) 10/15/2025 1:16 PM FIREARMS ASSEMBLY SUPERVISOR Body Mass Index 24.83 10/15/2025 1:16 PM FIREARMS ASSEMBLY SUPERVISOR Plan of Treatment Upcoming Encounters Date Type Department Care Team (Latest Contact Info) Description 01/06/2026 1:00 PM FIREARMS ASSEMBLY SUPERVISOR Hospital Encounter [facility] Operating [facility] ([facility]) [address] [place] [address] [phone] Krishna Pereyra MD [address] [place] [address] 01/06/2026 1:00 PM FIREARMS ASSEMBLY SUPERVISOR Anesthesia Event [facility] ([facility]) [address] [place] [address] Mariama Shaffer NP [address] [facility] [phone] [place], [place] [phone] 01/06/2026 1:00 PM FIREARMS ASSEMBLY SUPERVISOR - 01/06/2026 4:02 PM FIREARMS ASSEMBLY SUPERVISOR Surgery [facility] Operating Room [facility] ([facility]) [address] [place] [address] [phone] Krishna Pereyra MD [address] [place] [address] Open repair large umbilical hernia with mesh Scheduled Procedures Name Priority Associated Diagnoses Date/Ti me REPAIR UMBILICAL HERNIA Umbilical hernia without obstruction and without gangrene 01/06/2026 1:00 PM FIREARMS ASSEMBLY SUPERVISOR Health Maintenance Due Date Last Done Comments Albumin Creatinine Ratio, Urine 1964 Colon Cancer Screening-Colonoscopy 1964 Depression Screening 1964 Hemoglobin A1C 1964 Hepatitis C Screening 1964 Prostate Cancer Screening-PSA 1964 eGFR 1964 Dilated Eye Exam 1964 Foot Exam 1964 Hepatitis B Screening 1982 Regular Well Visit/Exam 18-64 1982 Pneumococcal vaccine <65 (2 of 2 - PCV) 04/16/2023 04/16/2022 Influenza Vaccine (#1) 2025 , 09/15/2022, 11/23/2020, Additional history exists Lipid Panel 08/02/2025 08/02/2024 DTaP/Tdap/Td Vaccine (2 - Td or Tdap) 07/09/2031 07/09/2021 Zoster Vaccine Completed 09/15/2022, 06/07, 03/30/2017 Goals Goal Patient Goal Type Associated Problems Recent Progress Patient-Stated? Author Autogenerat ed Goal Care Plan Autogenerated Problem No Lizama, Demond Additional Health Concerns Active Problems Noted Date Diagnosed Date Autogenerated Problem 10/21/2025 Insurance [employer] ACCESS CHOICE [employer] [place] [address] Care Teams Printed Circuit Board Drafter Relationship Specialty Start Date End Date Hope Weiss MD PCP - General 02/15/22 lForinda Martins NP Nurse Practitioner Nurse Practitioner 08/13/25
--- OUTSIDE RECORDS SUMMARY | 2025-10-22 13:46 | XMS_ITS | Encounter Summary ---
Author Organization [facility] Address [address] [place] [address] Care Team Providers Care Single Pointed Operator Name Role Phone Hope Weiss NP Primary Care Provider [phone] Encounter Details Date Type Department Care Team (Late st Contact Info) Description 09/25/2025 Results Follow-Up [facility] Family Medicine - [place] [address] [facility] [address] [place] [address] [phone] Hope Weiss, JESÚS [address] [place], [place] [phone] CORONAVIRUS (COVID-19) INFLUENZA A & B ANTIGEN IA PANEL, URINALYSIS AUTO DIP, A1C (BACK OFFICE), Additional followed-up results: 2 Social History Tobacco Use Types Packs/Day Years [...] PM CDT Legal Sex Male 12:08 PM HEAD TRANSFER CLERK Gender Identity Male 03/11/2025 12:50 PM CDT Sexual Orientation Straight 03/11/2025 12 :50 PM CDT documented as of this encounter Plan of Treatment Not on file documented as of this encounter Visit Diagnoses Not on filedocumented in this encounter Additional Health Concerns Infection Onset Date Last Indicated Resolved Time COVID-19 Confirmed 09/24/2025 09/24/2025 7:55 PM HEAD TRANSFER CLERK Assessment Noted Time PHQ-9 Depression Total Score: 12 023 12:48 PM CDT documented as of this encounter Care Teams Single Pointed Operator Relationship Specialty Start Date End Date Hope Weiss NP [address] [place] [address] PCP - General NURSE PRACTITIONER 04/21/21 documented as of this encounter
--- OUTSIDE RECORDS SUMMARY | 2025-10-22 13:47 | XMS_ITS | Patient Health Record ---
Author Organization [facility] Yooli Address [facility] [facility] [address] [facility] [address] [place] [address] Care Team Providers Care Linoleum Printer Name Role Phone Nata Barcenas Unavailable [phone] DavidFide rose Unavailable [phone] Allergies No Known Allergies Reason For Referral No Information Medications Medication SIG (Take, Route, Frequency, Duration) Notes Start Date End Date Status Buprenorphine HCl 8 MG Tablet Sublingual Sublingual; Duration: 30 Days Active lamoTRIgine 200 MG Tablet 2 tablet Oral at bedtime; Duration: 90 days 07/30/2025 Active ALPRAZolam 1 MG Tablet TAKE 1 TABLET BY MOUTH THREE TIMES DAILY Oral 3 times a day; Duration: 30 days NO EARLY REFILLS 10/18/2025 Active Mounjaro 5 MG/0.5ML Solution Auto-injector Subcutaneous; Duration: 84 Days Active traZODone HCl 50 MG Tablet 1-2 tablet at bedtime Orally Once a day; Duration: 90 days 07/30/2025 Active ARIPiprazole 2 MG Tablet 1 tablet Orally Once a day; Duration: 90 days at bedtime 07/30/2025 Active Vitamin D (Ergocalciferol) 1.25 MG (74257 UT) Capsule Oral; Duration: 84 Days Active Gabapentin 300 MG Capsule Oral; Duration: 30 Days Active Albuterol Sulfate HFA 108 (90 Base) MCG/ACT Aerosol Solution Inhalation; Duration: 33 Days Active hydrOXYzine HCl 25 MG Tablet 1 tablet Oral three times a day; Duration: 90 days As needed 10/15/2024 Active Social History Tobacco Use: Social History [...] Status Risk Notes Problem Bipolar 2 disorder (50968591) Bipolar 2 disorder (F31.81) Active confirmed Problem Generalized anxiety disorder (62168865) SINCERE (generalized anxiety disorder) (F41.1) Active confirmed Encounters Encounter Location Date Provider Diagnosis [facility] [employer] [place] [id number] [place] [address] 11/23/2024 Nata Kurilla Bipolar 2 disorder F31.81 and SINCERE (generalized anxiety disorder) F41.1 [facility] [place] [address] [place] [address] 02/21/2025 Nata Kurilla Nicotine use Z72.0 ; Bipolar 2 disorder F31.81 and SINCERE (generalized anxiety disorder) F41.1 [facility] [address] [place] [address] 06/18/2025 Nata Kurilla Nicotine use Z72.0 ; Bipolar 2 disorder F31.81 and SINCERE (generalized anxiety disorder) F41.1 [facility] [address] [place] [address] 07/30/2025 Nata Kurilla Nicotine use Z72.0 ; Bipolar 2 disorder F31.81 and SINCERE (generalized anxiety disorder) F41.1 [facility] [address] [place] [address] 11/14/2024 Nata Kurilla Bipolar 2 disorder F31.81 [facility] [address] [place] [address] 11/23/2024 Nata Kurilla [facility] [place] [address] [place] [address] 01/09/2025 Nata Kurilla Bipolar 2 disorder F31.81 [facility] [address] [place] [address] 02/07/2025 Nata Barcenas SINCERE (generalized anxiety disorder) F41.1 [place] [address] [place] [address] 04/05/2025 Nata Barcenas [place] [address] [place] [address] 08/22/2025 Nata Barcenas [place] [address] [place] [address] 09/04/2025 Nata Barcenas [place] [address] [place] [address] 10/17/2025 Fide Hernandez SINCERE (generalized anxiety disorder) F41.1 [place] [address] [place] [address] 10/18/2025 Nata Barcenas [place] [address] [place] [address] 01/09/2025 Nata Barcenas Bipolar 2 disorder F31.81 [place] [address] [place] [address] 06/18/2025 Nata Barcenas Assessments Encounter Date Diagnosis (ICD Code) Assessment Notes Treatment Notes Treatment Clinical Notes Section Notes 11/14/2024 Bipolar 2 disorder (ICD-10 - F31.81) 11/23/2024 Bipolar 2 disorder (ICD-10 - F31.81) 01/09/2025 Bipolar 2 disorder (ICD-10 - F31.81) 01/09/2025 Bipolar 2 disorder (ICD-10 - F31.81) 02/07/2025 SINCERE (generalized anxiety disorder) (ICD-10 - F41.1) 02/21/2025 Nicotine use (ICD-10 - Z72.0) 06/18/2025 Nicotine use (ICD-10 - Z72.0) 07/30/2025 Nicotine use (ICD-10 - Z72.0) 10/17/2025 SINCERE (generalized anxiety disorder) (ICD-10 - F41.1) 07/30/2025 Bipolar 2 disorder (ICD-10 - F31.81) Lamotrigine [...] Provider can order medication once approval received. 06/18/2025 Bipolar 2 disorder (ICD-10 - F31.81) [...] to present immediately to the emergency room. 11/23/2024 SINCERE (generalized anxiety disorder) (ICD-10 - [...] alcohol, as this combination can be lethal. 07/30/2025 SINCERE (generalized anxiety disorder) (ICD-10 - F41.1) [...] alcohol, as this combination can be lethal. 11/23/2024 Other Overall stable, cont current medications. [...] therapeutic effects of psychotropic medications. -Crisis prevention [facility] 988. 06/18/2025 Other Start Caplyta 21mg daily [...] therapeutic effects of psychotropic medications. -Crisis prevention [facility] 988. 07/30/2025 Other Start Abilify 2mg daily for mood Patient educated on all medications including potential [...] therapeutic effects of psychotropic medications. -Crisis prevention [place] [phone]. Plan Of Treatment Pending Test Test Name Order Date UDT 05/24/2024 Next Appt Details Provider Name:Fide Hernandez, 11/15/2025 02:00:00 PM, [address] [facility] [address] [facility] [address], [place], [address], Insurance Providers Payer Name Payer Address Payer Phone Subscriber Number Group Number Insured Name Patient Relationship to Insured Coverage Start Date Coverage End Date [facility] [address] [place] [address] [id number] MERCEDES KRAUSE Self - patient is [...]
--- OUTSIDE RECORDS SUMMARY | 2025-10-22 13:47 | XMS_ITS | Encounter Summary ---
Author Organization [facility] Address [address] [place] [address] Care Team Providers Care Aviation Neuropsychologist Name Role Phone Hope Weiss NP Primary Care Provider [phone] Encounter Details Date Type Department Care Team (Late st Contact Info) Description 06/19/2025 ZIOPHARM Oncology Message Enc [facility] Family Medicine [facility] [address] [phone] [facility], [facility] Provider Phone call Social History Tobacco Use [...] PM CDT Legal Sex Male 12:08 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 Gender Identity Male 03/11/2025 12:50 PM CDT Sexual Orientation Straight 03/11/2025 12 :50 PM CDT documented as of this encounter Plan of Treatment Not on file documented as of this encounter Visit Diagnoses Not on filedocumented in this encounter Additional Health Concerns Infection Onset Date Last Indicated Resolved Time Respiratory Rule Out 09/24/2025 09/24/2025 025 1:02 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 COVID-19 Confirmed 09/24/2025 09/24/2025 7:55 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 Assessment Noted Time PHQ-9 Depression Total Score: 12 023 12:48 PM CDT documented as of this encounter Care Teams Aviation Neuropsychologist Relationship Specialty Start Date End Date Hope Weiss NP [address] [place] [address] [place] [address] PCP - General NURSE PRACTITIONER 04/21/21 documented as of this encounter
--- NOTE | 2025-10-22 14:08 | PM.IMHP2 ---
H&P: HPI History of Present Illness Date/Time: 10/22/25 14:08 Chief Complaint: Altered mental status Narrative: 60-year-old male with a past medical history of SHAKIR, migraine, fibromyalgia, DM2 presents to the ED on 10/22/2025 after a possible seizure at home. At around 10 this morning, the patient's found him having what she described as a seizure in bed. She described it as a full body tensing that lasted about 30 seconds with patient being only A&O x1 after the event. Patient has no history of seizures. Patient was not very cooperative with EMS and it took some time with assist x2 to get him to the stretcher. EMS noted facial twitching while in route. Facial twitching remains present in the ED. denies any change in medication, foods, activity. Per , patient had been diagnosed with COVID pneumonia 1-2 weeks ago and had been recovering since. All day yesterday was in bed not eating/drinking. Patient did take a Xanax this morning before the event. Patient is easily arousable but remains A&O x1. He knows this is a hospital but does not know which one. He thinks it is 2020 and is not sure why he is in the hospital. While in the ED, patient complained of people speaking too loudly and stuffed paper towels in his ears. His went home to retrieve ear plugs for him. Patient does have a history of migraines with sensitivity to light and sound but currently denies having a headache. No numbness, weakness. denies any recreational drug use or alcohol abuse. Initial vital signs 113/79, HR 131, respirations 23, temperature 99.6?, 96% on room air. Labs largely unremarkable. WBC 10.2. Anion gap 19, glucose 170. Renal function normal. Troponin negative. UDS positive for benzodiazepines, which are prescribed. EKG reads sinus tach with possible anterior myocardial infarction of indeterminate age, inferior infarct of indeterminate age. Head CT with no acute process. Head neck CTA unremarkable with no hemodynamically significant stenosis, thrombosis or aneurysm. Review of Systems Review of Systems: All systems reviewed & are unremarkable except as noted in HPI and below [facility] Past Medical History Medical History (Updated 10/22/25 @ 23:56 by Natty Donaldson APRN) Fibromyalgia Ataxia Mixed hyperlipidemia Obstructive sleep apnea on CPAP Migraine without aura Surgical History Surgical History History of carpal tunnel surgery Family History Family History Mother Patient's mother is , Onset Age: 80 Father Carcinoma of colon Social History Social History Smoking status: Former smoker Tobacco type: smokeless tobacco Smokeless tobacco user: chewing tobacco Second hand tobacco smoke exposure: No Alcohol intake: never Substance use: never Substance use type: does not use Lack of Transportation: No Lack of Food: Never True Current Housing: I Have Housing Concerned About Future Housing: No Difficulty Paying Gas/Electric Bills: No Difficulty Paying for Meds: No Currently Unemployed: No Education: High School Diploma/GED Difficulty w/ Childcare or Family Care: No Living arrangements: with family Additional living arrangements comments: with sp Spiritual care concerns: No Meds Home Medications and Allergies Home Medications ?Medication ?Instructions ?Recorded ?Confirmed ?Type alprazolam 1 mg tablet 1 mg PO TID PRN Anxiety 09/12/19 10/22/25 History lamotrigine 200 mg tablet 400 mg PO HS 09/12/19 10/22/25 History testosterone cypionate 200 mg/mL 200 mg IM .Q2W #10 mL 12/20/19 10/22/25 Rx intramuscular oil hydrochlorothiazide 12.5 mg capsule 12.5 mg PO DAILY 03/06/25 10/22/25 History finasteride 5 mg tablet 5 mg PO DAILY 06/14/25 10/22/25 History icosapent ethyl 1 gram capsule 2 g PO .BID 06/14/25 10/22/25 History metformin 500 mg tablet See Rx Instructions PO BID 06/14/25 10/22/25 History rosuvastatin 20 mg tablet 20 mg PO DAILY 06/14/25 10/22/25 History tirzepatide 5 mg/0.5 mL 5 mg subcut WEEKLY 06/14/25 10/22/25 History subcutaneous pen injector (Miguel) omeprazole 40 mg capsule,delayed 40 mg PO BID 07/09/25 10/22/25 History release aspirin 81 mg tablet,delayed 81 mg PO DAILY 10/22/25 10/22/25 History release ([place]wey Low Dose Aspirin) buprenorphine HCl 8 mg sublingual 8 mg sublingual TID 10/22/25 10/22/25 History tablet ergocalciferol (vitamin D2) 1,250 1,250 mcg PO WEEKLY 10/22/25 10/22/25 History mcg (50,000 unit) capsule magnesium glycinate 200 mg PO DAILY 10/22/25 10/22/25 History mecobalamin-levomefolate 1 tablet PO BID 10/22/25 10/22/25 History calcium-pyridoxal phos 2 mg-3 mg-35 mg tablet multivitamin with minerals (DAILY 1 tablet PO DAILY 10/22/25 10/22/25 History VITAMIN FORMULA-MINERALS tablet) rizatriptan 10 mg tablet 10 mg PO .DAILY PRN migraine 10/22/25 10/22/25 History headache Allergies Allergy/AdvReac Type Severity Reaction Status Date / Time Cephalosporins Allergy Severe Anaphylactic Verified 10/22/25 16:17 Shock ceftriaxone Allergy Unknown Anaphylactic Verified 10/22/25 16:17 Shock Vital Signs Vital Signs - 24 hr 10/22/25 10:40 10/22/25 10:49 10/22/25 10:49 Temperature 99.6 F Pulse Rate 131 H 131 H Respiratory Rate 23 H 18 Blood Pressure 113/79 113/79 Pulse Oximetry 96 97 Oxygen Delivery Room Air Room Air Exam Narrative: GENERAL: non-toxic appearing,Drowsy HEAD: Normocephalic, atraumatic. EYES: PERRLA. Conjunctivae clear. NOSE: Normal no drainage. THROAT: Pharynx clear, no exudate. NECK: Trachea midline. No adenopathy, no masses. RESPIRATORY: Airway patent, respirations nonlabored. CTA. CARDIOVASCULAR: tachycardia on the monitor. Regular rhythm GASTROINTESTINAL: Abdomen is soft and nontender. No organomegaly. Bowel sounds normal in all quadrants. GENITOURINARY: Defer MUSCULOSKELETAL: Moves all extremities. No gross deformities. SKIN: Warm, dry, normal color. NEURO: A&O to self only. Neck and facial twitching noted. Patient usually around Results Labs Labs: Short CBC 10/22/25 Range/Units 10:52 WBC 10.2 H (4.5-10.0) K/mm3 Hgb 15.7 (14.0-18.0) g/dL Hct 46.0 (42.0-52.0) % Plt Count 332 (150-375) k/mm3 BMP 10/22/25 10:52 Sodium 137 Potassium 3.8 Chloride 96 L Carbon Dioxide 22 BUN 17 Creatinine 0.76 Glucose 170 H Calcium 10.7 H Cardiac Enzymes 10/22/25 Range/Units 10:52 Troponin I < 0.012 (0.000-0.034) ng/mL Liver Function 10/22/25 Range/Units 10:52 Total Bilirubin 0.8 (0.2-1.3) mg/dL AST 37 (17-59) U/L ALT 55 H (6-50) U/L Alkaline Phosphatase 71 (38-126) U/L Albumin 5.0 (3.5-5.1) g/dL Quality VTE Prophylaxis VTE prophylaxis: pharmacologic ordered Assessment and Plan Assessment and plan (1) Altered mental status: Qualifiers: Altered mental status type: unspecified Qualified Code(s): R41.82 - Altered mental status, unspecified Code(s): R41.82 - Altered mental status, unspecified Status: Acute Assessment and Plan: Possible seizure at home witnessed by lasting about 30 seconds described as full body stiffening. Patient profoundly confused after event and aggressive with EMS. Remained A&O x1 in the ED. CT head and CTA head neck unremarkable. -seizure precautions -neurology consult -MRI and EEG ordered (2) Essential (primary) hypertension: Code(s): I10 - Essential (primary) hypertension Status: Chronic Assessment and Plan: Continue hydrochlorothiazide (3) Type 2 diabetes mellitus without complication, without long-term current use of insulin: Code(s): E11.9 - Type 2 diabetes mellitus without complications Status: Chronic Assessment and Plan: - hypoglycemia protocol - POC blood glucose ACHS - home medication: Metformin - correct regimen ordered: Low-dose sliding scale (4) Major depression, recurrent, chronic: Code(s): F33.9 - Major depressive disorder, recurrent, unspecified Status: Chronic Assessment and Plan: Continue Lamictal (5) Chronic anxiety: Code(s): F41.9 - Anxiety disorder, unspecified Status: Chronic Assessment and Plan: Continue alprazolam p.r.n. Plan Diet: Consistent carb, heart healthy DVT prophylaxis: Lovenox lines/drains: PIV Fluids: 1 L LR Code status: Full Prior Studies I have reviewed the following patient records and this information was taken into consideration when formulating the assessment and plan.: previous labs, previous ER visits, previous hospitalizations and previous clinic visits Time Spent with Patient Time with patient: 45 - 74 minutes Hospitalist MIPS Advance Care Plan I have confirmed that the patient's Advanced Care Plan is present, code status is documented, or surrogate decision maker is listed in patient medical record.: Yes Medication Reconciliation I have utilized all available resources to obtain, update and review the patients current medications (includes all prescriptions, OTC, herbals, cannabis, and nutritional supplements).: Yes
--- NOTE | 2025-10-22 15:28 | WPCEDHO ---
ED Hand Off Checklist All vitals saved:yes IV Site documented:yes All med administrations documented:yes Triage Note Triage Note Pt to the ED via ems from home. 10/22/25 10:40 Pt was having a seizure like activity, new onset confusion, and aggressive behavior. Pt is A& O x2 on arrival. Allergies Cephalosporins Allergy (Severe, Verified 07/09/25 15:31) Anaphylactic Shock ROCEPHIN PER ER ADMISSION ORDERS 01/04/07 ceftriaxone Allergy (Unknown, Verified 07/09/25 15:31) Anaphylactic Shock Family History (Last Reviewed 07/09/25 @ 15:27 by Melisa Fall CMA) Mother Patient's mother is Father Carcinoma of colon Administered/Completed Medications Discontinued Medications Droperidol (Droperidol 5 Mg/2 Ml Vial) 2.5 mg IV PUSH ONCE STA Stop: 10/22/25 13:33 Last Admin: 10/22/25 14:15 Dose: 2.5 mg Documented By: STAN Lactated Ringer's (Lr - Lactated Ringers Iv) 1,000 mls @ 999 mls/hr IV CONT .Q1H1M STA Stop: 10/22/25 14:06 Last Infusion: 10/22/25 14:32 Dose: Infused Documented By: Admin: 10/22/25 13:35 Dose: 999 mls/hr Documented By: STAN Midazolam HCl (Midazolam Hcl (*Crx) 2 Mg/2 Ml Vial) 4 mg IV PUSH ONCE ONE Stop: 10/22/25 10:45 Last Admin: 10/22/25 11:05 Dose: 4 mg Documented By: STAN Interventions/Assessments IV / Saline Lock, Insert Start: 10/22/25 10:45 Freq: STAT Status: Active Protocol: Document 10/22/25 10:48 ANT (Rec: 10/22/25 10:48 ANT [id number]) IV Assessment Peripheral Access Right Forearm IV Catheter Access Initiated IV Insertion Date 10/22/25 IV Insertion Time 10:48 Catheter Gauge 20 IV Insertion 1 Attempts IV Site Assessment WNL IV Care and WNL Maintenance Last Vital Signs Temperature 99.6 F 10/22/25 10:40 Pulse Rate 101 H 10/22/25 15:27 Respiratory Rate 20 10/22/25 15:27 Pulse Oximetry 98 10/22/25 15:27 Blood Pressure 114/76 10/22/25 15:27 Blood Pressure Mean 88 10/22/25 15:27 Oxygen Delivery Room Air 10/22/25 10:49 Weight 81 kg 10/22/25 10:40 Last Result - Abnormals Only WBC 10.2 K/mm3 (4.5-10.0) H 10/22/25 10:52 Neut % (Auto) 89.4 % (45.5-73.1) H 10/22/25 10:52 Lymph % (Auto) 8.7 % (18.3-44.2) L 10/22/25 10:52 [place]acken % (Auto) 1.4 % (2.6-8.5) L 10/22/25 10:52 Lymph # (Auto) 0.89 K/mm3 (0.9-3.2) L 10/22/25 10:52 Absolute Neuts (auto) 9.2 K/mm3 (1.3-6.7) H 10/22/25 10:52 Chloride 96 mmol/L (98-107) L 10/22/25 10:52 Anion Gap 19 mmol/L (4-12) H 10/22/25 10:52 Glucose 170 mg/dL (65-110) H 10/22/25 10:52 POC Capillary Glucose 184 mg/dl (65-105) H 10/22/25 10:54 Calcium 10.7 mg/dL (8.4-10.2) H 10/22/25 10:52 ALT 55 U/L (6-50) H 10/22/25 10:52 Total Protein 8.4 g/dL (6.3-8.2) H 10/22/25 10:52
--- NOTE | 2025-10-22 15:59 | ADMGEN ---
This patient, Toney Lomeli, was admitted to 3 [facility] Surg Room 306-01. Patient/family oriented to hospital policies and general routines including ID bracelet, bed and alarms, visiting hours, pain management, procedures, bathroom and other care routines, personal items, smoking policy, room service/diet, and visiting hours. Information on how to activate the Rapid Response Team has been discussed. Patient/Family are encouraged to report perceived risks to care and to ask questions if they do not understand what they are told or what they should do.
[2025-10-22] MEDS: BUPRENORPHINE HCL (*CRX) 8 MG SUBLINGUAL TABLET SUBLINGUAL (17:37)
[2025-10-22 19:13] LABS: Cannabinoid Screen Urine Negative (Negative)
[2025-10-22] MEDS: ENOXAPARIN 40 MG/0.4 ML SYRINGE SUB-Q (20:03)
[2025-10-22] MEDS: ALPRAZolam (*CRX) 0.5 MG TABLET 1 MG PO (20:04)
[2025-10-22] MEDS: PANTOPRAZOLE 40 MG TABLET PO (20:04)
[2025-10-23] VITALS (8 sets, daily range): BP systolic 87–112; BP diastolic 60–70; PULSE 65–97; RESP 18–20; TEMP 35.9–36.6; O2SAT 96–97
[2025-10-23] MEDS: BUPRENORPHINE HCL (*CRX) 8 MG SUBLINGUAL TABLET SUBLINGUAL ×3 (05:58→21:30)
[2025-10-23 06:46] LABS: Hematocrit 38.9 % (42.0-52.0); Hemoglobin 13.0 g/dL (14.0-18.0); Immature Granulocyte Percent A 0.5 % (0-0.5); Lymphocytes Absolute Auto 2.50 K/mm3 (0.9-3.2); Mean Corpuscular HGB Conc 33.4 g/dl (32-36); Mean Corpuscular Hemoglobin 28.3 pg (26-34); Mean Corpuscular Volume 84.7 fl (80-100); Nucleated Red Blood Cells Absolute Auto 0.000 K/mm3 (0.0-0.012); Nucleated Red Blood Cells Perc 0.0 % (0.0-0.2); Platelet Count Result 248 k/mm3 (150-375); Red Blood Count 4.59 M/mm3 (4.6-6.20); White Blood Count 8.8 K/mm3 (4.5-10.0)
[2025-10-23 07:12] LABS: Anion Gap 5 mmol/L (4-12); Blood Urea Nitrogen 17 mg/dL (9-20); Calcium 9.9 mg/dL (8.4-10.2); Carbon Dioxide 30 mmol/L (22-30); Chloride 99 mmol/L (98-107); Estimated CRCL calculation 88 ml/min; Estimated Glomerular Filt Rate > 60; Glucose 102 mg/dL (65-110); Potassium 3.8 mmol/L (3.4-5.0); Sodium 134 mmol/L (137-145)
[2025-10-23] MEDS: ROSUVASTATIN 20 MG TABLET PO (09:04)
[2025-10-23] MEDS: THERAPEUTIC MULTIVITAMINS/MINERALS TAB (*BKC) 1 TABLET PO (09:04)
[2025-10-23] MEDS: ASPIRIN 81 MG ENTERIC TABLET PO (09:04)
[2025-10-23] MEDS: PANTOPRAZOLE 40 MG TABLET PO ×2 (09:04→21:30)
[2025-10-23] MEDS: FINASTERIDE 5 MG TABLET PO (09:04)
[2025-10-23] MEDS: OMEGA 3 POLYUNSAT FATTY ACIDS 1 GM CAP 2 GM PO ×2 (09:05→17:43)
--- NOTE | 2025-10-23 09:24 | WPDNEURCNPN ---
Assessment and Plan Assessment and plan (1) Seizure: Code(s): R56.9 - Unspecified convulsions Status: Acute Plan 1. Rule out the possibility of seizure will need an EEG. 2. Ongoing history of recurrent migraine, fibromyalgia, obstructive sleep apnea , and diabetes mellitus. Consult date: 10/23/25 HPI: Toney Lomeli is a 60 year old maleHeated to the hospital through the emergency room with a history of having has seizure-like activity which lasted for less than a minute. Reportedly subsequently she was extremely confused and was speaking in word salad. Patient has no history of seizure disorder in the past but she does have an ongoing nerve issue which she takes alprazolam 3 times a day. In the past patient has been diagnosed to have COVID pneumonia about 1 to 2 weeks ago and he was in bed all day yesterday not eating or drinking. Patient himself has no specific complaint and was not complaining of any headache as well. His medications at the time of initial visit included 1. Alprazolam 1mg 3 times a day p.r.n. 2. Lamotrigine 200mg HS p.r.n. 3. Hydrochlorothiazide 12.5mg daily 4. Finasteride 5mg daily 5. Metformin 500mg p.o. b.i.d. 6. Rosuvastatin 20mg daily 7. [id number] s/c weekly 8. Omeprazole 40mg daily. Patient has ongoing history of obstructive sleep apnea for which he is on CPAP, fibromyalgia, ataxia, and mixed hyperlipidemia. He does have ongoing history of chewing tobacco but no history of alcohol intake. On initial eval in the emergency room generally he has his exam was nonfocal, his vital signs were with pulse of 131 respiration rate 23 temperature 99.6? and blood pressure 113/79. CBC was normal, BMP was normal, blood sugar was only 170. And mast scan was normal CT of the head revealed no evidence of epidural or subdural bleed or hydrocephalus but he had mild diffuse volume loss. CTA was not significant. Patient has been continued on his medication. Review of Systems Review of Systems: All systems reviewed & are unremarkable except as noted in HPI and below PMFSH Past Medical History Medical History Fibromyalgia Ataxia Mixed hyperlipidemia Obstructive sleep apnea on CPAP Migraine without aura Surgical History Surgical History History of carpal tunnel surgery Family History Family History Mother Patient's mother is , Onset Age: 80 Father Carcinoma of colon Social History Social History Smoking status: Former smoker Tobacco type: smokeless tobacco Smokeless tobacco user: chewing tobacco Second hand tobacco smoke exposure: No Alcohol intake: never Substance use: never Substance use type: does not use Lack of Transportation: No Lack of Food: Never True Current Housing: I Have Housing Concerned About Future Housing: No Difficulty Paying Gas/Electric Bills: No Difficulty Paying for Meds: No Currently Unemployed: No Education: High School Diploma/GED Difficulty w/ Childcare or Family Care: No Living arrangements: with family Additional living arrangements comments: with sp Spiritual care concerns: No Meds Home Medications and Allergies Home Medications ?Medication ?Instructions ?Recorded ?Confirmed ?Type alprazolam 1 mg tablet 1 mg PO TID PRN Anxiety 09/12/19 10/22/25 History lamotrigine 200 mg tablet 400 mg PO HS 09/12/19 10/22/25 History testosterone cypionate 200 mg/mL 200 mg IM .Q2W #10 mL 12/20/19 10/22/25 Rx intramuscular oil hydrochlorothiazide 12.5 mg capsule 12.5 mg PO DAILY 03/06/25 10/22/25 History finasteride 5 mg tablet 5 mg PO DAILY 06/14/25 10/22/25 History icosapent ethyl 1 gram capsule 2 g PO .BID 06/14/25 10/22/25 History metformin 500 mg tablet See Rx Instructions PO BID 06/14/25 10/22/25 History rosuvastatin 20 mg tablet 20 mg PO DAILY 06/14/25 10/22/25 History tirzepatide 5 mg/0.5 mL 5 mg subcut WEEKLY 06/14/25 10/22/25 History subcutaneous pen injector (Miguel) omeprazole 40 mg capsule,delayed 40 mg PO BID 07/09/25 10/22/25 History release aspirin 81 mg tablet,delayed 81 mg PO DAILY 10/22/25 10/22/25 History release (Dewey Low Dose Aspirin) buprenorphine HCl 8 mg sublingual 8 mg sublingual TID 10/22/25 10/22/25 History tablet ergocalciferol (vitamin D2) 1,250 1,250 mcg PO WEEKLY 10/22/25 10/22/25 History mcg (50,000 unit) capsule magnesium glycinate 200 mg PO DAILY 10/22/25 10/22/25 History mecobalamin-levomefolate 1 tablet PO BID 10/22/25 10/22/25 History calcium-pyridoxal phos 2 mg-3 mg-35 mg tablet multivitamin with minerals (DAILY 1 tablet PO DAILY 10/22/25 10/22/25 History VITAMIN FORMULA-MINERALS tablet) rizatriptan 10 mg tablet 10 mg PO .DAILY PRN migraine 10/22/25 10/22/25 History headache Allergies Allergy/AdvReac Type Severity Reaction Status Date / Time Cephalosporins Allergy Severe Anaphylactic Verified 10/22/25 16:17 Shock ceftriaxone Allergy Unknown Anaphylactic Verified 10/22/25 16:17 Shock Vital Signs Vital Signs - 24 hr 10/22/25 10:40 10/22/25 10:49 10/22/25 10:49 Temperature 37.6 C Pulse Rate 131 H 131 H Respiratory Rate 23 H 18 Blood Pressure 113/79 113/79 Pulse Oximetry 96 97 Oxygen Delivery Room Air Room Air 10/22/25 11:16 10/22/25 13:10 10/22/25 13:22 Temperature Pulse Rate 119 H 112 H Respiratory Rate 23 H 14 Blood Pressure 116/86 Pulse Oximetry 95 99 88 L Oxygen Delivery 10/22/25 13:41 10/22/25 13:45 10/22/25 14:00 Temperature Pulse Rate 126 H 112 H Respiratory Rate 20 19 Blood Pressure Pulse Oximetry 85 L Oxygen Delivery 10/22/25 14:16 10/22/25 14:30 10/22/25 14:45 Temperature Pulse Rate 122 H 108 H 104 H Respiratory Rate 25 H 22 H 20 Blood Pressure Pulse Oximetry Oxygen Delivery 10/22/25 15:27 10/22/25 17:03 10/22/25 18:44 Temperature 36.7 C Pulse Rate 101 H 64 Respiratory Rate 20 18 Blood Pressure 114/76 127/82 Pulse Oximetry 98 98 92 Oxygen Delivery Room Air 10/22/25 20:00 10/22/25 20:13 10/22/25 20:55 Temperature 36.4 C Pulse Rate 93 93 Respiratory Rate 16 16 Blood Pressure 88/45 L Pulse Oximetry 95 95 95 Oxygen Delivery Room Air Room Air 10/23/25 00:00 10/23/25 04:00 10/23/25 04:50 Temperature 35.9 C L Pulse Rate 97 71 75 Respiratory Rate 18 Blood Pressure 112/67 Pulse Oximetry 97 Oxygen Delivery Exam Narrative: Exam today reveals him to be awake alert cooperative in no obvious acute distress, speech not dysphasic not dysarthric not dysphonic, head normocephalic with no cranial bruits, ear nose throat examination normal, neck supple with no meningeal signs no cervical bruit no thyromegaly no lymphadenopathy, heart regular with no murmur, lungs clear to auscultation with no rhonchi or crepitations, abdomen is soft nontender with normal bowel sounds, neurologically he is awake alert he knows that he is in the hospital but appears somewhat nervous and wants to know what is wrong with him though he is under the care of physician as an outpatient who has been treating him with multiple medication as outlined, pupils round regular feels the vision full extraocular movements full with no nystagmus facial sensation intact face symmetrical tongue midline uvula midline motor examination reveals him to have normal strength in upper and lower extremities without any drift against gravity with eyes closed, deep tendon reflexes symmetrical plantars are downgoing there is no evidence of sensory or cerebellar deficit. Results Labs 10/23/25 05:47 10/23/25 05:47 Labs: Short CBC 10/22/25 10/23/25 Range/Units 10:52 05:47 WBC 10.2 H 8.8 (4.5-10.0) K/mm3 Hgb 15.7 13.0 L (14.0-18.0) g/dL Hct 46.0 38.9 L (42.0-52.0) % Plt Count 332 248 (150-375) k/mm3 BMP 10/22/25 10/23/25 10:52 05:47 Sodium 137 134 L Potassium 3.8 3.8 Chloride 96 L 99 Carbon Dioxide 22 30 BUN 17 17 Creatinine 0.76 0.87 Glucose 170 H 102 Calcium 10.7 H 9.9 Cardiac Enzymes 10/22/25 Range/Units 10:52 Troponin I < 0.012 (0.000-0.034) ng/mL Liver Function 10/22/25 Range/Units 10:52 Total Bilirubin 0.8 (0.2-1.3) mg/dL AST 37 (17-59) U/L ALT 55 H (6-50) U/L Alkaline Phosphatase 71 (38-126) U/L Albumin 5.0 (3.5-5.1) g/dL
--- NOTE | 2025-10-23 12:04 | PM.IMPN2 ---
Assessment and Plan Assessment and Plan (1) Altered mental status: Qualifiers: Altered mental status type: unspecified Qualified Code(s): R41.82 - Altered mental status, unspecified Code(s): R41.82 - Altered mental status, unspecified Status: Acute Assessment and Plan: Possible seizure at home witnessed by lasting about 30 seconds described as full body stiffening. Patient profoundly confused after event and aggressive with EMS. Remained A&O x1 in the ED. CT head and CTA head neck unremarkable. -seizure precautions -neurology consult -MRI performed no significant finding -EEG ordered MRI brain: 1. Small area of possibly restricted diffusion in the left pontine portion of the brainstem likely artifactual. No abnormal T2-weighted signal or enhancement pathology seen in this area. 2. Probable small developmental venous anomaly in the right frontal lobe. Head/neck CTA :no significant finding (2) Essential (primary) hypertension: Code(s): I10 - Essential (primary) hypertension Status: Chronic Assessment and Plan: Continue hydrochlorothiazide (3) Type 2 diabetes mellitus without complication, without long-term current use of insulin: Code(s): E11.9 - Type 2 diabetes mellitus without complications Status: Chronic Assessment and Plan: - hypoglycemia protocol - POC blood glucose ACHS - home medication: Metformin - correct regimen ordered: Low-dose sliding scale (4) Major depression, recurrent, chronic: Code(s): F33.9 - Major depressive disorder, recurrent, unspecified Status: Chronic Assessment and Plan: Continue Lamictal (5) Chronic anxiety: Code(s): F41.9 - Anxiety disorder, unspecified Status: Chronic Assessment and Plan: Continue alprazolam p.r.n. Plan Diet: Consistent carb, heart healthy DVT prophylaxis: Lovenox lines/drains: PIV Fluids: 1 L LR Code status: Full Subjective Date/time seen: 10/23/25 12:04 Interval history: Patient has delayed speech but no evidence of neuro deficits. MRI was performed and no significant finding. Will small development venous anomaly in the right frontal. Will discuss with Neuro. Head/neck CTA no significant finding. EEG pending Review of Systems Review of Systems: All systems reviewed & are unremarkable except as noted in HPI and below Exam Narrative: GENERAL: non-toxic appearing,Drowsy HEAD: Normocephalic, atraumatic. EYES: PERRLA. Conjunctivae clear. NOSE: Normal no drainage. THROAT: Pharynx clear, no exudate. NECK: Trachea midline. No adenopathy, no masses. RESPIRATORY: Airway patent, respirations nonlabored. CTA. CARDIOVASCULAR: tachycardia on the monitor. Regular rhythm GASTROINTESTINAL: Abdomen is soft and nontender. No organomegaly. Bowel sounds normal in all quadrants. GENITOURINARY: Defer MUSCULOSKELETAL: Moves all extremities. No gross deformities. SKIN: Warm, dry, normal color. NEURO: A&O to self only. Neck and facial twitching noted. Patient usually around Objective Data Vital Signs Vital Signs: Vital Signs - 24 hr 10/22/25 13:10 10/22/25 13:22 10/22/25 13:41 Temperature Pulse Rate 112 H Respiratory Rate 14 Blood Pressure Pulse Oximetry 99 88 L 85 L Oxygen Delivery 10/22/25 13:45 10/22/25 14:00 10/22/25 14:16 Temperature Pulse Rate 126 H 112 H 122 H Respiratory Rate 20 19 25 H Blood Pressure Pulse Oximetry Oxygen Delivery 10/22/25 14:30 10/22/25 14:45 10/22/25 15:27 Temperature Pulse Rate 108 H 104 H 101 H Respiratory Rate 22 H 20 20 Blood Pressure 114/76 Pulse Oximetry 98 Oxygen Delivery 10/22/25 17:03 10/22/25 18:44 10/22/25 20:00 Temperature 98.1 F Pulse Rate 64 93 Respiratory Rate 18 16 Blood Pressure 127/82 Pulse Oximetry 98 92 95 Oxygen Delivery Room Air Room Air 10/22/25 20:13 10/22/25 20:55 10/23/25 00:00 Temperature 97.6 F Pulse Rate 93 97 Respiratory Rate 16 Blood Pressure 88/45 L Pulse Oximetry 95 95 Oxygen Delivery Room Air 10/23/25 04:00 10/23/25 04:50 10/23/25 08:00 Temperature 96.7 F L Pulse Rate 71 75 65 Respiratory Rate 18 Blood Pressure 112/67 Pulse Oximetry 97 Oxygen Delivery 10/23/25 09:05 Temperature Pulse Rate Respiratory Rate Blood Pressure Pulse Oximetry Oxygen Delivery Room Air Intake/Output Intake/Output: Intake & Output 10/20/25 10/21/25 10/22/25 10/23/25 23:59 23:59 23:59 23:59 Intake Total 2000 340 Output Total 400 300 Balance 1600 40 Meds/Results Medications: Active Medications Generic Name Dose Route Start Last Admin Trade Name Freq PRN Reason Stop Dose Admin Alprazolam 1 mg 10/22/25 16:36 10/22/25 20:04 Alprazolam (*Crx) 0.5 Mg Tablet PO 1 mg TID PRN Administration Anxiety Aspirin 81 mg 10/23/25 09:00 10/23/25 09:04 Aspirin 81 Mg Enteric Tablet PO 81 mg DAILY MILY Administration Buprenorphine HCl 8 mg 10/23/25 06:00 10/23/25 05:58 Buprenorphine Hcl (*Crx) 8 Mg Sublingual Tablet SUBLINGUAL 8 mg Q8HR MILY Administration Dextrose 12.5 gm 10/22/25 14:14 Dextrose 50% 25 Gm/50 Ml Syringe IV PUSH PRN PRN Hypoglycemia Protocol Enoxaparin Sodium 40 mg 10/22/25 21:00 10/22/25 20:03 Enoxaparin 40 Mg/0.4 Ml Syringe SUB-Q 40 mg HS MILY Administration Ergocalciferol 1,250 mcg 10/25/25 09:00 Ergocalciferol (Vitamin D2) 1,250 Mcg (50,000 Units) Capsule PO Fr@0900 MILY Finasteride 5 mg 10/23/25 09:00 10/23/25 09:04 Finasteride 5 Mg Tablet PO 5 mg DAILY MILY Administration Fish Oil 2 gm 10/22/25 17:00 10/23/25 09:05 Jackman 3 Polyunsat Fatty Acids 1 Gm Cap PO 2 gm BID MILY Administration Glucagon 1 mg 10/22/25 14:14 Glucagon For Inj 1 Mg Vial IM PRN PRN Hypoglycemia Protocol Glucose 15 gm 10/22/25 14:14 Glucose Oral Gel 15 Gm Of Glucse In 37.5 Gm Tube PO PRN PRN Hypoglycemia Protocol Hydrochlorothiazide 12.5 mg 10/23/25 09:00 10/23/25 09:04 Hydrochlorothiazide 12.5 Mg Capsule PO 12.5 mg DAILY MILY Administration Dextrose 1,000 mls @ 100 mls/hr 10/22/25 14:14 Dextrose 5% 1,000 Ml IVPB PRN PRN Hypoglycemia Protocol Insulin Aspart 2 - 5 units 10/22/25 17:00 10/23/25 11:54 Insulin Aspart (*Bkc) 100 Units/Ml SUB-Q Not Given TIDWM MILY Protocol Lamotrigine 400 mg 10/22/25 21:00 10/22/25 20:03 Lamotrigine 100 Mg Tablet PO 400 mg HS MILY Administration Multivitamins/Calcium 1 tablet 10/23/25 09:00 10/23/25 09:04 Therapeutic Multivitamins/Minerals Tab (*Bkc) PO 1 tablet DAILY MILY Administration Pantoprazole Sodium 40 mg 10/22/25 21:00 10/23/25 09:04 Pantoprazole 40 Mg Tablet PO 40 mg Q12HR MILY Administration Rizatriptan Benzoate 10 mg 10/22/25 16:36 Rizatriptan Benzoate 10 Mg Odt PO DAILY PRN Migraine Headache Rosuvastatin Calcium 20 mg 10/23/25 09:00 10/23/25 09:04 Rosuvastatin 20 Mg Tablet PO 20 mg DAILY MILY Administration Radiology Results: ITS Impressions Head CT 10/22/25 11:35 IMPRESSION: 1. Normal aging brain with mild diffuse volume loss. No acute intracranial process. Head/Neck CTA 10/22/25 11:46 IMPRESSION: 1. Minimal atherosclerotic plaque with 0% stenosis of the right carotid bulb relative to normal distal artery lumen diameter (NASCET criteria). 2. No evident atherosclerotic plaque with 0% stenosis of the left carotid bulb relative to normal distal artery lumen diameter. 3. Normal variation to the [place] of [place] with diminutive bilateral P1 segments with larger caliber patent bilateral posterior communicating arteries collateral flow to the circulation from the bilateral internal carotid arteries. Otherwise unremarkable cerebral CT angiogram with no hemodynamically significant stenosis, thrombosis or aneurysm. Labs Labs: Laboratory Results - last 24 hr 10/22/25 10/22/25 10/22/25 10:52 17:20 18:43 WBC RBC Hgb Hct MCV MCH MCHC RDW Plt Count MPV Immature Gran % (Auto) Neut % (Auto) Lymph % (Auto) [place] % (Auto) Eos % (Auto) Baso % (Auto) Lymph # (Auto) [place] # (Auto) Eos # (Auto) Baso # (Auto) Abs Immat Gran (auto) Absolute Neuts (auto) Absolute Nucleated RBC Nucleated RBC % Sodium Potassium Chloride Carbon Dioxide Anion Gap BUN Creatinine Estim Creat Clear Calc Estimated GFR Glucose POC Capillary Glucose 110 H Calcium Urine Opiates Screen Negative Urine Methadone Screen Negative Ur Barbiturates Screen Negative Ur Phencyclidine Scrn Negative Ur Amphetamine Screen Negative U Benzodiazepines Scrn Positive A Urine Cocaine Screen Negative U Cannabinoids Screen Negative Ethyl Alcohol < 10 10/22/25 10/23/25 10/23/25 20:10 05:47 07:31 WBC 8.8 RBC 4.59 L Hgb 13.0 L Hct 38.9 L MCV 84.7 MCH 28.3 MCHC 33.4 RDW 14.4 Plt Count 248 MPV 10.7 H Immature Gran % (Auto) 0.5 Neut % (Auto) 62.6 Lymph % (Auto) 28.5 [place] % (Auto) 7.2 Eos % (Auto) 0.7 Baso % (Auto) 0.5 Lymph # (Auto) 2.50 [place] # (Auto) 0.6 Eos # (Auto) 0.1 Baso # (Auto) 0.0 Abs Immat Gran (auto) 0.04 H Absolute Neuts (auto) 5.5 Absolute Nucleated RBC 0.000 Nucleated RBC % 0.0 Sodium 134 L Potassium 3.8 Chloride 99 Carbon Dioxide 30 Anion Gap 5 BUN 17 Creatinine 0.87 Estim Creat Clear Calc 88 Estimated GFR > 60 Glucose 102 POC Capillary Glucose 148 H 99 Calcium 9.9 Urine Opiates Screen Urine Methadone Screen Ur Barbiturates Screen Ur Phencyclidine Scrn Ur Amphetamine Screen U Benzodiazepines Scrn Urine Cocaine Screen U Cannabinoids Screen Ethyl Alcohol 10/23/25 11:36 WBC RBC Hgb Hct MCV MCH MCHC RDW Plt Count MPV Immature Gran % (Auto) Neut % (Auto) Lymph % (Auto) [place] % (Auto) Eos % (Auto) Baso % (Auto) Lymph # (Auto) [place] # (Auto) Eos # (Auto) Baso # (Auto) Abs Immat Gran (auto) Absolute Neuts (auto) Absolute Nucleated RBC Nucleated RBC % Sodium Potassium Chloride Carbon Dioxide Anion Gap BUN Creatinine Estim Creat Clear Calc Estimated GFR Glucose POC Capillary Glucose 85 Calcium Urine Opiates Screen Urine Methadone Screen Ur Barbiturates Screen Ur Phencyclidine Scrn Ur Amphetamine Screen U Benzodiazepines Scrn Urine Cocaine Screen U Cannabinoids Screen Ethyl Alcohol Quality VTE Prophylaxis VTE prophylaxis: pharmacologic ordered Hospitalist MIPS Advance Care Plan I have confirmed that the patient's Advanced Care Plan is present, code status is documented, or surrogate decision maker is listed in patient medical record.: Yes Medication Reconciliation I have utilized all available resources to obtain, update and review the patients current medications (includes all prescriptions, OTC, herbals, cannabis, and nutritional supplements).: Yes
--- NOTE | 2025-10-23 15:59 | PCNEURO ---
EEG will have to be completed tomorrow 10/23
[2025-10-23] MEDS: ALPRAZolam (*CRX) 0.5 MG TABLET 1 MG PO ×2 (16:22→21:30)
[2025-10-23] MEDS: ENOXAPARIN 40 MG/0.4 ML SYRINGE SUB-Q (21:30)
--- NOTE | 2025-10-23 22:42 | PM.EVENT ---
Event Note Event Note Event Note: Patient has blood pressure of 87/60. Repeated/verified. Reviewed previous vital signs, had similar pressure night prior around similar time. Reviewed home medications, only HS medication is Lovenox. Did receive alprazolam prior to blood pressure reading, however also received this medication at 4:00 p.m. with no effect on his blood pressure at that time. Received 2 L of IV fluids yesterday on 10/22. Will start LR at 100 mL/hour. Albumin within normal limits.
[2025-10-23] MEDS: LACTATED RINGERS 1,000 ML 100 ML IV CONT (23:27)
[2025-10-24] VITALS (9 sets, daily range): BP systolic 95–131; BP diastolic 56–80; PULSE 61–99; RESP 18; TEMP 36.2–36.3; O2SAT 95–99
--- NOTE | 2025-10-24 | ECHO_ITS ---
Patient Info Name: Toney Lomeli Age: 60 years : 1965 Gender: Male Ht: 71 in Wt: 177 lbs BSA: 2.01 m2 HR: 78 bpm BP: 95 / 56 mmHg Technical Quality: Fair Exam Date: 10/24/2025 2:59 PM Patient Status: I Admit Date: 10/26/2025 Exam Type: CA echo dop color flow w con Complete two-dimensional, color flow and Doppler transthoracic echocardiogram is performed with contrast to opacify the left ventricle and to improve the deliniation of the left ventricle endocardial borders. Staff Referring Physician: Caprice Gill [employer] Business Representative: Abhishek Hess III Attending Provider: José Montes Contrast/Agitated Saline Contrast/Ag. Saline: Definity Amount: 2.00 ml Administered By: Abhishek Hess III Existing IV Access: Yes IV Access Condition: patent with no signs of infiltration Summary 1. Left ventricular systolic function is normal, estimated at 50-55. 2. The left ventricular diastolic function is grade I diastolic dysfunction. 3. Right ventricular chamber dimension is mildly enlarged. 4. Right ventricular systolic function is normal. 5. There is mild tricuspid valve regurgitation. 6. The prox ascending aorta size is mildly dilated. Measures 4.2 cm. Left Ventricle Left ventricular chamber dimension is normal. Left ventricular systolic function is normal, estimated at 50-55. There is no increased left ventricular wall thickness. Left ventricular septal wall motion is normal. The left ventricular diastolic function is grade I diastolic dysfunction. Right Ventricle Right ventricular chamber dimension is mildly enlarged. Right ventricular systolic function is normal. Left Atria Left atrial chamber dimension is normal. Right Atria Right atrial chamber dimension is normal. Aortic Valve The aortic valve is trileaflet. There is no aortic valve sclerosis. There is no aortic valve stenosis. There is no aortic valve regurgitation. Pulmonic Valve The pulmonic valve is normal. There is no pulmonic valve stenosis. There is no pulmonic regurgitation. Mitral Valve The mitral valve has normal leaflets. There is no mitral valve stenosis. There is no mitral valve regurgitation. Tricuspid Valve The tricuspid valve leaflets are normal. There is no significant tricuspid valve stenosis. There is mild tricuspid valve regurgitation. No pulmonary hypertension, estimated pulmonary arterial systolic pressure is 32 mmHg. Pericardium/Pleural The pericardium appears normal. There is no pericardial effusion. Inferior Vena Cava Normal inferior vena cava with >50% collapse upon inspiration consistent with normal right atrial pressure, 5 mmHg. Aorta The aortic root size at the sinus of Valsalva is normal. The prox ascending aorta size is mildly dilated. Measures 4.2 cm. Left Ventricular Outflow Tract Name Value Normal LVOT 2D LVOT Diameter 2.5 cm LVOT Doppler LVOT Peak Velocity 110 cm/s LVOT Peak Gradient 5 mmHg LVOT Mean Gradient 3 mmHg LVOT VTI 24 cm LVOT VTI/AV VTI Ratio 1.0 LVOT Stroke Volume 117 ml LVOT CO 8.7 l/min LVOT CI 4.3 l/min/m2 Pulmonic Valve Name Value Normal PV Doppler PV Peak Velocity 87 cm/s PV Peak Gradient 3 mmHg PV Mean Gradient 2 mmHg Mitral Valve Name Value Normal MV Doppler MV Peak Gradient 3 mmHg MV Mean Gradient 1 mmHg MV Area (Cont Eq VTI) 5.1 cm2 MV Diastolic Function MV E Peak Velocity 80 cm/s MV A Peak Velocity 96 cm/s MV E/A 0.8 MV Decel Time (PW) 209 ms MV Annular TDI MV E/e' (Septal) 8.3 MV E/e' (Lateral) 8.3 MV E/e' (Average) 8.3 Tricuspid Valve Name Value Normal TV Regurgitation Doppler TR Peak Velocity 257 cm/s TR Peak Gradient 27 mmHg Estimated PAP/RSVP RA Pressure 5 mmHg <=5 PA Systolic Pressure 32 mmHg <36 RV Systolic Pressure 32 mmHg <36 TV Annular TDI TV Lateral Ciera s' Velocity 11.5 cm/s >=9.5 Aortic Valve Name Value Normal AV Doppler AV Peak Velocity 115 cm/s AV Peak Gradient 5 mmHg AV Mean Gradient 3 mmHg AV VTI 23 cm AV Area (Cont Eq VTI) 5.2 cm2 >=3.0 AV Area (Cont Eq Miki) 4.8 cm2 AV DI (Miki) 0.96 AV Regurgitation 2D LVOT Area 5.0 cm2 Ventricles Name Value Normal LV Dimensions 2D/MM IVS Diastolic Thickness (2D) 0.9 cm 0.6-1.0 LVID Diastole (2D) 4.9 cm 4.2-5.8 LVIW Diastolic Thickness (2D) 0.9 cm 0.6-1.0 LVID Systole (2D) 3.4 cm 2.5-4.0 LVOT Diameter 2.5 cm LV Mass (2D Cubed) 151.70 g 88.00-224.00 LV Mass Index (2D Cubed) 75 g/m2 49-115 Relative Wall Thickness (2D) 0.35 <=0.42 LV Fractional Shortening/Ejection Fraction 2D/MM LV Fractional Shortening (2D) 31 % 25-43 LV EF (2D Teichholz) 57 % LV Diastolic Volume (4C MOD) 128 ml LV EF (4C MOD) 54 % LV Diastolic Volume (2C MOD) 98 ml LV EF (2C MOD) 49 % LV Diastolic Volume (BP MOD) 117 ml 62-150 LV Diastolic Volume Index (BP MOD) 58 ml/m2 34-74 LV Systolic Volume (BP MOD) 58 ml 21-61 LV Systolic Volume Index (BP MOD) 29 ml/m2 11-31 LV EF (BP MOD) 51 % 52-72 LV Diastolic Length (4C) 9.1 cm LV Systolic Length (4C) 7.0 cm LV Stroke Volume (4C MOD) 69 ml Atria Name Value Normal LA Dimensions LA Volume (4C A-L) 48 ml LA Volume (BP A-L) 57 ml RA Dimensions RA Systolic Major [place] Length (4C) 6.2 cm 2.1-2.7 RA Area (4C) 21.2 cm2 <=18.0 Report Signatures
[2025-10-24] MEDS: ALPRAZolam (*CRX) 0.5 MG TABLET 1 MG PO (06:12)
[2025-10-24] MEDS: BUPRENORPHINE HCL (*CRX) 8 MG SUBLINGUAL TABLET SUBLINGUAL ×3 (06:12→21:33)
[2025-10-24 06:41] LABS: Hematocrit 34.2 % (42.0-52.0); Hemoglobin 11.5 g/dL (14.0-18.0); Mean Corpuscular HGB Conc 33.6 g/dl (32-36); Mean Corpuscular Hemoglobin 28.7 pg (26-34); Mean Corpuscular Volume 85.3 fl (80-100); Platelet Count Result 171 k/mm3 (150-375); Red Blood Count 4.01 M/mm3 (4.6-6.20); White Blood Count 4.8 K/mm3 (4.5-10.0)
[2025-10-24 07:05] LABS: Alanine Aminotransferase 29 U/L (6-50); Albumin Level 3.3 g/dL (3.5-5.1); Alkaline Phosphatase 47 U/L (38-126); Anion Gap 5 mmol/L (4-12); Aspartate Amino Transferase 27 U/L (17-59); Bilirubin,Total 0.4 mg/dL (0.2-1.3); Blood Urea Nitrogen 14 mg/dL (9-20); Calcium 8.8 mg/dL (8.4-10.2); Carbon Dioxide 30 mmol/L (22-30); Chloride 102 mmol/L (98-107); Estimated CRCL calculation 87 ml/min; Estimated Glomerular Filt Rate > 60; Glucose 127 mg/dL (65-110); Potassium 3.3 mmol/L (3.4-5.0); Sodium 137 mmol/L (137-145); Total Protein 5.7 g/dL (6.3-8.2)
[2025-10-24] MEDS: ASPIRIN 81 MG ENTERIC TABLET PO (09:07)
[2025-10-24] MEDS: FINASTERIDE 5 MG TABLET PO (09:08)
[2025-10-24] MEDS: PANTOPRAZOLE 40 MG TABLET PO ×2 (09:08→21:33)
[2025-10-24] MEDS: ROSUVASTATIN 20 MG TABLET PO (09:08)
[2025-10-24] MEDS: THERAPEUTIC MULTIVITAMINS/MINERALS TAB (*BKC) 1 TABLET PO (09:08)
[2025-10-24] MEDS: OMEGA 3 POLYUNSAT FATTY ACIDS 1 GM CAP 2 GM PO ×2 (09:08→18:17)
[2025-10-24] MEDS: LACTATED RINGERS 1,000 ML 100 ML IV CONT ×2 (09:30→23:21)
--- NOTE | 2025-10-24 12:28 | PM.IMPN2 ---
Assessment and Plan Assessment and Plan (1) Altered mental status: Qualifiers: Altered mental status type: unspecified Qualified Code(s): R41.82 - Altered mental status, unspecified Code(s): R41.82 - Altered mental status, unspecified Status: Acute Assessment and Plan: Possible seizure at home witnessed by lasting about 30 seconds described as full body stiffening. Patient profoundly confused after event and aggressive with EMS. Remained A&O x1 in the ED. CT head and CTA head neck unremarkable. -seizure precautions -neurology consult -MRI performed no significant finding -EEG ordered MRI brain: 1. Small area of possibly restricted diffusion in the left pontine portion of the brainstem likely artifactual. No abnormal T2-weighted signal or enhancement pathology seen in this area. 2. Probable small developmental venous anomaly in the right frontal lobe. Head/neck CTA :no significant finding (2) Essential (primary) hypertension: Code(s): I10 - Essential (primary) hypertension Status: Chronic Assessment and Plan: Hold hydrochlorothiazide due to hypertension (3) Type 2 diabetes mellitus without complication, without long-term current use of insulin: Code(s): E11.9 - Type 2 diabetes mellitus without complications Status: Chronic Assessment and Plan: - hypoglycemia protocol - POC blood glucose ACHS - home medication: Metformin - correct regimen ordered: Low-dose sliding scale (4) Major depression, recurrent, chronic: Code(s): F33.9 - Major depressive disorder, recurrent, unspecified Status: Chronic Assessment and Plan: Continue Lamictal (5) Chronic anxiety: Code(s): F41.9 - Anxiety disorder, unspecified Status: Chronic Assessment and Plan: Continue alprazolam p.r.n. (6) Hypotension: Code(s): I95.9 - Hypotension, unspecified Status: Acute Assessment and Plan: Order echocardiogram Ordered blood culture and lactic acid Decrease lorazepam from 1 mg to 0.5 mg p.r.n. t.i.d. Received 2 L Currently on 100 mL/hour NSS Hold hydrochlorothiazide Plan Diet: Consistent carb, heart healthy DVT prophylaxis: Lovenox lines/drains: PIV Fluids: 1 L LR Code status: Full Subjective Date/time seen: 10/24/25 12:28 Interval history: 10/24:Patient has delayed speech but no evidence of neuro deficits. MRI was performed and no significant finding. Will small development venous anomaly in the right frontal. Will discuss with Neuro. Head/neck CTA no significant finding. EEG pending 10/25: Patient had episode of low blood pressure and started on fluids. Yesterday he received 2 L. will order echocardiogram. No signs of infection. Will order blood culture and lactic acid. Decreased her lorazepam dosage from 1 mg to .5 t.i.d. p.r.n. for anxiety Review of Systems Review of Systems: All systems reviewed & are unremarkable except as noted in HPI and below Exam Narrative: GENERAL: non-toxic appearing,Drowsy HEAD: Normocephalic, atraumatic. EYES: PERRLA. Conjunctivae clear. NOSE: Normal no drainage. THROAT: Pharynx clear, no exudate. NECK: Trachea midline. No adenopathy, no masses. RESPIRATORY: Airway patent, respirations nonlabored. CTA. CARDIOVASCULAR: tachycardia on the monitor. Regular rhythm GASTROINTESTINAL: Abdomen is soft and nontender. No organomegaly. Bowel sounds normal in all quadrants. GENITOURINARY: Defer MUSCULOSKELETAL: Moves all extremities. No gross deformities. SKIN: Warm, dry, normal color. NEURO: A&O to self only. Neck and facial twitching noted. Patient usually around Objective Data Vital Signs Vital Signs: Vital Signs - 24 hr 10/23/25 14:00 10/23/25 16:00 10/23/25 20:00 Temperature 97.9 F Pulse Rate 74 74 74 Respiratory Rate 18 18 Blood Pressure 105/70 Pulse Oximetry 97 97 Oxygen Delivery Room Air 10/23/25 21:10 10/24/25 00:00 10/24/25 04:00 Temperature 96.9 F L Pulse Rate 65 61 63 Respiratory Rate 20 Blood Pressure 87/60 L Pulse Oximetry 96 Oxygen Delivery 10/24/25 04:45 10/24/25 08:00 10/24/25 09:05 Temperature 97.2 F L Pulse Rate 69 78 Respiratory Rate 18 Blood Pressure 95/56 L Pulse Oximetry 95 Oxygen Delivery Room Air Intake/Output Intake/Output: Intake & Output 10/21/25 10/22/25 10/23/25 10/24/25 23:59 23:59 23:59 23:59 Intake Total 1999 1600 1150 Output Total 400 510 Balance 1600 1090 1150 Meds/Results Medications: Active Medications Generic Name Dose Route Start Last Admin Trade Name Freq PRN Reason Stop Dose Admin Alprazolam 1 mg 10/22/25 16:36 10/24/25 06:12 Alprazolam (*Crx) 0.5 Mg Tablet PO 1 mg TID PRN Administration Anxiety Aspirin 81 mg 10/23/25 09:00 10/24/25 09:07 Aspirin 81 Mg Enteric Tablet PO 81 mg DAILY MILY Administration Buprenorphine HCl 8 mg 10/23/25 06:00 10/24/25 06:12 Buprenorphine Hcl (*Crx) 8 Mg Sublingual Tablet SUBLINGUAL 8 mg Q8HR MILY Administration Dextrose 12.5 gm 10/22/25 14:14 Dextrose 50% 25 Gm/50 Ml Syringe IV PUSH PRN PRN Hypoglycemia Protocol Enoxaparin Sodium 40 mg 10/22/25 21:00 10/23/25 21:30 Enoxaparin 40 Mg/0.4 Ml Syringe SUB-Q 40 mg HS MILY Administration Ergocalciferol 1,250 mcg 10/25/25 09:00 Ergocalciferol (Vitamin D2) 1,250 Mcg (50,000 Units) Capsule PO Fr@0900 MILY Finasteride 5 mg 10/23/25 09:00 10/24/25 09:08 Finasteride 5 Mg Tablet PO 5 mg DAILY MILY Administration Fish Oil 2 gm 10/22/25 17:00 10/24/25 09:08 [place] 3 Polyunsat Fatty Acids 1 Gm Cap PO 2 gm BID MILY Administration Glucagon 1 mg 10/22/25 14:14 Glucagon For Inj 1 Mg Vial IM PRN PRN Hypoglycemia Protocol Glucose 15 gm 10/22/25 14:14 Glucose Oral Gel 15 Gm Of Glucse In 37.5 Gm Tube PO PRN PRN Hypoglycemia Protocol Hydrochlorothiazide 12.5 mg 10/23/25 09:00 10/24/25 09:07 Hydrochlorothiazide 12.5 Mg Capsule PO 12.5 mg DAILY MILY Administration Dextrose 1,000 mls @ 100 mls/hr 10/22/25 14:14 Dextrose 5% 1,000 Ml IVPB PRN PRN Hypoglycemia Protocol Lactated Ringer's 1,000 mls @ 100 mls/hr 10/23/25 23:10 10/24/25 09:30 Lr - Lactated Ringers Iv IV CONT 100 mls/hr .Q10H MILY Administration Insulin Aspart 2 - 5 units 10/22/25 17:00 10/24/25 09:06 Insulin Aspart (*Bkc) 100 Units/Ml SUB-Q Not Given TIDWM [facility] Protocol Lamotrigine 400 mg 10/22/25 21:00 10/23/25 21:30 Lamotrigine 100 Mg Tablet PO 400 mg HS MILY Administration Multivitamins/Calcium 1 tablet 10/23/25 09:00 10/24/25 09:08 Therapeutic Multivitamins/Minerals Tab (*Bkc) PO 1 tablet DAILY MILY Administration Pantoprazole Sodium 40 mg 10/22/25 21:00 10/24/25 09:08 Pantoprazole 40 Mg Tablet PO 40 mg Q12HR MILY Administration Rizatriptan Benzoate 10 mg 10/22/25 16:36 Rizatriptan Benzoate 10 Mg Odt PO DAILY PRN Migraine Headache Rosuvastatin Calcium 20 mg 10/23/25 09:00 10/24/25 09:08 Rosuvastatin 20 Mg Tablet PO 20 mg DAILY MILY Administration Radiology Results: ITS Impressions Head CT 10/22/25 11:35 IMPRESSION: 1. Normal aging brain with mild diffuse volume loss. No acute intracranial process. Head/Neck CTA 10/22/25 11:46 IMPRESSION: 1. Minimal atherosclerotic plaque with 0% stenosis of the right carotid bulb relative to normal distal artery lumen diameter (NASCET criteria). 2. No evident atherosclerotic plaque with 0% stenosis of the left carotid bulb relative to normal distal artery lumen diameter. 3. Normal variation to the [place] of [place] with diminutive bilateral P1 segments with larger caliber patent bilateral posterior communicating arteries collateral flow to the circulation from the bilateral internal carotid arteries. Otherwise unremarkable cerebral CT angiogram with no hemodynamically significant stenosis, thrombosis or aneurysm. Brain MRI 10/23/25 12:28 IMPRESSION: 1. Small area of possibly restricted diffusion in the left pontine portion of the brainstem likely artifactual. No abnormal T2-weighted signal or enhancement pathology seen in this area. 2. Probable small developmental venous anomaly in the right frontal lobe. Labs Labs: Laboratory Results - last 24 hr 10/23/25 10/23/25 10/24/25 16:37 21:12 05:56 WBC 4.8 RBC 4.01 L Hgb 11.5 L Hct 34.2 L MCV 85.3 MCH 28.7 MCHC 33.6 RDW 14.2 Plt Count 171 MPV 10.9 H Sodium 137 Potassium 3.3 L Chloride 102 Carbon Dioxide 30 Anion Gap 5 BUN 14 Creatinine 0.88 Estim Creat Clear Calc 87 Estimated GFR > 60 Glucose 127 H POC Capillary Glucose 118 H 134 H Calcium 8.8 Total Bilirubin 0.4 AST 27 ALT 29 Alkaline Phosphatase 47 Total Protein 5.7 L Albumin 3.3 L 10/24/25 07:45 WBC RBC Hgb Hct MCV MCH MCHC RDW Plt Count MPV Sodium Potassium Chloride Carbon Dioxide Anion Gap BUN Creatinine Estim Creat Clear Calc Estimated GFR Glucose POC Capillary Glucose 126 H Calcium Total Bilirubin AST ALT Alkaline Phosphatase Total Protein Albumin Quality VTE Prophylaxis VTE prophylaxis: pharmacologic ordered Hospitalist [facility] Advance Care Plan I have confirmed that the patient's Advanced Care Plan is present, code status is documented, or surrogate decision maker is listed in patient medical record.: Yes Medication Reconciliation I have utilized all available resources to obtain, update and review the patients current medications (includes all prescriptions, OTC, herbals, cannabis, and nutritional supplements).: Yes
[2025-10-24] MEDS: ALPRAZolam (*CRX) 0.5 MG TABLET PO ×2 (12:43→21:33)
[2025-10-24] MEDS: POTASSIUM CHLORIDE 20 MEQ ER TABLET 40 MEQ PO (12:45)
[2025-10-24] MEDS: PERFLUTREN LIPID MICROSPHERES 1.5 ML VIAL DILUTED TO 10 ML TOTAL VOLUME IV PUSH (16:59)
--- NOTE | 2025-10-24 16:59 | IVDEFINITY ---
Prior to administration of IV Definity the patient was educated on the risks and benefits of the imaging enhancing agent including potential adverse side effects. The patient verbalized understanding. Allergies were verified. No exclusion criteria were identified and at least one of the following inclusion criteria were met: 1) physician request, 2) patient technically difficult to image (per the [place] [employer] guidelines of two or more segments not discernable within the apical view), or 3) questionable left ventricular function. ?
[2025-10-24] MEDS: ENOXAPARIN 40 MG/0.4 ML SYRINGE SUB-Q (21:32)
[2025-10-24] MEDS: diphenhydrAMINE HCl CAP 25 MG CAPSULE PO (23:21)
[2025-10-25] VITALS (8 sets, daily range): BP systolic 126–148; BP diastolic 75–85; PULSE 64–89; RESP 17–20; TEMP 36.2–36.9; O2SAT 98–100
[2025-10-25] MEDS: BUPRENORPHINE HCL (*CRX) 8 MG SUBLINGUAL TABLET SUBLINGUAL ×3 (06:05→21:03)
[2025-10-25] MEDS: ALPRAZolam (*CRX) 0.5 MG TABLET PO ×2 (06:05→21:04)
--- NOTE | 2025-10-25 06:19 | PC.NURSE ---
Patient wanted this nurse to make a note regarding his sleep. Patient has not slept all night and spent the whole night talking with his roommate. Patient is also displeased that is alprazolam dose was cut in half. Patients sense of time is still off. Does not remember anything on Tuesday, partially remembers Tuesday. Patient's blood pressure has improved with fluids and is holding stable. Patient has broken out in a rash in which he has now been prescribed diphenhydramine PO and discontinued enoxaparin and pantoprazole.
[2025-10-25 06:20] LABS: Hematocrit 39.0 % (42.0-52.0); Hemoglobin 12.8 g/dL (14.0-18.0); Mean Corpuscular HGB Conc 32.8 g/dl (32-36); Mean Corpuscular Hemoglobin 28.4 pg (26-34); Mean Corpuscular Volume 86.5 fl (80-100); Platelet Count Result 222 k/mm3 (150-375); Red Blood Count 4.51 M/mm3 (4.6-6.20); White Blood Count 5.1 K/mm3 (4.5-10.0)
[2025-10-25 06:41] LABS: Alanine Aminotransferase 33 U/L (6-50); Albumin Level 4.2 g/dL (3.5-5.1); Alkaline Phosphatase 48 U/L (38-126); Anion Gap 6 mmol/L (4-12); Aspartate Amino Transferase 26 U/L (17-59); Bilirubin,Total 0.4 mg/dL (0.2-1.3); Blood Urea Nitrogen 11 mg/dL (9-20); Calcium 9.8 mg/dL (8.4-10.2); Carbon Dioxide 32 mmol/L (22-30); Chloride 101 mmol/L (98-107); Estimated CRCL calculation 90 ml/min; Estimated Glomerular Filt Rate > 60; Glucose 116 mg/dL (65-110); Potassium 3.7 mmol/L (3.4-5.0); Sodium 139 mmol/L (137-145); Total Protein 7.0 g/dL (6.3-8.2)
[2025-10-25] MEDS: RIZATRIPTAN BENZOATE 10 MG ODT PO ×2 (07:47→21:03)
[2025-10-25] MEDS: FINASTERIDE 5 MG TABLET PO (08:50)
[2025-10-25] MEDS: THERAPEUTIC MULTIVITAMINS/MINERALS TAB (*BKC) 1 TABLET PO (08:51)
[2025-10-25] MEDS: ASPIRIN 81 MG ENTERIC TABLET PO (08:51)
[2025-10-25] MEDS: ROSUVASTATIN 20 MG TABLET PO (08:51)
[2025-10-25] MEDS: OMEGA 3 POLYUNSAT FATTY ACIDS 1 GM CAP 2 GM PO ×2 (08:57→16:37)
[2025-10-25] MEDS: ERGOCALCIFEROL (VITAMIN D2) 1,250 MCG (50,000 UNITS) CAPSULE 1250 MCG PO (08:57)
[2025-10-25] MEDS: LACTATED RINGERS 1,000 ML 100 ML IV CONT (10:33)
--- NOTE | 2025-10-25 11:22 | P.PNIM_ITS ---
Assessment and Plan Assessment and Plan (1) Altered mental status: Qualifiers: Altered mental status type: unspecified Qualified Code(s): R41.82 - Altered mental status, unspecified Code(s): R41.82 - Altered mental status, unspecified Status: Acute Assessment and Plan: Possible seizure at home witnessed by lasting about 30 seconds described as full body stiffening. Patient profoundly confused after event and aggressive with EMS. Remained A&O x1 in the ED. CT head and CTA head neck unremarkable. -seizure precautions -neurology consult -MRI performed no significant finding -EEG ordered MRI brain: 1. Small area of possibly restricted diffusion in the left pontine portion of the brainstem likely artifactual. No abnormal T2-weighted signal or enhancement pathology seen in this area. 2. Probable small developmental venous anomaly in the right frontal lobe. Head/neck CTA :no significant finding (2) Essential (primary) hypertension: Code(s): I10 - Essential (primary) hypertension Status: Chronic Assessment and Plan: Hold hydrochlorothiazide due to hypertension (3) Type 2 diabetes mellitus without complication, without long-term current use of insulin: Code(s): E11.9 - Type 2 diabetes mellitus without complications Status: Chronic Assessment and Plan: - hypoglycemia protocol - POC blood glucose ACHS - home medication: Metformin - correct regimen ordered: Low-dose sliding scale (4) Major depression, recurrent, chronic: Code(s): F33.9 - Major depressive disorder, recurrent, unspecified Status: Chronic Assessment and Plan: Continue Lamictal (5) Chronic anxiety: Code(s): F41.9 - Anxiety disorder, unspecified Status: Chronic Assessment and Plan: Continue alprazolam p.r.n. (6) Hypotension: Code(s): I95.9 - Hypotension, unspecified Status: Acute Assessment and Plan: Order echocardiogram Ordered blood culture and lactic acid to rule out infectious cause Decreased lorazepam from 1 mg to 0.5 mg p.r.n. t.i.d. but patient insisting on 1 mg p.o. t.i.d. Received 2 L Hold 100 mL/hour NSS Hold hydrochlorothiazide Plan Diet: Consistent carb, heart healthy DVT prophylaxis: Lovenox lines/drains: PIV Fluids: 1 L LR Code status: Full Subjective Date/time seen: 10/25/25 11:22 Interval history: 10/23:Patient has delayed speech but no evidence of neuro deficits. MRI was performed and no significant finding. Will small development venous anomaly in the right frontal. Will discuss with Neuro. Head/neck CTA no significant finding. EEG pending 10/24: Patient had episode of low blood pressure and started on fluids. Yesterday he received 2 L. will order echocardiogram. No signs of infection. Will order blood culture and lactic acid. Decreased her lorazepam dosage from 1 mg to .5 t.i.d. p.r.n. for anxiety 10/25: Echocardiogram performed pending results. Blood culture and EEG pending. Patient complains of rash in the back and also anxious. Increased Ativan from 0.5 mg to 1 mg p.o. t.i.d. p.r.n. his home dose. Explained in detail about Ativan can cause low blood pressure in spite of the explanation patient still wants his dosage to be increased. Discontinue fluids for now. Review of Systems Review of Systems: All systems reviewed & are unremarkable except as noted in HPI and below Exam Narrative: GENERAL: non-toxic appearing,Drowsy HEAD: Normocephalic, atraumatic. EYES: PERRLA. Conjunctivae clear. NOSE: Normal no drainage. THROAT: Pharynx clear, no exudate. NECK: Trachea midline. No adenopathy, no masses. RESPIRATORY: Airway patent, respirations nonlabored. CTA. CARDIOVASCULAR: tachycardia on the monitor. Regular rhythm GASTROINTESTINAL: Abdomen is soft and nontender. No organomegaly. Bowel sounds normal in all quadrants. GENITOURINARY: Defer MUSCULOSKELETAL: Moves all extremities. No gross deformities. SKIN: Warm, dry, normal color. NEURO: A&O to self only. Neck and facial twitching noted. Patient usually around Objective Data Vital Signs Vital Signs: Vital Signs - 24 hr 10/24/25 12:00 10/24/25 14:00 10/24/25 16:00 Temperature 97.3 F L Pulse Rate 69 66 99 Respiratory Rate 18 Blood Pressure 131/67 Pulse Oximetry 99 Oxygen Delivery 10/24/25 20:00 10/24/25 20:00 10/24/25 21:35 Temperature 97.3 F L Pulse Rate 76 77 76 Respiratory Rate 18 18 Blood Pressure 118/80 Pulse Oximetry 99 99 Oxygen Delivery Room Air 10/25/25 00:00 10/25/25 04:00 10/25/25 05:44 Temperature 98.4 F Pulse Rate 77 89 76 Respiratory Rate 17 Blood Pressure 126/75 Pulse Oximetry 100 Oxygen Delivery 10/25/25 08:00 Temperature Pulse Rate 80 Respiratory Rate Blood Pressure Pulse Oximetry Oxygen Delivery Intake/Output Intake/Output: Intake & Output 10/22/25 10/23/25 10/24/25 10/25/25 23:59 23:59 23:59 23:59 Intake Total 1999 1600 2850 1400 Output Total 867 506 5959 Balance 1600 1090 2850 -200 Meds/Results Medications: Active Medications Generic Name Dose Route Start Last Admin Trade Name Freq PRN Reason Stop Dose Admin Alprazolam 0.5 mg 10/24/25 12:32 10/25/25 06:05 Alprazolam (*Crx) 0.5 Mg Tablet PO 0.5 mg TID PRN Administration Anxiety Aspirin 81 mg 10/23/25 09:00 10/25/25 08:51 Aspirin 81 Mg Enteric Tablet PO 81 mg DAILY MILY Administration Buprenorphine HCl 8 mg 10/23/25 06:00 10/25/25 06:05 Buprenorphine Hcl (*Crx) 8 Mg Sublingual Tablet SUBLINGUAL 8 mg Q8HR MILY Administration Dextrose 12.5 gm 10/22/25 14:14 Dextrose 50% 25 Gm/50 Ml Syringe IV PUSH PRN PRN Hypoglycemia Protocol Diphenhydramine HCl 25 mg 10/24/25 21:50 10/24/25 23:21 Diphenhydramine Hcl Cap 25 Mg Capsule PO 25 mg Q6H PRN Administration Itching Ergocalciferol 1,250 mcg 10/25/25 09:00 10/25/25 08:57 Ergocalciferol (Vitamin D2) 1,250 Mcg (50,000 Units) Capsule PO 1,250 mcg Fr@0900 MILY Administration Finasteride 5 mg 10/23/25 09:00 10/25/25 08:50 Finasteride 5 Mg Tablet PO 5 mg DAILY MILY Administration Fish Oil 2 gm 10/22/25 17:00 10/25/25 08:57 [place] 3 Polyunsat Fatty Acids 1 Gm Cap PO 2 gm BID MILY Administration Glucagon 1 mg 10/22/25 14:14 Glucagon For Inj 1 Mg Vial IM PRN PRN Hypoglycemia Protocol Glucose 15 gm 10/22/25 14:14 Glucose Oral Gel 15 Gm Of Glucse In 37.5 Gm Tube PO PRN PRN Hypoglycemia Protocol Hydrochlorothiazide 12.5 mg 10/23/25 09:00 10/24/25 09:07 Hydrochlorothiazide 12.5 Mg Capsule PO 12.5 mg On Hold: 10/24/25 12:33 DAILY MILY Administration Dextrose 1,000 mls @ 100 mls/hr 10/22/25 14:14 Dextrose 5% 1,000 Ml IVPB PRN PRN Hypoglycemia Protocol Lactated Ringer's 1,000 mls @ 100 mls/hr 10/23/25 23:10 10/25/25 10:33 Lr - Lactated Ringers Iv IV CONT 100 mls/hr .Q10H MILY Administration Insulin Aspart 2 - 5 units 10/22/25 17:00 10/25/25 08:52 Insulin Aspart (*Bkc) 100 Units/Ml SUB-Q Not Given TIDWM MILY Protocol Lamotrigine 400 mg 10/22/25 21:00 10/24/25 21:33 Lamotrigine 100 Mg Tablet PO 400 mg HS MILY Administration Multivitamins/Calcium 1 tablet 10/23/25 09:00 10/25/25 08:51 Therapeutic Multivitamins/Minerals Tab (*Bkc) PO 1 tablet DAILY MILY Administration Rizatriptan Benzoate 10 mg 10/22/25 16:36 10/25/25 07:47 Rizatriptan Benzoate 10 Mg Odt PO 10 mg DAILY PRN Administration Migraine Headache Rosuvastatin Calcium 20 mg 10/23/25 09:00 10/25/25 08:51 Rosuvastatin 20 Mg Tablet PO 20 mg DAILY MILY Administration Radiology Results: ITS Impressions Head CT 10/22/25 11:35 IMPRESSION: 1. Normal aging brain with mild diffuse volume loss. No acute intracranial process. Head/Neck CTA 10/22/25 11:46 IMPRESSION: 1. Minimal atherosclerotic plaque with 0% stenosis of the right carotid bulb relative to normal distal artery lumen diameter (NASCET criteria). 2. No evident atherosclerotic plaque with 0% stenosis of the left carotid bulb relative to normal distal artery lumen diameter. 3. Normal variation to the [place] of [place] with diminutive bilateral P1 segments with larger caliber patent bilateral posterior communicating arteries collateral flow to the circulation from the bilateral internal carotid arteries. Otherwise unremarkable cerebral CT angiogram with no hemodynamically significant stenosis, thrombosis or aneurysm. Brain MRI 10/23/25 12:28 IMPRESSION: 1. Small area of possibly restricted diffusion in the left pontine portion of the brainstem likely artifactual. No abnormal T2-weighted signal or enhancement pathology seen in this area. 2. Probable small developmental venous anomaly in the right frontal lobe. Labs Labs: Laboratory Results - last 24 hr 10/24/25 10/24/25 10/24/25 11:23 13:33 17:03 WBC RBC Hgb Hct MCV MCH MCHC RDW Plt Count MPV Sodium Potassium Chloride Carbon Dioxide Anion Gap BUN Creatinine Estim Creat Clear Calc Estimated GFR Glucose POC Capillary Glucose 124 H 159 H Lactic Acid 1.3 Calcium Total Bilirubin AST ALT Alkaline Phosphatase Total Protein Albumin 10/24/25 10/25/25 10/25/25 19:55 05:33 07:35 WBC 5.1 RBC 4.51 L Hgb 12.8 L Hct 39.0 L MCV 86.5 MCH 28.4 MCHC 32.8 RDW 14.6 H Plt Count 222 MPV 10.9 H Sodium 139 Potassium 3.7 Chloride 101 Carbon Dioxide 32 H Anion Gap 6 BUN 11 Creatinine 0.85 Estim Creat Clear Calc 90 Estimated GFR > 60 Glucose 116 H POC Capillary Glucose 114 H 110 H Lactic Acid Calcium 9.8 Total Bilirubin 0.4 AST 26 ALT 33 Alkaline Phosphatase 48 Total Protein 7.0 Albumin 4.2 Quality VTE Prophylaxis VTE prophylaxis: pharmacologic ordered Hospitalist [facility] Advance Care Plan I have confirmed that the patient's Advanced Care Plan is present, code status is documented, or surrogate decision maker is listed in patient medical record.: Yes Medication Reconciliation I have utilized all available resources to obtain, update and review the patients current medications (includes all prescriptions, OTC, herbals, cannabis, and nutritional supplements).: Yes
[2025-10-25] MEDS: hydrOXYzine HCL 12.5 MG TABLET PO (13:45)
[2025-10-26] VITALS: PULSE 83
[2025-10-26 04:00] VITALS: PULSE 59
[2025-10-26] MEDS: ALPRAZolam (*CRX) 0.5 MG TABLET PO (05:09)
[2025-10-26] MEDS: BUPRENORPHINE HCL (*CRX) 8 MG SUBLINGUAL TABLET SUBLINGUAL ×2 (05:09→14:25)
[2025-10-26 06:00] VITALS: BP 129/77; PULSE 92; RESP 20; TEMP 36.4; O2SAT 98
--- NOTE | 2025-10-26 07:54 | PM.IMPN2 ---
Assessment and Plan Assessment and Plan (1) Altered mental status: Qualifiers: Altered mental status type: unspecified Qualified Code(s): R41.82 - Altered mental status, unspecified Code(s): R41.82 - Altered mental status, unspecified Status: Acute Assessment and Plan: Possible seizure at home witnessed by lasting about 30 seconds described as full body stiffening. Patient profoundly confused after event and aggressive with EMS. Remained A&O x1 in the ED. CT head and CTA head neck unremarkable. -seizure precautions -neurology consult -MRI performed no significant finding -EEG ordered MRI brain: 1. Small area of possibly restricted diffusion in the left pontine portion of the brainstem likely artifactual. No abnormal T2-weighted signal or enhancement pathology seen in this area. 2. Probable small developmental venous anomaly in the right frontal lobe. Head/neck CTA :no significant finding (2) Essential (primary) hypertension: Code(s): I10 - Essential (primary) hypertension Status: Chronic Assessment and Plan: Hold hydrochlorothiazide due to hypertension (3) Type 2 diabetes mellitus without complication, without long-term current use of insulin: Code(s): E11.9 - Type 2 diabetes mellitus without complications Status: Chronic Assessment and Plan: - hypoglycemia protocol - POC blood glucose ACHS - home medication: Metformin - correct regimen ordered: Low-dose sliding scale (4) Major depression, recurrent, chronic: Code(s): F33.9 - Major depressive disorder, recurrent, unspecified Status: Chronic Assessment and Plan: Continue Lamictal (5) Chronic anxiety: Code(s): F41.9 - Anxiety disorder, unspecified Status: Chronic Assessment and Plan: Continue alprazolam p.r.n. (6) Hypotension: Code(s): I95.9 - Hypotension, unspecified Status: Acute Assessment and Plan: Order echocardiogram Ordered blood culture and lactic acid to rule out infectious cause Decreased lorazepam from 1 mg to 0.5 mg p.r.n. t.i.d. but patient insisting on 1 mg p.o. t.i.d. Received 2 L Hold 100 mL/hour NSS Hold hydrochlorothiazide Plan Diet: Consistent carb, heart healthy DVT prophylaxis: Lovenox lines/drains: PIV Fluids: 1 L LR Code status: Full Subjective Date/time seen: 10/26/25 07:54 Interval history: 10/23:Patient has delayed speech but no evidence of neuro deficits. MRI was performed and no significant finding. Will small development venous anomaly in the right frontal. Will discuss with Neuro. Head/neck CTA no significant finding. EEG pending 10/24: Patient had episode of low blood pressure and started on fluids. Yesterday he received 2 L. will order echocardiogram. No signs of infection. Will order blood culture and lactic acid. Decreased her lorazepam dosage from 1 mg to .5 t.i.d. p.r.n. for anxiety 10/25: Echocardiogram performed pending results. Blood culture and EEG pending. Patient complains of rash in the back and also anxious. Increased Ativan from 0.5 mg to 1 mg p.o. t.i.d. p.r.n. his home dose. Explained in detail about Ativan can cause low blood pressure in spite of the explanation patient still wants his dosage to be increased. Discontinue fluids for now. Review of Systems Review of Systems: All systems reviewed & are unremarkable except as noted in HPI and below Exam Narrative: GENERAL: non-toxic appearing,Drowsy HEAD: Normocephalic, atraumatic. EYES: PERRLA. Conjunctivae clear. NOSE: Normal no drainage. THROAT: Pharynx clear, no exudate. NECK: Trachea midline. No adenopathy, no masses. RESPIRATORY: Airway patent, respirations nonlabored. CTA. CARDIOVASCULAR: tachycardia on the monitor. Regular rhythm GASTROINTESTINAL: Abdomen is soft and nontender. No organomegaly. Bowel sounds normal in all quadrants. GENITOURINARY: Defer MUSCULOSKELETAL: Moves all extremities. No gross deformities. SKIN: Warm, dry, normal color. NEURO: A&O to self only. Neck and facial twitching noted. Patient usually around Objective Data Vital Signs Vital Signs: Vital Signs - 24 hr 10/25/25 08:00 10/25/25 12:00 10/25/25 13:34 Temperature 97.1 F L Pulse Rate 80 64 69 Respiratory Rate 18 Blood Pressure 134/85 Pulse Oximetry 100 Oxygen Delivery 10/25/25 16:00 10/25/25 20:00 10/25/25 21:29 Temperature 97.1 F L Pulse Rate 65 66 Respiratory Rate 20 Blood Pressure 148/76 H Pulse Oximetry 98 Oxygen Delivery Room Air 10/26/25 00:00 10/26/25 04:00 10/26/25 06:00 Temperature 97.5 F L Pulse Rate 83 59 L 92 Respiratory Rate 20 Blood Pressure 129/77 Pulse Oximetry 98 Oxygen Delivery Intake/Output Intake/Output: Intake & Output 10/23/25 10/24/25 10/25/25 10/26/25 23:59 23:59 23:59 23:59 Intake Total 1600 2850 2400 500 Output Total 510 1600 Balance 1090 2850 800 500 Meds/Results Medications: Active Medications Generic Name Dose Route Start Last Admin Trade Name Freq PRN Reason Stop Dose Admin Alprazolam 0.5 mg 10/24/25 12:32 10/26/25 05:09 Alprazolam (*Crx) 0.5 Mg Tablet PO 0.5 mg TID PRN Administration Anxiety Aspirin 81 mg 10/23/25 09:00 10/25/25 08:51 Aspirin 81 Mg Enteric Tablet PO 81 mg DAILY MILY Administration Buprenorphine HCl 8 mg 10/23/25 06:00 10/26/25 05:09 Buprenorphine Hcl (*Crx) 8 Mg Sublingual Tablet SUBLINGUAL 8 mg Q8HR MILY Administration Dextrose 12.5 gm 10/22/25 14:14 Dextrose 50% 25 Gm/50 Ml Syringe IV PUSH PRN PRN Hypoglycemia Protocol Diphenhydramine HCl 25 mg 10/24/25 21:50 10/24/25 23:21 Diphenhydramine Hcl Cap 25 Mg Capsule PO 25 mg Q6H PRN Administration Itching Ergocalciferol 1,250 mcg 10/25/25 09:00 10/25/25 08:57 Ergocalciferol (Vitamin D2) 1,250 Mcg (50,000 Units) Capsule PO 1,250 mcg Fr@0900 MILY Administration Finasteride 5 mg 10/23/25 09:00 10/25/25 08:50 Finasteride 5 Mg Tablet PO 5 mg DAILY MILY Administration Fish Oil 2 gm 10/22/25 17:00 10/25/25 16:37 [place] 3 Polyunsat Fatty Acids 1 Gm Cap PO 2 gm BID MILY Administration Glucagon 1 mg 10/22/25 14:14 Glucagon For Inj 1 Mg Vial IM PRN PRN Hypoglycemia Protocol Glucose 15 gm 10/22/25 14:14 Glucose Oral Gel 15 Gm Of Glucse In 37.5 Gm Tube PO PRN PRN Hypoglycemia Protocol Hydrochlorothiazide 12.5 mg 10/23/25 09:00 10/24/25 09:07 Hydrochlorothiazide 12.5 Mg Capsule PO 12.5 mg On Hold: 10/24/25 12:33 DAILY MILY Administration Hydroxyzine HCl 12.5 mg 10/25/25 12:29 10/25/25 13:45 Hydroxyzine Hcl 12.5 Mg Tablet PO 12.5 mg Q6H PRN Administration Itching Dextrose 1,000 mls @ 100 mls/hr 10/22/25 14:14 Dextrose 5% 1,000 Ml IVPB PRN PRN Hypoglycemia Protocol Insulin Aspart 2 - 5 units 10/22/25 17:00 10/25/25 16:39 Insulin Aspart (*Bkc) 100 Units/Ml SUB-Q Not Given TIDWM MILY Protocol Lamotrigine 400 mg 10/22/25 21:00 10/25/25 21:03 Lamotrigine 100 Mg Tablet PO 400 mg HS MILY Administration Multivitamins/Calcium 1 tablet 10/23/25 09:00 10/25/25 08:51 Therapeutic Multivitamins/Minerals Tab (*Bkc) PO 1 tablet DAILY MILY Administration Prednisone 40 mg 10/26/25 08:00 Prednisone 20 Mg Tablet PO DAILY@0800 MILY Rizatriptan Benzoate 10 mg 10/22/25 16:36 10/25/25 21:03 Rizatriptan Benzoate 10 Mg Odt PO 10 mg DAILY PRN Administration Migraine Headache Rosuvastatin Calcium 20 mg 10/23/25 09:00 10/25/25 08:51 Rosuvastatin 20 Mg Tablet PO 20 mg DAILY MILY Administration Radiology Results: ITS Impressions Head CT 10/22/25 11:35 IMPRESSION: 1. Normal aging brain with mild diffuse volume loss. No acute intracranial process. Head/Neck CTA 10/22/25 11:46 IMPRESSION: 1. Minimal atherosclerotic plaque with 0% stenosis of the right carotid bulb relative to normal distal artery lumen diameter (NASCET criteria). 2. No evident atherosclerotic plaque with 0% stenosis of the left carotid bulb relative to normal distal artery lumen diameter. 3. Normal variation to the [place] with diminutive bilateral P1 segments with larger caliber patent bilateral posterior communicating arteries collateral flow to the circulation from the bilateral internal carotid arteries. Otherwise unremarkable cerebral CT angiogram with no hemodynamically significant stenosis, thrombosis or aneurysm. Brain MRI 10/23/25 12:28 IMPRESSION: 1. Small area of possibly restricted diffusion in the left pontine portion of the brainstem likely artifactual. No abnormal T2-weighted signal or enhancement pathology seen in this area. 2. Probable small developmental venous anomaly in the right frontal lobe. Labs Labs: Laboratory Results - last 24 hr 10/25/25 10/25/25 10/25/25 11:26 16:32 21:28 POC Capillary Glucose 116 H 116 H 101 Quality VTE Prophylaxis VTE prophylaxis: pharmacologic ordered Hospitalist [facility] Advance Care Plan I have confirmed that the patient's Advanced Care Plan is present, code status is documented, or surrogate decision maker is listed in patient medical record.: Yes Medication Reconciliation I have utilized all available resources to obtain, update and review the patients current medications (includes all prescriptions, OTC, herbals, cannabis, and nutritional supplements).: Yes
[2025-10-26 08:00] VITALS: PULSE 63
[2025-10-26] MEDS: OMEGA 3 POLYUNSAT FATTY ACIDS 1 GM CAP 2 GM PO (10:01)
[2025-10-26] MEDS: ROSUVASTATIN 20 MG TABLET PO (10:04)
[2025-10-26] MEDS: ASPIRIN 81 MG ENTERIC TABLET PO (10:04)
[2025-10-26] MEDS: THERAPEUTIC MULTIVITAMINS/MINERALS TAB (*BKC) 1 TABLET PO (10:04)
[2025-10-26] MEDS: FINASTERIDE 5 MG TABLET PO (10:04)
[2025-10-26] MEDS: RIZATRIPTAN BENZOATE 10 MG ODT PO (11:53)
[2025-10-26 12:00] VITALS: PULSE 72
[2025-10-26] MEDS: ALPRAZolam (*CRX) 0.5 MG TABLET 1 MG PO (12:11)
--- NOTE | 2025-10-26 13:18 | WPDNEUROLOGY ---
Neurology EEG Report General Information Date of Study: 10/24/25 TEST EEG DIAGNOSIS mental status changes with seizure activity. CONDITION OF RECORDING Awake, drowsy and asleep. EEG NUMBER [id number] CLINICAL HISTORY 60 years old male who had a witnessed seizure-like activity for under 1minute. After the episode, he was extremely confused and speaking word salad. Patient has history of nerve issues. He was diagnosed with COVID pneumonia 1 to 2 weeks ago and had been lying in bed all day without eating or drinking anything patient is diabetic. Patient and explained to me that he has been having memory issues like visitors coming over a few days ago or how old his daughter is. EEG DESCRIPTION Basic resting occipital frequency consists of low-voltage to medium voltage 8 to 10 hertz per 2nd alpha admixed with low-voltage 15 to 18 hertz per 2nd beta. Hyperventilation produced normal and symmetrical buildup. Low-voltage beta activity seen diffusely admixed with waxing and waning posterior alpha rhythm during drowsiness. Low-voltage beta activity seen admixed with intermittent alpha and low-voltage theta activity during initial phase of sleep with development of bilateral symmetrical sleep spindles during deeper stages of sleep. Multiple movement artifacts and muscle artifacts are noted. Non paroxysmal. Nonfocal P nonlateralizing. IMPRESSION No significant abnormalities noted.
--- NOTE | 2025-10-26 14:08 | P.DS_ITS ---
DS: Admitting Diagnosis Discharge Date 10/26/2025 Admitting Diagnosis Seizure DS: Discharge Diagnosis Discharge Diagnosis (1) Altered mental status: Qualifiers: Altered mental status type: unspecified Qualified Code(s): R41.82 - Altered mental status, unspecified Code(s): R41.82 - Altered mental status, unspecified Status: Acute (2) Essential (primary) hypertension: Code(s): I10 - Essential (primary) hypertension Status: Chronic (3) Type 2 diabetes mellitus without complication, without long-term current use of insulin: Code(s): E11.9 - Type 2 diabetes mellitus without complications Status: Chronic (4) Major depression, recurrent, chronic: Code(s): F33.9 - Major depressive disorder, recurrent, unspecified Status: Chronic (5) Chronic anxiety: Code(s): F41.9 - Anxiety disorder, unspecified Status: Chronic (6) Hypotension: Code(s): I95.9 - Hypotension, unspecified Status: Acute DS: Summary Hospital Course Hospital Course: # Altered mental status: Possible seizure at home witnessed by lasting about 30 seconds described as full body stiffening. Patient profoundly confused after event and aggressive with EMS. Remained A&O x1 in the ED. CT head and CTA head neck unremarkable. -seizure precautions -neurology consult -MRI performed no significant finding -EEG with no significant findings MRI brain: 1. Small area of possibly restricted diffusion in the left pontine portion of the brainstem likely artifactual. No abnormal T2-weighted signal or enhancement pathology seen in this area. 2. Probable small developmental venous anomaly in the right frontal lobe. Head/neck CTA :no significant finding Follow-up with Neurology on outpatient basis. # Essential (primary) hypertension: Hold hydrochlorothiazide due to hypotension # Type 2 diabetes mellitus without complication, without long-term current use of insulin: - hypoglycemia protocol - POC blood glucose ACHS - home medication: Metformin - correct regimen ordered: Low-dose sliding scale # Major depression, recurrent, chronic: Continue Lamictal # Chronic anxiety: Continue alprazolam p.r.n. # Hypotension: Echo with diastolic dysfunction grade 1 normal EF no valvular abnormality Blood culture pending however low likely would any infectious etiology Received IV fluid and improved. 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 EYES: PERRLA. Conjunctivae clear. NOSE: Normal no drainage. THROAT: Pharynx clear, no exudate. NECK: Trachea midline. No adenopathy, no masses. RESPIRATORY: Airway patent, respirations nonlabored. CTA. CARDIOVASCULAR: Regular rhythm regular rate GASTROINTESTINAL: Abdomen is soft and nontender. No organomegaly. Bowel sounds normal in all quadrants. GENITOURINARY: Defer MUSCULOSKELETAL: Moves all extremities. No gross deformities. SKIN: Warm, dry, normal color. NEURO: Alert and oriented x3 no focal deficits DS: Data Data Completed and Pending Completed studies during hospitalization: Exam Type: CA echo dop color flow w con Complete two-dimensional, color flow and Doppler transthoracic echocardiogram is performed with contrast to opacify the left ventricle and to improve the deliniation of the left ventricle endocardial borders. Staff Referring Physician: Caprice Gill [employer] Supervisor: Abhishek Hess III Attending Provider: José Montes Contrast/Agitated Saline Contrast/Ag. Saline: Definity Amount: 2.00 ml Administered By: Abhishek Hess III Existing IV Access: Yes IV Access Condition: patent with no signs of infiltration Summary 1. Left ventricular systolic function is normal, estimated at 50-55. 2. The left ventricular diastolic function is grade I diastolic dysfunction. 3. Right ventricular chamber dimension is mildly enlarged. 4. Right ventricular systolic function is normal. 5. There is mild tricuspid valve regurgitation. 6. The prox ascending aorta size is mildly dilated. Measures 4.2 cm. Left Ventricle Left ventricular chamber dimension is normal. Left ventricular systolic function is normal, estimated at 50-55. There is no increased left ventricular wall thickness. Left ventricular septal wall motion is normal. The left ventricular diastolic function is grade I diastolic dysfunction. Right Ventricle Right ventricular chamber dimension is mildly enlarged. Right ventricular systolic function is normal. Left Atria Left atrial chamber dimension is normal. Right Atria Right atrial chamber dimension is normal. Aortic Valve The aortic valve is trileaflet. There is no aortic valve sclerosis. There is no aortic valve stenosis. There is no aortic valve regurgitation. Pulmonic Valve The pulmonic valve is normal. There is no pulmonic valve stenosis. There is no pulmonic regurgitation. Mitral Valve The mitral valve has normal leaflets. There is no mitral valve stenosis. There is no mitral valve regurgitation. Tricuspid Valve The tricuspid valve leaflets are normal. There is no significant tricuspid valve stenosis. There is mild tricuspid valve regurgitation. No pulmonary hypertension, estimated pulmonary arterial systolic pressure is 32 mmHg. Pericardium/Pleural The pericardium appears normal. There is no pericardial effusion. Inferior Vena Cava Normal inferior vena cava with >50% collapse upon inspiration consistent with normal right atrial pressure, 5 mmHg. Aorta The aortic root size at the sinus of Valsalva is normal. The prox ascending aorta size is mildly dilated. Measures 4.2 cm. Labs on day of discharge: Labs from last 24 hours 10/26/25 10/26/25 10/25/25 11:39 07:58 21:28 POC Capillary Glucose 109 H 116 H 101 10/25/25 16:32 POC Capillary Glucose 116 H Procedures/Treatments: Neurology EEG Report General Information Date of Study: 10/24/25 TEST EEG DIAGNOSIS mental status changes with seizure activity. CONDITION OF RECORDING Awake, drowsy and asleep. EEG NUMBER [id number] CLINICAL HISTORY 60 years old male who had a witnessed seizure-like activity for under 1minute. After the episode, he was extremely confused and speaking word salad. Patient has history of nerve issues. He was diagnosed with COVID pneumonia 1 to 2 weeks ago and had been lying in bed all day without eating or drinking anything patient is diabetic. Patient and explained to me that he has been having memory issues like visitors coming over a few days ago or how old his daughter is. EEG DESCRIPTION Basic resting occipital frequency consists of low-voltage to medium voltage 8 to 10 hertz per 2nd alpha admixed with low-voltage 15 to 18 hertz per 2nd beta. Hyperventilation produced normal and symmetrical buildup. Low-voltage beta activity seen diffusely admixed with waxing and waning posterior alpha rhythm during drowsiness. Low-voltage beta activity seen admixed with intermittent alpha and low-voltage theta activity during initial phase of sleep with development of bilateral symmetrical sleep spindles during deeper stages of sleep. Multiple movement artifacts and muscle artifacts are noted. Non paroxysmal. Nonfocal P nonlateralizing. IMPRESSION No significant abnormalities noted. Imaging Radiologist's impression: ITS Impressions Head CT 10/22/25 11:35 IMPRESSION: 1. Normal aging brain with mild diffuse volume loss. No acute intracranial process. Head/Neck CTA 10/22/25 11:46 IMPRESSION: 1. Minimal atherosclerotic plaque with 0% stenosis of the right carotid bulb relative to normal distal artery lumen diameter (NASCET criteria). 2. No evident atherosclerotic plaque with 0% stenosis of the left carotid bulb relative to normal distal artery lumen diameter. 3. Normal variation to the [place] with diminutive bilateral P1 segments with larger caliber patent bilateral posterior communicating arteries collateral flow to the circulation from the bilateral internal carotid arteries. Otherwise unremarkable cerebral CT angiogram with no hemodynamically significant stenosis, thrombosis or aneurysm. Brain MRI 10/23/25 12:28 IMPRESSION: 1. Small area of possibly restricted diffusion in the left pontine portion of the brainstem likely artifactual. No abnormal T2-weighted signal or enhancement pathology seen in this area. 2. Probable small developmental venous anomaly in the right frontal lobe. Discharge Plan Discharge Attending physician on discharge: José Montes Consulting providers: Zane Lagos Discharging Clinician: José Montes Anticipated Discharge Date/Time: 10/26/25 14:12 Patient Disposition: Home Activity: as tolerated Diet: heart healthy Discharge Instructions: no driving until 6 months seizure free Patient Instructions: Antibiotic Form Patient Language: [place] Stand Alone Forms: General Discharge Information Follow-up/Referrals: Zane Lagos MD [Physician, Neurology] - 4 Weeks [facility],MISSY Rivas [Primary Care Provider, Unknown] - 1 Week Discharge Medications: Continued lamotrigine 200 mg tablet 400 mg PO HS alprazolam 1 mg tablet 1 mg PO TID PRN (Reason: Anxiety) omeprazole 40 mg capsule,delayed release(DR/EC) 40 mg PO BID finasteride 5 mg tablet 5 mg PO DAILY icosapent ethyl 1 gram capsule 2 g PO .BID rosuvastatin 20 mg tablet 20 mg PO DAILY Mounjaro 5 mg/0.5 mL pen injector 5 mg SUBCUT WEEKLY Patient Comments: Takes on tuesday metformin 500 mg tablet See Rx Instructions PO BID Rx Instructions: take 2 tablets daily with food for diabetes ergocalciferol (vitamin D2) 1,250 mcg (50,000 unit) capsule 1,250 mcg PO WEEKLY Patient Comments: TAKES ON TUESDAY rizatriptan 10 mg tablet 10 mg PO .DAILY PRN (Reason: migraine headache) buprenorphine HCl 8 mg tablet, sublingual 8 mg SUBLINGUAL TID aspirin [Dewey Low Dose Aspirin] 81 mg tablet,delayed release (DR/EC) 81 mg PO DAILY magnesium glycinate 100 mg magnesium capsule 200 mg PO DAILY Rx Instructions: orally; DAILY VITAMIN FORMULA-MINERALS Tablet 1 tablet PO DAILY mecobal-levomefolat Ca-B6 phos 2-3-35 mg tablet 1 tablet PO BID testosterone cypionate 200 mg/mL oil 200 mg IM .Q2W Qty: 10 2RF Discontinued hydrochlorothiazide 12.5 mg capsule 12.5 mg PO DAILY Date of admission: 10/26/25 06:00 Primary Care Provider: Abhishek,Hope Levy Admitting Provider: José Montes Attending physician on admission: José Montes Condition: Stable
--- NOTE | 2025-10-26 14:20 | P.PNNEUR_ITS ---
Subjective Date/time seen: 10/26/25 14:20 Interval history: History of multiple problems particularly recurrent migraine, fibromyalgia, obstructive sleep apnea, and diabetes mellitus. Admitted to the hospital through the emergency room with seizure-like activity though has been taking alprazolam 3 times a day advised him not to it be started on anticonvulsants be careful about the dry and discussed sleep medications with his other physician who are prescribing an outpatient . He will be discharged today Objective Data Vital Signs Vital Signs: Vital Signs - 24 hr 10/25/25 16:00 10/25/25 20:00 10/25/25 21:29 Temperature 36.2 C L Pulse Rate 65 66 Respiratory Rate 20 Blood Pressure 148/76 H Pulse Oximetry 98 Oxygen Delivery Room Air 10/26/25 00:00 10/26/25 04:00 10/26/25 06:00 Temperature 36.4 C L Pulse Rate 83 59 L 92 Respiratory Rate 20 Blood Pressure 129/77 Pulse Oximetry 98 Oxygen Delivery 10/26/25 08:00 10/26/25 08:00 Temperature Pulse Rate 63 Respiratory Rate Blood Pressure Pulse Oximetry Oxygen Delivery Room Air Intake/Output Intake/Output: Intake & Output 10/23/25 10/24/25 10/25/25 10/26/25 23:59 23:59 23:59 23:59 Intake Total 1600 2850 2400 860 Output Total 510 1600 Balance 1090 2850 800 860 Meds/Results Medications: Active Medications Generic Name Dose Route Start Last Admin Trade Name Freq PRN Reason Stop Dose Admin Alprazolam 1 mg 10/26/25 11:58 10/26/25 12:11 Alprazolam (*Crx) 0.5 Mg Tablet PO 1 mg TID PRN Administration Anxiety Aspirin 81 mg 10/23/25 09:00 10/26/25 10:04 Aspirin 81 Mg Enteric Tablet PO 81 mg DAILY MILY Administration Buprenorphine HCl 8 mg 10/23/25 06:00 10/26/25 05:09 Buprenorphine Hcl (*Crx) 8 Mg Sublingual Tablet SUBLINGUAL 8 mg Q8HR MILY Administration Dextrose 12.5 gm 10/22/25 14:14 Dextrose 50% 25 Gm/50 Ml Syringe IV PUSH PRN PRN Hypoglycemia Protocol Diphenhydramine HCl 25 mg 10/24/25 21:50 10/24/25 23:21 Diphenhydramine Hcl Cap 25 Mg Capsule PO 25 mg Q6H PRN Administration Itching Ergocalciferol 1,250 mcg 10/25/25 09:00 10/25/25 08:57 Ergocalciferol (Vitamin D2) 1,250 Mcg (50,000 Units) Capsule PO 1,250 mcg Fr@0900 MILY Administration Finasteride 5 mg 10/23/25 09:00 10/26/25 10:04 Finasteride 5 Mg Tablet PO 5 mg DAILY MILY Administration Fish Oil 2 gm 10/22/25 17:00 10/26/25 10:01 [place] 3 Polyunsat Fatty Acids 1 Gm Cap PO 2 gm BID MILY Administration Glucagon 1 mg 10/22/25 14:14 Glucagon For Inj 1 Mg Vial IM PRN PRN Hypoglycemia Protocol Glucose 15 gm 10/22/25 14:14 Glucose Oral Gel 15 Gm Of Glucse In 37.5 Gm Tube PO PRN PRN Hypoglycemia Protocol Hydrochlorothiazide 12.5 mg 10/23/25 09:00 10/24/25 09:07 Hydrochlorothiazide 12.5 Mg Capsule PO 12.5 mg On Hold: 10/24/25 12:33 DAILY MILY Administration Hydroxyzine HCl 12.5 mg 10/25/25 12:29 10/25/25 13:45 Hydroxyzine Hcl 12.5 Mg Tablet PO 12.5 mg Q6H PRN Administration Itching Dextrose 1,000 mls @ 100 mls/hr 10/22/25 14:14 Dextrose 5% 1,000 Ml IVPB PRN PRN Hypoglycemia Protocol Insulin Aspart 2 - 5 units 10/22/25 17:00 10/26/25 11:53 Insulin Aspart (*Bkc) 100 Units/Ml SUB-Q Not Given [facility] Protocol Lamotrigine 400 mg 10/22/25 21:00 10/25/25 21:03 Lamotrigine 100 Mg Tablet PO 400 mg HS MILY Administration Multivitamins/Calcium 1 tablet 10/23/25 09:00 10/26/25 10:04 Therapeutic Multivitamins/Minerals Tab (*Bkc) PO 1 tablet DAILY MILY Administration Prednisone 40 mg 10/26/25 08:00 10/26/25 10:04 Prednisone 20 Mg Tablet PO 40 mg DAILY@0800 MILY Administration Rizatriptan Benzoate 10 mg 10/22/25 16:36 10/26/25 11:53 Rizatriptan Benzoate 10 Mg Odt PO 10 mg DAILY PRN Administration Migraine Headache Rosuvastatin Calcium 20 mg 10/23/25 09:00 10/26/25 10:04 Rosuvastatin 20 Mg Tablet PO 20 mg DAILY MILY Administration Radiology Results: ITS Impressions Head CT 10/22/25 11:35 IMPRESSION: 1. Normal aging brain with mild diffuse volume loss. No acute intracranial proce ss. Head/Neck CTA 10/22/25 11:46 IMPRESSION: 1. Minimal atherosclerotic plaque with 0% stenosis of the right carotid bulb relative to normal distal artery lumen diameter (NASCET criteria). 2. No evident atherosclerotic plaque with 0% stenosis of the left carotid bulb relative to normal distal artery lumen diameter. 3. Normal variation to the [place] of [place] with diminutive bilateral P1 segments with larger caliber patent bilateral posterior communicating arteries collateral flow to the circulation from the bilateral internal carotid arteries. Otherwise unremarkable cerebral CT angiogram with no hemodynamically significant stenosis, thrombosis or aneurysm. Brain MRI 10/23/25 12:28 IMPRESSION: 1. Small area of possibly restricted diffusion in the left pontine portion of the brainstem likely artifactual. No abnormal T2-weighted signal or enhancement pathology seen in this area. 2. Probable small developmental venous anomaly in the right frontal lobe. Labs Labs: Laboratory Results - last 24 hr 10/25/25 10/25/25 10/26/25 16:32 21:28 07:58 POC Capillary Glucose 116 H 101 116 H 10/26/25 11:39 POC Capillary Glucose 109 H
== END 2025-10-26 15:25 | disposition home or self-care (01) | DRG 101 ==
LOC: ANHED 13:55 → ANH3MEDSUR 14:08
PROVIDERS: General Practice; Nurse Practitioner Adult Health; Admitting Provider Internal Medicine; Emergency Provider Emergency Medicine; PCP Nurse Practitioner; Visit Provider Internal Medicine
DX: R56.9 Unspecified convulsions (principal); F33.9 Major depressive disorder, recurrent, unspecified; R41.82 Altered mental status, unspecified; I10 Essential (primary) hypertension; I95.9 Hypotension, unspecified; E78.2 Mixed hyperlipidemia; E11.9 Type 2 diabetes mellitus without complications; M79.7 Fibromyalgia; R27.0 Ataxia, unspecified; G47.33 Obstructive sleep apnea (adult) (pediatric); G43.009 Migraine without aura, not intractable, without status migrainosus; F41.9 Anxiety disorder, unspecified; F17.220 Nicotine dependence, chewing tobacco, uncomplicated; Z20.822 Contact with and (suspected) exposure to COVID-19; Z79.82 Long term (current) use of aspirin
CPT/HCPCS: 36415; 70450; 70496; 70498; 70553; 80048; 80053; 80307; 82077; 82948; 83605; 84484; 85025; 85027; 85610; 85730; 87040; 93005; 95816; 96361; 96372; 96374; 96375; 99285; A9270; A9577; C8929; G0378; J0571; J1650; J1790; J2250; J7120; J7512; Q9957; Q9967